=== PATIENT | female | born 1970 | race Hispanic/Latino ===

== ENCOUNTER 2019-06-06 20:45 | Inpatient (IN) | payer OTHER, SELFPAY ==
--- NOTE | ~2019-06-06 | XR_ITS ---
XR knee LT 2V 06/07/2019 14:56 Indication: Left knee pain after fall upstairs. Left-sided weakness. Procedure: 2 views left knee Comparison: No prior studies for comparison. Findings: There is a nondisplaced proximal fibular metadiaphyseal fracture. Small joint effusion. Ext ensive arterial calcification. No other fracture identified. Impression: 1: Nondisplaced proximal fibular metadiaphyseal fracture. Reviewed, dictated and finalized at location A. Impression: 1: Nondisplaced proximal fibular metadiaphyseal fracture.
--- NOTE | ~2019-06-06 | XR_ITS ---
XR hip LT min 2V 06/07/2019 14:56 Indication: Left hip pain Procedure: 2 views left hip Comparison: 08/01/2018 Findings: No fracture or traumatic malalignment. There is mild joint space narrowing. No erosive goldman ges. No significant soft tissue abnormality. Impression: 1: Mild osteoarthritis of the left hip. Reviewed, dictated and finalized at location A. Impression: 1: Mild osteoarthritis of the left hip.
--- NOTE | ~2019-06-06 | XR_ITS ---
XR foot LT min 3V 06/06/2019 22:46 Indication: Diabetic ulcer fifth toe Procedure: 4 views left foot Comparison: No prior studies for comparison. Findings: There is a small loose body along the lateral margin of the fifth PIP joint, likely related to remote trauma. No definite osteolytic lesions are seen. There is overlying soft tissue swelling w ith ulceration. Small degenerative calcaneal enthesophyte. There are arterial calcifications. There i s a linear radiodensity adjacent to the second DIP joint. Cannot exclude foreign body. Impression: 1: No definite evidence for osteomyelitis of the left foot. Moderate soft tissue swelling with ulcera tion of the soft tissues overlying the fifth toe. 2: Possible linear foreign body in the soft tissues adjacent to the second DIP joint. Reviewed, dictated and finalized at location A. Impression: 1: No definite evidence for osteomyelitis of the left foot. Moderate soft tissu e swelling with ulceration of the soft tissues overlying the fifth toe. 2: Possible linear foreign body in the soft tissues adjacent to the second DIP joint.
--- NOTE | ~2019-06-06 | MR_ITS ---
EXAMINATION: MR foot LT wo/w con DATE: 06/07/2019 14:51 INDICATION: Left fifth toe diabetic ulcer. TECHNIQUE: Magnetic resonance imaging (MRI) of the left foot was performed without and with 19 mL Mul tiHance intravenous contrast. Sequences included sagittal T2-weighted FS FSE and T1-weighted FSE and short-axis and long-axis T1-weighted FSE and T2-weighted FS FSE. Postcontrast sequences included shor t-axis and long-axis T1-weighted FS FSE. COMPARISON: Left foot radiographs 06/06/2019 FINDINGS: Bone alignment is normal. No fracture. There is mild osteoarthritis of first metatarsophala ngeal joint and some of the interphalangeal joints. There is an ulcer lateral to the fifth proximal a nd middle phalanges. There is mild bone marrow edema of fifth middle phalanx and head of fifth proxim al phalanx characterized by mildly decreased T1-weighted signal intensity. Lisfranc ligament is intac t. There is moderate to severe fatty atrophy of the musculature. There is widespread increased T2-rudi ghted signal intensity in the musculature, consistent with subacute denervation. The flexor and exten sor tendons are unremarkable. IMPRESSION: 1. Acute osteomyelitis involving fifth middle phalanx and head of fifth proximal phalanx. Reviewed, dictated and finalized at location A. IMPRESSION: 1. Acute osteomyelitis involving fifth middle phalanx and head of fifth proxima l phalanx.
[2019-06-06 20:50] VITALS: BP 141/111; PULSE 92; RESP 20; TEMP 36.8; O2SAT 100
--- NOTE | 2019-06-06 22:26 | ED.SKABFB ---
HPI - Skin/Abscess/Foreign Bdy General Chief complaint: Skin/Abscess/Foreign Body Stated complaint: diabetic wound Time Seen by Provider: 06/06/19 22:25 Source: patient and RN notes reviewed Mode of arrival: ambulatory Limitations: no limitations History of Present Illness HPI narrative: A 48 y/o female presents to the ED with a worsening painful wound to her lt 5th toe for the past 2 months. She states that tonight she noticed drainage and a odor, so she decided to come to the ED. She denies any fevers, chills, N/V/D, or SOB. complaint: other (painful wound) Onset (ago): month(s) (2) Location: L foot (5th toe) Pain Consistency: other (worsening) Associated symptoms: other (drainage and odor from wound) Related Data Home Medications Medication Instructions Recorded Confirmed aspirin 06/07/19 atorvastatin 06/07/19 cholecalciferol (vitamin D3) 06/07/19 [Dialyvite Vitamin D3 Max] ergocalciferol (vitamin D2) 06/07/19 ertugliflozin [Steglatro] mg 06/07/19 famotidine 06/07/19 ferrous sulfate 06/07/19 furosemide 06/07/19 gabapentin 06/07/19 hydralazine 06/07/19 insulin lispro [Admelog U-100 06/07/19 Insulin lispro] losartan 06/07/19 metformin mg PO 06/07/19 metoprolol tartrate 06/07/19 spironolactone 06/07/19 Allergies Allergy/AdvReac Type Severity Reaction Status Date / Time hydrocodone AdvReac Severe Headache Verified 01/21/18 07:41 Penicillins AdvReac Mild Nausea Verified 01/21/18 07:41 Review of Systems Review of Systems: All systems reviewed & are unremarkable except as noted in HPI and below Constitutional: Constitutional: Denies chills and Denies fever(s) Respiratory: Respiratory: Denies dyspnea Gastrointestinal: Gastrointestinal: Denies diarrhea, Denies nausea and Denies vomiting Integumentary/Breasts: Skin/Breast: Reports wounds (to lt 5th toe with drainage and odor) [facility] Past Medical History Medical History (Updated 06/07/19 @ 00:59 by Jayla Vega MD) Anemia DM II (diabetes mellitus, type II), controlled Glaucoma H/O: HTN (hypertension) HLD (hyperlipidemia) Peripheral neuropathy Retinopathy due to secondary diabetes mellitus Surgical History Surgical History (Updated 06/06/19 @ 22:43 by Gregory De Los Santos) History of dilation and curettage History of hysterectomy Previous section x2. Social History Social History (Updated 06/06/19 @ 22:44 by Gregory De Los Santos) Smoking status: Never smoker Gender identity (if verbalized by the patient): Female Exam Const: General: cooperative, no acute distress and alert Nutritional Appearance: obese centrally obese (morbidly) Orientation/consciousness: patient oriented x3 Limitations: no limitations Resp: Effort & Inspection: normal respiratory effort Auscultation: clear to auscultation bilaterally Cardio: Rate: regular rate Rhythm: regular rhythm GI: GI Palp: Yes Soft to palpation and No Tenderness to palpation present (GI) Auscultation: normal bowel sounds Skin: General skin exam: normal color Wounds: wounds noted (ulcer on lateral aspect of lt 5th toe with) Neuro: General: patient oriented x3 Cognition (Neuro): normal cognition Speech: normal speech Extrem: General: full ROM and no clubbing, cyanosis or edema Left lower extremity: foot Details: tenderness (diffuse), warmth (diffuse) and other (faint erythema) Psych: Mental Status: mental status grossly normal Affect: normal affect Attitude: cooperative Course Course Emergency Course: Patient with findings of diabetic foot ulcer that is infected with possibility of osteomyelitis based on test results. Patient admitted to hospitalist service on broad-spectrum IV antibiotics targeted based on antibiotic stewardship order set for diabetic infections. Patient advised diagnosis and admission plan. Consultations Consultation #1: Discussed case with Dr. Campbell (Hospitalist). Accepts the pt. Date: 06/07/19 Time: 00:25 Vital Signs Vital si
[2019-06-06 23:39] LABS: Lactic Acid Reflex 2.8 mmol/L (0.7-2.1)
[2019-06-06 23:41] LABS: Alanine Aminotransferase 19 U/L (4-35); Albumin Level 3.7 g/dL (3.5-5.1); Alkaline Phosphatase 145 U/L (38-126); Aspartate Amino Transferase 24 U/L (14-36); Bilirubin,Total 0.3 mg/dL (0.2-1.3); Blood Urea Nitrogen 10 mg/dL (7-17); CRP 1.8 mg/dL (<1.0); Carbon Dioxide 29 mmol/L (22-30); Chloride 101 mmol/L (98-107); Estimated Glomerular Filt Rate > 60; Glucose 240 mg/dL (65-105); Potassium 4.1 mmol/L (3.4-5.0); Sodium 138 mmol/L (137-145)
[2019-06-06 23:51] LABS: Erythrocyte Sedimentation Rate 80 mm/hr (0-20)
[2019-06-06 23:52] LABS: Basophils Percent Auto 0.4 % (0.2-1.2); Eosinophils Absolute Auto 0.2 K/mm3 (0-0.3); Hematocrit 38.5 % (37.0-47.0); Hemoglobin 12.3 g/dL (12.0-15.0); Immature Granulocyte Absolute 0.04 K/mm3 (0.00-0.031); Immature Granulocyte Percent A 0.4 % (0-0.5); Lymphocytes Absolute Auto 2.91 K/mm3 (0.9-3.2); Lymphocytes Percent Auto 31.9 % (18.3-44.2); Mean Corpuscular HGB Conc 31.9 g/dl (32-36); Mean Corpuscular Hemoglobin 29.6 pg (26-34); Mean Corpuscular Volume 92.8 fl (80-100); Mean Platelet Volume 12.7 fl (7.4-10.4); Monocytes Absolute Auto 0.6 K/mm3 (0.1-0.6); Monocytes Percent Auto 6.7 % (2.6-8.5); Neutrophils Absolute Auto 5.3 K/mm3 (1.3-6.7); Neutrophils Percent Auto 58.6 % (45.5-73.1); Platelet Count Result 258 k/mm3 (150-375); Red Blood Count 4.15 M/mm3 (4.2-5.4); Red Cell Distribution Width 13.7 % (11.5-14.5); White Blood Count 9.1 K/mm3 (4.5-10.0)
[2019-06-07] VITALS (7 sets, daily range): BP systolic 107–161; BP diastolic 62–97; PULSE 81–105; RESP 18–20; TEMP 36.7–37.2; O2SAT 96–100; BMI 40.1
--- NOTE | 2019-06-07 01:17 | ADMGEN ---
This patient, Hillary Bailey, was admitted to 3 [facility] Surg Room 328-01. Patient/family oriented to hospital policies and general routines including ID bracelet, bed and alarms, visiting hours, pain management, procedures, bathroom and other care routines, personal items, smoking policy, room service/diet, and visiting hours. Valuables list has been completed. Information on how to activate the Rapid Response Team has been discussed. Patient/Family are encouraged to report perceived risks to care and to ask questions if they do not understand what they are told or what they should do.
[2019-06-07 02:09] LABS: Glucose Point of Care 238 (65-105)
[2019-06-07 02:23] LABS: Reflex Lactic Acid Yes or No Add Lactic
[2019-06-07 02:59] LABS: Lactic Acid 1.9 mmol/L (0.7-2.1)
--- NOTE | 2019-06-07 05:52 | PM.IMHP ---
H&P: HPI History of Present Illness Chief complaint: Left foot wound Narrative: Date and time of patient contact: 06/07/2019 at 6:00 a.m. Hillary Bailey is a 48 year old female with a past medical history of nephrotic syndrome, type 2 diabetes mellitus, diabetic retinopathy, and diabetic peripheral neuropathy who presented to the ER with a left foot wound. The patient thinks that she injured her foot about 2 months ago when she stubbed it coming out of the bathroom. Her boyfriend has been trying to manage the wound at home with Neosporin. Both the patient and the boyfriend felt that the patient's wound was getting better so they did not go to her primary care provider regarding her wound. The patient thinks that she last saw the wound on Friday. When she went to wash her foot on Friday she noticed a foul odor coming from her foot. Her foot was also more erythematous and swollen. She reports that her fasting glucoses are usually around 130 and that her evening glucoses are usually in the 200s as long as she does not eat extra snacks. She denies any fevers or chills. She reports that she cannot feel her feet at all. She denies any pain in her foot. The patient reports that she recently had all of her teeth pulled. She has not yet received dentures. Review of Systems Review of Systems: Narrative: Except as documented in the HPI, all other systems were reviewed and are negative. [facility] Past Medical History Medical History (Updated 06/07/19 @ 06:56 by Soniya Campbell DO) Anemia Diabetic peripheral neuropathy Diastolic heart failure Echocardiogram May 2017 demonstrated grade 2 diastolic dysfunction with normal ejection fraction, moderate left atrial enlargement, RVSP 62, moderate tricuspid regurgitation Essential hypertension Glaucoma HLD (hyperlipidemia) Left-sided weakness Since infancy Nephrotic range proteinuria Due to diabetes Pulmonary hypertension With RVSP of 62 on echocardiogram May 2017 Retinopathy due to secondary diabetes mellitus Type 2 diabetes mellitus Vitamin D deficiency Surgical History Surgical History (Updated 06/07/19 @ 07:19 by Soniya Campbell DO) History of dilation and curettage Previous section x2. Status post total abdominal hysterectomy and bilateral salpingo-oophorectomy (TADEO-BSO) Laparoscopic Family History Family History Other Cerebrovascular accident Diabetes mellitus Social History Social History (Updated 06/07/19 @ 07:20 by Soniya Campbell, ) Social History: She has 3 children who reportedly healthy. Primary care provider: Kimmy Cool HAND MIXER Code status: Full code Smoking status: Never smoker Alcohol intake: never Substance use: never Additional living arrangements comments: The patient lives with her long-term boyfriend in [facility]. She would like her boyfriend Tan Gillespie to [facility] surrogate decision maker. Additional occupation/education comments: She is disabled. She rarely leaves the house. Gender identity (if verbalized by the patient): Female Spiritual care concerns: No Agree to blood products: Yes Meds Home Medications and Allergies Home Medications Medication Instructions Recorded Confirmed Type aspirin 1 tablet PO QPM 06/07/19 06/07/19 History atorvastatin 1 mg PO HS 06/07/19 06/07/19 History cholecalciferol (vitamin D3) 50,000 mcg PO QPM 06/07/19 06/07/19 History [Dialyvite Vitamin D3 Max] ertugliflozin [Steglatro] 15 mg PO QPM 06/07/19 06/07/19 History famotidine 40 mg PO QPM 06/07/19 06/07/19 History ferrous sulfate 325 mg PO QPM 06/07/19 06/07/19 History furosemide 40 mg PO QPM 06/07/19 06/07/19 History gabapentin 300 mg PO QID 06/07/19 06/07/19 History hydralazine 25 mg PO QPM 06/07/19 06/07/19 History insulin lispro [Admelog U-100 100 unit SUBCUT DIRECTED 06/07/19 06/07/19 History Insulin lispro] losartan 10
[2019-06-07 07:38] LABS: Hemoglobin A1C 9.8 % (<5.7)
[2019-06-07 07:58] LABS: Glucose Point of Care 263 (65-105)
[2019-06-07] MEDS: metFORMIN HCL XR 500 MG TAB.SR.24H PO ×4 (08:02→21:10)
[2019-06-07] MEDS: GABAPENTIN 300 MG CAPSULE PO ×4 (08:02→21:09)
[2019-06-07] MEDS: INSULIN ASPART (*BKC) 100 UNITS/ML SUB-Q ×3 (08:03→17:25)
[2019-06-07] MEDS: INSULIN GLARGINE (*BKC) 100 UNITS/ML 50 UNITS SUB-Q (08:03)
[2019-06-07] MEDS: ENOXAPARIN 40 MG/0.4 ML SYRINGE SUB-Q (08:04)
[2019-06-07 11:56] LABS: Glucose Point of Care 295 (65-105)
[2019-06-07 17:17] LABS: Glucose Point of Care 222 (65-105)
[2019-06-07] MEDS: FUROSEMIDE 40 MG TABLET PO (17:23)
[2019-06-07] MEDS: hydrALAZINE HCL 25 MG TABLET PO (17:23)
[2019-06-07] MEDS: LOSARTAN POTASSIUM 100 MG TABLET PO (17:23)
[2019-06-07] MEDS: SPIRONOLACTONE 25 MG TABLET PO (17:23)
[2019-06-07] MEDS: FAMOTIDINE 20 MG TABLET 40 MG PO (17:23)
[2019-06-07] MEDS: ASPIRIN 81 MG CHEWABLE TABLET PO (17:24)
[2019-06-07] MEDS: METOPROLOL TARTRATE 50 MG TAB PO (17:24)
[2019-06-07] MEDS: FERROUS SULFATE 324 MG TABLET PO (17:24)
--- NOTE | 2019-06-07 18:43 | PM.IMPN ---
Progress Note: A&P Assessment and Plan (1) Osteomyelitis of toe of left foot: Code(s): M86.9 - Osteomyelitis, unspecified Status: Acute Assessment and Plan: Day 1 Primaxin and Vanc ID and surgery to see Most expeditious therapy likely includes amputation (2) Diabetic foot ulcer: Qualifiers: Diabetes mellitus type: type 2 Diabetic foot ulcer location: toe Laterality: left Non-pressure ulcer stage: unspecified non-pressure ulcer stage Qualified Code(s): E11.621 - Type 2 diabetes mellitus with foot ulcer; L97.529 - Non-pressure chronic ulcer of other part of left foot with unspecified severity Code(s): E11.621 - Type 2 diabetes mellitus with foot ulcer; L97.509 - Non-pressure chronic ulcer of other part of unspecified foot with unspecified severity Status: Acute Assessment and Plan: Van/Primaxin Wound care (3) Type 2 diabetes mellitus with hyperglycemia: Qualifiers: 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 Tolerated diet. No cp or sob. No gi/gu c/o. No abnormal bleeding. Review of Systems Review of Systems: All systems reviewed & are unremarkable except as noted in HPI and below Exam Narrative: Exam Narrative: HEENT: Mucous membranes are moist, edentulous Neck: No JVD Respiratory: Clear to auscultation bilaterally, no increased work of breathing Cardiovascular: Regular rate, normal S1-S2, no murmur Gastrointestinal: Obese, soft, normoactive bowel sounds, moderate erythema to the left 5th toe and left lateral forefoot with left distal lateral toe ulcer about 1cm Extremities: 2+ bilateral pedal pulses, 1+ pitting edema pretibial bilaterally Neurological: Alert and oriented, speech is clear, no facial asymmetry Psychiatric: Appropriate mood and affect, pleasant and cooperative Objective Data Vital Signs Vital Signs: Vital Signs - 24 hr 06/06/19 20:50 06/07/19 01:01 06/07/19 02:00 Temperature 98.3 F 98.9 F Pulse Rate 92 81 87 Respiratory Rate 20 18 18 Blood Pressure 141/111 H 146/73 H 133/64 Pulse Oximetry 100 96 100 06/07/19 06:00 06/07/19 08:51 06/07/19 15:58 Temperature 98.6 F 98.2 F 98.0 F Pulse Rate 93 105 H 96 Respiratory Rate 18 20 18 Blood Pressure 147/62 H 161/97 H 137/79 Pulse Oximetry 98 100 100 06/07/19 17:24 Temperature Pulse Rate 96 Respiratory Rate Blood Pressure Pulse Oximetry Intake/Output Intake/Output: Intake & Output 06/04/19 06/05/19 06/06/19 06/07/19 22:59 22:59 23:59 23:59 Intake Total 2390 Output Total 1999 Balance 390 Meds/Results Medications: Active Medications Generic Name Dose Route Start Last Admin Trade Name Freq PRN Reason Stop Dose Admin Acetaminophen 650 mg 06/07/19 00:42 Tylenol Tablet PO Q4H PRN Mild Pain (1-3) or Fever Aspirin 81 mg 06/07/19 17:00 06/07/19 17:24 Aspirin Chewable PO 81 mg DAILY@1700 [facility] Administration Atorvastatin Calcium 20 mg 06/07/19 21:00 Lipitor PO HS JENNIFER Dextrose 12.5 gm 06/07/19 05:49 Dextrose 50% Syringe IV PUSH PRN PRN Hypoglycemia Protocol Enoxaparin Sodium 40 mg 06/07/19 09:00 06/07/19 08:04 Lovenox SUB-Q 40 mg DAILY JENNIFER Administration Famotidine 40 mg 06/07/19 18:00 06/07/19 17:23 Pepcid PO 40 mg QPM JENNIFER Administration Ferrous Sulfate 324 mg 06/07/19 17:00 06/07/19 17:24 Ferrous Sulfate PO 324 mg DAILY@1700 JENNIFER Administration Furosemide 40 mg 06/07/19 17:00 06/07/19 17:23 Lasix Tablet PO 40 mg DAILY@1700 [facility] Administration Gabap
[2019-06-07] MEDS: ATORVASTATIN 20 MG TABLET PO (21:09)
[2019-06-07 23:33] LABS: Glucose Point of Care 250 (65-105)
[2019-06-08 06:00] VITALS: BP 131/64; PULSE 84; RESP 18; TEMP 36.3; O2SAT 96
[2019-06-08 06:41] LABS: Hematocrit 34.5 % (37.0-47.0); Hemoglobin 11.1 g/dL (12.0-15.0); Mean Corpuscular HGB Conc 32.2 g/dl (32-36); Mean Corpuscular Volume 93.2 fl (80-100); Mean Platelet Volume 12.4 fl (7.4-10.4); Platelet Count Result 231 k/mm3 (150-375); Red Cell Distribution Width 13.5 % (11.5-14.5); White Blood Count 9.4 K/mm3 (4.5-10.0)
[2019-06-08 06:53] LABS: Blood Urea Nitrogen 12 mg/dL (7-17); CRP 1.8 mg/dL (<1.0); Calcium 8.7 mg/dL (8.4-10.2); Carbon Dioxide 28 mmol/L (22-30); Chloride 103 mmol/L (98-107); Estimated CRCL calculation 106 ml/min; Estimated Glomerular Filt Rate > 60; Glucose 170 mg/dL (65-105); Potassium 3.7 mmol/L (3.4-5.0); Sodium 138 mmol/L (137-145)
[2019-06-08] MEDS: GABAPENTIN 300 MG CAPSULE PO ×4 (08:54→21:41)
[2019-06-08] MEDS: metFORMIN HCL XR 500 MG TAB.SR.24H PO ×4 (08:54→21:41)
[2019-06-08] MEDS: ENOXAPARIN 40 MG/0.4 ML SYRINGE SUB-Q (08:54)
[2019-06-08] MEDS: INSULIN ASPART (*BKC) 100 UNITS/ML SUB-Q ×4 (08:59→17:50)
[2019-06-08] MEDS: INSULIN GLARGINE (*BKC) 100 UNITS/ML 50 UNITS SUB-Q (09:00)
[2019-06-08 09:38] LABS: Vancomycin Trough 27.4 ug/mL (10.0-20.0)
[2019-06-08 09:50] LABS: Glucose Point of Care 166 (65-105)
[2019-06-08 13:02] LABS: Glucose Point of Care 294 (65-105)
--- NOTE | 2019-06-08 13:50 | WPDINFPN2 ---
Progress Note: A&P Assessment and Plan (1) Osteomyelitis of toe of left foot: Code(s): M86.9 - Osteomyelitis, unspecified Status: Acute Assessment and Plan: Acute OM L 5th toe. DM REC A1C. Ctx #1 and Vanc #2. I recommend amputation of toe, but emphasized that decision is up to her and Dr. Menon. If no surgery, 6 weeks IV therapy, no guarantee of cure. Subjective Date/time seen: 06/08/19 13:50 Objective Data Vital Signs Vital Signs: Vital Signs - 24 hr 06/07/19 15:58 06/07/19 17:24 06/07/19 22:00 Temperature 36.7 C 37.1 C Pulse Rate 96 96 92 Respiratory Rate 18 18 Blood Pressure 137/79 107/76 Pulse Oximetry 100 100 06/08/19 06:00 Temperature 36.3 C L Pulse Rate 84 Respiratory Rate 18 Blood Pressure 131/64 Pulse Oximetry 96 Intake/Output Intake/Output: Intake & Output 06/05/19 06/06/19 06/07/19 06/08/19 22:59 23:59 23:59 23:59 Intake Total 2390 1370 Output Total 1999 Balance 390 1370 Meds/Results Medications: Active Medications Generic Name Dose Route Start Last Admin Trade Name Freq PRN Reason Stop Dose Admin Acetaminophen 650 mg 06/07/19 00:42 Tylenol Tablet PO Q4H PRN Mild Pain (1-3) or Fever Aspirin 81 mg 06/07/19 17:00 06/07/19 17:24 Aspirin Chewable PO 81 mg DAILY@1700 JENNIFER Administration Atorvastatin Calcium 20 mg 06/07/19 21:00 06/07/19 21:09 Lipitor PO 20 mg HS JENNIFER Administration Dextrose 12.5 gm 06/07/19 05:49 Dextrose 50% Syringe IV PUSH PRN PRN Hypoglycemia Protocol Enoxaparin Sodium 40 mg 06/07/19 09:00 06/08/19 08:54 Lovenox SUB-Q 40 mg DAILY JENNIFER Administration Famotidine 40 mg 06/07/19 18:00 06/07/19 17:23 Pepcid PO 40 mg QPM JENNIFER Administration Ferrous Sulfate 324 mg 06/07/19 17:00 06/07/19 17:24 Ferrous Sulfate PO 324 mg DAILY@1700 JENNIFER Administration Furosemide 40 mg 06/07/19 17:00 06/07/19 17:23 Lasix Tablet PO 40 mg DAILY@1700 JENNIFER Administration Gabapentin 300 mg 06/07/19 09:00 06/08/19 12:32 Neurontin PO 300 mg QID JENNIFER Administration Glucagon 1 mg 06/07/19 05:49 Glucagon For Inj IM PRN PRN Hypoglycemia Protocol Glucose 15 gm 06/07/19 05:49 Glutose 15 PO PRN PRN Hypoglycemia Protocol Hydralazine HCl 25 mg 06/07/19 17:00 06/07/19 17:23 Apresoline Tablet PO 25 mg DAILY@1700 JENNIFER Administration Dextrose 1,000 mls @ 100 mls/hr 06/07/19 05:49 Dextrose 5% 1,000 Ml IVPB PRN PRN Hypoglycemia Protocol Vancomycin HCl 1,750 mg in 500 mls @ 250 mls/hr 06/08/19 22:00 Vancomycin 1,750 Mg/D5w 500 Ml IVPB Q24H JENNIFER Ceftriaxone Sodium 2 gm in 100 mls @ 200 mls/hr 06/08/19 13:50 Rocephin 2 Gm/D5w 100 Ml IVPB Q24H JENNIFER Insulin Aspart 3 - 6 units 06/07/19 08:00 06/08/19 12:57 Novolog SUB-Q 4 units TIDWM JENNIFER Administration Protocol Insulin Aspart 5 units 06/08/19 08:00 06/08/19 12:56 Novolog 0.05 units/kg (5 units) 5 units SUB-Q Administration TIDWM [facility] Insulin Glargine 50 units 06/07/19 09:00 06/08/19 09:00 Lantus SUB-Q 50 units DAILY JENNIFER Administration Losartan Potassium 100 mg 06/07/19 17:00 06/07/19 17:23 Cozaar PO 100 mg DAILY@1700 JENNIFER Administration Metformin HCl 500 mg 06/07/19 08:00 06/08/19 12:32 Glucophage Xr PO 500 mg WMHS JENNIFER Administration Metoprolol Tartrate 50 mg 06/07/19 17:00 06/07/19 17:24 Lopressor PO 50 mg DAILY@1700 JENNIFER Administration Non-Formulary Medication 15 mg 06/07/19 18:00 Ertugliflozin [Steglatro] PO 07/07/19 18:01 QPM JENNIFER Spironolactone 25 mg 06/07/19 17:00 06/07/19 17:23 Aldactone PO 25 mg DAILY@1700 [facility] Administration Radiology Results: ITS Impressions Foot X-Ray 06/07/19 08:15 Impression: 1: No definite evidence for osteomyelitis of the left foot. Moderate soft tissue swelling with ulceration
[2019-06-08 14:07] VITALS: BP 155/80; PULSE 89; RESP 18; TEMP 36.6; O2SAT 98
--- NOTE | 2019-06-08 16:25 | PM.IMPN ---
Progress Note: A&P Assessment and Plan (1) Osteomyelitis of toe of left foot: Code(s): M86.9 - Osteomyelitis, unspecified Status: Acute Assessment and Plan: Day 2 , antibiotics Vanc and now ceftriaxone ID and surgery to see Most expeditious therapy likely includes amputation (2) Diabetic foot ulcer: Qualifiers: Diabetes mellitus type: type 2 Diabetic foot ulcer location: toe Laterality: left Non-pressure ulcer stage: unspecified non-pressure ulcer stage Qualified Code(s): E11.621 - Type 2 diabetes mellitus with foot ulcer; L97.529 - Non-pressure chronic ulcer of other part of left foot with unspecified severity Code(s): E11.621 - Type 2 diabetes mellitus with foot ulcer; L97.509 - Non-pressure chronic ulcer of other part of unspecified foot with unspecified severity Status: Acute Assessment and Plan: Van/ceftriaxone Wound care (3) Type 2 diabetes mellitus with hyperglycemia: Qualifiers: 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 [age] year hypertensive type osteomyelitis of left 5th toe denied pain. Tolerated diet. No cp or sob. No gi/gu c/o. No abnormal bleeding. Contemplating surgery versus 6 weeks of IV antibiotics Exam Narrative: Exam Narrative: Blood pressure 154/80 pulse is 86 afebrile HEENT: Pupils equal reactive to light sclera anicteric Neck: No JVD Respiratory: Clear to auscultation bilaterally, Cardiovascular: Regular rate, normal S1-S2, no murmur Gastrointestinal: Obese, soft, normoactive bowel sounds, moderate erythema to the left 5th toe and left lateral forefoot with left distal lateral toe ulcer about 1cm Extremities: 2+ bilateral pedal pulses, 1+ pitting edema pretibial bilaterally Neurological: No focal deficits Psychiatric: Appropriate mood and affect, pleasant and cooperative Objective Data Vital Signs Vital Signs: Vital Signs - 24 hr 06/07/19 17:24 06/07/19 22:00 06/08/19 06:00 Temperature 37.1 C 36.3 C L Pulse Rate 96 92 84 Respiratory Rate 18 18 Blood Pressure 107/76 131/64 Pulse Oximetry 100 96 06/08/19 14:07 Temperature 36.6 C Pulse Rate 89 Respiratory Rate 18 Blood Pressure 155/80 H Pulse Oximetry 98 Intake/Output Intake/Output: Intake & Output 06/05/19 06/06/19 06/07/19 06/08/19 22:59 23:59 23:59 23:59 Intake Total 2390 1610 Output Total 1999 Balance 390 1610 Meds/Results Medications: Active Medications Generic Name Dose Route Start Last Admin Trade Name Freq PRN Reason Stop Dose Admin Acetaminophen 650 mg 06/07/19 00:42 Tylenol Tablet PO Q4H PRN Mild Pain (1-3) or Fever Aspirin 81 mg 06/07/19 17:00 06/07/19 17:24 Aspirin Chewable PO 81 mg DAILY@1700 JENNIFER Administration Atorvastatin Calcium 20 mg 06/07/19 21:00 06/07/19 21:09 Lipitor PO 20 mg HS JENNIFER Administration Dextrose 12.5 gm 06/07/19 05:49 Dextrose 50% Syringe IV PUSH PRN PRN Hypoglycemia Protocol Enoxaparin Sodium 40 mg 06/07/19 09:00 06/08/19 08:54 Lovenox SUB-Q 40 mg DAILY JENNIFER Administration Famotidine 40 mg 06/07/19 18:00 06/07/19 17:23 Pepcid PO 40 mg QPM JENNIFER Administration Ferrous Sulfate 324 mg 06/07/19 17:00 06/07/19 17:24 Ferrous Sulfate PO 324 mg DAILY@1700 JENN[facility]ER Administration Furosemide 40 mg 06/07/19 17:00 06/07/19 17:23 Lasix Tablet PO 40 mg DAILY@1700 JENN[facility]ER Administration Gabapentin 300 mg 06/07/19 09:00 06/08/19 12:32 Neurontin PO 300 mg QID [facility] Ad
[2019-06-08] MEDS: FUROSEMIDE 40 MG TABLET PO (17:44)
[2019-06-08] MEDS: ASPIRIN 81 MG CHEWABLE TABLET PO (17:45)
[2019-06-08] MEDS: hydrALAZINE HCL 25 MG TABLET PO (17:45)
[2019-06-08] MEDS: FERROUS SULFATE 324 MG TABLET PO (17:45)
[2019-06-08] MEDS: LOSARTAN POTASSIUM 100 MG TABLET PO (17:46)
[2019-06-08] MEDS: SPIRONOLACTONE 25 MG TABLET PO (17:46)
[2019-06-08] MEDS: FAMOTIDINE 20 MG TABLET 40 MG PO (17:47)
[2019-06-08 17:53] LABS: Glucose Point of Care 189 (65-105)
--- NOTE | 2019-06-08 18:32 | CONS_ITS ---
DATE OF CONSULTATION: 06/08/2019 REASON FOR CONSULTATION: Osteomyelitis of the left 5th toe. HISTORY OF PRESENT ILLNESS: I was not notified of this consult until half an hour ago. The patient has had diabetes mellitus for the last 17 years since she was with her youngest child and she reports peripheral neuropathy with numbness. She has also had previous stroke, as an , leading to partial paralysis of the left side. About 2 months ago, she thinks she may have stubbed her left 5th toe and since then has had an open wound with intermittent drainage. Several days before the present admission, odor was noticed for the 1st time. She presented to the hospital, was admitted yesterday. She has been given imipenem and vancomycin. She denies any previous trauma, long-term antibiotics in the past for any purpose. She does not recall A1c results, did not check her blood sugars at home. Here, she has had hyperglycemia. ALLERGIES: PENICILLIN CAUSED HEADACHE AND VOMITING. NO OTHER REACTIONS. HABITS: No tobacco. No alcohol to excess. PRESENT MEDICATIONS: Home medication list includes metformin and insulin. PAST MEDICAL HISTORY: Diastolic heart failure, hypertension, glaucoma, hyperlipidemia, nephrotic range proteinuria, pulmonary hypertension, vitamin D deficiency, D and C, , TAHBSO. FAMILY HISTORY: Diabetes and stroke as well. SOCIAL HISTORY: She is single. Does not work outside the home. Her children are 24 and 23 daughters and a 17-year-old son. REVIEW OF SYSTEMS: Hyperglycemia, otherwise endocrine, constitutional, skin, musculoskeletal, GI, respiratory negative. PHYSICAL EXAMINATION: GENERAL: This is a middle-aged female, who appears older than her actual age. No respiratory distress, afebrile since arrival. VITAL SIGNS: 131/64, 84, 18, 96% on room air. SKIN: Warm and dry. EENT: Pupils equal and round. The conjunctivae are normal. No icterus. NECK: Without meningismus, mass or thyromegaly. LUNGS: Clear to auscultation and percussion. CARDIAC: Regular rate and rhythm without murmurs or gallops. NEUROLOGIC: Dorsalis pedis pulses are 1+. ABDOMEN: Morbidly obese. No tenderness, mass or distention. EXTREMITIES: She has 3+ pitting edema at left lower extremity, which is new. She has erythema with a crusted ulcer of the lateral 5th toe on the left, nontender and loss of sensation in the toes. She chronically does not move her toes due to the previous stroke. LABORATORY DATA: Blood cultures, no growth after short incubation. White count 9.4, hemoglobin 11.1, platelets are 231. Her differential not repeated. Creatinine 0.6, glucose 170, after 294, CRP 1.8. Vancomycin trough high at 27. RADIOLOGY: Foot MRI shows findings of osteomyelitis over the proximal and mid phalanges of the left 5th toe. ASSESSMENT: 1. Acute osteomyelitis of the left 5th toe, cutaneous shirley suspected. 2. Diabetes mellitus with peripheral neuropathy. 3. Previous stroke with left hemiplegia. RECOMMENDATIONS: 1. A1c, has not been done in the past per patient, and results will affect her inpatient therapy. 2. I recommend toe amputation, but emphasized that only Dr. Menon can make that recommendation ultimately after discussion with her. 3. If no surgery, then 6 weeks of ceftriaxone and perhaps vancomycin, with no guarantees of cure. FAVIAN HERRING M.D. AUTOMATION CONTROL TECHNICIAN AUTOMATION CONTROL TECHNICIAN D I MT: Naomi
[2019-06-08 21:42] VITALS: PULSE 82
[2019-06-08] MEDS: METOPROLOL TARTRATE 50 MG TAB PO (21:42)
[2019-06-08] MEDS: ATORVASTATIN 20 MG TABLET PO (21:44)
[2019-06-08 21:57] LABS: Glucose Point of Care 192 (65-105)
[2019-06-08 22:00] VITALS: BP 126/79; PULSE 64; RESP 20; TEMP 36.6; O2SAT 98
[2019-06-09 06:00] VITALS: BP 117/60; PULSE 83; RESP 18; TEMP 36.8; O2SAT 98
[2019-06-09 06:28] LABS: Hemoglobin A1C 9.9 % (<5.7)
[2019-06-09 07:31] LABS: Blood Urea Nitrogen 17 mg/dL (7-17); Calcium 8.9 mg/dL (8.4-10.2); Carbon Dioxide 28 mmol/L (22-30); Chloride 105 mmol/L (98-107); Estimated CRCL calculation 92 ml/min; Estimated Glomerular Filt Rate > 60; Glucose 147 mg/dL (65-105); Potassium 3.7 mmol/L (3.4-5.0); Sodium 137 mmol/L (137-145)
[2019-06-09] MEDS: ENOXAPARIN 40 MG/0.4 ML SYRINGE SUB-Q (08:43)
[2019-06-09 08:44] VITALS: PULSE 92
[2019-06-09] MEDS: metFORMIN HCL XR 500 MG TAB.SR.24H PO ×4 (08:44→21:41)
[2019-06-09] MEDS: METOPROLOL TARTRATE 50 MG TAB PO ×2 (08:44→21:47)
[2019-06-09] MEDS: GABAPENTIN 300 MG CAPSULE PO ×4 (08:44→21:41)
[2019-06-09] MEDS: INSULIN GLARGINE (*BKC) 100 UNITS/ML 50 UNITS SUB-Q (08:47)
[2019-06-09] MEDS: INSULIN ASPART (*BKC) 100 UNITS/ML SUB-Q ×4 (08:48→18:11)
[2019-06-09 08:51] LABS: Glucose Point of Care 165 (65-105)
--- NOTE | 2019-06-09 12:15 | WPDINFPN2 ---
Progress Note: A&P Assessment and Plan (1) Osteomyelitis of toe of left foot: Code(s): M86.9 - Osteomyelitis, unspecified Status: Acute Assessment and Plan: 1. Acute OM L 5th toe. 2. DM. poor control with high a1c 3. blood blister opposite toe, no infection REC Ctx #2 and Vanc #3. I recommend amputation of toe, but emphasized that decision is up to her and Dr. Menon. If no surgery, 6 weeks IV therapy, no guarantee of cure. disc with patient and Subjective Date/time seen: 06/09/19 12:15 Interval history: no new complaints Exam Narrative: Exam Narrative: afebrile Const: General: no acute distress Eyes: General: appearance normal, both eyes and all related structures Resp: Effort & Inspection: normal respiratory effort Auscultation: clear to auscultation bilaterally Cardio: Rate: regular rate Rhythm: regular rhythm Heart sounds: no murmurs GI: Inspection: non-distended GI Palp: Yes Soft to palpation and No Tenderness to palpation present (GI) Skin: General skin exam: normal color Other: blood blister right medial 1st toe Objective Data Vital Signs Vital Signs: Vital Signs - 24 hr 06/08/19 14:07 06/08/19 21:42 06/08/19 22:00 Temperature 36.6 C 36.6 C Pulse Rate 89 82 64 Respiratory Rate 18 20 Blood Pressure 155/80 H 126/79 Pulse Oximetry 98 98 06/09/19 06:00 06/09/19 08:44 Temperature 36.8 C Pulse Rate 83 92 Respiratory Rate 18 Blood Pressure 117/60 Pulse Oximetry 98 Intake/Output Intake/Output: Intake & Output 06/06/19 06/07/19 06/08/19 06/09/19 23:59 23:59 23:59 23:59 Intake Total 2390 1860 490 Output Total 1999 Balance 390 1860 490 Meds/Results Medications: Active Medications Generic Name Dose Route Start Last Admin Trade Name Freq PRN Reason Stop Dose Admin Acetaminophen 650 mg 06/07/19 00:42 Tylenol Tablet PO Q4H PRN Mild Pain (1-3) or Fever Aspirin 81 mg 06/07/19 17:00 06/08/19 17:45 Aspirin Chewable PO 81 mg DAILY@1700 JENNIFER Administration Atorvastatin Calcium 20 mg 06/07/19 21:00 06/08/19 21:44 Lipitor PO 20 mg HS JENNIFER Administration Dextrose 12.5 gm 06/07/19 05:49 Dextrose 50% Syringe IV PUSH PRN PRN Hypoglycemia Protocol Enoxaparin Sodium 40 mg 06/07/19 09:00 06/09/19 08:43 Lovenox SUB-Q 40 mg DAILY JENNIFER Administration Famotidine 40 mg 06/07/19 18:00 06/08/19 17:47 Pepcid PO 40 mg QPM JENNIFER Administration Ferrous Sulfate 324 mg 06/07/19 17:00 06/08/19 17:45 Ferrous Sulfate PO 324 mg DAILY@1700 JENNIFER Administration Furosemide 40 mg 06/07/19 17:00 06/08/19 17:44 Lasix Tablet PO 40 mg DAILY@1700 JENNIFER Administration Gabapentin 300 mg 06/07/19 09:00 06/09/19 08:44 Neurontin PO 300 mg QID JENNIFER Administration Glucagon 1 mg 06/07/19 05:49 Glucagon For Inj IM PRN PRN Hypoglycemia Protocol Glucose 15 gm 06/07/19 05:49 Glutose 15 PO PRN PRN Hypoglycemia Protocol Hydralazine HCl 25 mg 06/07/19 17:00 06/08/19 17:45 Apresoline Tablet PO 25 mg DAILY@1700 JENNIFER Administration Dextrose 1,000 mls @ 100 mls/hr 06/07/19 05:49 Dextrose 5% 1,000 Ml IVPB PRN PRN Hypoglycemia Protocol Vancomycin HCl 1,750 mg in 500 mls @ 250 mls/hr 06/08/19 22:00 06/08/19 21:44 Vancomycin 1,750 Mg/D5w 500 Ml IVPB 250 mls/hr Q24H JENNIFER Administration Ceftriaxone Sodium 2 gm in 100 mls @ 200 mls/hr 06/08/19 14:00 06/08/19 15:20 Rocephin 2 Gm/D5w 100 Ml IVPB Infused Q24H [facility] Infusion Insulin Aspart 3 - 6 units 06/07/19 08:00 06/09/19 08:52 Novolog SUB-Q Not Given TIDWM [facility] Protocol Insulin Aspart 5 units 06/08/19 08:00 06/09/19 08:48 Novolog 0.05 units/kg (5 units) 5 units SUB-Q Administration TIDWM [facility] Insulin Glargine 50 units 06/07/19 09:00 06/09/19 08:47 Lantus SUB-Q 50 units DAILY JENNIFER Administration Qamar
[2019-06-09 13:10] LABS: Glucose Point of Care 210 (65-105)
[2019-06-09 14:36] VITALS: BP 112/68; PULSE 89; RESP 18; TEMP 36.5; O2SAT 98
--- NOTE | 2019-06-09 16:50 | PM.IMPN ---
Progress Note: A&P Assessment and Plan (1) Osteomyelitis of toe of left foot: Code(s): M86.9 - Osteomyelitis, unspecified Status: Acute Assessment and Plan: Day 3 , antibiotics Vanc and now ceftriaxone ID and surgery seeing Most expeditious therapy likely includes amputation (2) Diabetic foot ulcer: Qualifiers: Diabetes mellitus type: type 2 Diabetic foot ulcer location: toe Laterality: left Non-pressure ulcer stage: unspecified non-pressure ulcer stage Qualified Code(s): E11.621 - Type 2 diabetes mellitus with foot ulcer; L97.529 - Non-pressure chronic ulcer of other part of left foot with unspecified severity Code(s): E11.621 - Type 2 diabetes mellitus with foot ulcer; L97.509 - Non-pressure chronic ulcer of other part of unspecified foot with unspecified severity Status: Acute Assessment and Plan: Van/ceftriaxone Wound care (3) Type 2 diabetes mellitus with hyperglycemia: Qualifiers: 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 [age] year hypertensive type 2 Diabetic with osteomyelitis of left 5th toe denied pain. Tolerated diet. No cp or sob. No gi/gu c/o. No abnormal bleeding. Contemplating surgery versus 6 weeks of IV antibiotics Exam Narrative: Exam Narrative: Blood pressure 114/68 pulse is 86 afebrile HEENT: Pupils equal reactive to light sclera anicteric Neck: No JVD Respiratory: Clear to auscultation bilaterally, Cardiovascular: Regular rate, normal S1-S2, no murmur Gastrointestinal: Obese, soft, normoactive bowel sounds, moderate erythema to the left 5th toe and left lateral forefoot with left distal lateral toe ulcer about 1cm Extremities: 2+ bilateral pedal pulses, 1+ pitting edema pretibial bilaterally Neurological: No focal deficits Psychiatric: Appropriate mood and affect, pleasant and cooperative Objective Data Vital Signs Vital Signs: Vital Signs - 24 hr 06/08/19 21:42 06/08/19 22:00 06/09/19 06:00 Temperature 36.6 C 36.8 C Pulse Rate 82 64 83 Respiratory Rate 20 18 Blood Pressure 126/79 117/60 Pulse Oximetry 98 98 06/09/19 08:44 06/09/19 14:36 Temperature 36.5 C Pulse Rate 92 89 Respiratory Rate 18 Blood Pressure 112/68 Pulse Oximetry 98 Intake/Output Intake/Output: Intake & Output 06/06/19 06/07/19 06/08/19 06/09/19 23:59 23:59 23:59 23:59 Intake Total 2390 1860 730 Output Total 1999 Balance 390 1860 730 Meds/Results Medications: Active Medications Generic Name Dose Route Start Last Admin Trade Name Freq PRN Reason Stop Dose Admin Acetaminophen 650 mg 06/07/19 00:42 Tylenol Tablet PO Q4H PRN Mild Pain (1-3) or Fever Aspirin 81 mg 06/07/19 17:00 06/08/19 17:45 Aspirin Chewable PO 81 mg DAILY@1700 JENNIFER Administration Atorvastatin Calcium 20 mg 06/07/19 21:00 06/08/19 21:44 Lipitor PO 20 mg HS JENNIFER Administration Dextrose 12.5 gm 06/07/19 05:49 Dextrose 50% Syringe IV PUSH PRN PRN Hypoglycemia Protocol Enoxaparin Sodium 40 mg 06/07/19 09:00 06/09/19 08:43 Lovenox SUB-Q 40 mg DAILY JENNIFER Administration Famotidine 40 mg 06/07/19 18:00 06/08/19 17:47 Pepcid PO 40 mg QPM JENNIFER Administration Ferrous Sulfate 324 mg 06/07/19 17:00 06/08/19 17:45 Ferrous Sulfate PO 324 mg DAILY@1700 JENNIFER Administration Furosemide 40 mg 06/07/19 17:00 06/08/19 17:44 Lasix Tablet PO 40 mg DAILY@1700 JENNIFER Administration Gabapentin 300 mg 06/07/19 09:00 06/09/19 12:35 Ne
[2019-06-09] MEDS: FERROUS SULFATE 324 MG TABLET PO (17:21)
[2019-06-09] MEDS: FUROSEMIDE 40 MG TABLET PO (17:21)
[2019-06-09] MEDS: ASPIRIN 81 MG CHEWABLE TABLET PO (17:21)
[2019-06-09] MEDS: hydrALAZINE HCL 25 MG TABLET PO (17:22)
[2019-06-09] MEDS: SPIRONOLACTONE 25 MG TABLET PO (17:22)
[2019-06-09] MEDS: LOSARTAN POTASSIUM 100 MG TABLET PO (17:22)
[2019-06-09] MEDS: FAMOTIDINE 20 MG TABLET 40 MG PO (17:23)
[2019-06-09 17:48] LABS: Glucose Point of Care 166 (65-105)
--- NOTE | 2019-06-09 18:23 | PM.CNOR ---
Assessment and Plan Assessment and plan (1) Osteomyelitis of toe of left foot: Code(s): M86.9 - Osteomyelitis, unspecified Status: Acute Assessment and Plan: New patient evaluation for chief complaint left small toe diabetic ulcer. History, physical exam and radiographs/MRI reviewed with the patient. Discussed the condition, nature, etiology and course of natural history with the patient. Treatment options including surgical and nonoperative treatment were reviewed. Risks and benefits of each as well as alternatives reviewed. The patient's questions were answered. reviewed once again the option of long-term IV antibiotics with guarded chance of resolution versus surgical treatment with amputation. Each option reviewed in detail with the patient. Her questions answered. She would like to proceed with surgical treatment amputation of small toe left foot. Discussed nonoperative and operative treatment options with the patient. Risks and benefits of each as well as alternatives were reviewed. All of the patient's questions were answered. The risks of surgery reviewed including but not limited to: Neurovascular damage, wound complication, infection, blood clot, pulmonary embolus, stroke, myocardial infarction, and anesthetic risks up to and including . Continued infection, wound problems and possible dysfunction were explained. No guarantees were offered. If complications occur, the patient understands the need for further treatment, possible further surgery. Patient verbalizes understanding and wishes to proceed. 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: with intermediate use Qualified Code(s): E11.65 - Type 2 diabetes mellitus with hyperglycemia; Z79.4 - alf (current) use of insulin Code(s): E11.65 - Type 2 diabetes mellitus with hyperglycemia Status: Acute (3) Diabetic foot ulcer: Qualifiers: Diabetes mellitus type: type 2 Diabetic foot ulcer location: toe Laterality: left Non-pressure ulcer stage: unspecified non-pressure ulcer stage Qualified Code(s): E11.621 - Type 2 diabetes mellitus with foot ulcer; L97.529 - Non-pressure chronic ulcer of other part of left foot with unspecified severity Code(s): E11.621 - Type 2 diabetes mellitus with foot ulcer; L97.509 - Non-pressure chronic ulcer of other part of unspecified foot with unspecified severity Status: Acute History of Present Illness HPI Consult date: 06/09/19 Requesting physician: Ramy Salmeron MD Consult reason: other ( Left small toe diabetic ulcer) Chief complaint: Infected diabetic foot ulcer Narrative: 48-year-old woman with uncontrolled diabetes and severe peripheral neuropathy with 2 month history of ulcer over the dorsal lateral aspect of the left small toe. Patient unaware of exact cause of ulcer. Thinks she may have hit it on the door frame. Self treating until 3 days ago wound swelling and drainage became worse. Presented to the emergency room. Admitted and started on intravenous antibiotics. Patient without pain secondary to neuropathy. Difficulty with balance secondary to neuropathy. Community ambulator without assistive device. No history of previous diabetic foot ulcers or amputations. Review of Systems Constitutional: Constitutional: Denies fever(s) Eyes: Eyes: Denies blurry vision ENT: Reports Normal hearing present Cardiovascular: Cardiovascular: Denies chest pain and Denies dyspnea Respiratory: Respiratory: Denies dyspnea and Denies wheezing Gastrointestinal: Gastrointestinal: Denies abdominal pain Genitourinary: Genitourinary: Denies urinary urgency Musculoskeletal: Musculoskeletal: Reports as per HPI and Denies numbness Integumentary/Breasts: Skin/Breast: Denies changing lesions and Denies sores Neurologic: Reports Normal hearing present, Denies behavioral ch
[2019-06-09] MEDS: ATORVASTATIN 20 MG TABLET PO (21:41)
[2019-06-09 21:47] VITALS: PULSE 86
[2019-06-09 22:00] VITALS: BP 127/85; PULSE 89; RESP 16; TEMP 36.8; O2SAT 100
[2019-06-09 23:44] LABS: Glucose Point of Care 132 (65-105)
[2019-06-10] VITALS (10 sets, daily range): BP systolic 107–150; BP diastolic 51–87; PULSE 84–95; RESP 14–18; TEMP 36.2–37.1; O2SAT 92–100
[2019-06-10 06:43] LABS: Basophils Absolute Auto 0.1 K/mm3 (0.0-0.1); Basophils Percent Auto 0.5 % (0.2-1.2); Eosinophils Absolute Auto 0.2 K/mm3 (0-0.3); Eosinophils Percent Auto 2.2 % (0-4.4); Hemoglobin 11.7 g/dL (12.0-15.0); Immature Granulocyte Absolute 0.07 K/mm3 (0.00-0.031); Immature Granulocyte Percent A 0.7 % (0-0.5); Lymphocytes Absolute Auto 3.27 K/mm3 (0.9-3.2); Lymphocytes Percent Auto 32.6 % (18.3-44.2); Mean Corpuscular HGB Conc 31.6 g/dl (32-36); Mean Corpuscular Hemoglobin 29.4 pg (26-34); Mean Platelet Volume 12.1 fl (7.4-10.4); Monocytes Absolute Auto 0.8 K/mm3 (0.1-0.6); Monocytes Percent Auto 8.2 % (2.6-8.5); Neutrophils Absolute Auto 5.6 K/mm3 (1.3-6.7); Neutrophils Percent Auto 55.8 % (45.5-73.1); Platelet Count Result 244 k/mm3 (150-375); Red Blood Count 3.98 M/mm3 (4.2-5.4); Red Cell Distribution Width 13.5 % (11.5-14.5)
[2019-06-10 07:05] LABS: Blood Urea Nitrogen 19 mg/dL (7-17); Calcium 8.6 mg/dL (8.4-10.2); Carbon Dioxide 27 mmol/L (22-30); Chloride 102 mmol/L (98-107); Estimated CRCL calculation 92 ml/min; Estimated Glomerular Filt Rate > 60; Glucose 132 mg/dL (65-105); Potassium 3.7 mmol/L (3.4-5.0); Sodium 138 mmol/L (137-145)
--- NOTE | 2019-06-10 07:18 | WPDHPUPDATE1 ---
History and Physical Update Update Date/Time: 06/10/19 07:18 History and Physical has been reviewed, including an updated exam of the patient. There are NO changes in the patient's condition. Risks, benefits, and alternatives have been discussed and questions answered. Patient agrees to proceed with procedure.
[2019-06-10] MEDS: INSULIN GLARGINE (*BKC) 100 UNITS/ML 25 UNITS SUB-Q (09:10)
--- NOTE | 2019-06-10 10:19 | PC.NURSE ---
to OR per bed. iv saline locked
[2019-06-10] MEDS: LACTATED RINGERS 1,000 ML 30 ML IV CONT (10:40)
--- NOTE | 2019-06-10 10:42 | WPDANESEPPF ---
Anes - Initial Pre Proc Eval Procedure: Operation Date: 06/10/19 11:30 Proposed Procedures p LEFT FOOT SMALL TOE AMPUTATION - Kojo Menon MD Date/Time: 06/10/19 10:42 Surgeon: Soniya Campbell DO Pre Op Diagnosis: Infected diabetic foot ulcer Patient Data Age: 48 Gender: F Height: 5 ft 1 in Weight: 96.3 kg Last Vital Signs Temp 37.0 C 06/10/19 06:00 Pulse 84 06/10/19 06:00 Resp 16 06/10/19 06:00 BP 111/51 L 06/10/19 06:00 Pulse Ox 99 06/10/19 06:00 Allergies Allergy/AdvReac Type Severity Reaction Status Date / Time hydrocodone AdvReac Severe Headache Verified 01/21/18 07:41 Penicillins AdvReac Mild Nausea Verified 01/21/18 07:41 Home Medications Medication Instructions Recorded Confirmed Type aspirin 1 tablet PO QPM 06/07/19 06/07/19 History atorvastatin 1 mg PO HS 06/07/19 06/07/19 History cholecalciferol (vitamin D3) 50,000 mcg PO QPM 06/07/19 06/07/19 History [Dialyvite Vitamin D3 Max] ertugliflozin [Steglatro] 15 mg PO QPM 06/07/19 06/07/19 History famotidine 40 mg PO QPM 06/07/19 06/07/19 History ferrous sulfate 325 mg PO QPM 06/07/19 06/07/19 History furosemide 40 mg PO QPM 06/07/19 06/07/19 History gabapentin 300 mg PO QID 06/07/19 06/07/19 History hydralazine 25 mg PO QPM 06/07/19 06/07/19 History insulin lispro [Admelog U-100 100 unit SUBCUT DIRECTED 06/07/19 06/07/19 History Insulin lispro] losartan 100 mg PO QPM 06/07/19 06/07/19 History metformin 500 mg PO QID 06/07/19 06/07/19 History metoprolol tartrate 50 mg PO QPM 06/07/19 06/07/19 History spironolactone 25 mg PO QPM 06/07/19 06/07/19 History Laboratory Tests 06/09/19 06/09/19 06/09/19 12:33 17:17 21:45 WBC RBC Hgb Hct MCV MCH MCHC RDW Plt Count MPV Immature Gran % (Auto) Neut % (Auto) Lymph % (Auto) Mobile % (Auto) Eos % (Auto) Baso % (Auto) Lymph # (Auto) Mobile # (Auto) Eos # (Auto) Baso # (Auto) Abs Immat Gran (auto) Absolute Neuts (auto) Absolute Nucleated RBC Nucleated RBC % Sodium Potassium Chloride Carbon Dioxide BUN Creatinine Estim Creat Clear Calc Estimated GFR Glucose POC Capillary Glucose 210 mg/dl H mg/dl 166 mg/dl H mg/dl 132 mg/dl H mg/dl (65-105) (65-105) (65-105) Calcium 06/10/19 06/10/19 06:22 06:22 WBC 10.0 K/mm3 K/mm3 (4.5-10.0) RBC 3.98 M/mm3 L M/mm3 (4.2-5.4) Hgb 11.7 g/dL L g/dL (12.0-15.0) Hct 37.0 % % (37.0-47.0) MCV 93.0 fl fl (80-100) MCH 29.4 pg pg (26-34) MCHC 31.6 g/dl L g/dl (32-36) RDW 13.5 % % (11.5-14.5) Plt Count 244 k/mm3 k/mm3 (150-375) MPV 12.1 fl H fl (7.4-10.4) Immature Gran % (Auto) 0.7 % H % (0-0.5) Neut % (Auto) 55.8 % % (45.5-73.1) Lymph % (Auto) 32.6 % % (18.3-44.2) Mobile % (Auto) 8.2 % % (2.6-8.5) Eos % (Auto) 2.2 % % (0-4.4) Baso % (Auto) 0.5 % % (0.2-1.2) Lymph # (Auto) 3.27 K/mm3 H K/mm3 (0.9-3.2) Mobile # (Auto) 0.8 K/mm3 H K/mm3 (0.1-0.6) Eos # (Auto) 0.2 K/mm3 K/mm3 (0-0.3) Baso # (Auto) 0.1 K/mm3 K/mm3 (0.0-0.1) Abs Immat Gran (auto) 0.07 K/mm3 H K/mm3 (0.00-0.031) Absolute Neuts (auto) 5.6 K/mm3 K/mm3 (1.3-6.7) Absolute Nucleated RBC 0.0 K/mm3 K/mm3 (0.0-0.012) Nucleated RBC % 0.0 % % (0.0-0.2) Sodium 138 mmol/L mmol/L (137-145) Potassium 3.7 mmol/L mmol/L (3.4-5.0) Chloride 102 mmol/L mmol/L (98-107) Carbon Dioxide 27 mmol/L mmol/L (22-30) BUN 19 mg/dL H mg/dL
[2019-06-10 10:51] LABS: Glucose Point of Care 114 (65-105)
--- NOTE | 2019-06-10 12:07 | P.OP_ITS ---
Procedure Note - Detailed Date of procedure: 06/10/19 Pre-op diagnosis: Infected diabetic foot ulcer Post-op diagnosis: same Procedure performed: Left foot small toe amputation Description of procedure: Indications: Patient is a 48-year-old woman with uncontrolled diabetes with chronic left small toe ulceration which probes to bone. MRI demonstrates signal change in the bone of the small toe consistent with osteomyelitis. Patient has opted for amputation. What was done: Patient identified in the preoperative holding. Informed consent given. Operative extremity marked. Patient received intravenous antibiotics. Patient brought to the operating room where underwent general anesthetic by anesthesia team. Positioned supine on operating room table. Time-out performed confirming the patient, site of the surgery and the plan. Le ft foot prep drape show sterile surgical fashion using a Betadine prep solution. Esmarch bandage used at the ankle as a tourniquet. Lipid Koul incision made with 15 blade knife at the base of the small toe. The joint capsule and ligaments at the metatarsophalangeal joint were incised with 15 blade knife and the toe was removed as a whole unit. From the ulcer into the bone the necrotic area was cultured and sent off as specimen any loose debris in the wound was removed with rongeur. Bleeding points were coagulated with electrocautery wounds thoroughly irrigated with antibiotic solution. Fascia was repaired 2 Vicryl interrupted suture. Subcutaneous tissue repaired through 3 0 Monocryl suture and skin repaired 4 nylon interrupted suture. Sterile dressings applied. There was a 1 cm blister noted on the medial aspect of the right hallux. This appeared blood filled. Toe was sterilized with alcohol prep solution. A 22 gauge needle was used to make a small entry point in the proximal aspect of the blister. Approximately 1 cc of blood was able to be expressed. Sterile dress was applied. Patient was then awoke from anesthesia, extubated and taken to recovery room in stable condition. All sponge needle and instrument counts correct in the case. Anesthesia: GETA Surgeon: Kojo Menon MD Technology Education Instructor: wet process miller head assistant Estimated blood loss (mL): 5 Tourniquet time (min): 15 Drains: No Packing: No Pathology: yes (Culture from the left small toe ulcer and bone) Complications: None Condition: stable Disposition: PACU Findings: 1.5 cm ulcer lateral aspect of the left small toe which probe to bone. Bone with necrotic changes on the lateral aspect of the middle and proximal phalanx.
--- NOTE | 2019-06-10 12:54 | SUR.PHASEI ---
1250; PT RESTING QUIETLY. SAO2 DROPS TO 86% ON ROOM AIR. O2 2L NC APPLIED.
--- NOTE | 2019-06-10 13:05 | PC.NURSE ---
patient returned to room from OR
[2019-06-10] MEDS: INSULIN ASPART (*BKC) 100 UNITS/ML SUB-Q ×3 (14:41→18:26)
[2019-06-10 14:42] LABS: Glucose Point of Care 100 (65-105)
[2019-06-10] MEDS: metFORMIN HCL XR 500 MG TAB.SR.24H PO ×3 (14:43→21:04)
[2019-06-10] MEDS: GABAPENTIN 300 MG CAPSULE PO ×3 (14:43→21:04)
[2019-06-10] MEDS: KCL 20 MEQ/D5/0.45% SOD CHL 1,000 ML 80 ML IV CONT (14:45)
--- NOTE | 2019-06-10 15:05 | WPDINFPN2 ---
Progress Note: A&P Assessment and Plan (1) Osteomyelitis of toe of left foot: Code(s): M86.9 - Osteomyelitis, unspecified Status: Acute Assessment and Plan: 1. Acute OM L 5th toe. operative findings noted. POD #0. 2. DM. poor control with high a1c 3. blood blister opposite toe, drained in OR REC Ctx #3 and Vanc #4. Anticipate 48 hours more IV therapy, then oral therapy to complete 14 days post op (though 06/22), treating any residual soft tissue infection Subjective Date/time seen: 06/10/19 15:05 Interval history: no pain. Bs labile Exam Narrative: Exam Narrative: afebrile Const: General: no acute distress Eyes: General: appearance normal, both eyes and all related structures Resp: Effort & Inspection: normal respiratory effort Auscultation: clear to auscultation bilaterally Cardio: Rate: regular rate Rhythm: regular rhythm Heart sounds: no gallops and no murmurs GI: Inspection: non-distended GI Palp: Yes Soft to palpation and No Tenderness to palpation present (GI) Skin: General skin exam: normal color and no rashes or lesions noted Other: foot dressed, no proximal erythema nor warmth nor tenderness Objective Data Vital Signs Vital Signs: Vital Signs - 24 hr 06/09/19 21:47 06/09/19 22:00 06/10/19 06:00 Temperature 36.8 C 37.0 C Pulse Rate 86 89 84 Respiratory Rate 16 16 Blood Pressure 127/85 111/51 L Pulse Oximetry 100 99 06/10/19 10:43 06/10/19 11:56 06/10/19 12:10 Temperature 36.8 C 36.4 C L Pulse Rate 86 90 86 Respiratory Rate 18 17 14 Blood Pressure 122/77 125/81 146/74 H Pulse Oximetry 98 100 100 06/10/19 12:25 06/10/19 12:40 06/10/19 13:05 Temperature 36.2 C L Pulse Rate 86 90 88 Respiratory Rate 15 14 16 Blood Pressure 150/87 H 122/75 143/78 H Pulse Oximetry 97 93 92 06/10/19 14:47 Temperature 37.1 C Pulse Rate 92 Respiratory Rate 16 Blood Pressure 137/71 Pulse Oximetry 97 Intake/Output Intake/Output: Intake & Output 06/07/19 06/08/19 06/09/19 06/10/19 23:59 23:59 23:59 23:59 Intake Total 2390 2360 1610 540 Output Total 1999 600 Balance 390 2360 1610 -60 Meds/Results Medications: Active Medications Generic Name Dose Route Start Last Admin Trade Name Freq PRN Reason Stop Dose Admin Acetaminophen 650 mg 06/07/19 00:42 Tylenol Tablet PO Q4H PRN Mild Pain (1-3) or Fever Aspirin 81 mg 06/07/19 17:00 06/09/19 17:21 Aspirin Chewable PO 81 mg DAILY@1700 [facility] Administration Atorvastatin Calcium 20 mg 06/07/19 21:00 06/09/19 21:41 Lipitor PO 20 mg HS [facility] Administration Dextrose 12.5 gm 06/07/19 05:49 Dextrose 50% Syringe IV PUSH PRN PRN Hypoglycemia Protocol Docusate Sodium 100 mg 06/10/19 17:00 Colace Capsule PO BID [facility] Enoxaparin Sodium 40 mg 06/07/19 09:00 06/10/19 09:05 Lovenox SUB-Q Not Given DAILY [facility] Famotidine 40 mg 06/07/19 18:00 06/09/19 17:23 Pepcid PO 40 mg QPM [facility] Administration Fentanyl Citrate 25 mcg 06/10/19 10:43 Sublimaze IV PUSH Q2M PRN Pain Ferrous Sulfate 324 mg 06/07/19 17:00 06/09/19 17:21 Ferrous Sulfate PO 324 mg DAILY@1700 [facility] Administration Furosemide 40 mg 06/07/19 17:00 06/09/19 17:21 Lasix Tablet PO 40 mg DAILY@1700 [facility] Administration Gabapentin 300 mg 06/07/19 09:00 06/10/19 14:43 Neurontin PO 300 mg QID [facility] Administration Glucagon 1 mg 06/07/19 05:49 Glucagon For Inj IM PRN PRN Hypoglycemia Protocol Glucose 15 gm 06/07/19 05:49 Glutose 15 PO PRN PRN Hypoglycemia Protocol Hydralazine HCl 25 mg 06/07/19 17:00 06/09/19 17:22 Apresoline Tablet PO 25 mg DAILY@1700 [facility] Administration Dextrose 1,000 mls @ 100 mls/hr 06/07/19 05:49 Dextrose 5% 1,000 Ml IVPB PRN PRN Hypoglycemia Protocol Vancomycin HCl 1,750 mg in 500 mls @ 250 mls/hr 06/08/19 22:00 06/09/19 21:50 Vancomyci
--- NOTE | 2019-06-10 16:07 | PM.IMPN ---
Progress Note: A&P Assessment and Plan (1) Osteomyelitis of toe of left foot: Code(s): M86.9 - Osteomyelitis, unspecified Status: Acute Assessment and Plan: Day 4 , antibiotics Vanc and now D# 3 ceftriaxone ID and surgery seeing ID recommends continued IV antibiotics for 48 hours and completing a 14 day course orally (2) Diabetic foot ulcer: Qualifiers: Diabetes mellitus type: type 2 Diabetic foot ulcer location: toe Laterality: left Non-pressure ulcer stage: unspecified non-pressure ulcer stage Qualified Code(s): E11.621 - Type 2 diabetes mellitus with foot ulcer; L97.529 - Non-pressure chronic ulcer of other part of left foot with unspecified severity Code(s): E11.621 - Type 2 diabetes mellitus with foot ulcer; L97.509 - Non-pressure chronic ulcer of other part of unspecified foot with unspecified severity Status: Acute Assessment and Plan: Van/ceftriaxone status post amputation Wound care (3) Type 2 diabetes mellitus with hyperglycemia: Qualifiers: Diabetes mellitus snf insulin use: with snf use Qualified Code(s): E11.65 - Type 2 diabetes mellitus with hyperglycemia; Z79.4 - care home (current) use of insulin Code(s): E11.65 - Type 2 diabetes mellitus with hyperglycemia Status: Acute Assessment and Plan: Continue basal Lantus Cotinue SSI 06/06 added premeal Novolog FBS today 06/09, 100 and HGA1c 9.8 Subjective Date/time seen: 06/10/19 16:07 Interval history: Date of visit 06/09. [age] year hypertensive type 2 Diabetic with osteomyelitis of left 5th toe denied pain. Tolerated diet. No cp or sob. No gi/gu c/o. No abnormal bleeding. Underwent amputation of left 5th toe today Exam Narrative: Exam Narrative: Blood pressure 136/72 pulse is 92 afebrile HEENT: Pupils equal reactive to light sclera anicteric Neck: No JVD Respiratory: Clear to auscultation bilaterally, Cardiovascular: Regular rate, normal S1-S2, no murmur Gastrointestinal: Obese, soft, normoactive bowel sounds, Extremities: 2+ bilateral pedal pulses, 1+ pitting edema pretibial bilaterally, bandage not removed from surgery today Neurological: No focal deficits Psychiatric: Appropriate mood and affect, pleasant and cooperative Objective Data Vital Signs Vital Signs: Vital Signs - 24 hr 06/09/19 21:47 06/09/19 22:00 06/10/19 06:00 Temperature 36.8 C 37.0 C Pulse Rate 86 89 84 Respiratory Rate 16 16 Blood Pressure 127/85 111/51 L Pulse Oximetry 100 99 06/10/19 10:43 06/10/19 11:56 06/10/19 12:10 Temperature 36.8 C 36.4 C L Pulse Rate 86 90 86 Respiratory Rate 18 17 14 Blood Pressure 122/77 125/81 146/74 H Pulse Oximetry 98 100 100 06/10/19 12:25 06/10/19 12:40 06/10/19 13:05 Temperature 36.2 C L Pulse Rate 86 90 88 Respiratory Rate 15 14 16 Blood Pressure 150/87 H 122/75 143/78 H Pulse Oximetry 97 93 92 06/10/19 14:47 Temperature 37.1 C Pulse Rate 92 Respiratory Rate 16 Blood Pressure 137/71 Pulse Oximetry 97 Intake/Output Intake/Output: Intake & Output 06/07/19 06/08/19 06/09/19 06/10/19 23:59 23:59 23:59 23:59 Intake Total 2390 2360 1610 540 Output Total 2000 600 Balance 390 2360 1610 -60 Meds/Results Medications: Active Medications Generic Name Dose Route Start Last Admin Trade Name Freq PRN Reason Stop Dose Admin Acetaminophen 650 mg 06/07/19 00:42 Tylenol Tablet PO Q4H PRN Mild Pain (1-3) or Fever Aspirin 81 mg 06/07/19 17:00 06/09/19 17:21 Aspirin Chewable PO 81 mg DAILY@1700 [facility] Administration Atorvastatin Calcium 20 mg 06/07/19 21:00 06/09/19 21:41 Lipitor PO 20 mg HS [facility] Administration Dextrose 12.5 gm 06/07/19 05:49 Dextrose 50% Syringe IV PUSH PRN PRN Hypoglycemia Protocol Docusate Sodium 100 mg 06/10/19 17:00 Colace Capsule PO BID [facility] Enoxaparin Sodium 40 mg 06/07/19 09:00 06/10/19 09:05 Lovenox S
[2019-06-10 18:01] LABS: Glucose Point of Care 221 (65-105)
[2019-06-10] MEDS: DOCUSATE SODIUM 100 MG CAPSULE PO (18:28)
[2019-06-10] MEDS: FERROUS SULFATE 324 MG TABLET PO (18:28)
[2019-06-10] MEDS: ASPIRIN 81 MG CHEWABLE TABLET PO (18:28)
[2019-06-10] MEDS: hydrALAZINE HCL 25 MG TABLET PO (18:29)
[2019-06-10] MEDS: FUROSEMIDE 40 MG TABLET PO (18:29)
[2019-06-10] MEDS: LOSARTAN POTASSIUM 100 MG TABLET PO (18:30)
[2019-06-10] MEDS: SPIRONOLACTONE 25 MG TABLET PO (18:30)
[2019-06-10] MEDS: FAMOTIDINE 20 MG TABLET 40 MG PO (18:30)
[2019-06-10] MEDS: METOPROLOL TARTRATE 50 MG TAB PO (21:04)
[2019-06-10] MEDS: ATORVASTATIN 20 MG TABLET PO (21:04)
[2019-06-10 21:41] LABS: Vancomycin Trough 16.2 ug/mL (10.0-20.0)
[2019-06-10 22:40] LABS: Glucose Point of Care 160 (65-105)
[2019-06-11] MEDS: MORPHINE SULFATE 4 MG/ML INJ IV PUSH (00:04)
[2019-06-11] MEDS: ONDANSETRON INJ 4 MG/2 ML VIAL IV PUSH (00:08)
[2019-06-11 06:00] VITALS: BP 90/69; PULSE 84; RESP 16; TEMP 36.7; O2SAT 100
[2019-06-11 06:15] LABS: Blood Urea Nitrogen 20 mg/dL (7-17); Calcium 8.4 mg/dL (8.4-10.2); Carbon Dioxide 27 mmol/L (22-30); Chloride 102 mmol/L (98-107); Estimated CRCL calculation 66 ml/min; Estimated Glomerular Filt Rate 60; Glucose 123 mg/dL (65-105); Sodium 136 mmol/L (137-145)
[2019-06-11 07:33] LABS: Glucose Point of Care 112 (65-105)
--- NOTE | 2019-06-11 08:02 | WPDANESPN ---
Anes - Prog Note Post-Op Date/Time: 06/11/19 08:02 Cardiovascular status: normal Respiratory status: normal Airway patency: baseline Mental status: baseline Post-Op hydration status: normal Vital Signs: Last Vital Signs Temp 36.7 C 06/11/19 06:00 Pulse 84 06/11/19 06:00 Resp 16 06/11/19 06:00 BP 90/69 L 06/11/19 06:00 Pulse Ox 100 06/11/19 06:00 I/O: Intake & Output 06/10/19 06/11/19 06/11/19 23:59 07:59 15:59 Intake Total 790 800 Balance 790 800 Laboratory Tests 06/10/19 06:22 06/11/19 05:42 06/10/19 06/10/19 06/10/19 10:49 12:07 14:39 Sodium Potassium Chloride Carbon Dioxide BUN Creatinine Estim Creat Clear Calc Estimated GFR Glucose POC Capillary Glucose 114 H 112 H 100 Calcium Vancomycin Trough 06/10/19 06/10/19 06/10/19 17:09 21:05 21:10 Sodium Potassium Chloride Carbon Dioxide BUN Creatinine Estim Creat Clear Calc Estimated GFR Glucose POC Capillary Glucose 221 H 160 H Calcium Vancomycin Trough 16.2 06/11/19 05:42 Sodium 136 L Potassium 4.0 Chloride 102 Carbon Dioxide 27 BUN 20 H Creatinine 1.00 Estim Creat Clear Calc 66 Estimated GFR 60 Glucose 123 H POC Capillary Glucose Calcium 8.4 Vancomycin Trough Post-procedural complaints: none Patient Feedback: Patient satisfied with anesthetic care.
[2019-06-11 08:14] LABS: Glucose Point of Care 139 (65-105)
--- NOTE | 2019-06-11 08:36 | PM.PNORT ---
Progress Note: A&P Assessment and Plan (1) Osteomyelitis of toe of left foot: Code(s): M86.9 - Osteomyelitis, unspecified Status: Acute Assessment and Plan: Postoperative day 1. Left small toe amputation. No problems overnight. Patient stable. Dressing change today. Antibiotics per guidelines. G stain and cultures pending, lab is a send out. Subjective Subjective Date/Time Seen: 06/11/19 07:45 Awake and alert. No complaints of pain. No problems overnight. Exam Const: General: healthy appearing; No in distress or confusion Orientation/consciousness: patient oriented x3 and No confusion HENMT: Head: normal to inspection, normocephalic and atraumatic Eyes: Conjunctivae: conjunctivae normal Sclera: sclerae normal Resp: Effort & Inspection: normal respiratory effort and no audible wheezes Neuro: General: patient oriented x3 and No confusion Extrem: Other: Left foot dressing in place, clean and dry. Good capillary refill in the remaining toe tips. Absent light touch sensation consistent with neuropathy. Psych: Affect: normal affect Objective Data Vital Signs Vital Signs: Vital Signs - 24 hr 06/10/19 10:43 06/10/19 11:56 06/10/19 12:10 Temperature 98.2 F 97.5 F L Pulse Rate 86 90 86 Respiratory Rate 18 17 14 Blood Pressure 122/77 125/81 146/74 H Pulse Oximetry 98 100 100 06/10/19 12:25 06/10/19 12:40 06/10/19 13:05 Temperature 97.2 F L Pulse Rate 86 90 88 Respiratory Rate 15 14 16 Blood Pressure 150/87 H 122/75 143/78 H Pulse Oximetry 97 93 92 06/10/19 14:47 06/10/19 21:04 06/10/19 22:00 Temperature 98.7 F 97.4 F L Pulse Rate 92 86 95 Respiratory Rate 16 18 Blood Pressure 137/71 107/66 Pulse Oximetry 97 99 06/11/19 06:00 Temperature 98.0 F Pulse Rate 84 Respiratory Rate 16 Blood Pressure 90/69 L Pulse Oximetry 100 Intake/Output Intake/Output: Intake & Output 06/08/19 06/09/19 06/10/19 06/11/19 23:59 23:59 23:59 23:59 Intake Total 2360 2110 1430 800 Output Total 600 Balance 2360 2110 830 800 Meds/Results Medications: Active Medications Generic Name Dose Route Start Last Admin Trade Name Freq PRN Reason Stop Dose Admin Acetaminophen 650 mg 06/07/19 00:42 Tylenol Tablet PO Q4H PRN Mild Pain (1-3) or Fever Aspirin 81 mg 06/07/19 17:00 06/10/19 18:28 Aspirin Chewable PO 81 mg DAILY@1700 [facility] Administration Atorvastatin Calcium 20 mg 06/07/19 21:00 06/10/19 21:04 Lipitor PO 20 mg HS [facility] Administration Dextrose 12.5 gm 06/07/19 05:49 Dextrose 50% Syringe IV PUSH PRN PRN Hypoglycemia Protocol Docusate Sodium 100 mg 06/10/19 17:00 06/10/19 18:28 Colace Capsule PO 100 mg BID [facility] Administration Enoxaparin Sodium 40 mg 06/07/19 09:00 06/10/19 09:05 Lovenox SUB-Q Not Given DAILY [facility] Famotidine 40 mg 06/07/19 18:00 06/10/19 18:30 Pepcid PO 40 mg QPM [facility] Administration Fentanyl Citrate 25 mcg 06/10/19 10:43 Sublimaze IV PUSH Q2M PRN Pain Ferrous Sulfate 324 mg 06/07/19 17:00 06/10/19 18:28 Ferrous Sulfate PO 324 mg DAILY@1700 [facility] Administration Furosemide 40 mg 06/07/19 17:00 06/10/19 18:29 Lasix Tablet PO 40 mg DAILY@1700 [facility] Administration Gabapentin 300 mg 06/07/19 09:00 06/10/19 21:04 Neurontin PO 300 mg QID [facility] Administration Glucagon 1 mg 06/07/19 05:49 Glucagon For Inj IM PRN PRN Hypoglycemia Protocol Glucose 15 gm 06/07/19 05:49 Glutose 15 PO PRN PRN Hypoglycemia Protocol Dextrose 1,000 mls @ 100 mls/hr 06/07/19 05:49 Dextrose 5% 1,000 Ml IVPB PRN PRN Hypoglycemia Protocol Vancomycin HCl 1,750 mg in 500 mls @ 250 mls/hr 06/08/19 22:00 06/11/19 01:30 Vancomycin 1,750 Mg/D5w 500 Ml IVPB Infused Q24H [facility] Infusion Ceftriaxone Sodium 2 gm in 100 mls @ 200 mls/hr 06/08/19 14:00 06/10/19 15:15 Rocephin 2 Gm/D5w
[2019-06-11 10:00] VITALS: BP 102/60; PULSE 88; PULSE 96; RESP 18; TEMP 36.7; O2SAT 98
[2019-06-11] MEDS: METOPROLOL TARTRATE 50 MG TAB PO ×2 (10:00→21:46)
[2019-06-11] MEDS: metFORMIN HCL XR 500 MG TAB.SR.24H PO ×4 (10:00→21:46)
[2019-06-11] MEDS: GABAPENTIN 300 MG CAPSULE PO ×4 (10:01→21:46)
[2019-06-11] MEDS: ENOXAPARIN 40 MG/0.4 ML SYRINGE SUB-Q (10:01)
[2019-06-11] MEDS: INSULIN GLARGINE (*BKC) 100 UNITS/ML 50 UNITS SUB-Q (10:02)
[2019-06-11] MEDS: INSULIN ASPART (*BKC) 100 UNITS/ML SUB-Q ×3 (10:02→18:06)
[2019-06-11] MEDS: ACETAMINOPHEN 325 MG TABLET 650 MG PO (10:18)
[2019-06-11 11:34] LABS: Glucose Point of Care 174 (65-105)
[2019-06-11 14:53] VITALS: BP 141/83; PULSE 96; RESP 18; TEMP 37.1; O2SAT 97
--- NOTE | 2019-06-11 15:16 | WPDINFPN2 ---
Progress Note: A&P Assessment and Plan (1) Osteomyelitis of toe of left foot: Code(s): M86.9 - Osteomyelitis, unspecified Status: Acute Assessment and Plan: 1. Acute OM L 5th toe. operative findings noted. POD #1. 2. DM. poor control with high a1c 3. blood blister opposite toe, drained in OR REC Ctx #4 and Vanc #5, stop after today. In am begin cefdinir through 06/22. If MRSA isolated from OR specimen, then add TMP-SMX DS for same duration, treating any residual soft tissue infection. Ok discharge planning Subjective Date/time seen: 06/11/19 15:16 Interval history: no pain post op no drainage Exam Narrative: Exam Narrative: afebrile Const: General: no acute distress Eyes: General: appearance normal, both eyes and all related structures Resp: Effort & Inspection: normal respiratory effort Cardio: Rate: regular rate Rhythm: regular rhythm Heart sounds: no gallops and no murmurs Skin: General skin exam: normal color and no rashes or lesions noted Other: blood blister flat and without erythema L medial 1st toe Objective Data Vital Signs Vital Signs: Vital Signs - 24 hr 06/10/19 21:04 06/10/19 22:00 06/11/19 06:00 Temperature 36.3 C L 36.7 C Pulse Rate 86 95 84 Respiratory Rate 18 16 Blood Pressure 107/66 90/69 L Pulse Oximetry 99 100 06/11/19 10:00 06/11/19 14:53 Temperature 36.7 C 37.1 C Pulse Rate 96 96 Respiratory Rate 18 18 Blood Pressure 102/60 141/83 H Pulse Oximetry 98 97 Intake/Output Intake/Output: Intake & Output 06/08/19 06/09/19 06/10/19 06/11/19 23:59 23:59 23:59 23:59 Intake Total 2360 2110 1430 1400 Output Total 600 Balance 2360 2110 830 1400 Meds/Results Medications: Active Medications Generic Name Dose Route Start Last Admin Trade Name Freq PRN Reason Stop Dose Admin Acetaminophen 650 mg 06/07/19 00:42 06/11/19 10:18 Tylenol Tablet PO 650 mg Q4H PRN Administration Mild Pain (1-3) or Fever Aspirin 81 mg 06/07/19 17:00 06/10/19 18:28 Aspirin Chewable PO 81 mg DAILY@1700 [facility] Administration Atorvastatin Calcium 20 mg 06/07/19 21:00 06/10/19 21:04 Lipitor PO 20 mg HS [facility] Administration Dextrose 12.5 gm 06/07/19 05:49 Dextrose 50% Syringe IV PUSH PRN PRN Hypoglycemia Protocol Docusate Sodium 100 mg 06/10/19 17:00 06/11/19 10:01 Colace Capsule PO Not Given BID [facility] Enoxaparin Sodium 40 mg 06/07/19 09:00 06/11/19 10:01 Lovenox SUB-Q 40 mg DAILY [facility] Administration Famotidine 40 mg 06/07/19 18:00 06/10/19 18:30 Pepcid PO 40 mg QPM [facility] Administration Fentanyl Citrate 25 mcg 06/10/19 10:43 Sublimaze IV PUSH Q2M PRN Pain Ferrous Sulfate 324 mg 06/07/19 17:00 06/10/19 18:28 Ferrous Sulfate PO 324 mg DAILY@1700 [facility] Administration Furosemide 40 mg 06/07/19 17:00 06/10/19 18:29 Lasix Tablet PO 40 mg DAILY@1700 [facility] Administration Gabapentin 300 mg 06/07/19 09:00 06/11/19 13:33 Neurontin PO 300 mg QID [facility] Administration Glucagon 1 mg 06/07/19 05:49 Glucagon For Inj IM PRN PRN Hypoglycemia Protocol Glucose 15 gm 06/07/19 05:49 Glutose 15 PO PRN PRN Hypoglycemia Protocol Dextrose 1,000 mls @ 100 mls/hr 06/07/19 05:49 Dextrose 5% 1,000 Ml IVPB PRN PRN Hypoglycemia Protocol Vancomycin HCl 1,750 mg in 500 mls @ 250 mls/hr 06/08/19 22:00 06/11/19 01:30 Vancomycin 1,750 Mg/D5w 500 Ml IVPB Infused Q24H [facility] Infusion Ceftriaxone Sodium 2 gm in 100 mls @ 200 mls/hr 06/08/19 14:00 06/11/19 14:56 Rocephin 2 Gm/D5w 100 Ml IVPB 200 mls/hr Q24H [facility] Administration Insulin Aspart 3 - 6 units 06/07/19 08:00 06/11/19 11:35 Novolog SUB-Q Not Given TIDWM [facility] Protocol Insulin Aspart 5 units 06/08/19 08:06/11/19 12:36 Novolog 0.05 units/kg (5 units) 5 units SUB-Q Administration [facility]WM [facility] Insulin Glarg
--- NOTE | 2019-06-11 16:13 | PM.IMPN ---
Progress Note: A&P Assessment and Plan (1) Osteomyelitis of toe of left foot: Code(s): M86.9 - Osteomyelitis, unspecified Status: Acute Assessment and Plan: Day 5 , antibiotics Vanc and now D# 4 ceftriaxone ID and surgery seeing ID recommends continued IV antibiotics until 03/13 and completing a 14 day course orally (2) Diabetic foot ulcer: Qualifiers: Diabetes mellitus type: type 2 Diabetic foot ulcer location: toe Laterality: left Non-pressure ulcer stage: unspecified non-pressure ulcer stage Qualified Code(s): E11.621 - Type 2 diabetes mellitus with foot ulcer; L97.529 - Non-pressure chronic ulcer of other part of left foot with unspecified severity Code(s): E11.621 - Type 2 diabetes mellitus with foot ulcer; L97.509 - Non-pressure chronic ulcer of other part of unspecified foot with unspecified severity Status: Acute Assessment and Plan: Van/ceftriaxone status post amputation Wound care (3) Type 2 diabetes mellitus with hyperglycemia: Qualifiers: Diabetes mellitus extermination supervisor insulin use: with prison use Qualified Code(s): E11.65 - Type 2 diabetes mellitus with hyperglycemia; Z79.4 - extermination supervisor (current) use of insulin Code(s): E11.65 - Type 2 diabetes mellitus with hyperglycemia Status: Acute Assessment and Plan: Continue basal Lantus Cotinue SSI 06/06 added premeal Novolog FBS today 06/10, 123 and HGA1c 9.8 (4) Essential hypertension: Code(s): I10 - Essential (primary) hypertension Status: Acute Assessment and Plan: Blood pressure was low this a.m. but has rebounded. Will continue her losartan and beta-beau and hold hydralazine which she is only taking 1 daily Subjective Date/time seen: 06/11/19 16:13 Interval history: Date of visit 06/10. 48 y/o hypertensive type 2 Diabetic with osteomyelitis of left 5th toe denied pain. Tolerated diet. No cp or sob. No gi/gu c/o. No abnormal bleeding. Underwent amputation of left 5th toe 05/12 Exam Narrative: Exam Narrative: Blood pressure 140/82 ( lower earlier systolic 110)pulse is 96 afebrile HEENT: Pupils equal reactive to light sclera anicteric Neck: No JVD Respiratory: Clear to auscultation bilaterally, Cardiovascular: Regular rate, normal S1-S2, no murmur Gastrointestinal: Obese, soft, normoactive bowel sounds, Extremities: 2+ bilateral pedal pulses, 1+ pitting edema pretibial bilaterally, bandage not removed Neurological: No focal deficits Psychiatric: Appropriate mood and affect, pleasant and cooperative Objective Data Vital Signs Vital Signs: Vital Signs - 24 hr 06/10/19 21:04 06/10/19 22:00 06/11/19 06:00 Temperature 36.3 C L 36.7 C Pulse Rate 86 95 84 Respiratory Rate 18 16 Blood Pressure 107/66 90/69 L Pulse Oximetry 99 100 06/11/19 10:00 06/11/19 14:53 Temperature 36.7 C 37.1 C Pulse Rate 96 96 Respiratory Rate 18 18 Blood Pressure 102/60 141/83 H Pulse Oximetry 98 97 Intake/Output Intake/Output: Intake & Output 06/08/19 06/09/19 06/10/19 06/11/19 23:59 23:59 23:59 23:59 Intake Total 2360 2110 1430 1500 Output Total 600 Balance 2360 2110 830 1500 Meds/Results Medications: Active Medications Generic Name Dose Route Start Last Admin Trade Name Freq PRN Reason Stop Dose Admin Acetaminophen 650 mg 06/07/19 00:42 06/11/19 10:18 Tylenol Tablet PO 650 mg Q4H PRN Administration Mild Pain (1-3) or Fever Aspirin 81 mg 06/07/19 17:00 06/10/19 18:28 Aspirin Chewable PO 81 mg DAILY@1700 [facility] Administration Atorvastatin Calcium 20 mg 06/07/19 21:00 06/10/19 21:04 Lipitor PO 20 mg HS [facility] Administration Cefdinir 300 mg 06/11/19 21:00 Omnicef PO 06/23/19 23:59 Q12HR [facility] Dextrose 12.5 gm 06/07/19 05:49 Dextrose 50% Syringe IV PUSH PRN PRN Hypoglycemia Protocol Docusate Sodium 100 mg 06/10/19 17:00 06/11/19 10:01 Colace Capsule PO Not
[2019-06-11 16:43] LABS: Glucose Point of Care 190 (65-105)
[2019-06-11] MEDS: FAMOTIDINE 20 MG TABLET 40 MG PO (18:04)
[2019-06-11] MEDS: FUROSEMIDE 40 MG TABLET PO (18:05)
[2019-06-11] MEDS: FERROUS SULFATE 324 MG TABLET PO (18:05)
[2019-06-11] MEDS: ASPIRIN 81 MG CHEWABLE TABLET PO (18:05)
[2019-06-11] MEDS: CEFDINIR 300 MG CAPSULE PO (21:45)
[2019-06-11] MEDS: LOSARTAN POTASSIUM 100 MG TABLET PO (21:45)
[2019-06-11 21:46] VITALS: PULSE 92
[2019-06-11] MEDS: ATORVASTATIN 20 MG TABLET PO (21:46)
[2019-06-11 21:58] LABS: Glucose Point of Care 168 (65-105)
[2019-06-11 22:00] VITALS: BP 138/68; PULSE 93; RESP 18; TEMP 36.7; O2SAT 100
[2019-06-12] MEDS: ACETAMINOPHEN 325 MG TABLET 650 MG PO (00:10)
[2019-06-12 06:00] VITALS: BP 100/60; PULSE 92; RESP 16; TEMP 36.8; O2SAT 94
[2019-06-12 09:13] VITALS: O2SAT 95
[2019-06-12 09:24] LABS: Glucose Point of Care 141 (65-105)
[2019-06-12 09:33] VITALS: PULSE 96
[2019-06-12] MEDS: metFORMIN HCL XR 500 MG TAB.SR.24H PO ×2 (09:33→12:52)
[2019-06-12] MEDS: METOPROLOL TARTRATE 50 MG TAB PO (09:33)
[2019-06-12] MEDS: CEFDINIR 300 MG CAPSULE PO (09:33)
[2019-06-12] MEDS: GABAPENTIN 300 MG CAPSULE PO ×2 (09:34→12:52)
[2019-06-12] MEDS: DOCUSATE SODIUM 100 MG CAPSULE PO (09:34)
[2019-06-12] MEDS: ENOXAPARIN 40 MG/0.4 ML SYRINGE SUB-Q (09:35)
[2019-06-12] MEDS: INSULIN GLARGINE (*BKC) 100 UNITS/ML 50 UNITS SUB-Q (09:39)
[2019-06-12] MEDS: INSULIN ASPART (*BKC) 100 UNITS/ML SUB-Q (09:39)
--- NOTE | 2019-06-12 11:36 | PCOTNOTE ---
Patient refused treatment this session due to not wanting to participate in any activities other than being discharged.
--- NOTE | 2019-06-12 16:14 | DS_ITS ---
This report was moved to the correct visit, [id number] on 06/25/2019. Original report was signed by John Werner MD on 06/12/19 at 1614. DS: Diagnosis Discharge Diagnosis (1) Osteomyelitis of toe of left foot: Code(s): M86.9 - Osteomyelitis, unspecified Status: Acute Assessment and Plan: MR revealed osteomyelitis left 5th toe. Patient received IV vancomycin and ceftriaxone. Underwent amputation of toe on 06/09. Culture of toe with growing strep and will finish a 2 week course of antibiotics with cefdinir 300 b.i.d. She will follow-up with Dr. 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 Stress diet to intervention with sliding scale and her basal insulin hear her fasting sugars were in the low 100s she will continue her short-acting insulin with meals, metformin, and Lantus. (3) Essential hypertension: Code(s): I10 - Essential (primary) hypertension Status: Acute Assessment and Plan: Blood pressure was well controlled actually toward low side at times. Apparently she was only taking metoprolol tartrate daily so we increase that to b.i.d. and stopped her wants day hydralazine Blood pressure 110/60 at discharge (4) Diabetic foot ulcer: Qualifiers: Diabetes mellitus type: type 2 Diabetic foot ulcer location: toe Laterality: left Non-pressure ulcer stage: unspecified non-pressure ulcer stage Qualified Code(s): E11.621 - Type 2 diabetes mellitus with foot ulcer; L97.529 - Non-pressure chronic ulcer of other part of left foot with unspecified severity Code(s): E11.621 - Type 2 diabetes mellitus with foot ulcer; L97.509 - Non-pressure chronic ulcer of other part of unspecified foot with unspecified severity Status: Acute Assessment and Plan: Seen in consultation by the wound care team and local treatment DS: Summary Hospital Course Hospital Course: 48-year-old type 2 diabetic admitted with infected cellulitic left 5th toe. MRI revealed osteomyelitis. Was seen in consultation by Orthopedic surgery in [place]. Underwent amputation on 06/09 and ID recommended full 14 days of treatment with cefdinir 300 b.i.d.. Culture of toe grew strep B She will follow-up with primary care 1-2 weeks and with the orthopedic surgery 4-3 Time Spent with Patient Time attestation: Total time spent providing and/or coordinating discharge services: 35 minutes Exam Narrative: Exam Narrative: Condition on discharge Blood pressure 110/60 pulse is 86 afebrile Lungs clear CV regular rate rhythm Abdomen is soft nontender Extremities without edema distal pulses are 2+ Wound intact left foot, dry dressing changes and follow-up on the with orthopedic surgery Discharge Plan Departure Attending Physician: Kojo Menon Primary Care Provider: Kae,Edgardo Prescriptions: No Action furosemide 40 mg tablet 40 mg PO QPM RF: 0 atorvastatin 20 mg tablet 1 mg PO HS RF: 0 famotidine 40 mg tablet 40 mg PO QPM RF: 0 spironolactone 25 mg tablet 25 mg PO QPM RF: 0 ferrous sulfate 325 mg (65 mg iron) tablet 325 mg PO QPM RF: 0 gabapentin 300 mg capsule 300 mg PO QID RF: 0 aspirin 81 mg tablet,chewable 1 tablet PO QPM RF: 0 losartan 100 mg tablet 100 mg PO QPM RF: 0 metformin 500 mg tablet extended release 24 hr 500 mg PO QID RF: 0 Dialyvite Vitamin D3 Max 1,250 m
== END 2019-06-12 13:10 | disposition home or self-care (01) | DRG 314 ==
LOC: ANHED 22:25 → ANH3MEDSUR 06-07 00:59
PROVIDERS: Internal Medicine; Internal Medicine Infectious Disease; Orthopaedic Surgery; Admitting Provider Internal Medicine; Emergency Provider Emergency Medicine; PCP Student in an Organized Health Care Education/Training Program; Visit Provider Internal Medicine
PROC: 0Y6Y0Z1 Detachment at Left 5th Toe, High, Open Approach (ICD-10-PCS; principal; 2019-06-10 11:30)
DX: E11.69 Type 2 diabetes mellitus with other specified complication (principal); E11.621 Type 2 diabetes mellitus with foot ulcer; L97.529 Non-pressure chronic ulcer of other part of left foot with unspecified severity; E11.319 Type 2 diabetes mellitus with unspecified diabetic retinopathy without macular edema; E11.42 Type 2 diabetes mellitus with diabetic polyneuropathy; E78.5 Hyperlipidemia, unspecified; I50.32 Chronic diastolic (congestive) heart failure; Z79.4 Long term (current) use of insulin; M86.172 Other acute osteomyelitis, left ankle and foot; I69.354 Hemiplegia and hemiparesis following cerebral infarction affecting left non-dominant side
CPT/HCPCS: 36415; 73502; 73560; 73630; 73720; 80048; 80053; 80202; 83036; 83605; 85025; 85027; 85652; 86140; 87040; 87070; 87075; 87076; 87147; 87205; 88305; 88311; 96365; 96367; 97110; 97116; 97161; 97165; 99285; A9270; A9577; J0696; J0743; J1100; J1650; J1815; J2250; J2270; J2370; J2405; J2704; J3370; J3480; J7120

== ENCOUNTER 2019-06-21 18:02 | Emergency (ER) | payer OTHER, SELFPAY ==
[2019-06-21 18:12] VITALS: BP 199/90; PULSE 91; RESP 16; TEMP 36.4; O2SAT 100
--- NOTE | 2019-06-21 18:43 | ED.EXTPRO ---
HPI - Extremity Problem General Chief complaint: Extremity Problem,Nontraumatic Stated complaint: extremity swelling Time Seen by Provider: 06/21/19 18:27 History of Present Illness HPI Narrative: 48-year-old female presents to the emergency department with a complaint of increased swelling in the right foot. Patient denies any injury or trauma. She recently had amputation of the left fifth toe due to osteomyelitis. She has noticed increased swelling to the right foot and into the lower extremity over the past few days. She called her PCP and was told to come to the ER for evaluation. She denies any cough or shortness of breath. Denies fever or chills. Related Data Home Medications Medication Instructions Recorded Confirmed Dialyvite Vitamin D3 Max 50,000 mcg PO QPM 06/07/19 06/07/19 Steglatro 15 mg PO QPM 06/07/19 06/07/19 aspirin 1 tablet PO QPM 06/07/19 06/07/19 atorvastatin 1 mg PO HS 06/07/19 06/07/19 famotidine 40 mg PO QPM 06/07/19 06/07/19 ferrous sulfate 325 mg PO QPM 06/07/19 06/07/19 furosemide 40 mg PO QPM 06/07/19 06/07/19 gabapentin 300 mg PO QID 06/07/19 06/07/19 insulin lispro [Admelog U-100 100 unit SUBCUT DIRECTED 06/07/19 06/07/19 Insulin lispro] losartan 100 mg PO QPM 06/07/19 06/07/19 metformin 500 mg PO QID 06/07/19 06/07/19 spironolactone 25 mg PO QPM 06/07/19 06/07/19 Allergies Allergy/AdvReac Type Severity Reaction Status Date / Time hydrocodone AdvReac Severe Headache Verified 01/21/18 07:41 Penicillins AdvReac Mild Nausea Verified 01/21/18 07:41 Review of Systems Review of Systems: Narrative: CONSTITUTIONAL: Denies fever, chills, or sweats. ENT: Denies rhinorrhea, congestion, sore throat, or otalgia. CARDIOVASCULAR: Denies chest pain, palpitations, or edema. RESPIRATORY: Denies cough or dyspnea. GASTROINTESTINAL: Denies abdominal pain, nausea, vomiting, or diarrhea. GENITOURINARY: Denies dysuria or hematuria. SKIN: Denies rash or itching. MUSCULOSKELETAL: Reports increased swelling to the right foot and lower extremity. Status post amputation of left fifth toe on 06/10/2019. NEUROLOGIC: Denies headache, numbness, or weakness. PSYCHIATRIC: Denies anxiety or depression. 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 Status post total abdominal hysterectomy and bilateral salpingo-oophorectomy (TADEO-BSO) Laparoscopic Family History Family History Other Cerebrovascular accident Diabetes mellitus Social History Social History Social History: She has 3 children who reportedly healthy. 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 She would like her boyfriend Tan Gillespie to [facility] surrogate decision maker. Additional occupation/education comments: She is disabled. She rarely leaves the house. Gender identity (if verbalized by the patient): Female Spiritual care concerns: No Agree to blood products: Yes
[2019-06-21 19:15] VITALS: BP 178/88; PULSE 86; RESP 18; O2SAT 99
--- NOTE | 2019-06-21 20:04 | ED.EXTPRO ---
HPI - Extremity Problem General Chief complaint: Extremity Problem,Nontraumatic Stated complaint: extremity swelling Time Seen by Provider: 06/21/19 18:27 Related Data Home Medications Medication Instructions Recorded Confirmed Dialyvite Vitamin D3 Max 50,000 mcg PO QPM 06/07/19 06/07/19 Steglatro 15 mg PO QPM 06/07/19 06/07/19 aspirin 1 tablet PO QPM 06/07/19 06/07/19 atorvastatin 1 mg PO HS 06/07/19 06/07/19 famotidine 40 mg PO QPM 06/07/19 06/07/19 ferrous sulfate 325 mg PO QPM 06/07/19 06/07/19 furosemide 40 mg PO QPM 06/07/19 06/07/19 gabapentin 300 mg PO QID 06/07/19 06/07/19 insulin lispro [Admelog U-100 100 unit SUBCUT DIRECTED 06/07/19 06/07/19 Insulin lispro] losartan 100 mg PO QPM 06/07/19 06/07/19 metformin 500 mg PO QID 06/07/19 06/07/19 spironolactone 25 mg PO QPM 06/07/19 06/07/19 Allergies Allergy/AdvReac Type Severity Reaction Status Date / Time hydrocodone AdvReac Severe Headache Verified 01/21/18 07:41 Penicillins AdvReac Mild Nausea Verified 01/21/18 07:41 PMFSH Past Medical History Medical History Anemia Diabetic peripheral neuropathy Diastolic heart failure Echocardiogram May 2017 demonstrated grade 2 diastolic dysfunction with normal ejection fraction, moderate left atrial enlargement, RVSP 62, moderate tricuspid regurgitation Essential hypertension Glaucoma HLD (hyperlipidemia) 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 Status post total abdominal hysterectomy and bilateral salpingo-oophorectomy (TADEO-BSO) Laparoscopic Family History Family History Other Cerebrovascular accident Diabetes mellitus Social History Social History Social History: She has 3 children who reportedly healthy. 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 She would like her boyfriend Tan Gillespie to [facility] surrogate decision maker. Additional occupation/education comments: She is disabled. She rarely leaves the house. Gender identity (if verbalized by the patient): Female Spiritual care concerns: No Agree to blood products: Yes Course Vital Signs Vital signs: Vital Signs Temperature 36.4 C L 06/21/19 18:12 Pulse Rate 91 06/21/19 18:12 Respiratory Rate 16 06/21/19 18:12 Blood Pressure 199/90 H 06/21/19 18:12 Pulse Oximetry 100 06/21/19 18:12 Temperature 36.4 C L 06/21/19 18:12 Pulse Rate 91 06/21/19 18:12 Respiratory Rate 16 06/21/19 18:12 Blood Pressure 199/90 H 06/21/19 18:12 Pulse Oximetry 100 06/21/19 18:12 Discharge Plan Discharge Clinical Impression: Lower extremity edema Patient Disposition: Home, Self-Care Condition: Stable Instructions: Leg Edema (ED) Additional Instructions: You are at a higher risk of developing a blood clot in your leg. We have treated you tonight with an anticoagulant and you will need to come back tomorrow morning to have an ultrasound of the right leg to rule out a blood clot. Do not increase activity until the test is completed and you have results. You will follow up with your primary care doctor for the results. Avoid any activities that could increase your risk for bleeding (climbing ladder, contact sports, increase your risk for a fall etc). Return to
[2019-06-21] MEDS: ENOXAPARIN 120 MG/0.8 ML SYRINGE SUB-Q (20:07)
[2019-06-21 20:32] VITALS: BP 172/82; PULSE 84; RESP 18; TEMP 36.7; O2SAT 99
== END 2019-06-21 20:34 | disposition home or self-care (01) ==
PROVIDERS: Emergency Provider Emergency Medicine; PCP Student in an Organized Health Care Education/Training Program
DX: R60.0 Localized edema (principal); D64.9 Anemia, unspecified; E11.42 Type 2 diabetes mellitus with diabetic polyneuropathy; E11.319 Type 2 diabetes mellitus with unspecified diabetic retinopathy without macular edema; E11.21 Type 2 diabetes mellitus with diabetic nephropathy; H40.9 Unspecified glaucoma; E78.5 Hyperlipidemia, unspecified; I50.30 Unspecified diastolic (congestive) heart failure; I27.20 Pulmonary hypertension, unspecified; I11.0 Hypertensive heart disease with heart failure; E55.9 Vitamin D deficiency, unspecified; Z79.4 Long term (current) use of insulin; Z79.84 Long term (current) use of oral hypoglycemic drugs
CPT/HCPCS: 96372; 99283; J1650

== ENCOUNTER 2019-06-22 15:41 | Outpatient (CLI) | payer OTHER, SELFPAY ==
--- NOTE | ~2019-06-22 | US_ITS ---
EXAMINATION: US venous doppler LE RT DATE: 06/22/2019 16:29 INDICATION: Right lower limb edema. TECHNIQUE: Grayscale ultrasound images without and with compression and Doppler ultrasound images of the right lower extremity veins were obtained. COMPARISON: Ultrasound 03/01/2018 FINDINGS: The visualized portions of right common femoral vein, profunda (deep) femoral vein, femoral vein, pop liteal vein, peroneal veins, posterior tibial veins, and greater saphenous vein outflow are patent. IMPRESSION: 1. No deep venous thrombosis. Reviewed, dictated and finalized at location A.
== END 2019-06-22 15:42 | disposition home or self-care (01) ==
PROVIDERS: PCP Student in an Organized Health Care Education/Training Program; Visit Provider Nurse Practitioner
DX: R60.0 Localized edema (principal)
CPT/HCPCS: 93971

== ENCOUNTER 2019-07-27 07:34 | Outpatient (RCR) | payer OTHER, SELFPAY ==
--- NOTE | 2019-06-12 16:07 | PM.DS ---
DS: Diagnosis Discharge Diagnosis (1) Osteomyelitis of toe of left foot: Code(s): M86.9 - Osteomyelitis, unspecified Status: Acute Assessment and Plan: MR revealed osteomyelitis left 5th toe. Patient received IV vancomycin and ceftriaxone. Underwent amputation of toe on 06/09. Culture of toe with growing strep and will finish a 2 week course of antibiotics with cefdinir 300 b.i.d. She will follow-up with Dr. hernandez on 07/01 (2) Type 2 diabetes mellitus with hyperglycemia: Qualifiers: Diabetes mellitus usp insulin use: with usp use Qualified Code(s): E11.65 - Type 2 diabetes mellitus with hyperglycemia; Z79.4 - long-term (current) use of insulin Code(s): E11.65 - Type 2 diabetes mellitus with hyperglycemia Status: Acute Assessment and Plan: Patient's hemoglobin A1c was 9.8. Stress diet to intervention with sliding scale and her basal insulin hear her fasting sugars were in the low 100s she will continue her short-acting insulin with meals, metformin, and Lantus. (3) Essential hypertension: Code(s): I10 - Essential (primary) hypertension Status: Acute Assessment and Plan: Blood pressure was well controlled actually toward low side at times. Apparently she was only taking metoprolol tartrate daily so we increase that to b.i.d. and stopped her wants day hydralazine Blood pressure 110/60 at discharge (4) Diabetic foot ulcer: Qualifiers: Diabetes mellitus type: type 2 Diabetic foot ulcer location: toe Laterality: left Non-pressure ulcer stage: unspecified non-pressure ulcer stage Qualified Code(s): E11.621 - Type 2 diabetes mellitus with foot ulcer; L97.529 - Non-pressure chronic ulcer of other part of left foot with unspecified severity Code(s): E11.621 - Type 2 diabetes mellitus with foot ulcer; L97.509 - Non-pressure chronic ulcer of other part of unspecified foot with unspecified severity Status: Acute Assessment and Plan: Seen in consultation by the wound care team and local treatment DS: Summary Hospital Course Hospital Course: 48-year-old type 2 diabetic admitted with infected cellulitic left 5th toe. MRI revealed osteomyelitis. Was seen in consultation by Orthopedic surgery in [place]. Underwent amputation on 06/09 and ID recommended full 14 days of treatment with cefdinir 300 b.i.d.. Culture of toe grew strep B She will follow-up with primary care 1-2 weeks and with the orthopedic surgery 4-3 Time Spent with Patient Time attestation: Total time spent providing and/or coordinating discharge services: 35 minutes Exam Narrative: Exam Narrative: Condition on discharge Blood pressure 110/60 pulse is 86 afebrile Lungs clear CV regular rate rhythm Abdomen is soft nontender Extremities without edema distal pulses are 2+ Wound intact left foot, dry dressing changes and follow-up on the 3rd with orthopedic surgery Discharge Plan Departure Attending Physician: Kojo Menon Primary Care Provider: Kae,Edgardo Prescriptions: No Action furosemide 40 mg tablet 40 mg PO QPM RF: 0 atorvastatin 20 mg tablet 1 mg PO HS RF: 0 famotidine 40 mg tablet 40 mg PO QPM RF: 0 spironolactone 25 mg tablet 25 mg PO QPM RF: 0 ferrous sulfate 325 mg (65 mg iron) tablet 325 mg PO QPM RF: 0 gabapentin 300 mg capsule 300 mg PO QID RF: 0 aspirin 81 mg tablet,chewable 1 tablet PO QPM RF: 0 losartan 100 mg tablet 100 mg PO QPM RF: 0 metformin 500 mg tablet extended release 24 hr 500 mg PO QID RF: 0 Dialyvite Vitamin D3 Max 1,250 mcg (50,000 unit) tablet 50,000 mcg PO QPM RF: 0 Steglatro 15 mg Tablet 15 mg PO QPM RF: 0 insulin lispro [Admelog U-100 Insulin lispro] 100 unit/mL solution 100 unit subcut DIRECTED RF: 0 cefdinir 300 mg capsule 300 mg PO Q12H Qty: 22 RF: 0 metoprolol tartrate 50 mg tablet 50 mg PO BID Qty: 60 RF: 0
[2019-07-02 08:30] VITALS: BMI 40.0
--- NOTE | 2019-07-02 10:54 | P.PNOP_ITS ---
Progress Note: A&P Assessment and Plan (1) Osteomyelitis of toe of left foot: Code(s): M86.9 - Osteomyelitis, unspecified Status: Acute Assessment and Plan: Postoperative day 22. Left small toe amputation. No problems reported. Patient stable. Dressing change today. sutures removed today. Scab removed. Small area of dermal opening which does not probe below. Plan for silver gel and Mepilex foam dressing daily. Follow up in 1 week for wound assessment. Antibiotics per guidelines. 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 No interval complaints. Swelling left foot improved. No pain. Exam Const: General: healthy appearing; No in distress or confusion Orientation/consciousness: patient oriented x3 and No confusion HENMT: Head: normal to inspection, normocephalic and atraumatic Eyes: Conjunctivae: conjunctivae normal Sclera: sclerae normal Resp: Effort & Inspection: normal respiratory effort and no audible wheezes Neuro: General: patient oriented x3 and No confusion Extrem: Other: Left foot dressing in place, clean and dry. Good capillary refill in the remaining toe tips. Absent light touch sensation consistent with neuropathy. Incision base of small toe amputation site well healed. 1.5cm scab midportion. No erythema, drainage. Swelling improved Psych: Affect: normal affect Objective Data Meds/Results Medications: Active Medications Generic Name Dose Route Start Last Admin Trade Name Freq PRN Reason Stop Dose Admin Silver Nitrate 1 applic 07/02/19 09:09 Silvergel TOPICAL 10/01/19 23:55 PRN PRN Wound Care Wound Care/Dressing Products 1 patch 07/02/19 09:10 Mepilex Transfer Drsg 6x8 TOPICAL 10/01/19 23:55 PRN PRN Wound Care
--- NOTE | 2019-07-09 12:37 | PCWOUND ---
WOCN NOTE Patient did not show up for appointment. called and spoke to patient,she states she slept in. rescheduled for Friday07-13-19
--- NOTE | 2019-07-13 09:55 | PM.IMHP ---
H&P: HPI History of Present Illness Chief complaint: diabetic toe removal left 5th Narrative: Hillary Bailey is a 49 year old female 5 weeks status post 5th ray amputation left foot. Patient with postoperative wound dehiscence. Presents to [facility] wound clinic for follow-up and re-evaluation. Patient and family have been doing daily dressing changes with silver gel. No fever or chills noted. Mild pain at times with activity. Still has bilateral lower extremity swelling which is worse with activity and better when recumbent. Review of Systems Constitutional: Constitutional: Denies fever(s) Eyes: Eyes: Denies blurry vision ENT: Reports Normal hearing present Cardiovascular: Cardiovascular: Denies chest pain and Denies dyspnea Respiratory: Respiratory: Denies dyspnea and Denies wheezing Gastrointestinal: Gastrointestinal: Denies abdominal pain Genitourinary: Genitourinary: Denies urinary urgency Musculoskeletal: Musculoskeletal: Reports as per HPI and Denies numbness Integumentary/Breasts: Skin/Breast: Denies changing lesions and Denies sores Neurologic: Reports Normal hearing present, Denies behavioral changes, Denies confusion, Reports numbness ( Both feet) and Denies convulsions Psychiatric: Psychiatric: Denies behavioral changes, Denies confusion and Denies hallucinations Endocrine: Endocrine: Denies heat intolerance Hematologic/Lymphatic: Hematologic/Lymphatic: Denies easy bleeding Allergic/Immunologic: Allergic/Immunologic: Denies wheezing PMFSH Past Medical History Medical History Anemia Diabetic peripheral neuropathy Diastolic heart failure Echocardiogram May 2017 demonstrated grade 2 diastolic dysfunction with normal ejection fraction, moderate left atrial enlargement, RVSP 62, moderate tricuspid regurgitation Essential hypertension Glaucoma HLD (hyperlipidemia) 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 Status post total abdominal hysterectomy and bilateral salpingo-oophorectomy (TADEO-BSO) Laparoscopic Family History Family History Other Cerebrovascular accident Diabetes mellitus Social History Social History Social History: She has 3 children who reportedly healthy. 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 She would like her boyfriend Tan Gillespie to beers surrogate decision maker. Additional occupation/education comments: She is disabled. She rarely leaves the house. Gender identity (if verbalized by the patient): Female Spiritual care concerns: No Agree to blood products: Yes Meds Home Medications and Allergies Home Medications Medication Instructions Recorded Confirmed Type Dialyvite Vitamin D3 Max 50,000 mcg PO QPM 06/07/19 07/02/19 History Steglatro 15 mg PO QPM 06/07/19 07/02/19 History aspirin 1 tablet PO QPM 06/07/19 07/02/19 History atorvastatin 1 mg PO HS 06/07/19 07/02/19 History famotidine 40 mg PO QPM 06/07/19 07/02/19 History ferrous sulfate 325 mg PO QPM 06/07/19 07/02/19 History furosemide 40 mg PO QPM 06/07/19 07/02/19 History gabapentin 300 mg PO QID 06/07/19 07/02/19 History insulin lispro [Admelog U-100 100 unit SUBCUT DIRECTED 06/07/19 07/02/19 History Insulin lispro] losartan 100 mg PO Q
--- NOTE | 2019-07-27 08:54 | PM.CNOR ---
Assessment and Plan Assessment and plan (1) Neuropathy due to type 2 diabetes mellitus: Code(s): E11.40 - Type 2 diabetes mellitus with diabetic neuropathy, unspecified Status: Acute Assessment and Plan: Diabetic Education reviewed. Recommend custom inserts with extra-depth shoes to decrease pressure and reduce ulceration. Medically necessary for custom prosthetic fit and fabrication. Patient condition requires custom fitting due to bone, joint, musculoskeletal deformity. Unable to fit with [id number] brace. Patient condition will be improved with bracing. Condition likely to deteriorate without custom support Indicated for custom bilateral full-length inserts with depth shoes. (2) Osteomyelitis of toe of left foot: Code(s): M86.9 - Osteomyelitis, unspecified Status: Acute Assessment and Plan: Seven weeks status post 5th ray amputation. Incision well-healed. No signs of infection. Follow-up as needed. (3) Diabetic foot ulcer: Qualifiers: Diabetes mellitus type: type 2 Diabetic foot ulcer location: toe Laterality: left Non-pressure ulcer stage: unspecified non-pressure ulcer stage Qualified Code(s): E11.621 - Type 2 diabetes mellitus with foot ulcer; L97.529 - Non-pressure chronic ulcer of other part of left foot with unspecified severity Code(s): E11.621 - Type 2 diabetes mellitus with foot ulcer; L97.509 - Non-pressure chronic ulcer of other part of unspecified foot with unspecified severity Status: Acute Assessment and Plan: Medial foot blister, superficial. No signs of infection. Skin debrided today. Recommend silver gel and Band-Aid. Recommend custom shoes and inserts. Recommend twice yearly foot check. History of Present Illness HPI Consult date: 07/27/19 Requesting physician: Mirza,MD Edgardo Chief complaint: diabetic toe removal left 5th Narrative: Seven weeks status post 5th ray amputation. No complaints on the lateral border of the foot. Describes new blister on the medial aspect which she noticed this morning. She feels like she may have hit her foot on the threshold of the bathroom door. No drainage. No fever or chills. No problems eating. No pain. Review of Systems Constitutional: Constitutional: Denies fever(s) Eyes: Eyes: Denies blurry vision ENT: Reports Normal hearing present Cardiovascular: Cardiovascular: Denies chest pain and Denies dyspnea Respiratory: Respiratory: Denies dyspnea and Denies wheezing Gastrointestinal: Gastrointestinal: Denies abdominal pain Genitourinary: Genitourinary: Denies urinary urgency Musculoskeletal: Musculoskeletal: Reports as per HPI and Denies numbness Integumentary/Breasts: Skin/Breast: Denies changing lesions and Denies sores Neurologic: Reports Normal hearing present, Denies behavioral changes, Denies confusion, Reports numbness ( Both feet) and Denies convulsions Psychiatric: Psychiatric: Denies behavioral changes, Denies confusion and Denies hallucinations Endocrine: Endocrine: Denies heat intolerance Hematologic/Lymphatic: Hematologic/Lymphatic: Denies easy bleeding Allergic/Immunologic: Allergic/Immunologic: Denies wheezing [facility] Past Medical History Medical History Anemia Diabetic peripheral neuropathy Diastolic heart failure Echocardiogram May 2017 demonstrated grade 2 diastolic dysfunction with normal ejection fraction, moderate left atrial enlargement, RVSP 62, moderate tricuspid regurgitation Essential hypertension Glaucoma HLD (hyperlipidemia) 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
== END 2019-09-20 07:53 | disposition home or self-care (01) ==
LOC: ANHWOC 07:34
PROVIDERS: PCP Student in an Organized Health Care Education/Training Program; Visit Provider Orthopaedic Surgery
DX: Z47.81 Encounter for orthopedic aftercare following surgical amputation (principal); Z89.422 Acquired absence of other left toe(s)
CPT/HCPCS: 99212; G0463

== ENCOUNTER 2020-01-27 16:48 | Inpatient (IN) | payer OTHER, SELFPAY ==
[2020-01-27] VITALS (14 sets, daily range): BP systolic 90–124; BP diastolic 42–83; PULSE 105–128; RESP 16–22; TEMP 36.4–39.4; O2SAT 74–100; BMI 42.4
--- NOTE | ~2020-01-27 | XR_ITS ---
EXAMINATION: XR chest 2V 01/27/2020 17:16 INDICATION: Weakness. PROCEDURE: Two-view chest COMPARISON: 08/01/2018 FINDINGS: The lungs are clear. The cardiomediastinal silhouette is within normal limits. There are no pleural effusions. There is no pneumothorax suspected. IMPRESSION: 1: NO ACUTE CARDIOPULMONARY DISEASE. Reviewed, dictated and finalized at location A.
--- NOTE | ~2020-01-27 | US_ITS ---
US renal BI 01/30/2020 15:00 Procedure: Realtime transabdominal ultrasound of the kidneys and bladder. Indication: Acute renal insufficiency Comparison: Ultrasound dated 03/03/2018 Findings: Renal echotexture is normal bilaterally without hydronephrosis, contour deforming mass or r enal calculus. There is a cyst in the left upper abdomen, possibly exophytic from the left kidney arian suring 5.7 x 3 x 5.9 cm. The right kidney measures 10.2 cm and left kidney measures 12.8 cm. Bladder within normal limits. Impression: 1: Cyst in the left upper abdomen adjacent to the kidney, possibly renal origin measuring up to 5.9 c m greatest dimension. Otherwise, unremarkable renal ultrasound. Reviewed, dictated and finalized at location A. OIDERY PATTERNMAKER Impression: 1: Cyst in the left upper abdomen adjacent to the kidney, possibly renal origin measuring up to 5.9 cm greatest dimension. Otherwise, unremarkable renal ultra sound.
--- NOTE | ~2020-01-27 | CT_ITS ---
EXAMINATION: CT brain wo con DATE: 01/27/2020 18:55 INDICATION: Weakness. TECHNIQUE: Computed tomography (CT) of the head was performed without intravenous contrast. The dose- length product was 529.67 mGy-cm. Automated exposure control and iterative reconstruction technique w ere employed. COMPARISON: CT dated 09/11/2018 FINDINGS: There is chronic right frontal lobe encephalomalacia which may be due to previous trauma or infarction. There is asymmetric atrophy of the right hemisphere compared with the left. No acute int racranial hemorrhage, infarction, mass or mass effect. No significant midline shift. Basilar cisterns are patent. Paranasal sinuses and mastoids are pneumatized. No depressed skull fractures. IMPRESSION: 1. No acute intracranial abnormality. 2: Chronic right frontal lobe encephalomalacia possibly secondary to previous trauma or infarction. 3: Asymmetric atrophy of the right hemisphere. Reviewed, dictated and finalized at location A.
--- NOTE | 2020-01-27 16:53 | ECG_ITS ---
Measurements Intervals Burns Rate: 117 P: 130 TX: 154 QRS: -24 QRSD: 87 T: 148 QT: 299 QTc: 417 Interpretive Statements SINUS TACHYCARDIA POSSIBLE LEFT ATRIAL ENLARGEMENT INCOMPLETE RIGHT BUNDLE BRANCH BLOCK LOW QRS VOLTAGE IN PRECORDIAL LEADS INFERIOR INFARCT, AGE INDETERMINATE BORDERLINE ST-T WAVE ABNORMALITY- HIGH LATERAL LEADS BASELINE ARTIFACT- I, II, III, AVR, AVL, AVF ABNORMAL ECG Electronically Signed On 01-27-2020 19:30:41 CDT by Ky Smith D.O.
--- NOTE | 2020-01-27 17:08 | ED.GENADULT ---
HPI - General Adult General Chief complaint: Weakness <Rianna Woods MD - Last Filed: 01/29/20 07:16> Stated complaint: weakness <Rianna Woods MD - Last Filed: 01/29/20 07:16> Time Seen by Provider: 01/27/20 16:57 <Rianna Woods MD - Last Filed: 01/29/20 07:16> Source: patient <Rianna Woods MD - Last Filed: 01/29/20 07:16> Limitations: no limitations <Rianna Woods MD - Last Filed: 01/29/20 07:16> History of Present Illness HPI narrative: Patient is a 49 y/o female complaining of severe generalized weakness for several days. She states that she has chronic left sided weakness since a previous stroke in her childhood. 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 She denies any injury from the fall. She states that she had some nausea and vomiting yesterday. EMS reports that her BS was in 500s. <Rianna Woods MD - Last Filed: 01/29/20 07:16> Related Data Home medications: Home Medications Medication Instructions Recorded Confirmed aspirin 1 tablet PO QPM 06/07/19 01/28/20 insulin lispro [Admelog U-100 100 unit SUBCUT DIRECTED 06/07/19 01/28/20 Insulin lispro] metformin 500 mg PO BID 06/07/19 01/28/20 acyclovir 800 mg PO BID 01/27/20 01/28/20 gabapentin 300 mg PO QID 01/27/20 01/28/20 losartan 100 mg PO DAILY 01/27/20 01/28/20 omeprazole 20 mg PO DAILY 01/27/20 01/28/20 spironolactone 25 mg DAILY 01/27/20 01/28/20 furosemide 80 mg PO DAILY 01/28/20 01/28/20 <Rianna Woods MD - Last Filed: 01/29/20 07:16> Allergies/adverse reactions: Allergies Allergy/AdvReac Type Severity Reaction Status Date / Time hydrocodone AdvReac Severe Headache Verified 01/27/20 19:32 Penicillins AdvReac Mild Nausea Verified 01/27/20 19:32 <Rianna Woods MD - Last Filed: 01/29/20 07:16> Review of Systems Constitutional: Constitutional: Denies chills, Denies fever(s), Denies headache(s) and Reports weakness <Rianna Woods MD - Last Filed: 01/29/20 07:16> Eyes: Eyes: Denies blurry vision <Rianna Woods MD - Last Filed: 01/29/20 07:16> ENT: Denies headache(s) and Denies neck pain <Rianna Woods MD - Last Filed: 01/29/20 07:16> Cardiovascular: Cardiovascular: Denies chest pain and Denies dyspnea <Rianna Woods MD - Last Filed: 01/29/20 07:16> Respiratory: Respiratory: Denies cough and Denies dyspnea <Rianna Woods MD - Last Filed: 01/29/20 07:16> Gastrointestinal: Gastrointestinal: Denies abdominal pain, Denies diarrhea, Denies nausea and Denies vomiting <Rianna Woods MD - Last Filed: 01/29/20 07:16> Genitourinary: Genitourinary: Denies hematuria and Denies dysuria <Rianna Woods MD - Last Filed: 01/29/20 07:16> Musculoskeletal: Musculoskeletal: Denies back pain and Denies neck pain <Rianna Woods MD - Last Filed: 01/29/20 07:16> Neurologic: Denies headache(s), Denies focal weakness and Reports weakness (generalized) <Rianna Woods MD - Last Filed: 01/29/20 07:16> [facility] Past Medical History Medical History: Medical History (Updated 01/27/20 @ 23:50 by Soniya Campbell DO) Anemia Diabetic peripheral neuropathy Diastolic heart failure Echocardiogram May 2017 demonstrated grade 2 diastolic dysfunction with normal ejection fraction, moderate left atrial enlargement, RVSP 62, moderate tricuspid regurgitation Essential hypertension Glaucoma HLD (hyperlipidemia) 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
[2020-01-27 18:54] LABS: Add Urine Microscopic? YES; Appearance Urine Clear (Clear); Bacteria Urine 2+ /hpf; Bilirubin Urine Negative (Negative); Blood Urine 1+ (Negative); Color Urine Straw (Yellow); Glucose Urine UA 3+ mg/dL (Negative); Ketones Urine Negative (Negative); Leukocyte Esterase Ur 2+ LEU/UL (Negative); Mucus Urine Rare /lpf; Nitrate Urine Negative (Negative); Protein Urine 1+ mg/dL (Negative); Specific Grav Ur 1.018 (1.001-1.035); Squamous Epithelial Cell Urine Rare /hpf (Few); Urobilinogen Urine Negative mg/dL (<2.0); WBC Urine >75 /hpf
--- NOTE | 2020-01-27 19:03 | PC.NURSE ---
Per Cat, RN, patient received 1L normal saline by EMS.
[2020-01-27 19:40] LABS: Basophils Absolute Auto 0.1 K/mm3 (0.0-0.1); Basophils Percent Auto 0.3 % (0.2-1.2); Hematocrit 35.1 % (37.0-47.0); Hemoglobin 11.2 g/dL (12.0-15.0); Immature Granulocyte Absolute 0.14 K/mm3 (0.00-0.031); Immature Granulocyte Percent A 0.7 % (0-0.5); Lymphocytes Absolute Auto 2.02 K/mm3 (0.9-3.2); Lymphocytes Percent Auto 9.8 % (18.3-44.2); Mean Corpuscular HGB Conc 31.9 g/dl (32-36); Mean Corpuscular Hemoglobin 29.2 pg (26-34); Mean Corpuscular Volume 91.6 fl (80-100); Mean Platelet Volume 12.3 fl (7.4-10.4); Monocytes Absolute Auto 1.1 K/mm3 (0.1-0.6); Monocytes Percent Auto 5.4 % (2.6-8.5); Neutrophils Absolute Auto 17.2 K/mm3 (1.3-6.7); Neutrophils Percent Auto 83.8 % (45.5-73.1); Platelet Count Result 319 k/mm3 (150-375); Red Blood Count 3.83 M/mm3 (4.2-5.4); Red Cell Distribution Width 13.5 % (11.5-14.5); White Blood Count 20.6 K/mm3 (4.5-10.0)
[2020-01-27 19:48] LABS: Glucose Point of Care 465 (65-105)
[2020-01-27 19:57] LABS: Lactic Acid Reflex 1.8 mmol/L (0.7-2.1)
[2020-01-27 20:02] LABS: Alanine Aminotransferase 12 U/L (4-35); Albumin Level 3.5 g/dL (3.5-5.1); Alkaline Phosphatase 129 U/L (38-126); Anion Gap 14 mmol/L (8-16); Aspartate Amino Transferase 17 U/L (14-36); Bilirubin,Total 0.5 mg/dL (0.2-1.3); Blood Urea Nitrogen 41 mg/dL (7-17); Calcium 8.4 mg/dL (8.4-10.2); Carbon Dioxide 24 mmol/L (22-30); Chloride 98 mmol/L (98-107); Estimated CRCL calculation 30 ml/min; Estimated Glomerular Filt Rate 23; Glucose 509 mg/dL (65-105); Potassium 4.4 mmol/L (3.4-5.0); Sodium 136 mmol/L (137-145)
[2020-01-27] MEDS: SODIUM CHLORIDE 0.9% IV 1,000 ML 999 ML IV CONT ×2 (20:21→20:56)
[2020-01-27] MEDS: INSULIN HUMAN REGULAR (*BKC) 100 UNITS/ML 10 UNITS IV PUSH (20:22)
[2020-01-27 21:24] LABS: Glucose Point of Care 342 (65-105)
--- NOTE | 2020-01-27 22:16 | PC.NURSE ---
Patient's oxygen saturations began to range from 86%-90%. Patient placed on 2L via NC. EDP Rory notified. Patient denies feeling short of breath, breath signs equal and bilateral.
[2020-01-27 22:45] LABS: Glucose Point of Care 302 (65-105)
--- NOTE | 2020-01-27 22:45 | PC.NURSE ---
Patient now on room air.
[2020-01-27] MEDS: SODIUM CHLORIDE 0.9% IV 1,000 ML 125 ML IV CONT (23:35)
--- NOTE | 2020-01-27 23:45 | PM.IMHP ---
H&P: HPI History of Present Illness Date/Time: 01/27/20 23:45 Chief complaint: generalized weakness, fall Narrative: Hillary Bailey is a 49 year old female with a past medical history of insulin-dependent diabetes with multiple complications who presented to the ER with generalized weakness. The patient evidently fell out of bed and was unable to get up on her own. Subsequently her boyfriend called EMS. The patient's blood sugar on EMS arrival was in the 500s. The patient reportedly wears an insulin pump but she left her insulin pump at home. It is unclear when she last checked her blood sugar or for sugars have been high. When I asked the patient about nausea and vomiting she denied having any recent nausea and vomiting however she had reported to ER staff that she had nausea and vomiting yesterday. The patient simply reports that she has been feeling ill. However she denied having any fevers or chills. But on arrival to the ER the patient's temperature was a 103?. She denies any dysuria or increased urinary frequency. The patient thought the month was January and that the year was 2019 but was aware that she was at [facility] and was oriented to person. She told nursing staff that she could not role in the bed unassisted. She stated that ever since she had her toe amputated she has had difficulty with balance. In the ER the patient received 2 L of normal saline and empiric antibiotic therapy with Rocephin as her urine looks suspicious for UTI. History was difficult to obtain as the patient was somnolent and would fall asleep when answering questions. Review of Systems Review of Systems: Narrative: 12 systems were reviewed with pertinent positives and negatives per HPI. Except as documented in the HPI, all other systems were reviewed and are negative. However somewhat limited as patient was oriented only to person and place. She was somnolent and seemed recalcitrant to provide information. 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 Status post total abdominal hysterectomy and bilateral salpingo-oophorectomy (TADEO-BSO) Laparoscopic Family History Family History Other Cerebrovascular accident Diabetes mellitus Social History Social History (Updated 01/28/20 @ 00:29 by Soniya Campbell DO) Social History: She has 3 children who reportedly healthy. Primary care provider: Kimmy Cool SCRIPT GIRL Code status: Full code Surrogate decision maker: Tan Gillespie (Boyfriend) Smoking status: Never smoker Alcohol intake: never Substance use: never Additional living arrangements comments: The patient lives with her long-term boyfriend in [facility]. Additional occupation/education comments: She is disabled. She rarely leaves the house. Gender identity (if verbalized by the patient): Female Spiritual care concerns: No Agree to blood products: Yes Meds Home Medications and Allergies Home Medications Medication Instructions Recorded Confirmed Type aspirin 1 tablet PO QPM 06/07/19
--- NOTE | 2020-01-27 23:52 | ADMGEN ---
This patient, Hillary Bailey, was admitted to IMU Room 201-01 ay 2308. Patient/family oriented to hospital policies and general routines including ID bracelet, bed and alarms, visiting hours, pain management, procedures, bathroom and other care routines, personal items, smoking policy, room service/diet, and visiting hours. Information on how to activate the Rapid Response Team has been discussed. Patient/Family are encouraged to report perceived risks to care and to ask questions if they do not understand what they are told or what they should do.
[2020-01-28] VITALS (29 sets, daily range): BP systolic 117–164; BP diastolic 58–102; PULSE 109–125; RESP 18–22; TEMP 36.5–38.8; O2SAT 88–100
[2020-01-28] MEDS: INSULIN GLARGINE (*BKC) 100 UNITS/ML 50 UNITS SUB-Q ×2 (00:16→20:46)
[2020-01-28] MEDS: ACETAMINOPHEN 325 MG TABLET 650 MG PO ×4 (03:58→17:06)
[2020-01-28 04:59] LABS: Hematocrit 29.7 % (37.0-47.0); Hemoglobin 9.5 g/dL (12.0-15.0); Mean Corpuscular Hemoglobin 30.3 pg (26-34); Mean Corpuscular Volume 94.6 fl (80-100); Mean Platelet Volume 12.6 fl (7.4-10.4); Platelet Count Result 251 k/mm3 (150-375); Red Blood Count 3.14 M/mm3 (4.2-5.4); Red Cell Distribution Width 13.6 % (11.5-14.5)
[2020-01-28 05:06] LABS: Hemoglobin A1C 12.4 % (<5.7)
[2020-01-28 05:16] LABS: Anion Gap 11 mmol/L (8-16); Blood Urea Nitrogen 40 mg/dL (7-17); Calcium 7.7 mg/dL (8.4-10.2); Carbon Dioxide 19 mmol/L (22-30); Chloride 104 mmol/L (98-107); Estimated CRCL calculation 30 ml/min; Estimated Glomerular Filt Rate 23; Glucose 417 mg/dL (65-105); Potassium 4.2 mmol/L (3.4-5.0); Sodium 134 mmol/L (137-145)
[2020-01-28 08:34] LABS: Glucose Point of Care 357 (65-105)
[2020-01-28] MEDS: SODIUM CHLORIDE 0.9% IV 1,000 ML 125 ML IV CONT ×2 (08:37→17:00)
[2020-01-28] MEDS: INSULIN ASPART (*BKC) 100 UNITS/ML SUB-Q ×3 (08:38→17:03)
[2020-01-28] MEDS: ENOXAPARIN 40 MG/0.4 ML SYRINGE SUB-Q (08:39)
[2020-01-28 12:40] LABS: Glucose Point of Care 324 (65-105)
--- NOTE | 2020-01-28 13:34 | PM.IMPN ---
Progress Note: A&P Assessment and Plan (1) Severe sepsis: Code(s): A41.9 - Sepsis, unspecified organism; R65.20 - Severe sepsis without septic shock Status: Acute Assessment and Plan: severe sepsis based on criteria of high fever, leukocytosis, tachycardia and acute kidney injury and metabolic encephalopathy Likely secondary to UTI. Blood cultures and urine culture pending. Continue empiric antibiotic therapy with Rocephin. 01/28/20 13:34 patient is a 49-year-old female with history of type 1 diabetes and on insulin pump, also patient has stroke and earlier age and unable to move very well, apparently patient fell from her bed and landed on the floor without significant injury however patient was not able to get her up herself nor was her boyfriend able to help her, EMS was called and patient presented emergency, patient is a poor historian upon EMS arrival patient blood sugar was 500, upon arrival to emergency depart patient had a fever of 103 had a UA significant for UTI patient met the criteria for sepsis upon arrival with with fever tachycardia leukocytosis most likely secondary UTI patient is started on Rocephin will follow-up on culture and sensitivity. patient is also found to acute kidney injury most likely secondary to dehydration due to poor p.o. intake will gently hydrate the patient and monitor patient kidney function. (2) UTI (urinary tract infection): Qualifiers: Hematuria presence: with hematuria Urinary tract infection type: site unspecified Qualified Code(s): N39.0 - Urinary tract infection, site not specified; R31.9 - Hematuria, unspecified Code(s): N39.0 - Urinary tract infection, site not specified Status: Acute Assessment and Plan: Urine culture is pending. Continue empiric antibiotic therapy with Rocephin (3) DONNA (acute kidney injury): Code(s): N17.9 - Acute kidney failure, unspecified Status: Acute Assessment and Plan: due to sepsis Repeat CBC and BMP in a.m. 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 She was unable to tell me or the nurse when she took her insulin pump off. She does not know her pump settings. From my prior documentation the patient's basal rate equaled about 52 units in a 24 hour period. Will start the patient on Lantus 50 units subq q.h.s. and moderate sliding scale insulin with Accu-Cheks a.c. HS and hypoglycemia protocol. Will check a hemoglobin A1c with a.m. labs Subjective Date/time seen: 01/28/20 13:34 patient is a 49-year-old female with history of type 1 diabetes and on insulin pump, also patient has stroke and earlier age and unable to move very well, apparently patient fell from her bed and landed on the floor without significant injury however patient was not able to get her up herself nor was her boyfriend able to help her, EMS was called and patient presented emergency, patient is a poor historian upon EMS arrival patient blood sugar was 500, upon arrival to emergency depart patient had a fever of 103 had a UA significant for UTI patient met the criteria for sepsis upon arrival with with fever tachycardia leukocytosis most likely secondary UTI patient is started on Rocephin will follow-up on culture and sensitivity. patient is also found to acute kidney injury most likely secondary to dehydration due to poor p.o. intake will gently hydrate the patient and monitor patient kidney function. Review of Systems Review of Systems: All systems reviewed & are unremarkable except as noted in HPI and below
[2020-01-28 17:11] LABS: Glucose Point of Care 307 (65-105)
[2020-01-28 20:44] LABS: Glucose Point of Care 278 (65-105)
[2020-01-29] VITALS (14 sets, daily range): BP systolic 110–130; BP diastolic 45–68; PULSE 94–124; RESP 20–22; TEMP 37–38.7; O2SAT 90–94
[2020-01-29] MEDS: ACETAMINOPHEN 325 MG TABLET 650 MG PO ×2 (00:24→04:35)
[2020-01-29] MEDS: SODIUM CHLORIDE 0.9% IV 1,000 ML 125 ML IV CONT ×3 (00:27→20:03)
[2020-01-29] MEDS: ONDANSETRON INJ 4 MG/2 ML VIAL IV PUSH ×2 (01:55→09:30)
[2020-01-29] MEDS: MORPHINE SULFATE (*CRX) 4 MG/ML INJ IV PUSH (01:55)
[2020-01-29 04:42] LABS: Hematocrit 27.2 % (37.0-47.0); Hemoglobin 8.4 g/dL (12.0-15.0); Mean Corpuscular HGB Conc 30.9 g/dl (32-36); Mean Corpuscular Hemoglobin 29.2 pg (26-34); Mean Corpuscular Volume 94.4 fl (80-100); Mean Platelet Volume 12.7 fl (7.4-10.4); Platelet Count Result 232 k/mm3 (150-375); Red Blood Count 2.88 M/mm3 (4.2-5.4); Red Cell Distribution Width 13.7 % (11.5-14.5); White Blood Count 20.7 K/mm3 (4.5-10.0)
[2020-01-29 04:57] LABS: Anion Gap 9 mmol/L (8-16); Blood Urea Nitrogen 43 mg/dL (7-17); Carbon Dioxide 20 mmol/L (22-30); Chloride 106 mmol/L (98-107); Estimated CRCL calculation 30 ml/min; Estimated Glomerular Filt Rate 23; Glucose 313 mg/dL (65-105); Potassium 4.6 mmol/L (3.4-5.0); Sodium 135 mmol/L (137-145)
[2020-01-29 09:01] LABS: Glucose Point of Care 245 (65-105)
[2020-01-29] MEDS: INSULIN ASPART (*BKC) 100 UNITS/ML SUB-Q ×2 (09:28→13:17)
[2020-01-29] MEDS: ENOXAPARIN 40 MG/0.4 ML SYRINGE SUB-Q (09:30)
[2020-01-29] MEDS: HYDROcodone/acetaminophen (*CRX) 5-325 MG TABLET 1 TAB PO ×2 (09:30→13:11)
[2020-01-29] MEDS: SPIRONOLACTONE 25 MG TABLET PO (13:10)
[2020-01-29] MEDS: PANTOPRAZOLE 40 MG TABLET PO (13:10)
[2020-01-29] MEDS: LOSARTAN POTASSIUM 100 MG TABLET PO (13:10)
[2020-01-29] MEDS: GABAPENTIN 300 MG CAPSULE PO ×3 (13:10→20:03)
[2020-01-29] MEDS: METOPROLOL TARTRATE 50 MG TAB PO ×2 (13:11→20:03)
[2020-01-29] MEDS: ACYCLOVIR 400 MG TABLET 800 MG PO ×2 (13:11→20:03)
[2020-01-29] MEDS: FUROSEMIDE 80 MG TABLET PO (13:11)
[2020-01-29 13:26] LABS: Glucose Point of Care 224 (65-105)
--- NOTE | 2020-01-29 14:39 | PC.NURSE ---
This patient, Hillary Bailey, was received from IMU on 01/29/20 at 1439. Personal belongings list checked and signed. Patient/family oriented to unit policies and routines
--- NOTE | 2020-01-29 15:36 | PC.NURSE ---
This patient, Hillary Bailey, was transferred to [facility] on 01/29/20 at 1437. Personal belongings sent with patient. Report given to Maddy LEE. Appropriate documentation sent with patient.
--- NOTE | 2020-01-29 16:22 | PM.IMPN ---
Progress Note: A&P Assessment and Plan (1) Severe sepsis: Code(s): A41.9 - Sepsis, unspecified organism; R65.20 - Severe sepsis without septic shock Status: Acute Assessment and Plan: severe sepsis based on criteria of high fever, leukocytosis, tachycardia and acute kidney injury and metabolic encephalopathy Likely secondary to UTI. Blood cultures and urine culture pending. Continue empiric antibiotic therapy with Rocephin. 01/29/20 16:22 patient is a 49-year-old female with history of type 1 diabetes and on insulin pump, also patient has stroke at earlier age and unable to move very well, apparently patient fell from her bed and landed on the floor without significant injury however patient was not able to get her herself up nor was her boyfriend able to help her, EMS was called and patient presented emergency, patient is a poor historian upon EMS arrival patient blood sugar was 500, upon arrival to emergency depart patient had a fever of 103 had a UA significant for UTI patient met the criteria for sepsis upon arrival with with fever tachycardia leukocytosis most likely secondary UTI patient was started on Rocephin, today 01/28 patient able more awake urine culture is growing Klebs aerogenes (Enterobacter), pansensitive will continue Rocephin, patient is also found to acute kidney injury most likely secondary to dehydration due to poor p.o. intake will gently hydrate the patient however patient creatinine remains stable and monitor patient kidney function. will have PT OT evaluate the patient, patient is boyfriend is present in the room answered all his questions (2) UTI (urinary tract infection): Qualifiers: Hematuria presence: with hematuria Urinary tract infection type: site unspecified Qualified Code(s): N39.0 - Urinary tract infection, site not specified; R31.9 - Hematuria, unspecified Code(s): N39.0 - Urinary tract infection, site not specified Status: Acute Assessment and Plan: Urine culture is pending. Continue empiric antibiotic therapy with Rocephin (3) DONNA (acute kidney injury): Code(s): N17.9 - Acute kidney failure, unspecified Status: Acute Assessment and Plan: due to sepsis Repeat CBC and BMP in a.m. 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 She was unable to tell me or the nurse when she took her insulin pump off. She does not know her pump settings. From my prior documentation the patient's basal rate equaled about 52 units in a 24 hour period. Will start the patient on Lantus 50 units subq q.h.s. and moderate sliding scale insulin with Accu-Cheks a.c. HS and hypoglycemia protocol. Will check a hemoglobin A1c with a.m. labs Subjective Date/time seen: 01/29/20 16:22 patient is a 49-year-old female with history of type 1 diabetes and on insulin pump, also patient has stroke at earlier age and unable to move very well, apparently patient fell from her bed and landed on the floor without significant injury however patient was not able to get her herself up nor was her boyfriend able to help her, EMS was called and patient presented emergency, patient is a poor historian upon EMS arrival patient blood sugar was 500, upon arrival to emergency depart patient had a fever of 103 had a UA significant for UTI patient met the criteria for sepsis upon arrival with with fever tachycardia leukocytosis most likely secondary UTI patient was started on Rocephin, today 01/28 patient able more awake urine culture is growing Klebs aerogenes (Enterobacter)
--- NOTE | 2020-01-29 16:42 | PC.NURSE ---
Patient unwilling to cooperate during turns. Patent requesting to be repositioned, turned to right side. However, when asked to help in turning, she refuses. Patient stating I'm unable to roll. I'm too weak. I requested that she roll to her back side so that I can help roll her more and she again stated she wasn't able to turn herself to her back. Will encourage patient to participate.
[2020-01-29 16:47] LABS: Glucose Point of Care 162 (65-105)
[2020-01-29] MEDS: ASPIRIN 81 MG CHEWABLE TABLET PO (17:15)
[2020-01-29] MEDS: INSULIN GLARGINE (*BKC) 100 UNITS/ML 50 UNITS SUB-Q (20:04)
[2020-01-29 21:09] LABS: Glucose Point of Care 164 (65-105)
--- NOTE | 2020-01-30 01:18 | PC.NURSE ---
Daylight Savings Time For Daylight Savings Time Ending in the Fall - Clocks are moved back. For Daylight Savings Time Beginning in the Spring - Clocks are moved ahead. For [facility], the time of change occurs at 0200 hrs. Time is taken from the sql server dba developer. This entry on the patient's chart recognizes the change in time reflected during documentation. Example: 2 entries for vital signs may be charted for 0200 hrs.
[2020-01-30] MEDS: HYDROcodone/acetaminophen (*CRX) 5-325 MG TABLET 1 TAB PO (02:49)
[2020-01-30] MEDS: SODIUM CHLORIDE 0.9% IV 1,000 ML 125 ML IV CONT ×3 (03:47→20:22)
[2020-01-30] MEDS: ONDANSETRON INJ 4 MG/2 ML VIAL IV PUSH (05:35)
[2020-01-30 05:36] VITALS: BP 122/65; PULSE 94; RESP 18; TEMP 36.9; O2SAT 93
[2020-01-30 05:38] LABS: Hematocrit 25.3 % (37.0-47.0); Hemoglobin 7.9 g/dL (12.0-15.0); Mean Corpuscular HGB Conc 31.2 g/dl (32-36); Mean Corpuscular Hemoglobin 29.3 pg (26-34); Mean Corpuscular Volume 93.7 fl (80-100); Mean Platelet Volume 12.2 fl (7.4-10.4); Platelet Count Result 243 k/mm3 (150-375); Red Cell Distribution Width 13.9 % (11.5-14.5); White Blood Count 16.5 K/mm3 (4.5-10.0)
[2020-01-30 06:03] LABS: Anion Gap 8 mmol/L (8-16); Blood Urea Nitrogen 43 mg/dL (7-17); Calcium 7.9 mg/dL (8.4-10.2); Carbon Dioxide 20 mmol/L (22-30); Chloride 107 mmol/L (98-107); Estimated CRCL calculation 34 ml/min; Estimated Glomerular Filt Rate 25; Glucose 117 mg/dL (65-105); Potassium 4.2 mmol/L (3.4-5.0); Sodium 135 mmol/L (137-145)
[2020-01-30 08:00] LABS: Glucose Point of Care 108 (65-105)
[2020-01-30 08:14] VITALS: PULSE 88
[2020-01-30] MEDS: METOPROLOL TARTRATE 50 MG TAB PO ×2 (08:14→20:23)
[2020-01-30] MEDS: GABAPENTIN 300 MG CAPSULE PO ×4 (08:14→20:23)
[2020-01-30] MEDS: PANTOPRAZOLE 40 MG TABLET PO (08:15)
[2020-01-30] MEDS: SPIRONOLACTONE 25 MG TABLET PO (08:15)
[2020-01-30] MEDS: ACYCLOVIR 400 MG TABLET 800 MG PO ×2 (08:15→20:23)
[2020-01-30] MEDS: ENOXAPARIN 40 MG/0.4 ML SYRINGE SUB-Q (08:15)
--- NOTE | 2020-01-30 09:37 | PM.CNNEP ---
Assessment and Plan Assessment and plan (1) DONNA (acute kidney injury): Code(s): N17.9 - Acute kidney failure, unspecified Status: Acute Assessment and Plan: Hillary has acute kidney injury. Her creatinine before this was normal, however she does have nephrotic range proteinuria and so does have some diabetic nephropathy underlying all this. Patient had a sugar of 500 when she got to the emergency room. Her high sugars may have been going on for a few days and so may have had some Glucouresis and have been dehydrated because of that. She probably was not eating very well before coming in either. In addition she was on diuretics at home. So for all these years and she probably is a little bit dehydrated. She was getting some fluids. In addition the patient has a bladder infection and so could have systemic repercussions from this causing the higher creatinine. Because she was sick for 3 days before she even got here it is possible that she might have an element of ATN as well. It is always possible that she might have an obstruction as well. Other causes such as rhabdomyolysis are possible and also glomerulonephritis and interstitial nephritis. At this point will get renal ultrasound urine electrolytes and eosinophils and a CPK. I agree with continuing the IV fluids since she is not eating very well. She is getting antibiotics for her bladder infection. (2) UTI (urinary tract infection): Qualifiers: Hematuria presence: with hematuria Urinary tract infection type: site unspecified Qualified Code(s): N39.0 - Urinary tract infection, site not specified; R31.9 - Hematuria, unspecified Code(s): N39.0 - Urinary tract infection, site not specified Status: Acute Assessment and Plan: The patient is growing organisms in her urine and these are sensitive to her Ceftriaxone. She had a fever of 103 earlier on but her temperature has come down. Her white blood cell count has come down as well. (3) Type 2 diabetes mellitus with hyperglycemia: Qualifiers: Diabetes mellitus detention insulin use: with detention use Qualified Code(s): E11.65 - Type 2 diabetes mellitus with hyperglycemia; Z79.4 - shelter (current) use of insulin Code(s): E11.65 - Type 2 diabetes mellitus with hyperglycemia Status: Acute Assessment and Plan: The patient has diabetes. She is on Accu-Cheks and sliding-scale insulin. (4) Essential hypertension: Code(s): I10 - Essential (primary) hypertension Status: Acute Assessment and Plan: The patient has hypertension. Her blood pressure is well controlled. History of Present Illness Reason for Consult Consult date: 01/30/20 Chief Complaint Chief complaint: generalized weakness, fall History of Present Illness Narrative: Hillary is a very pleasant 49-year-old lady who has multiple medical problems including diabetes with neuropathy, retinopathy. She also has GERD, hypertension, diastolic dysfunction, pulmonary hypertension, nephrotic syndrome. the patient was doing well until lot 3 or 4 days before admission when she started feeling weak. She said that she had urinary incontinence a few times as well. She did not have pain with urination. On the day of admission the patient fell out of bed and could not get up so her boyfriend called an ambulance and had her brought over to the emergency room. In the ER the evaluated her and found her to have a creatinine that was a little high. That thought she might be dehydrated. She had a positive UA. The treated with IV fluids and antibiotics. She feels a little bit better now. However her creatinine has not improved so renal consultation was requested. She did not know that she had any kidney disease. However her creatinine was normal a few months ago. Review of Systems Constitutional: Constitutional: Reports no additional constitutional complaints Ey
[2020-01-30 10:48] LABS: Creatine Kinase 89 U/L (30-135)
[2020-01-30 11:44] LABS: Glucose Point of Care 122 (65-105)
--- NOTE | 2020-01-30 12:39 | PM.IMPN ---
Progress Note: A&P Assessment and Plan (1) Severe sepsis: Code(s): A41.9 - Sepsis, unspecified organism; R65.20 - Severe sepsis without septic shock Status: Acute Assessment and Plan: severe sepsis based on criteria of high fever, leukocytosis, tachycardia and acute kidney injury and metabolic encephalopathy Likely secondary to UTI. Blood cultures and urine culture pending. Continue empiric antibiotic therapy with Rocephin. 01/30/20 12:39 patient is a 49-year-old female with history of type 1 diabetes and on insulin pump, also patient has stroke at earlier age and unable to move very well, apparently patient fell from her bed and landed on the floor without significant injury however patient was not able to get her herself up nor was her boyfriend able to help her, EMS was called and patient presented emergency, patient is a poor historian upon EMS arrival patient blood sugar was 500, upon arrival to emergency depart patient had a fever of 103 had a UA significant for UTI patient met the criteria for sepsis upon arrival with with fever tachycardia leukocytosis most likely secondary UTI patient was started on Rocephin, today 01/29 patient able more awake urine culture is growing Klebs aerogenes (Enterobacter), pansensitive will continue Rocephin, patient is also found to acute kidney injury most likely secondary to dehydration due to poor p.o. intake will gently hydrate the patient however patient creatinine remains stable despite patient being hydrated, will hold lasix, will hold losartan, will continue IVF, will consult Dr. Bhandari for further recommendation. will have PT OT evaluate the patient,Today patient states feeling little better, patient is sitting in the chair, appears more interactive and awake. (2) UTI (urinary tract infection): Qualifiers: Hematuria presence: with hematuria Urinary tract infection type: site unspecified Qualified Code(s): N39.0 - Urinary tract infection, site not specified; R31.9 - Hematuria, unspecified Code(s): N39.0 - Urinary tract infection, site not specified Status: Acute Assessment and Plan: Urine culture is pending. Continue empiric antibiotic therapy with Rocephin (3) DONNA (acute kidney injury): Code(s): N17.9 - Acute kidney failure, unspecified Status: Acute Assessment and Plan: due to sepsis Repeat CBC and BMP in a.m. continue IV fluid hydration (4) Type 2 diabetes mellitus with hyperglycemia: Qualifiers: Diabetes mellitus intermodal dispatcher insulin use: with correction use Qualified Code(s): E11.65 - Type 2 diabetes mellitus with hyperglycemia; Z79.4 - intermodal dispatcher (current) use of insulin Code(s): E11.65 - Type 2 diabetes mellitus with hyperglycemia Status: Acute Assessment and Plan: she uses an insulin pump at home. She was unable to tell me or the nurse when she took her insulin pump off. She does not know her pump settings. From my prior documentation the patient's basal rate equaled about 52 units in a 24 hour period. Will start the patient on Lantus 50 units subq q.h.s. and moderate sliding scale insulin with Accu-Cheks a.c. HS and hypoglycemia protocol. Will check a hemoglobin A1c with a.m. labs Subjective Date/time seen: 01/30/20 12:39 patient is a 49-year-old female with history of type 1 diabetes and on insulin pump, also patient has stroke at earlier age and unable to move very well, apparently patient fell from her bed and landed on the floor without significant injury however patient was not able to get her herself up nor was her boyfriend able to help her, EMS was called and patient presented emergency, patient is a poor historian upon EMS arrival patient blood sugar was 500, upon arrival to emergency depart patient had a fever of 103 had a UA significant for UTI patient met the criteria for sepsis upon arrival with with fever tachycardia leukocytosis most li
[2020-01-30 13:42] LABS: Creatinine Urine 49.1 mg/dL; Total Protein Urine Random 111 mg/dL
[2020-01-30 13:45] LABS: Sodium Urine Random 58 meq/L
[2020-01-30 14:00] VITALS: BP 135/75; PULSE 95; RESP 15; TEMP 36.7; O2SAT 93
[2020-01-30 14:28] VITALS: O2SAT 92
[2020-01-30 16:33] LABS: Glucose Point of Care 131 (65-105)
[2020-01-30] MEDS: ASPIRIN 81 MG CHEWABLE TABLET PO (17:04)
[2020-01-30 20:23] VITALS: PULSE 88
[2020-01-30] MEDS: INSULIN GLARGINE (*BKC) 100 UNITS/ML 50 UNITS SUB-Q (20:24)
[2020-01-30 21:07] LABS: Glucose Point of Care 195 (65-105)
[2020-01-30 21:35] VITALS: BP 118/59; PULSE 100; RESP 16; TEMP 37.2; O2SAT 98
[2020-01-31 03:50] VITALS: O2SAT 97
[2020-01-31 05:14] VITALS: BP 129/74; PULSE 99; RESP 18; TEMP 37.2; O2SAT 95
[2020-01-31 05:47] LABS: Basophils Absolute Auto 0.1 K/mm3 (0.0-0.1); Basophils Percent Auto 0.5 % (0.2-1.2); Eosinophils Absolute Auto 0.4 K/mm3 (0-0.3); Hematocrit 27.1 % (37.0-47.0); Hemoglobin 8.3 g/dL (12.0-15.0); Immature Granulocyte Absolute 0.31 K/mm3 (0.00-0.031); Immature Granulocyte Percent A 2.1 % (0-0.5); Lymphocytes Absolute Auto 2.85 K/mm3 (0.9-3.2); Lymphocytes Percent Auto 19.7 % (18.3-44.2); Mean Corpuscular HGB Conc 30.6 g/dl (32-36); Mean Corpuscular Hemoglobin 28.8 pg (26-34); Mean Corpuscular Volume 94.1 fl (80-100); Monocytes Absolute Auto 1.1 K/mm3 (0.1-0.6); Monocytes Percent Auto 7.4 % (2.6-8.5); Neutrophils Absolute Auto 9.8 K/mm3 (1.3-6.7); Neutrophils Percent Auto 67.3 % (45.5-73.1); Nucleated Red Blood Cells Perc 0.1 % (0.0-0.2); Platelet Count Result 269 k/mm3 (150-375); Red Blood Count 2.88 M/mm3 (4.2-5.4); Red Cell Distribution Width 13.9 % (11.5-14.5); White Blood Count 14.5 K/mm3 (4.5-10.0)
[2020-01-31 05:57] LABS: Albumin Level 2.8 g/dL (3.5-5.1); Anion Gap 7 mmol/L (8-16); Blood Urea Nitrogen 35 mg/dL (7-17); Calcium 8.1 mg/dL (8.4-10.2); Carbon Dioxide 20 mmol/L (22-30); Chloride 110 mmol/L (98-107); Estimated CRCL calculation 37 ml/min; Estimated Glomerular Filt Rate 28; Glucose 131 mg/dL (65-105); Phosphorus 3.2 mg/dL (2.5-4.5); Potassium 3.9 mmol/L (3.4-5.0); Sodium 137 mmol/L (137-145)
[2020-01-31 07:33] LABS: Glucose Point of Care 99 (65-105)
[2020-01-31] MEDS: PANTOPRAZOLE 40 MG TABLET PO (07:54)
[2020-01-31] MEDS: METOPROLOL TARTRATE 50 MG TAB PO ×2 (07:54→20:09)
[2020-01-31] MEDS: ACYCLOVIR 400 MG TABLET 800 MG PO ×2 (07:54→20:18)
[2020-01-31] MEDS: GABAPENTIN 300 MG CAPSULE PO ×4 (07:54→20:09)
[2020-01-31] MEDS: ENOXAPARIN 40 MG/0.4 ML SYRINGE SUB-Q (07:55)
[2020-01-31] MEDS: MORPHINE SULFATE (*CRX) 4 MG/ML INJ IV PUSH (07:55)
[2020-01-31] MEDS: ONDANSETRON INJ 4 MG/2 ML VIAL IV PUSH (08:07)
--- NOTE | 2020-01-31 10:38 | PM.PNNEP ---
Progress Note: A&P Assessment and Plan (1) DONNA (acute kidney injury): Code(s): N17.9 - Acute kidney failure, unspecified Status: Acute Assessment and Plan: Hillary has acute kidney injury. Her creatinine before this was normal before this. Urinalysis shows protein and blood. She has 2 g of protein in her urine. Urine electrolytes are non pre renal. CPK is normal. her renal ultrasound shows 1 benign cyst. I think this is probably ATN from her foot Process and bladder infection. She does have nephrotic range proteinuria and so does have some diabetic nephropathy underlying all this. Because of the blood in the urine we cannot rule out some other collagen vascular disease. However she had a full evaluation 2 years ago which was negative. Will repeat some of this. I agree with continuing the IV fluids since she is not eating very well. She is getting antibiotics for her bladder infection. (2) UTI (urinary tract infection): Qualifiers: Hematuria presence: with hematuria Urinary tract infection type: site unspecified Qualified Code(s): N39.0 - Urinary tract infection, site not specified; R31.9 - Hematuria, unspecified Code(s): N39.0 - Urinary tract infection, site not specified Status: Acute Assessment and Plan: The patient is growing organisms in her urine and these are sensitive to her Ceftriaxone. Fever and WBC are better. (3) Type 2 diabetes mellitus with hyperglycemia: Qualifiers: Diabetes mellitus terminal make up operator insulin use: with terminal make up operator use Qualified Code(s): E11.65 - Type 2 diabetes mellitus with hyperglycemia; Z79.4 - terminal make up operator (current) use of insulin Code(s): E11.65 - Type 2 diabetes mellitus with hyperglycemia Status: Acute Assessment and Plan: The patient has diabetes. She is on Accu-Cheks and sliding-scale insulin. (4) Essential hypertension: Code(s): I10 - Essential (primary) hypertension Status: Acute Assessment and Plan: The patient has hypertension. Her blood pressure is well controlled. Subjective Date/time seen: 01/31/20 10:38 Interval history: Patient is alert. She feels okay. She still having problems with her left foot. No chest pain or shortness of breath Review of Systems Cardiovascular: Cardiovascular: Reports no additional cardiovascular complaints Respiratory: Respiratory: Reports no additional respiratory complaints Gastrointestinal: Gastrointestinal: Reports no additional gastrointestinal complaints Genitourinary: Genitourinary: Reports no additional female genitourinary complaints Exam Narrative: Exam Narrative: WDWN in NAD skin no rash head ncat lungs clear cor reg no rub abd BS+ nontender and soft ext 1+ edema. Objective Data Vital Signs Vital Signs: Vital Signs - 24 hr 01/30/20 14:00 01/30/20 14:28 01/30/20 20:23 Temperature 36.7 C Pulse Rate 95 88 Respiratory Rate 15 Blood Pressure 135/75 Pulse Oximetry 93 92 01/30/20 21:35 01/31/20 03:50 01/31/20 05:14 Temperature 37.2 C 37.2 C Pulse Rate 100 99 Respiratory Rate 16 18 Blood Pressure 118/59 L 129/74 Pulse Oximetry 98 97 95 Intake/Output Intake/Output: Intake & Output 01/29/20 01/30/20 01/30/20 01/31/20 00:59 00:59 23:59 23:59 Intake Total 1691 Output Total 1850 Balance -159 Meds/Results Medications: Active Medications Generic Name Dose Route Start Last Admin Trade Name Freq PRN Reason Stop Dose Admin Acetaminophen 650 mg 01/27/20 21:52 01/29/20 04:35 Acetaminophen 325 Mg Tablet PO 650 mg Q4H PRN Administration Mild Pain (1-3) or Fever Hydrocodone Bitart/Acetaminophen 1 tab 01/27/20 21:52 01/30/20 02:49 Hydrocodone/Acetaminophen (*Crx) 5-325 Mg Tablet PO 1 tab Q4H PRN Administration Pain Rated 4-6 Acyclovir 800 mg 01/29/20 12:25 01/31/20 07:54 Acyclovir 400 Mg Tablet PO 800 mg Q12H
[2020-01-31 11:46] LABS: Glucose Point of Care 144 (65-105)
--- NOTE | 2020-01-31 13:42 | PM.IMPN ---
Progress Note: A&P Assessment and Plan (1) Severe sepsis: Code(s): A41.9 - Sepsis, unspecified organism; R65.20 - Severe sepsis without septic shock Status: Acute Assessment and Plan: severe sepsis based on criteria of high fever, leukocytosis, tachycardia and acute kidney injury and metabolic encephalopathy Likely secondary to UTI. Blood cultures and urine culture pending. Continue empiric antibiotic therapy with Rocephin. 01/31/20 13:42 patient is a 49-year-old female with history of type 1 diabetes and on insulin pump, also patient has stroke at earlier age and unable to move very well, apparently patient fell from her bed and landed on the floor without significant injury however patient was not able to get her herself up nor was her boyfriend able to help her, EMS was called and patient presented emergency, patient is a poor historian upon EMS arrival patient blood sugar was 500, upon arrival to emergency depart patient had a fever of 103 had a UA significant for UTI patient met the criteria for sepsis upon arrival with with fever tachycardia leukocytosis most likely secondary UTI patient was started on Rocephin, today 01/30 patient able more awake urine culture is growing Klebs aerogenes (Enterobacter), pansensitive will continue Rocephin, patient is also found to acute kidney injury most likely secondary to dehydration due to poor p.o. intake will gentlyHydrate the patient a kidney function is improving, will hold lasix, will hold losartan, will continue IVF, patient is seen Dr. Bhandari, suspect patient has ATN secondary to bladder infection, dehydration, also patient has protein urea in nephrotic range with underlining diabetes and hypertension, bilateral kidney ultrasound is normal except 1 benign cyst, will continue to monitor and further recommendation to follow, patient with remote history of CVA left-sided weakness, will have PT OT evaluate the patient patient will benefit from acute rehab, Today patient states feeling little better, patient is sitting in the bed appears more interactive and awake. her boyfriend is present in the room. (2) UTI (urinary tract infection): Qualifiers: Hematuria presence: with hematuria Urinary tract infection type: site unspecified Qualified Code(s): N39.0 - Urinary tract infection, site not specified; R31.9 - Hematuria, unspecified Code(s): N39.0 - Urinary tract infection, site not specified Status: Acute Assessment and Plan: Urine culture is pending. Continue empiric antibiotic therapy with Rocephin (3) DONNA (acute kidney injury): Code(s): N17.9 - Acute kidney failure, unspecified Status: Acute Assessment and Plan: due to sepsis Repeat CBC and BMP in a.m. continue IV fluid hydration (4) Type 2 diabetes mellitus with hyperglycemia: Qualifiers: Diabetes mellitus termite control service representative insulin use: with care home use Qualified Code(s): E11.65 - Type 2 diabetes mellitus with hyperglycemia; Z79.4 - superintendent marine oil terminal (current) use of insulin Code(s): E11.65 - Type 2 diabetes mellitus with hyperglycemia Status: Acute Assessment and Plan: she uses an insulin pump at home. She was unable to tell me or the nurse when she took her insulin pump off. She does not know her pump settings. From my prior documentation the patient's basal rate equaled about 52 units in a 24 hour period. Will start the patient on Lantus 50 units subq q.h.s. and moderate sliding scale insulin with Accu-Cheks a.c. HS and hypoglycemia protocol. Will check a hemoglobin A1c with a.m. labs Subjective Date/time seen: 01/31/20 13:42 patient is a 49-year-old female with history of type 1 diabetes and on insulin pump, also patient has stroke at earlier age and unable to move very well, apparently patient fell from her bed and landed on the floor without significant injury however patient was not able to get her herself
[2020-01-31 14:00] VITALS: BP 108/61; PULSE 88; RESP 18; TEMP 37.1; O2SAT 96
[2020-01-31 16:35] LABS: Glucose Point of Care 193 (65-105)
[2020-01-31] MEDS: ASPIRIN 81 MG CHEWABLE TABLET PO (17:20)
[2020-01-31 20:09] VITALS: PULSE 84
[2020-01-31] MEDS: INSULIN GLARGINE (*BKC) 100 UNITS/ML 50 UNITS SUB-Q (20:10)
[2020-01-31 20:11] VITALS: O2SAT 94
[2020-01-31 20:37] LABS: Glucose Point of Care 248 (65-105)
[2020-01-31 21:44] VITALS: BP 105/46; PULSE 93; RESP 16; TEMP 37; O2SAT 98
[2020-02-01 05:52] LABS: Basophils Absolute Auto 0.1 K/mm3 (0.0-0.1); Basophils Percent Auto 0.5 % (0.2-1.2); Eosinophils Absolute Auto 0.4 K/mm3 (0-0.3); Eosinophils Percent Auto 2.7 % (0-4.4); Hemoglobin 8.5 g/dL (12.0-15.0); Immature Granulocyte Percent A 3.4 % (0-0.5); Lymphocytes Absolute Auto 2.53 K/mm3 (0.9-3.2); Lymphocytes Percent Auto 17.3 % (18.3-44.2); Mean Corpuscular HGB Conc 31.5 g/dl (32-36); Mean Corpuscular Hemoglobin 29.3 pg (26-34); Mean Corpuscular Volume 93.1 fl (80-100); Mean Platelet Volume 11.9 fl (7.4-10.4); Monocytes Absolute Auto 1.2 K/mm3 (0.1-0.6); Monocytes Percent Auto 8.5 % (2.6-8.5); Neutrophils Absolute Auto 9.9 K/mm3 (1.3-6.7); Neutrophils Percent Auto 67.6 % (45.5-73.1); Platelet Count Result 310 k/mm3 (150-375); Red Cell Distribution Width 14.2 % (11.5-14.5); White Blood Count 14.6 K/mm3 (4.5-10.0)
[2020-02-01 06:00] VITALS: BP 131/59; PULSE 98; RESP 20; TEMP 37.1; O2SAT 94
[2020-02-01 06:04] LABS: Albumin Level 2.8 g/dL (3.5-5.1); Anion Gap 11 mmol/L (8-16); Blood Urea Nitrogen 35 mg/dL (7-17); Carbon Dioxide 19 mmol/L (22-30); Chloride 107 mmol/L (98-107); Estimated CRCL calculation 37 ml/min; Estimated Glomerular Filt Rate 28; Glucose 225 mg/dL (65-105); Phosphorus 4.4 mg/dL (2.5-4.5); Sodium 137 mmol/L (137-145)
[2020-02-01 07:29] LABS: Glucose Point of Care 184 (65-105)
[2020-02-01 09:22] VITALS: PULSE 84
[2020-02-01] MEDS: ACYCLOVIR 400 MG TABLET 800 MG PO ×2 (09:22→20:30)
[2020-02-01] MEDS: ENOXAPARIN 40 MG/0.4 ML SYRINGE SUB-Q (09:22)
[2020-02-01] MEDS: METOPROLOL TARTRATE 50 MG TAB PO ×2 (09:22→20:31)
[2020-02-01] MEDS: GABAPENTIN 300 MG CAPSULE PO ×4 (09:22→20:31)
[2020-02-01] MEDS: PANTOPRAZOLE 40 MG TABLET PO (09:23)
--- NOTE | 2020-02-01 10:07 | PM.PNNEP ---
Progress Note: A&P Assessment and Plan (1) DONNA (acute kidney injury): Code(s): N17.9 - Acute kidney failure, unspecified Status: Acute Assessment and Plan: Hillary has acute kidney injury. Her creatinine before this was normal before this. Urinalysis shows protein and blood. She has 2 g of protein in her urine. Urine electrolytes are non pre renal. CPK is normal. her renal ultrasound shows 1 benign cyst. her creatinine seems to be reaching a plateau. she has soem swelling which is probably from her nephrosis. off IVFs. will need low dose diuretics down the line but hold off for now (2) UTI (urinary tract infection): Qualifiers: Hematuria presence: with hematuria Urinary tract infection type: site unspecified Qualified Code(s): N39.0 - Urinary tract infection, site not specified; R31.9 - Hematuria, unspecified Code(s): N39.0 - Urinary tract infection, site not specified Status: Acute Assessment and Plan: The patient is growing organisms in her urine and these are sensitive to her Ceftriaxone. Fever and WBC are better. (3) Type 2 diabetes mellitus with hyperglycemia: Qualifiers: Diabetes mellitus watermaster insulin use: with snf use Qualified Code(s): E11.65 - Type 2 diabetes mellitus with hyperglycemia; Z79.4 - termite control service representative (current) use of insulin Code(s): E11.65 - Type 2 diabetes mellitus with hyperglycemia Status: Acute Assessment and Plan: The patient has diabetes. She is on Accu-Cheks and sliding-scale insulin. (4) Essential hypertension: Code(s): I10 - Essential (primary) hypertension Status: Acute Assessment and Plan: The patient has hypertension. Her blood pressure is well controlled. Subjective Date/time seen: 02/01/20 10:07 Interval history: Patient is alert. She feels okay. I have chronic pain getting PTx now and walking some. still swollen No chest pain or shortness of breath Review of Systems Cardiovascular: Cardiovascular: Reports no additional cardiovascular complaints Respiratory: Respiratory: Reports no additional respiratory complaints Gastrointestinal: Gastrointestinal: Reports no additional gastrointestinal complaints Genitourinary: Genitourinary: Reports no additional female genitourinary complaints Exam Narrative: Exam Narrative: WDWN in NAD skin no rash head ncat lungs clear to ausc cor reg no rub abd BS+ nontender and soft ext 1+ edema. Objective Data Vital Signs Vital Signs: Vital Signs - 24 hr 01/31/20 14:00 01/31/20 20:09 01/31/20 20:11 Temperature 37.1 C Pulse Rate 88 84 Respiratory Rate 18 Blood Pressure 108/61 Pulse Oximetry 96 94 01/31/20 21:44 02/01/20 06:00 02/01/20 09:22 Temperature 37.0 C 37.1 C Pulse Rate 93 98 84 Respiratory Rate 16 20 Blood Pressure 105/46 L 131/59 L Pulse Oximetry 98 94 Intake/Output Intake/Output: Intake & Output 01/30/20 01/30/20 01/31/20 02/01/20 00:59 23:59 23:59 23:59 Intake Total 4051 540 Output Total 3200 600 Balance 851 -60 Meds/Results Medications: Active Medications Generic Name Dose Route Start Last Admin Trade Name Freq PRN Reason Stop Dose Admin Acetaminophen 650 mg 01/27/20 21:52 01/29/20 04:35 Acetaminophen 325 Mg Tablet PO 650 mg Q4H PRN Administration Mild Pain (1-3) or Fever Hydrocodone Bitart/Acetaminophen 1 tab 01/31/20 13:39 Hydrocodone/Acetaminophen (*Crx) 5-325 Mg Tablet PO Q4H PRN Pain 4 or greater Acyclovir 800 mg 01/29/20 12:25 02/01/20 09:22 Acyclovir 400 Mg Tablet PO 800 mg Q12HR JENNIFER Administration Artificial Tears 1 drop 01/28/20 10:51 01/29/20 09:31 Artificial Tears Op Soln 15 Ml Bottle LEFT EYE 1 drop QID PRN Administration Dry Eye(s) Aspirin 81 mg 01/29/20 18:00 01/31/20 17:20 Aspirin 81 Mg Chewable Tablet PO 81 mg QPM JENNIFER Administration De
[2020-02-01 11:37] LABS: Glucose Point of Care 239 (65-105)
[2020-02-01] MEDS: INSULIN ASPART (*BKC) 100 UNITS/ML SUB-Q ×2 (12:06→17:05)
--- NOTE | 2020-02-01 13:46 | PM.DS ---
DS: Admitting Diagnosis Admitting Diagnosis Admitting Diagnosis: generalized weakness, fall DS: Discharge Diagnosis Discharge Diagnosis (1) Severe sepsis: Code(s): A41.9 - Sepsis, unspecified organism; R65.20 - Severe sepsis without septic shock Status: Acute Assessment and Plan: severe sepsis based on criteria of high fever, leukocytosis, tachycardia and acute kidney injury and metabolic encephalopathy Likely secondary to UTI. Blood cultures and urine culture pending. Continue empiric antibiotic therapy with Rocephin. 01/31/20 13:42 patient is a 49-year-old female with history of type 1 diabetes and on insulin pump, also patient has stroke at earlier age and unable to move very well, apparently patient fell from her bed and landed on the floor without significant injury however patient was not able to get her herself up nor was her boyfriend able to help her, EMS was called and patient presented emergency, patient is a poor historian upon EMS arrival patient blood sugar was 500, upon arrival to emergency depart patient had a fever of 103 had a UA significant for UTI patient met the criteria for sepsis upon arrival with with fever tachycardia leukocytosis most likely secondary UTI patient was started on Rocephin, today 01/30 patient able more awake urine culture is growing Klebs aerogenes (Enterobacter), pansensitive will continue Rocephin, patient is also found to acute kidney injury most likely secondary to dehydration due to poor p.o. intake will gentlyHydrate the patient a kidney function is improving, will hold lasix, will hold losartan, will continue IVF, patient is seen Dr. Bhandari, suspect patient has ATN secondary to bladder infection, dehydration, also patient has protein urea in nephrotic range with underlining diabetes and hypertension, bilateral kidney ultrasound is normal except 1 benign cyst, will continue to monitor and further recommendation to follow, patient with remote history of CVA left-sided weakness, will have PT OT evaluate the patient patient will benefit from acute rehab, Today patient states feeling little better, patient is sitting in the bed appears more interactive and awake. her boyfriend is present in the room. (2) UTI (urinary tract infection): Qualifiers: Hematuria presence: with hematuria Urinary tract infection type: site unspecified Qualified Code(s): N39.0 - Urinary tract infection, site not specified; R31.9 - Hematuria, unspecified Code(s): N39.0 - Urinary tract infection, site not specified Status: Acute Assessment and Plan: Urine culture is pending. Continue empiric antibiotic therapy with Rocephin (3) DONNA (acute kidney injury): Code(s): N17.9 - Acute kidney failure, unspecified Status: Acute Assessment and Plan: due to sepsis Repeat CBC and BMP in a.m. continue IV fluid hydration (4) Type 2 diabetes mellitus with hyperglycemia: Qualifiers: Diabetes mellitus fpc insulin use: with fpc use Qualified Code(s): E11.65 - Type 2 diabetes mellitus with hyperglycemia; Z79.4 - terminal carman (current) use of insulin Code(s): E11.65 - Type 2 diabetes mellitus with hyperglycemia Status: Acute Assessment and Plan: she uses an insulin pump at home. She was unable to tell me or the nurse when she took her insulin pump off. She does not know her pump settings. From my prior documentation the patient's basal rate equaled about 52 units in a 24 hour period. Will start the patient on Lantus 50 units subq q.h.s. and moderate sliding scale insulin with Accu-Cheks a.c. HS and hypoglycemia protocol. Will check a hemoglobin A1c with a.m. labs DS: Summary Hospital Course Reason for hospitalization: Chief complaint: generalized weakness, fall Narrative: Hilalry Bailey is a 49 year old female with a past medical history of insulin-dependent diabetes with multiple co
[2020-02-01 14:00] VITALS: BP 137/62; PULSE 94; RESP 18; TEMP 37.2; O2SAT 99
[2020-02-01 17:03] LABS: Glucose Point of Care 221 (65-105)
[2020-02-01] MEDS: ASPIRIN 81 MG CHEWABLE TABLET PO (17:04)
[2020-02-01 20:23] VITALS: BP 135/75; PULSE 90; RESP 16; TEMP 36.6; O2SAT 100
[2020-02-01 20:31] VITALS: PULSE 90
[2020-02-01] MEDS: INSULIN GLARGINE (*BKC) 100 UNITS/ML 50 UNITS SUB-Q (20:31)
[2020-02-01 21:38] LABS: Glucose Point of Care 252 (65-105)
--- NOTE | 2020-02-01 23:17 | PC.NURSE ---
THREE CALLS MADE TO [facility] AND NEW TIMES GIVEN FOR ETA. STILL WAITING ON AMBULANCE FOR DISCHARGE.
--- NOTE | 2020-02-01 23:31 | PC.NURSE ---
Called [facility] and they stated would be here at [phone]. Informed patient.
== END 2020-02-02 01:30 | disposition home health service (06) | DRG 720 ==
LOC: ANHED 20:13 → ANHIMU 01-28 00:22 → ANH2MED 01-29 15:10 → ANHIMU 02-07 13:32
PROVIDERS: Emergency Medicine; Internal Medicine Nephrology; Admitting Provider Internal Medicine; Emergency Provider Emergency Medicine; PCP Student in an Organized Health Care Education/Training Program; Visit Provider Family Medicine
DX: A41.89 Other specified sepsis (principal); R65.20 Severe sepsis without septic shock; N39.0 Urinary tract infection, site not specified; B96.89 Other specified bacterial agents as the cause of diseases classified elsewhere; I50.32 Chronic diastolic (congestive) heart failure; N17.0 Acute kidney failure with tubular necrosis; G93.41 Metabolic encephalopathy; E10.65 Type 1 diabetes mellitus with hyperglycemia; E10.319 Type 1 diabetes mellitus with unspecified diabetic retinopathy without macular edema; E10.42 Type 1 diabetes mellitus with diabetic polyneuropathy; E10.21 Type 1 diabetes mellitus with diabetic nephropathy; H40.9 Unspecified glaucoma; D64.9 Anemia, unspecified; I69.354 Hemiplegia and hemiparesis following cerebral infarction affecting left non-dominant side; R31.9 Hematuria, unspecified; E86.0 Dehydration; E78.5 Hyperlipidemia, unspecified; I27.20 Pulmonary hypertension, unspecified; E55.9 Vitamin D deficiency, unspecified; W06.XXXA Fall from bed, initial encounter; K21.9 Gastro-esophageal reflux disease without esophagitis; E66.01 Morbid (severe) obesity due to excess calories; Z79.4 Long term (current) use of insulin; Z90.710 Acquired absence of both cervix and uterus; Z68.41 Body mass index [BMI] 40.0-44.9, adult; Z89.422 Acquired absence of other left toe(s); Z90.722 Acquired absence of ovaries, bilateral
CPT/HCPCS: 36415; 51701; 70450; 71046; 76775; 80048; 80053; 80069; 81001; 82550; 82570; 82948; 83036; 83605; 84156; 84300; 85025; 85027; 85999; 87040; 87077; 87086; 87088; 87186; 93005; 96361; 96365; 96375; 97110; 97116; 97161; 97165; 97530; 97535; 99285; A9270; J0131; J0696; J1650; J1815; J2270; J2405; J7030

== ENCOUNTER 2020-03-29 12:37 | Outpatient (NON) | payer OTHER, SELFPAY ==
[2020-03-29 13:18] LABS: Alanine Aminotransferase 9 U/L (4-35); Albumin Level 3.1 g/dL (3.5-5.1); Alkaline Phosphatase 133 U/L (38-126); Anion Gap 8 mmol/L (8-16); Aspartate Amino Transferase 20 U/L (14-36); Bilirubin,Total 0.3 mg/dL (0.2-1.3); Blood Urea Nitrogen 29 mg/dL (7-17); Calcium 8.5 mg/dL (8.4-10.2); Carbon Dioxide 24 mmol/L (22-30); Chloride 104 mmol/L (98-107); Estimated Glomerular Filt Rate 53; Glucose 311 mg/dL (65-105); Potassium 5.3 mmol/L (3.4-5.0); Sodium 136 mmol/L (137-145)
== END 2020-03-29 12:38 ==
PROVIDERS: PCP Student in an Organized Health Care Education/Training Program; Visit Provider Student in an Organized Health Care Education/Training Program
DX: E11.9 Type 2 diabetes mellitus without complications (principal)
CPT/HCPCS: 80053

== ENCOUNTER 2020-05-03 22:55 | Inpatient (IN) | payer OTHER, SELFPAY ==
--- NOTE | ~2020-05-03 | XR_ITS ---
XR knee LT 3V 05/03/2020 23:50 INDICATION: Left knee pain PROCEDURE: 3 views left knee COMPARISON: No prior studies FINDINGS: Fracture, dislocation or subluxation is not identified. No significant joint effusion. The soft tissues appear within normal limits. No foreign bodies are identified. IMPRESSION: 1: NO ACUTE BONE OR JOINT ABNORMALITY IDENTIFIED. Reviewed, dictated and finalized at location A. CULTURAL RESEARCH TECHNICIAN
--- NOTE | ~2020-05-03 | XR_ITS ---
XR lumbar spine 2-3V 05/03/2020 23:49 Indication: Low back pain after fall Procedure: 3 views of the lumbar spine Comparison: No prior studies for comparison. Findings: No fracture or traumatic malalignment. Normal lumbar lordosis. Pedicles intact. Sacral fora men are symmetric. Mild superior endplate degenerative changes at L4. Impression: 1: No acute abnormality of the lumbar spine. Reviewed, dictated and finalized at location A. [place] LOAN ORIGINATOR Impression: 1: No acute abnormality of the lumbar spine.
--- NOTE | ~2020-05-03 | XR_ITS ---
XR chest 1V portable DATE: 05/04/2020 00:34 INDICATION: Fever. Weakness. TECHNIQUE: Portable upright AP chest on May 04, 2020 at 0036 hours COMPARISON: 01/27/2020 AP and lateral chest FINDINGS: Borderline heart size. Mild pulmonary vascular congestion and redistribution are suggested. No pleural effusion. No pulmonary infiltrate or consolidation. No pneumothorax. Osteopenia. IMPRESSION: Borderline heart size, suggestion of mild pulmonary vascular congestion Reviewed, dictated and finalized at location A. ISTICIAN MATHEMATICAL IMPRESSION: Borderline heart size, suggestion of mild pulmonary vascular conges tion
--- NOTE | ~2020-05-03 | XR_ITS ---
XR ankle LT min 3V 05/03/2020 23:49 Indication: Left ankle pain after fall Procedure: 4 views left ankle Comparison: Left foot series dated 06/06/2019. Findings: There is patchy demineralization, most pronounced in the calcaneus. There is moderate overl alecia soft tissue swelling. There is extensive atherosclerosis. There is moderate degenerative osteoar thritis of the midfoot. Impression: 1: There is patchy osteolysis primarily in the calcaneus. This may be secondary to disuse, although o ther considerations such as osteomyelitis should be considered. If osteomyelitis is a concern, correl ation with MRI is recommended. 2: No acute fracture. Reviewed, dictated and finalized at location A. OBLASTER Impression: 1: There is patchy osteolysis primarily in the calcaneus. This may be secondary to disuse, although other considerations such as osteomyelitis should be consi dered. If osteomyelitis is a concern, correlation with MRI is recommended. 2: No acute fracture.
--- NOTE | ~2020-05-03 | XR_ITS ---
XR hip LT 2V w AP pelvis 05/03/2020 23:50 INDICATION: Left hip pain after fall PROCEDURE: AP view of the pelvis and 2 views left hip COMPARISON: No prior studies for comparison. FINDINGS: Fracture, dislocation or subluxation is not identified. The soft tissues appear within norm al limits. No foreign bodies are identified. IMPRESSION: 1: NO ACUTE BONE OR JOINT ABNORMALITY IDENTIFIED. Reviewed, dictated and finalized at location A. CTOR INTERNAL COMMUNICATIONS
[2020-05-03 23:00] VITALS: BP 123/67; PULSE 110; RESP 20; TEMP 37.1; O2SAT 100
--- NOTE | 2020-05-03 23:02 | ED.FALL ---
HPI - Fall General Chief Complaint: Fall Stated Complaint: glf shoulder/hip pain Time Seen by Provider: 05/03/20 23:00 History of Present Illness HPI Narrative: History limited due to extremely poor historian. She reports that she was in the shower when she felt weak and fell onto her left side. She reports pain thoughout the entire left side of her body. She is not bale to be any more specific. She reports this weakness is not out of the ordinary for her. She has partial paralysis of the left side. No CP, SOB, nausea, vomiting. Related Data Home Medications Medication Instructions Recorded Confirmed aspirin 1 tablet PO QPM 06/07/19 01/28/20 insulin lispro [Admelog U-100 100 unit SUBCUT DIRECTED 06/07/19 01/28/20 Insulin lispro] metformin 500 mg PO BID 06/07/19 01/28/20 acyclovir 800 mg PO BID 01/27/20 01/28/20 gabapentin 300 mg PO QID 01/27/20 01/28/20 losartan 100 mg PO DAILY 01/27/20 01/28/20 omeprazole 20 mg PO DAILY 01/27/20 01/28/20 spironolactone 25 mg DAILY 01/27/20 01/28/20 furosemide 80 mg PO DAILY 01/28/20 01/28/20 Allergies Allergy/AdvReac Type Severity Reaction Status Date / Time Penicillins AdvReac Mild Nausea Verified 05/03/20 23:04 acetaminophen [From Vicodin] AdvReac Nausea and Verified 05/03/20 23:04 Vomiting hydrocodone [From Vicodin] AdvReac Nausea and Verified 05/03/20 23:04 Vomiting Review of Systems Constitutional: Constitutional: Denies chills, Denies fever(s) and Reports weakness Eyes: Eyes: Reports no additional eye complaints ENT: Denies dizziness Cardiovascular: Cardiovascular: Denies chest pain Respiratory: Respiratory: Denies dyspnea Gastrointestinal: Gastrointestinal: Denies abdominal pain and Denies nausea Genitourinary: Genitourinary: Denies dysuria Integumentary/Breasts: Comments: heal wounds Neurologic: Reports numbness and Reports weakness PMFSH Past Medical History Medical History Anemia Diabetic peripheral neuropathy Diastolic heart failure Echocardiogram May 2017 demonstrated grade 2 diastolic dysfunction with normal ejection fraction, moderate left atrial enlargement, RVSP 62, moderate tricuspid regurgitation Essential hypertension Glaucoma HLD (hyperlipidemia) 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 Status post total abdominal hysterectomy and bilateral salpingo-oophorectomy (TADEO-BSO) Laparoscopic Family History Family History Other Cerebrovascular accident Diabetes mellitus Social History Social History Social History: She has 3 children who reportedly healthy. Primary care provider: Kimmy Cool NEON SIGN MAKER Code status: Full code Surrogate decision maker: Tan Gillespie (Boyfriend) Smoking status: Never smoker Alcohol intake: never Substance use: never Additional living arrangements comments: The patient lives with her long-term boyfriend in [facility]. Additional occupation/education comments: She is disabled. She rarely leaves the house. Gender identity (if verbalized by the patient): Female Sexual Orientation (if Verbalized by the Patient): Straight or Heterosexual Spiritual care concerns: No Agree to blood products: Yes Exam Const: General: no acute distress, alert and ill appearing chronically Nutritional Appearance: obese Orientation/consciousness: patient o
[2020-05-04] VITALS (17 sets, daily range): BP systolic 100–139; BP diastolic 39–82; PULSE 79–107; RESP 15–18; TEMP 36.2–37.7; O2SAT 92–100; BMI 41.3
--- NOTE | 2020-05-04 00:15 | ECG_ITS ---
Measurements Intervals [place] Rate: 106 P: 17 [place]: 154 QRS: -17 QRSD: 80 T: 37 QT: 323 QTc: 430 Interpretive Statements SINUS TACHYCARDIA POSSIBLE LEFT ATRIAL ENLARGEMENT INCOMPLETE RIGHT BUNDLE BRANCH BLOCK LOW QRS VOLTAGE IN PRECORDIAL LEADS ABNORMAL ECG Electronically Signed On 05-04-2020 7:16:49 PUPPET MAKER by Ky Smith D.O.
[2020-05-04 00:45] LABS: Basophils Absolute Auto 0.1 K/mm3 (0.0-0.1); Basophils Percent Auto 0.3 % (0.2-1.2); Eosinophils Percent Auto 0.2 % (0-4.4); Hematocrit 29.7 % (37.0-47.0); Hemoglobin 9.8 g/dL (12.0-15.0); Immature Granulocyte Absolute 0.11 K/mm3 (0.00-0.031); Immature Granulocyte Percent A 0.5 % (0-0.5); Lymphocytes Absolute Auto 0.86 K/mm3 (0.9-3.2); Lymphocytes Percent Auto 4.2 % (18.3-44.2); Mean Corpuscular Hemoglobin 28.2 pg (26-34); Mean Corpuscular Volume 85.6 fl (80-100); Mean Platelet Volume 11.6 fl (7.4-10.4); Monocytes Absolute Auto 0.4 K/mm3 (0.1-0.6); Neutrophils Absolute Auto 19.2 K/mm3 (1.3-6.7); Neutrophils Percent Auto 92.8 % (45.5-73.1); Platelet Count Result 323 k/mm3 (150-375); Red Blood Count 3.47 M/mm3 (4.2-5.4); Red Cell Distribution Width 16.6 % (11.5-14.5); White Blood Count 20.7 K/mm3 (4.5-10.0)
[2020-05-04 01:07] LABS: Lactic Acid Reflex 1.6 mmol/L (0.7-2.1)
[2020-05-04 01:09] LABS: Alanine Aminotransferase 14 U/L (4-35); Albumin Level 3.4 g/dL (3.5-5.1); Alkaline Phosphatase 159 U/L (38-126); Anion Gap 8 mmol/L (8-16); Aspartate Amino Transferase 26 U/L (14-36); Bilirubin,Total 0.4 mg/dL (0.2-1.3); Blood Urea Nitrogen 40 mg/dL (7-17); CRP 2.5 mg/dL (<1.0); Calcium 8.2 mg/dL (8.4-10.2); Carbon Dioxide 25 mmol/L (22-30); Chloride 101 mmol/L (98-107); Estimated CRCL calculation 2409 ml/min; Estimated Glomerular Filt Rate 32; Glucose 397 mg/dL (65-105); Potassium 4.8 mmol/L (3.4-5.0); Sodium 134 mmol/L (137-145)
[2020-05-04 01:22] LABS: INR 1.1; Prothrombin Time 14.5 Seconds (11.1-14.7)
[2020-05-04 01:22] LABS: Add Urine Microscopic? YES; Appearance Urine Cloudy (Clear); Bacteria Urine 4+ /hpf; Bilirubin Urine Negative (Negative); Blood Urine 1+ (Negative); Color Urine Yellow (Yellow); Glucose Urine UA 3+ mg/dL (Negative); Ketones Urine Negative (Negative); Leukocyte Esterase Ur 2+ LEU/UL (Negative); Mucus Urine Rare /lpf; Nitrate Urine Negative (Negative); Protein Urine 2+ mg/dL (Negative); Specific Grav Ur 1.012 (1.001-1.035); Squamous Epithelial Cell Urine Rare /hpf (Few); Urobilinogen Urine Negative mg/dL (<2.0); WBC Clumps Urine Present /HPF; WBC Urine >75 /hpf
[2020-05-04 01:24] LABS: Partial Thromboplastin Time 26.3 SECONDS (22.3-36.8)
[2020-05-04] MEDS: SODIUM CHLORIDE 0.9% IV 500 ML 999 ML IV CONT (01:28)
--- NOTE | 2020-05-04 03:40 | ADMGEN ---
This patient, Hillary Bailey, was admitted to Medical Room 348-01. Patient/family oriented to hospital policies and general routines including ID bracelet, bed and alarms, visiting hours, pain management, procedures, bathroom and other care routines, personal items, smoking policy, room service/diet, and visiting hours. Information on how to activate the Rapid Response Team has been discussed. Patient/Family are encouraged to report perceived risks to care and to ask questions if they do not understand what they are told or what they should do.
[2020-05-04 04:01] LABS: Glucose Point of Care 383 (65-105)
--- NOTE | 2020-05-04 07:51 | PM.IMHP ---
H&P: HPI History of Present Illness Date/Time: 05/04/20 07:51 Chief Complaint: Fall Narrative: Hillary Bailey is a 49 year old female with PMHx significant for T2DM, diabetic L foot, peripheral diabetic neuropathy, HTN, obesity, stroke, L sided paraparesis, L fith toe amputation due to osteomyelitis, grade II diastolic hear dysfunction, retinopathy, diabetic nephropathy. Patient presented to ED after she had a fall she was in her bathtub and was exiting when she fell, no loc. Patient states that she has been in her usual state of health, denies any fevers, rigors, chills, pain or burning with urination, no cough, no sputum production, no n/v/abdominal pain, no sob, has b/l LE edema, non healing b/l heels ulcers states that has not been to the doctor and her boyfriend has been taking car of them they have been present since February of 2020. Her appetite has been good.She was found to have a UTI, elevated white count, elevated Alk phos. Review of Systems Review of Systems: Narrative: Patient presented to the hospital due to having fall while she getting out of her bath tub. Constitutional: Comments: no fevers, no rigors, no chills. ENT: Comments: no ear ache, no throat pain, no nasal congestion. Cardiovascular: Comments: no chest pain, no pnd, no orthopnea. Respiratory: Comments: no cough, no sputum production, no wheezing. Gastrointestinal: Comments: no n/v/abdominal pain. Genitourinary: Comments: no pain or burning with urination. Musculoskeletal: Comments: B/L LEVY heels ulcers. 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 Status post total abdominal hysterectomy and bilateral salpingo-oophorectomy (TADEO-BSO) Laparoscopic Family History Family History (Updated 05/04/20 @ 04:01 by Ariadna Chambers RN) Father Acute myocardial infarction Mother Cerebrovascular accident Other Colon cancer Social History Social History Social History: She has 3 children who reportedly healthy. Primary care provider: Kimmy Cool HEAT SET OPERATOR Code status: Full code Surrogate decision maker: Tan Gillespie (Boyfriend) Smoking status: Never smoker Second hand tobacco smoke exposure: Yes Alcohol intake: never Substance use: never Substance use type: does not use Additional living arrangements comments: The patient lives with her long-term boyfriend in [facility]. Additional occupation/education comments: She is disabled. She rarely leaves the house. Gender identity (if verbalized by the patient): Female Sexual Orientation (if Verbalized by the Patient): Straight or Heterosexual Spiritual care concerns: No Agree to blood products: Yes Meds Home Medications and Allergies Home Medications Medication Instructions Recorded Confirmed Type aspirin 1 tablet PO QAM 06/07/19 05/04/20 History insulin lispro [Admelog U-100 100 unit
[2020-05-04 08:34] LABS: Glucose Point of Care 262 (65-105)
[2020-05-04] MEDS: ACYCLOVIR 400 MG TABLET 800 MG PO (09:01)
[2020-05-04] MEDS: GABAPENTIN 300 MG CAPSULE PO ×4 (09:01→21:25)
[2020-05-04] MEDS: LOSARTAN POTASSIUM 100 MG TABLET PO (09:02)
[2020-05-04] MEDS: METOPROLOL TARTRATE 50 MG TAB PO ×2 (09:02→21:25)
[2020-05-04] MEDS: SPIRONOLACTONE 25 MG TABLET BY MOUTH (09:02)
[2020-05-04] MEDS: PANTOPRAZOLE 40 MG TABLET PO (09:02)
[2020-05-04 12:28] LABS: Glucose Point of Care 234 (65-105)
[2020-05-04 17:46] LABS: Glucose Point of Care 375 (65-105)
[2020-05-04] MEDS: INSULIN GLARGINE (*BKC) 100 UNITS/ML 30 UNITS SUB-Q (22:52)
[2020-05-04 22:59] LABS: Glucose Point of Care 404 (65-105)
[2020-05-05] VITALS (11 sets, daily range): BP systolic 111–149; BP diastolic 66–80; PULSE 72–92; RESP 14–17; TEMP 36.3–36.6; O2SAT 98–100; BMI 41.3
[2020-05-05 07:45] LABS: Glucose Point of Care 136 (65-105)
[2020-05-05] MEDS: ACYCLOVIR 400 MG TABLET 800 MG PO (10:28)
[2020-05-05] MEDS: PANTOPRAZOLE 40 MG TABLET PO (10:28)
[2020-05-05] MEDS: METOPROLOL TARTRATE 50 MG TAB PO ×2 (10:28→21:11)
[2020-05-05] MEDS: GABAPENTIN 300 MG CAPSULE PO ×4 (10:28→21:10)
[2020-05-05 11:46] LABS: Glucose Point of Care 318 (65-105)
--- NOTE | 2020-05-05 15:15 | PCDIET ---
Diet instruction completed this date. See Nutritional Teaching for additional details.
--- NOTE | 2020-05-05 16:05 | PM.IMPN ---
Progress Note: A&P Assessment and Plan (1) UTI (urinary tract infection): Qualifiers: Hematuria presence: with hematuria Urinary tract infection type: site unspecified Qualified Code(s): N39.0 - Urinary tract infection, site not specified; R31.9 - Hematuria, unspecified Code(s): N39.0 - Urinary tract infection, site not specified Status: Acute Assessment and Plan: Continue Rocephin Await ua cx I&S (2) Acute hyperglycemia: Code(s): R73.9 - Hyperglycemia, unspecified Status: Acute Assessment and Plan: On insulin pump Wants to continue pump while in the hospital critical care educator consult 1800 Calorie carb consistent diet ISS as needed Getting basal and rapid acting (3) Neuropathy due to type 2 diabetes mellitus: Code(s): E11.40 - Type 2 diabetes mellitus with diabetic neuropathy, unspecified Status: Acute Assessment and Plan: Continue gabapentin (4) Type 2 diabetes mellitus with hyperglycemia: Qualifiers: Diabetes mellitus fci insulin use: with watermelon inspector use Qualified Code(s): E11.65 - Type 2 diabetes mellitus with hyperglycemia; Z79.4 - terminal superintendent (current) use of insulin Code(s): E11.65 - Type 2 diabetes mellitus with hyperglycemia Status: Acute Assessment and Plan: Accu checks ACHS (5) Diastolic heart failure: Code(s): I50.30 - Unspecified diastolic (congestive) heart failure Status: Acute Assessment and Plan: Stable Continue to monitor (6) Nephrotic range proteinuria: Code(s): R80.9 - Proteinuria, unspecified Status: Acute Assessment and Plan: Likely secondary to Diabetes Follow up in the outpatient setting. Subjective Date/time seen: 05/05/20 16:06 I feel well. Review of Systems Review of Systems: Narrative: No new issues overnight Constitutional: Comments: no fevers, no rigors, no chills. ENT: Comments: no nasal congestion. Cardiovascular: Comments: no chest pain. Respiratory: Comments: no cough, no sob, no sputum production. Gastrointestinal: Comments: no n/v/abdominal pain. Musculoskeletal: Comments: B/L LE heel wounds Integumentary/Breasts: Comments: heel ulcers Neurologic: Comments: L hemiparesis Exam Narrative: Exam Narrative: Sitting in bed.C Const: General: comfortable, no acute distress, alert, awake and other (Chronically ill looking.) Nutritional Appearance: overweight Orientation/consciousness: patient oriented x3 HENMT: Head: normal to inspection and normocephalic Ears: hearing grossly normal bilaterally General nose exam: Normal external nose present Face and sinus: normal facial exam Eyes: General: appearance normal, both eyes and all related structures Pupils: Equal, round and reactive pupils present EOM: EOMs intact bilaterally Neck: Neck: no lymphadenopathy, supple and no JVD Resp: Effort & Inspection: able to speak in complete sentences Auscultation: clear to auscultation bilaterally Cardio: Jugular venous distension: no JVD Rate: regular rate Rhythm: regular rhythm GI: Inspection: obesity GI Palp: Yes Soft to palpation and Yes No hepatosplenomegaly present Skin: Wounds: wounds noted (B/L LE heel wounds) Neuro: General: patient oriented x3 and CN's II-XI intact bilaterally Cranial nerves: Yes CN's II-XII intact bilaterally and Yes Equal, round and reactive pupils present Cognition (Neuro): normal cognition Gait exam (Neuro): Assistive device used (walker) Extrem: General: pedal edema bilaterally 1+ and other Objective Data Vital Signs Vital Signs: Vital Signs - 24 hr 05/04/20 20:00 05/04/20 21:25 05/04/20 22:00 Temperature 97.3 F L Pulse Rate 89 92 93 Respiratory Rate 18 Blood Pressure 139/71 Pulse Oximetry 100 05/05/20 00:00 05/05/20 04:00 05/05/20 04:31 Temperature 98 F Pulse Rate 92 86 89 Respiratory Rate 17 Blood Pressure 111/72 Pulse Oximetry 98 05/05/20 08:00
[2020-05-05 16:57] LABS: Glucose Point of Care 276 (65-105)
[2020-05-05 17:26] LABS: Hemoglobin A1C 11.7 % (<5.7)
[2020-05-05 20:28] LABS: Glucose Point of Care 188 (65-105)
[2020-05-06] VITALS (11 sets, daily range): BP systolic 128–154; BP diastolic 64–82; PULSE 77–97; RESP 14–16; TEMP 36.2–36.8; O2SAT 95–100
[2020-05-06 07:59] LABS: Glucose Point of Care 130 (65-105)
[2020-05-06] MEDS: GABAPENTIN 300 MG CAPSULE PO ×4 (08:53→23:21)
[2020-05-06] MEDS: ACYCLOVIR 400 MG TABLET 800 MG PO (08:53)
[2020-05-06] MEDS: LOSARTAN POTASSIUM 100 MG TABLET PO (08:54)
[2020-05-06] MEDS: METOPROLOL TARTRATE 50 MG TAB PO ×2 (08:54→23:21)
[2020-05-06] MEDS: PANTOPRAZOLE 40 MG TABLET PO (08:54)
[2020-05-06] MEDS: SPIRONOLACTONE 25 MG TABLET BY MOUTH (08:55)
[2020-05-06 12:01] LABS: Glucose Point of Care 249 (65-105)
--- NOTE | 2020-05-06 12:48 | PCOTNOTE ---
Patient not seen this date due to frequency orders. Will plan to continue treatment per plan of care tomorrow.
--- NOTE | 2020-05-06 13:37 | PM.CNGS ---
Assessment and Plan Assessment and plan (1) Abscess of right axilla: Code(s): L02.411 - Cutaneous abscess of right axilla Status: Acute Assessment and Plan: The patient has an open draining abscess in her right axilla. Since this is already open and has a fairly large amount of pus that has already drained, she may not need further I and D. S is on Rocephin currently for a UTI. I will go ahead and culture the abscess to help identify any potential resistant bacteria and any need for MRSA coverage. If abscess is not improving, will plan to proceed with I&D. (2) Type 2 diabetes mellitus with hyperglycemia: Qualifiers: Diabetes mellitus tank terminal gauger insulin use: with tank terminal gauger use Qualified Code(s): E11.65 - Type 2 diabetes mellitus with hyperglycemia; Z79.4 - intermediate (current) use of insulin Code(s): E11.65 - Type 2 diabetes mellitus with hyperglycemia Status: Acute Assessment and Plan: She is very poorly controlled with high hemoglobin A1c. She is at risk for continuing skin and lower extremity infections and ulcers and will eventually be at risk for more amputations if she is not better controlled. (3) Diabetic foot ulcer: Qualifiers: Diabetes mellitus type: type 2 Diabetic foot ulcer location: toe Laterality: left Non-pressure ulcer stage: unspecified non-pressure ulcer stage Qualified Code(s): E11.621 - Type 2 diabetes mellitus with foot ulcer; L97.529 - Non-pressure chronic ulcer of other part of left foot with unspecified severity Code(s): E11.621 - Type 2 diabetes mellitus with foot ulcer; L97.509 - Non-pressure chronic ulcer of other part of unspecified foot with unspecified severity Status: Acute Assessment and Plan: Local wound care with soft dressing and silver gel should be adequate has these wounds have already previously been debrided. History of Present Illness Consult details Consult date: 05/06/20 Requesting physician: Lul Gagnon MD Narrative: This is a 49-year-old woman who I am asked to see for right axillary abscess. She does not really give me a time period For along it has been going own. She just says ?a while?. She states that she has had infections in the left axilla before but does she was able to reach and she was able to squeeze them and get them to drain. This woman the right armpit is to hard to reach and therefore she was unable to apply pressure to it. She is admitted for a fall and UTI. She is a poorly controlled diabetic. She also has bilateral heel ulcers that are chronic. 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 Status post total abdominal hysterectomy and bilateral salpingo-oophorectomy (TADEO-BSO) Laparoscopic Family History Family History Father Acute myocardial infarction Mother Cerebrovascular accident Other Colon cancer Social History Social History (Reviewed 05/06/20 @ 13:40 by Alberto Lewis
--- NOTE | 2020-05-06 14:23 | PM.IMPN ---
Progress Note: A&P Assessment and Plan (1) UTI (urinary tract infection): Qualifiers: Hematuria presence: with hematuria Urinary tract infection type: site unspecified Qualified Code(s): N39.0 - Urinary tract infection, site not specified; R31.9 - Hematuria, unspecified Code(s): N39.0 - Urinary tract infection, site not specified Status: Acute Assessment and Plan: Continue Rocephin Ua cx reviewed (2) Sepsis: Code(s): A41.9 - Sepsis, unspecified organism Status: Acute Assessment and Plan: Improved. (3) Pressure ulcer of ankle: Code(s): L89.509 - Pressure ulcer of unspecified ankle, unspecified stage Status: Acute Assessment and Plan: Local care Wound care consulted (4) Abscess of right axilla: Code(s): L02.411 - Cutaneous abscess of right axilla Status: Acute Assessment and Plan: Surgery consulted Apprecaite Surgery note Follow recs (5) Diastolic heart failure: Code(s): I50.30 - Unspecified diastolic (congestive) heart failure Status: Acute Assessment and Plan: Stable I/O's (6) Nephrotic range proteinuria: Code(s): R80.9 - Proteinuria, unspecified Status: Acute Assessment and Plan: Likely secondary to diabetic nephropathy Continue to monitor (7) Left-sided weakness: Code(s): R53.1 - Weakness Status: Acute Assessment and Plan: Uses walker Chronic (8) Neuropathy due to type 2 diabetes mellitus: Code(s): E11.40 - Type 2 diabetes mellitus with diabetic neuropathy, unspecified Status: Acute Assessment and Plan: Continue Gabapentin. Subjective Date/time seen: 05/06/20 14:23 Patient states that she feels well, and inquires about her R armpit abscess. Review of Systems Review of Systems: Narrative: R armpit abscess Constitutional: Comments: no fevers, no rigors, no chills. Cardiovascular: Comments: no pnd, no orthopnea. Respiratory: Comments: no sob, no cough, no sputum production. Gastrointestinal: Comments: no n/v/abdominal pain. Musculoskeletal: Comments: B/L LE pressure wounds Integumentary/Breasts: Skin/Breast: Reports furuncle (R armpit) Neurologic: Comments: L sided hemiparesis. Exam Narrative: Exam Narrative: Sitting by edge of the bed. Const: General: cooperative, comfortable, no acute distress, alert, awake and Physically active Nutritional Appearance: overweight Orientation/consciousness: patient oriented x3 HENMT: Head: normocephalic Ears: hearing grossly normal bilaterally General nose exam: Normal external nose present Face and sinus: normal facial exam Eyes: General: appearance normal, both eyes and all related structures Pupils: Equal, round and reactive pupils present EOM: EOMs intact bilaterally Neck: Neck: no lymphadenopathy, supple and no JVD Resp: Effort & Inspection: able to speak in complete sentences Auscultation: clear to auscultation bilaterally Cardio: Jugular venous distension: no JVD Rate: regular rate Rhythm: regular rhythm GI: GI Palp: Yes Soft to palpation and Yes No hepatosplenomegaly present Skin: Lesions: lesion noted (R armpit abscess.) and other Wounds: wounds noted (B/L heels) Neuro: General: patient oriented x3 and CN's II-XI intact bilaterally Cranial nerves: Yes CN's II-XII intact bilaterally and Yes Equal, round and reactive pupils present Cognition (Neuro): normal cognition Speech: normal speech Motor exam (neuro): Abnormal motor strength present (LLE weakness.) Extrem: General: edema bilateral (ankle 1 +) Objective Data Vital Signs Vital Signs: Vital Signs - 24 hr 05/05/20 16:00 05/05/20 20:00 05/05/20 20:19 Temperature 97.3 F L Pulse Rate 88 85 87 Respiratory Rate 14 Blood Pressure 149/80 H Pulse Oximetry 100 05/05/20 21:11 05/06/20 00:00 05/06/20 05:12 Temperature Pulse Rate 72 87 85 Respiratory Rate Blood Pressure Pulse Oximetr
[2020-05-06 14:39] LABS: Basophils Absolute Auto 0.1 K/mm3 (0.0-0.1); Basophils Percent Auto 0.6 % (0.2-1.2); Eosinophils Absolute Auto 0.3 K/mm3 (0-0.3); Eosinophils Percent Auto 2.5 % (0-4.4); Hematocrit 33.3 % (37.0-47.0); Hemoglobin 10.4 g/dL (12.0-15.0); Immature Granulocyte Absolute 0.07 K/mm3 (0.00-0.031); Immature Granulocyte Percent A 0.6 % (0-0.5); Lymphocytes Absolute Auto 3.07 K/mm3 (0.9-3.2); Lymphocytes Percent Auto 28.5 % (18.3-44.2); Mean Corpuscular HGB Conc 31.2 g/dl (32-36); Mean Corpuscular Hemoglobin 28.4 pg (26-34); Mean Platelet Volume 11.8 fl (7.4-10.4); Monocytes Absolute Auto 0.5 K/mm3 (0.1-0.6); Neutrophils Absolute Auto 6.8 K/mm3 (1.3-6.7); Neutrophils Percent Auto 62.8 % (45.5-73.1); Platelet Count Result 314 k/mm3 (150-375); Red Blood Count 3.66 M/mm3 (4.2-5.4); Red Cell Distribution Width 17.2 % (11.5-14.5); White Blood Count 10.8 K/mm3 (4.5-10.0)
[2020-05-06 14:59] LABS: Anion Gap 7 mmol/L (8-16); Blood Urea Nitrogen 58 mg/dL (7-17); Calcium 8.3 mg/dL (8.4-10.2); Carbon Dioxide 25 mmol/L (22-30); Chloride 108 mmol/L (98-107); Estimated CRCL calculation 45 ml/min; Estimated Glomerular Filt Rate 37; Glucose 334 mg/dL (65-105); Potassium 5.4 mmol/L (3.4-5.0); Sodium 140 mmol/L (137-145)
--- NOTE | 2020-05-06 15:03 | PC.NURSE ---
At 1158 glucose fingerstick resulted 249. Patient glucose fingerstick resulted 262. Patient has 2.2 units basal of Amelog per insulin pump. Patient self administered 7.3 units Amelog per insulin pump.
[2020-05-06] MEDS: SILVERGEL (ELTA) 45 ML 1 APPLIC TOPICAL (16:19)
[2020-05-06] MEDS: MUPIROCIN 2% OINT 22 GM TUBE 1 APPLIC TOPICAL (16:36)
[2020-05-06 16:44] LABS: Glucose Point of Care 319 (65-105)
[2020-05-06] MEDS: INSULIN ASPART (*BKC) 100 UNITS/ML SUB-Q (16:45)
[2020-05-06 22:50] LABS: Glucose Point of Care 345 (65-105)
[2020-05-06] MEDS: INSULIN GLARGINE (*BKC) 100 UNITS/ML 30 UNITS SUB-Q (23:20)
[2020-05-07] VITALS (8 sets, daily range): BP systolic 120–156; BP diastolic 69–80; PULSE 83–97; RESP 14–18; TEMP 36–36.4; O2SAT 100
[2020-05-07] MEDS: METOPROLOL TARTRATE 50 MG TAB PO ×2 (08:01→20:03)
[2020-05-07] MEDS: ACYCLOVIR 400 MG TABLET 800 MG PO (08:01)
[2020-05-07] MEDS: LOSARTAN POTASSIUM 100 MG TABLET PO (08:01)
[2020-05-07] MEDS: GABAPENTIN 300 MG CAPSULE PO ×4 (08:01→20:03)
[2020-05-07] MEDS: PANTOPRAZOLE 40 MG TABLET PO (08:01)
[2020-05-07] MEDS: SPIRONOLACTONE 25 MG TABLET BY MOUTH (08:01)
[2020-05-07] MEDS: MUPIROCIN 2% OINT 22 GM TUBE 1 APPLIC TOPICAL ×2 (08:04→16:43)
[2020-05-07] MEDS: INSULIN ASPART (*BKC) 100 UNITS/ML SUB-Q (08:33)
[2020-05-07 08:38] LABS: Glucose Point of Care 255 (65-105)
[2020-05-07] MEDS: SILVERGEL (ELTA) 45 ML 1 APPLIC TOPICAL (11:16)
[2020-05-07 11:40] LABS: Glucose Point of Care 360 (65-105)
--- NOTE | 2020-05-07 12:13 | PM.PNGS ---
Progress Note: A&P Assessment and Plan (1) Abscess of right axilla: Code(s): L02.411 - Cutaneous abscess of right axilla Status: Acute Assessment and Plan: Continue local wound care, cultures pending. Doesn't look like it will need I&D but will continue to follow. (2) Pressure ulcer of ankle: Code(s): L89.509 - Pressure ulcer of unspecified ankle, unspecified stage Status: Acute Assessment and Plan: Silver gel and Mepilex border to heel ulcers Subjective Subjective Date/Time Seen: 05/07/20 12:13 Interval history: right arm improving, not draining as much as yesterday. Exam Skin: Other: No purulent drainage noted in right axillary abscess today. Minimal induration and erythema. Objective Data Vital Signs Vital Signs: Vital Signs - 24 hr 05/06/20 14:00 05/06/20 16:00 05/06/20 20:00 Temperature 36.4 C L 36.2 C L Pulse Rate 85 83 89 Respiratory Rate 16 16 Blood Pressure 128/64 154/82 H Pulse Oximetry 100 100 05/06/20 23:21 05/07/20 00:00 05/07/20 04:00 Temperature Pulse Rate 92 90 83 Respiratory Rate Blood Pressure Pulse Oximetry 05/07/20 05:36 05/07/20 08:01 Temperature 36.4 C L Pulse Rate 85 97 Respiratory Rate 14 Blood Pressure 123/74 Pulse Oximetry 100 Intake/Output Intake/Output: Intake & Output 05/04/20 05/05/20 05/06/20 05/07/20 23:59 23:59 23:59 23:59 Intake Total 1960 2020 450 740 Output Total 600 1800 1600 800 Balance 1360 220 -1150 -60 Meds/Results Medications: Active Medications Generic Name Dose Route Start Last Admin Trade Name Freq PRN Reason Stop Dose Admin Acyclovir 800 mg 05/04/20 09:00 05/07/20 08:01 Acyclovir 400 Mg Tablet PO 06/03/20 09:01 800 mg DAILY JENNIFER Administration Dextrose 12.5 gm 05/04/20 17:42 Dextrose 50% 25 Gm/50 Ml Syringe IV PUSH PRN PRN Hypoglycemia Protocol Gabapentin 300 mg 05/04/20 09:00 05/07/20 08:01 Gabapentin 300 Mg Capsule PO 300 mg QID JENNIFER Administration Glucagon 1 mg 05/04/20 17:42 Glucagon For Inj 1 Mg Vial IM PRN PRN Hypoglycemia Protocol Glucose 15 gm 05/04/20 17:42 Glucose Oral Gel 15 Gm Of Glucse In 37.5 Gm Tube PO PRN PRN Hypoglycemia Protocol Ceftriaxone Sodium/Dextrose 1 gm in 50 mls @ 100 mls/hr 05/04/20 22:00 05/06/20 23:52 Rocephin 1 Gm/D5w 50 Ml IVPB Infused Q24H JENNIFER Infusion Dextrose 1,000 mls @ 100 mls/hr 05/04/20 17:42 Dextrose 5% 1,000 Ml IVPB PRN PRN Hypoglycemia Protocol Insulin Aspart 3 - 6 units 05/04/20 17:42 Insulin Aspart (*Bkc) 100 Units/Ml SUB-Q TIDWM PRN Hyperglycemia Protocol Insulin Aspart 8 units 05/07/20 12:05 Insulin Aspart (*Bkc) 100 Units/Ml SUB-Q TIDWM JENNIFER Insulin Glargine 30 units 05/06/20 21:00 05/06/20 23:20 Insulin Glargine (*Bkc) 100 Units/Ml 0.3 units/kg (30 units) 30 units SUB-Q Administration [facility] Insulin Human Regular 0 each 05/04/20 08:00 Home Medication Insulin SUB-Q 06/03/20 08:01 DIRECTED JENNIFER Losartan Potassium 100 mg 05/04/20 09:00 05/07/20 08:01 Losartan Potassium 100 Mg Tablet PO 100 mg DAILY JENNIFER Administration Metoprolol Tartrate 50 mg 05/04/20 09:00 05/07/20 08:01 Metoprolol Tartrate 50 Mg Tab PO 50 mg Q12HR JENNIFER Administration Mupirocin 1 applic 05/06/20 17:00 05/07/20 08:04 Mupirocin 2% Oint 22 Gm Tube TOPICAL 1 applic BID JENNIFER Administration Pantoprazole Sodium 40 mg 05/04/20 09:00 05/07/20 08:01 Pantoprazole 40 Mg Tablet PO 06/03/20 09:01 40 mg DAILY JENNIFER Administration Silver Nitrate 1 applic 05/06/20 09:00 05/07/20 11:16 Silvergel (Elta) 45 Ml TOPICAL 1 applic DAILY JENNIFER Administration Spironolactone 25 mg 05/04/20 09:00 02/07/21 08:01 Spironolactone 25 Mg Tablet BY MOUTH 25 mg DAILY JENNIFER Administration Radiology Results: ITS Impressions Knee X-Ray 05/03/
[2020-05-07] MEDS: INSULIN ASPART (*BKC) 100 UNITS/ML 8 UNITS SUB-Q ×2 (12:23→16:36)
--- NOTE | 2020-05-07 13:58 | PM.IMPN ---
Progress Note: A&P Assessment and Plan (1) UTI (urinary tract infection): Qualifiers: Hematuria presence: with hematuria Urinary tract infection type: site unspecified Qualified Code(s): N39.0 - Urinary tract infection, site not specified; R31.9 - Hematuria, unspecified Code(s): N39.0 - Urinary tract infection, site not specified Status: Acute Assessment and Plan: On Rocephin UA cx reviewed Growing Pseudomona sensitive to Rocephin (2) Abscess of right axilla: Code(s): L02.411 - Cutaneous abscess of right axilla Status: Acute Assessment and Plan: On Rocephin Appreciate Surgery note Local care (3) Pressure ulcer of ankle: Code(s): L89.509 - Pressure ulcer of unspecified ankle, unspecified stage Status: Acute Assessment and Plan: Local care (4) Pulmonary hypertension: Code(s): I27.20 - Pulmonary hypertension, unspecified Status: Acute Assessment and Plan: Not on supplemental O2 (5) Nephrotic range proteinuria: Code(s): R80.9 - Proteinuria, unspecified Status: Acute Assessment and Plan: Continue to monitor (6) Diastolic heart failure: Code(s): I50.30 - Unspecified diastolic (congestive) heart failure Status: Acute Assessment and Plan: Does not appear to be exacerbated (7) Left-sided weakness: Code(s): R53.1 - Weakness Status: Acute Assessment and Plan: Chronic States that is more pronounced on the LLE Uses walker (8) Sepsis: Code(s): A41.9 - Sepsis, unspecified organism Status: Acute Assessment and Plan: Resolved (9) Neuropathy due to type 2 diabetes mellitus: Code(s): E11.40 - Type 2 diabetes mellitus with diabetic neuropathy, unspecified Status: Acute Assessment and Plan: Continue Neurontin. Subjective Date/time seen: 05/07/20 13:58 States that she feels well and inquires when she'll be going home. Review of Systems Review of Systems: Narrative: no complains. Constitutional: Comments: no fevers, no rigors, no chills. Cardiovascular: Comments: no chest pain, no pnd, no orthopnea Respiratory: Comments: no sob, no cough, no sputum production. Gastrointestinal: Comments: no n/v/abdominal pain. Musculoskeletal: Comments: B/L pressure wounds at the heels Integumentary/Breasts: Comments: B/L heels ulcers Neurologic: Comments: no sensory motor deficit Exam Narrative: Exam Narrative: Sitting by the edge of the bed Const: General: cooperative, comfortable, no acute distress, alert and awake Nutritional Appearance: overweight Orientation/consciousness: patient oriented x3 HENMT: Head: normocephalic Ears: hearing grossly normal bilaterally General nose exam: Normal external nose present Face and sinus: normal facial exam Eyes: General: appearance normal, both eyes and all related structures Pupils: Equal, round and reactive pupils present EOM: EOMs intact bilaterally Neck: Neck: no lymphadenopathy, supple and no JVD Resp: Effort & Inspection: able to speak in complete sentences Auscultation: clear to auscultation bilaterally Cardio: Jugular venous distension: no JVD Rate: regular rate Rhythm: regular rhythm GI: GI Palp: Yes Soft to palpation and Yes No hepatosplenomegaly present Skin: General skin exam: other (R armpit abscess.) Wounds: wounds noted (B/L LE heels ulcers.) Neuro: General: patient oriented x3 and CN's II-XI intact bilaterally Cranial nerves: Yes CN's II-XII intact bilaterally and Yes Equal, round and reactive pupils present Cognition (Neuro): normal cognition Speech: normal speech Motor exam (neuro): 5/5 motor strength present throughout Extrem: General: edema bilateral (ankle) Objective Data Vital Signs Vital Signs: Vital Signs - 24 hr 05/06/20 14:00 05/06/20 16:00 05/06/20 20:00 Temperature 97.5 F L 97.2 F L Pulse Rate 85 83 89 Respiratory Rate 16 16 Blood Pressu
[2020-05-07 17:30] LABS: Glucose Point of Care 389 (65-105)
[2020-05-07] MEDS: INSULIN GLARGINE (*BKC) 100 UNITS/ML 30 UNITS SUB-Q (21:08)
[2020-05-07 21:29] LABS: Glucose Point of Care 322 (65-105)
[2020-05-08 06:00] VITALS: BP 116/69; PULSE 86; RESP 12; TEMP 36; O2SAT 100
[2020-05-08 07:32] LABS: Glucose Point of Care 273 (65-105)
[2020-05-08] MEDS: INSULIN ASPART (*BKC) 100 UNITS/ML 8 UNITS SUB-Q ×2 (07:51→12:33)
[2020-05-08] MEDS: SILVERGEL (ELTA) 45 ML 1 APPLIC TOPICAL (08:00)
[2020-05-08] MEDS: MUPIROCIN 2% OINT 22 GM TUBE 1 APPLIC TOPICAL (08:01)
[2020-05-08 08:02] VITALS: PULSE 83
[2020-05-08] MEDS: ACYCLOVIR 400 MG TABLET 800 MG PO (08:02)
[2020-05-08] MEDS: LOSARTAN POTASSIUM 100 MG TABLET PO (08:02)
[2020-05-08] MEDS: SPIRONOLACTONE 25 MG TABLET BY MOUTH (08:02)
[2020-05-08] MEDS: PANTOPRAZOLE 40 MG TABLET PO (08:02)
[2020-05-08] MEDS: METOPROLOL TARTRATE 50 MG TAB PO (08:02)
[2020-05-08] MEDS: GABAPENTIN 300 MG CAPSULE PO ×2 (08:02→12:33)
--- NOTE | 2020-05-08 10:58 | PM.PNGS ---
Progress Note: A&P Assessment and Plan (1) Abscess of right axilla: Code(s): L02.411 - Cutaneous abscess of right axilla Status: Acute Assessment and Plan: Right axilla abscess has developed some fluctuance and is no longer spontaneously draining. Would benefit from bedside I&D. I discussed this with the patient this morning. Description of the procedure, risks, benefits, alternatives, and post-procedure wound care were discussed with the patient. She agreed to proceed. Will set up for bedside I&D later today. Cultures pending, gram stain with gram + cocci. Continue antibiotics. (2) Pressure ulcer of ankle: Code(s): L89.509 - Pressure ulcer of unspecified ankle, unspecified stage Status: Acute Assessment and Plan: Silver gel and Mepilex border to heel ulcers. Continue local wound care on discharge. Home health being arranged. Additional Plan Discussed plan with Dr. Flanagan. Subjective Subjective Date/Time Seen: 05/08/20 09:30 Interval history: Right axilla conveyor tender today. Reports pushing some pus out of the right axilla lesion last night, no drainage this morning. Exam Skin: Other: Right axilla abscess with fluctuant center, no openings with drainage. Localized erythema. Bilateral heel dressings clean, dry, and intact (changed by RN right before my exam). Objective Data Vital Signs Vital Signs: Vital Signs - 24 hr 05/07/20 14:22 05/07/20 19:57 05/07/20 20:03 Temperature 97.1 F L 96.8 F L Pulse Rate 84 92 92 Respiratory Rate 18 16 Blood Pressure 120/69 156/80 H Pulse Oximetry 100 100 05/08/20 06:00 05/08/20 08:02 Temperature 96.8 F L Pulse Rate 86 83 Respiratory Rate 12 Blood Pressure 116/69 Pulse Oximetry 100 Intake/Output Intake/Output: Intake & Output 05/05/20 05/06/20 05/07/20 05/08/20 23:59 23:59 23:59 23:59 Intake Total 2019 450 1770 880 Output Total 1800 1600 800 Balance 220 -1150 970 880 Meds/Results Medications: Active Medications Generic Name Dose Route Start Last Admin Trade Name Freq PRN Reason Stop Dose Admin Acyclovir 800 mg 05/04/20 09:00 05/08/20 08:02 Acyclovir 400 Mg Tablet PO 06/03/20 09:01 800 mg DAILY JENNIFER Administration Dextrose 12.5 gm 05/04/20 17:42 Dextrose 50% 25 Gm/50 Ml Syringe IV PUSH PRN PRN Hypoglycemia Protocol Gabapentin 300 mg 05/04/20 09:00 05/08/20 08:02 Gabapentin 300 Mg Capsule PO 300 mg QID JENNIFER Administration Glucagon 1 mg 05/04/20 17:42 Glucagon For Inj 1 Mg Vial IM PRN PRN Hypoglycemia Protocol Glucose 15 gm 05/04/20 17:42 Glucose Oral Gel 15 Gm Of Glucse In 37.5 Gm Tube PO PRN PRN Hypoglycemia Protocol Ceftriaxone Sodium/Dextrose 1 gm in 50 mls @ 100 mls/hr 05/04/20 22:00 05/07/20 21:05 Rocephin 1 Gm/D5w 50 Ml IVPB 100 mls/hr Q24H JENNIFER Administration Dextrose 1,000 mls @ 100 mls/hr 05/04/20 17:42 Dextrose 5% 1,000 Ml IVPB PRN PRN Hypoglycemia Protocol Insulin Aspart 3 - 6 units 05/04/20 17:42 Insulin Aspart (*Bkc) 100 Units/Ml SUB-Q TIDWM PRN Hyperglycemia Protocol Insulin Aspart 8 units 05/07/20 12:05 05/08/20 07:51 Insulin Aspart (*Bkc) 100 Units/Ml SUB-Q 8 units TIDWM JENNIFER Administration Insulin Glargine 30 units 05/06/20 21:00 05/07/20 21:08 Insulin Glargine (*Bkc) 100 Units/Ml 0.3 units/kg (30 units) 30 units SUB-Q Administration [facility] Insulin Human Regular 0 each 05/04/20 08:00 Home Medication Insulin SUB-Q 06/03/20 08:01 DIRECTED [facility] Losartan Potassium 100 mg 05/04/20 09:00 05/08/20 08:02 Losartan Potassium 100 Mg Tablet PO 100 mg DAILY JENNIFER Administration Metoprolol Tartrate 50 mg 05/04/20 09:00 05/08/20 08:02 Metoprolol Tartrate 50 Mg Tab PO 50 mg Q12HR JENNIFER Administration Mupirocin 1 applic 05/06/20 17:00 05/08/20 08:01 Mupirocin 2% Oint 22 Gm Tube TOPICAL 1 applic BID
[2020-05-08 12:25] LABS: Glucose Point of Care 322 (65-105)
--- NOTE | 2020-05-08 12:28 | PM.DS ---
DS: Admitting Diagnosis Admitting Diagnosis Admitting Diagnosis: 1) UTI (urinary tract infection): (2) Acute hyperglycemia: (3) Neuropathy due to type 2 diabetes mellitus: (4) Type 2 diabetes mellitus with hyperglycemia: (5) Essential hypertension: (6) Sepsis: (7) Pulmonary hypertension: (8) Nephrotic range proteinuria: (9) Left-sided weakness: DS: Discharge Diagnosis Discharge Diagnosis (1) Pressure ulcer of ankle: Code(s): L89.509 - Pressure ulcer of unspecified ankle, unspecified stage Status: Acute Assessment and Plan: Wound care was consulted and patient was treated for pressures ulcers. (2) Abscess of right axilla: Code(s): L02.411 - Cutaneous abscess of right axilla Status: Acute Assessment and Plan: Surgery was consulted Abscess was drained Patient placed on antibiotics as well (3) Nephrotic range proteinuria: Code(s): R80.9 - Proteinuria, unspecified Status: Acute Assessment and Plan: Likely secondary to diabetic nephropathy. Follow up in the outpatient setting. (4) Diastolic heart failure: Code(s): I50.30 - Unspecified diastolic (congestive) heart failure Status: Acute Assessment and Plan: Compensated Follow up in the outpatient setting. (5) Left-sided weakness: Code(s): R53.1 - Weakness Status: Acute Assessment and Plan: Present from (6) Sepsis: Code(s): A41.9 - Sepsis, unspecified organism Status: Acute Assessment and Plan: Ruled out (7) DONNA (acute kidney injury): Code(s): N17.9 - Acute kidney failure, unspecified Status: Acute Assessment and Plan: Resolved (8) UTI (urinary tract infection): Qualifiers: Hematuria presence: with hematuria Urinary tract infection type: site unspecified Qualified Code(s): N39.0 - Urinary tract infection, site not specified; R31.9 - Hematuria, unspecified Code(s): N39.0 - Urinary tract infection, site not specified Status: Acute Assessment and Plan: Treated (9) Acute hyperglycemia: Code(s): R73.9 - Hyperglycemia, unspecified Status: Acute Assessment and Plan: Likely secondary to UTI Improved Will follow up in the outpatient setting (10) Neuropathy due to type 2 diabetes mellitus: Code(s): E11.40 - Type 2 diabetes mellitus with diabetic neuropathy, unspecified Status: Acute Assessment and Plan: Continue Gabapentin (11) Essential hypertension: Code(s): I10 - Essential (primary) hypertension Status: Acute Assessment and Plan: Continue home meds DS: Summary Hospital Course Reason for hospitalization: Fall Hospital Course: Hillary Bailey is a 49 year old female with PMHx significant for T2DM, diabetic L foot, peripheral diabetic neuropathy, HTN, obesity, stroke, L sided paraparesis, L fith toe amputation due to osteomyelitis, grade II diastolic hear dysfunction, retinopathy, diabetic nephropathy. Patient presented to ED after she had a fall she was in her bathtub and was exiting when she fell, no loc. Patient states that she has been in her usual state of health, denies any fevers, rigors, chills, pain or burning with urination, no cough, no sputum production, no n/v/abdominal pain, no sob, has b/l LE edema, non healing b/l heels ulcers states that has not been to the doctor and her boyfriend has been taking care of them they have been present since February of 2020. Her appetite has been good.She was found to have a UTI, elevated white count, elevated Alk phos. Patient was treated for UTI Surgery was consulted Wound care was consulted hospice educator was consulted as well as patient was on insulin pump but she was not using it correctly so she received education on how to use it. Also she had axillary hydradenitis/Abscess that was drained by surgery. Status at
[2020-05-08 14:00] VITALS: BP 133/90; PULSE 89; RESP 16; TEMP 36.5; O2SAT 100
--- NOTE | 2020-05-08 14:19 | PM.PROC ---
Procedure Note - Detailed Date of procedure: 05/08/20 Pre-op diagnosis: Right axillary abscess Post-op diagnosis: same Procedure performed: Incision and drainage of simple right axillary abscess Description of procedure: The patient was positioned in a supine position in the bed with her right arm extended above her head. The site of the abscess was identified. Following this, the area was prepped with alcohol prep and draped in usual sterile fashion. Then, local anesthetic was infiltrated directly over the area of swelling and abscess formation. After allowing the local anesthetic to work, a direct incision was made over the fluctuant area of the abscess and immediate flow of purulent drainage was noted. All purulent drainage was expressed from the abscess. The abscess cavity was probed and all loculation broken up. Following this, the area was packed with 1/4 inch iodoform Nu Gauze. The area was then covered with 4x4s and tape. The patient tolerated the procedure well. Anesthesia: local (lidocaine with epi) Surgeon: JADIEL Barth Self Propelled Hot Mix Roller Operator: JESUS Azevedo Estimated blood loss (mL): 0 Drains: No Packing: Yes (1/4 inch iodoform packing) Complications: No immediate complications Condition: stable Disposition: no change Findings: Simple right axillary abscess
--- NOTE | 2020-05-08 16:46 | PCCDE ---
Diabetes education f/up: pt did not have all the needed pump supplies and therefore was put on basal bolus insulin therapy over the weekend. (30 units Lantus HS and 8 units Novolog AC). Pt is being discharged today and pt plans to resume pump at home. Last dose of Lantus was 2/7 HS so advised would be fine to resume pump when she gets home this evening. Pt v/u of how to give bolus correctly now. Pt had I&D of abscess this afternoon and we spoke about importance of taking appropriate insulin to manage BG for optimal healing. Pt plans to f/up with Dr Salmeron. Pt was c/o her insurance not covering the Contour test strips. this meter is preferred b/c it links with her pump. Advised Contour strips are available with prior auth and advised pt to request Dr Salmeron to assist with this. Pt requested some logbooks to track her BG and insulin and logbooks were provided. Also reminded pt to f/up with the clinical [employer] educator, Delmy. Pt has Delmy's number in her phone.
== END 2020-05-08 17:05 | disposition home health service (06) | DRG 720 ==
LOC: ANHED 23:51 → ANH3MED 05-04 02:43
PROVIDERS: Admitting Provider Family Medicine; Emergency Provider Emergency Medicine; PCP Internal Medicine; Visit Provider Internal Medicine
DX: A41.9 Sepsis, unspecified organism (principal); L89.623 Pressure ulcer of left heel, stage 3; L89.613 Pressure ulcer of right heel, stage 3; R82.71 Bacteriuria; E11.65 Type 2 diabetes mellitus with hyperglycemia; E11.621 Type 2 diabetes mellitus with foot ulcer; L97.529 Non-pressure chronic ulcer of other part of left foot with unspecified severity; L02.411 Cutaneous abscess of right axilla; I11.0 Hypertensive heart disease with heart failure; I50.32 Chronic diastolic (congestive) heart failure; I27.20 Pulmonary hypertension, unspecified; E11.42 Type 2 diabetes mellitus with diabetic polyneuropathy; E11.319 Type 2 diabetes mellitus with unspecified diabetic retinopathy without macular edema; R31.9 Hematuria, unspecified; G81.94 Hemiplegia, unspecified affecting left nondominant side; E78.5 Hyperlipidemia, unspecified; E55.9 Vitamin D deficiency, unspecified; R80.9 Proteinuria, unspecified; W18.30XA Fall on same level, unspecified, initial encounter; Y93.E1 Activity, personal bathing and showering; Z79.4 Long term (current) use of insulin; Z96.41 Presence of insulin pump (external) (internal); Z79.899 Other long term (current) drug therapy; Z86.73 Personal history of transient ischemic attack (TIA), and cerebral infarction without residual deficits; Z88.0 Allergy status to penicillin; Z88.5 Allergy status to narcotic agent
CPT/HCPCS: 36415; 51701; 71045; 72100; 73502; 73562; 73610; 80048; 80053; 81001; 82948; 83036; 83605; 85025; 85610; 85730; 86140; 87040; 87070; 87075; 87077; 87086; 87088; 87186; 87205; 93005; 96361; 96365; 97110; 97116; 97161; 97165; 99285; A9270; G0378; G0379; J0696; J1815; J7040

== ENCOUNTER 2020-07-28 10:37 | Outpatient (CLI) | payer OTHER, SELFPAY ==
--- NOTE | ~2020-07-28 | US_ITS ---
EXAMINATION:US venous doppler LE BI INDICATION:Leg edema TECHNIQUE: Multiple grayscale, color flow and Doppler images of the right and left lower extremity de ep venous systems were obtained and reviewed. COMPARISON:06/22/2019 FINDINGS: The common femoral, superficial femoral and popliteal veins demonstrate normal respiratory variation, augmentation and compressibility. Color flow is also seen within the posterior tibial, pe roneal, greater saphenous and profunda veins. IMPRESSION: 1: No lower extremity deep venous thrombosis. Reviewed, dictated and finalized at location B.
== END 2020-07-28 10:38 | disposition home or self-care (01) ==
LOC: ANHIMG 10:38
PROVIDERS: PCP Internal Medicine; Visit Provider Internal Medicine
DX: R60.0 Localized edema (principal)
CPT/HCPCS: 93970

== ENCOUNTER 2020-08-03 15:35 | Outpatient (CLI) | payer OTHER, SELFPAY ==
[2020-08-03 16:33] LABS: Basophils Absolute Auto 0.1 K/mm3 (0.0-0.1); Basophils Percent Auto 0.5 % (0.2-1.2); Eosinophils Absolute Auto 0.4 K/mm3 (0-0.3); Eosinophils Percent Auto 3.4 % (0-4.4); Hematocrit 34.7 % (37.0-47.0); Hemoglobin 11.2 g/dL (12.0-15.0); Immature Granulocyte Absolute 0.08 K/mm3 (0.00-0.031); Immature Granulocyte Percent A 0.8 % (0-0.5); Lymphocytes Absolute Auto 3.19 K/mm3 (0.9-3.2); Lymphocytes Percent Auto 30.7 % (18.3-44.2); Mean Corpuscular HGB Conc 32.3 g/dl (32-36); Mean Corpuscular Hemoglobin 28.3 pg (26-34); Mean Corpuscular Volume 87.6 fl (80-100); Mean Platelet Volume 11.7 fl (7.4-10.4); Monocytes Absolute Auto 0.6 K/mm3 (0.1-0.6); Monocytes Percent Auto 6.2 % (2.6-8.5); Neutrophils Absolute Auto 6.1 K/mm3 (1.3-6.7); Neutrophils Percent Auto 58.4 % (45.5-73.1); Platelet Count Result 368 k/mm3 (150-375); Red Blood Count 3.96 M/mm3 (4.2-5.4); Red Cell Distribution Width 14.3 % (11.5-14.5); White Blood Count 10.4 K/mm3 (4.5-10.0)
[2020-08-03 17:06] LABS: Alanine Aminotransferase 20 U/L (4-35); Albumin Level 3.5 g/dL (3.5-5.1); Alkaline Phosphatase 215 U/L (38-126); Anion Gap 7 mmol/L (8-16); Aspartate Amino Transferase 28 U/L (14-36); Bilirubin,Total 0.2 mg/dL (0.2-1.3); Blood Urea Nitrogen 27 mg/dL (7-17); Calcium 9.2 mg/dL (8.4-10.2); Carbon Dioxide 28 mmol/L (22-30); Chloride 108 mmol/L (98-107); Estimated Glomerular Filt Rate 32; Glucose 115 mg/dL (65-105); Iron 48 ug/dL (37-170); Phosphorus 4.1 mg/dL (2.5-4.5); Potassium 3.8 mmol/L (3.4-5.0); Sodium 143 mmol/L (137-145)
[2020-08-03 17:15] LABS: Percent Iron Saturation 17 % (20-50)
[2020-08-03 17:27] LABS: Hemoglobin A1C 11.2 % (<5.7)
[2020-08-03 17:48] LABS: Vitamin D 25 Hydroxy < 12.8 ng/mL
[2020-08-03 18:11] LABS: Folic Acid 5.2 ng/mL (2.76->20)
== END 2020-08-03 15:36 | disposition home or self-care (01) ==
LOC: ANHLAB 15:39
PROVIDERS: PCP Internal Medicine; Visit Provider Internal Medicine
DX: R60.0 Localized edema (principal); E11.42 Type 2 diabetes mellitus with diabetic polyneuropathy; D64.9 Anemia, unspecified; I12.9 Hypertensive chronic kidney disease with stage 1 through stage 4 chronic kidney disease, or unspecified chronic kidney disease; N18.30 Chronic kidney disease, stage 3 unspecified
CPT/HCPCS: 36415; 80069; 80076; 82306; 82607; 82746; 83036; 83540; 83550; 84443; 85025

== ENCOUNTER 2020-08-07 08:31 | Outpatient (RCR) | payer OTHER, SELFPAY ==
[2020-08-07 10:23] LABS: Hematocrit 32.5 % (37.0-47.0); Hemoglobin 10.4 g/dL (12.0-15.0); Mean Corpuscular Hemoglobin 28.3 pg (26-34); Mean Corpuscular Volume 88.6 fl (80-100); Platelet Count Result 318 k/mm3 (150-375); Red Blood Count 3.67 M/mm3 (4.2-5.4); Red Cell Distribution Width 14.2 % (11.5-14.5); White Blood Count 10.2 K/mm3 (4.5-10.0)
[2020-08-07 10:29] LABS: Add Urine Microscopic? YES; Appearance Urine Clear (Clear); Bilirubin Urine Negative (Negative); Blood Urine 1+ (Negative); Color Urine Straw (Yellow); Glucose Urine UA 3+ mg/dL (Negative); Ketones Urine Negative (Negative); Leukocyte Esterase Ur 1+ LEU/UL (Negative); Nitrate Urine Negative (Negative); Protein Urine 3+ mg/dL (Negative); Specific Grav Ur 1.015 (1.001-1.035); Squamous Epithelial Cell Urine Few /hpf (Few); Urobilinogen Urine Negative mg/dL (<2.0); WBC Urine >75 /hpf
[2020-08-07 10:37] LABS: Albumin Level 3.2 g/dL (3.5-5.1); Anion Gap 6 mmol/L (8-16); Blood Urea Nitrogen 37 mg/dL (7-17); Calcium 8.6 mg/dL (8.4-10.2); Carbon Dioxide 25 mmol/L (22-30); Chloride 104 mmol/L (98-107); Estimated Glomerular Filt Rate 32; Glucose 490 mg/dL (65-105); Phosphorus 4.8 mg/dL (2.5-4.5); Potassium 4.2 mmol/L (3.4-5.0); Sodium 135 mmol/L (137-145)
[2020-08-07 10:45] LABS: Complement C3 162 mg/dL (88-165)
[2020-08-07 10:49] LABS: Parathyroid Intact 176.6 pg/mL (7.5-53.5)
[2020-08-07 11:03] LABS: Erythrocyte Sedimentation Rate > 140 mm/hr (0-20)
[2020-08-07 12:44] LABS: Sodium Urine Random 97 meq/L
[2020-08-07 14:51] LABS: Sodium 24 Hour Urine 63 mmol/day (40-220); Total Volume 24 Hour Urine 650 ml; Urea Nitrogen 24 Hour Urine 0.6 G/DAY (12-20)
[2020-08-09 14:58] LABS: Complement Total CH50 >60 U/mL (31-60)
[2020-08-09 23:58] LABS: Kappa\\Lambda Light Chains 1.93 (0.26-1.65)
[2020-08-18 10:17] LABS: Measured Kappa Chains 8.77; Measured Lambda Chains 3.67; Total Kappa Chains 57.005
[2020-08-18 10:18] LABS: Albumin 52; Creat 24 Hr 0.07; Pro/Creat Ratio 9099; Total Lambda Chains 23.855
== END 2020-08-07 10:00 | disposition home or self-care (01) ==
LOC: ANHLAB 08:31
PROVIDERS: PCP Internal Medicine; Visit Provider Internal Medicine Nephrology
DX: N18.31 Chronic kidney disease, stage 3a (principal); R80.1 Persistent proteinuria, unspecified
CPT/HCPCS: 36415; 80069; 81001; 81050; 83883; 83970; 84300; 84540; 85027; 85652; 86038; 86160; 86162; 86334; 86335; 87086

== ENCOUNTER 2020-08-11 12:26 | Outpatient (CLI) | payer OTHER, SELFPAY ==
--- NOTE | ~2020-08-11 | US_ITS ---
EXAMINATION: US renal BI DATE: 08/11/2020 12:56 INDICATION: Nephrotic syndrome TECHNIQUE: Multiple ultrasound grayscale images of the kidneys were obtained. COMPARISON: None. FINDINGS: The right kidney measures 9.8 x 5.1 x 5.9 cm. The left kidney measures 12.3 x 5.2 x 5.9 cm. The kidne ys demonstrate normal echogenicity. There is no hydronephrosis in either kidney. No stones identifie d. The bladder is normal with bilateral ureteral jets on color Doppler. IMPRESSION: 1. Normal kidneys without hydronephrosis. Reviewed, dictated and finalized at location A.
== END 2020-08-11 12:27 | disposition home or self-care (01) ==
PROVIDERS: PCP Internal Medicine; Visit Provider Internal Medicine
DX: N05.9 Unspecified nephritic syndrome with unspecified morphologic changes (principal)
CPT/HCPCS: 76775

== ENCOUNTER 2020-08-11 19:21 | Inpatient (IN) | payer OTHER, SELFPAY ==
--- NOTE | ~2020-08-11 | CT_ITS ---
EXAMINATION: CT abdomen pelvis wo con DATE: 08/12/2020 00:53 INDICATION: Hematuria TECHNIQUE: Computed tomography (CT) of the abdomen and pelvis was performed without intravenous contr ast. Automated exposure control and iterative reconstruction technique were employed. Exam dose: 152 7.94 mGy-cm total exam DLP. COMPARISON: 02/28/2018 CT abdomen pelvis with IV contrast material FINDINGS: There is mild discoid atelectasis or scarring at the lung bases. Cardiomegaly. Mild pericardial effusion. No pleural effusion. The liver, gallbladder, spleen, pancreas, and adrenal glands are unremarkable on this limited noncont rast examination. No renal mass lesion is evident. Approximately 3 mm nonobstructing left renal calculus. No other urinary tract calculus or hydroureter onephrosis. There is minimal ureterectasis and periureteral stranding on the left which may be due to recently passed stone or possibly infection. The urinary bladder is unremarkable. Status post hysterectomy. There is atherosclerotic calcification but normal caliber of the abdominal aorta. No intraperitoneal or retroperitoneal or pelvic mass lesion or adenopathy or ascites is evident. Normal appendix. No bowel obstruction, bowel wall thickening, pneumatosis or intraperitoneal free air . No suspicious osteolytic or osteoblastic lesions. IMPRESSION: 3 mm nonobstructing left renal calculus Mild left ureterectasis and periureteral stranding which may be due to recently passed stone or possi chata infection. Cardiomegaly Mild pericardial effusion. Reviewed, dictated and finalized at Location A. Reviewed, dictated and finalized at location A. IMPRESSION: 3 mm nonobstructing left renal calculus Mild left ureterectasis and periureteral stranding which may be due to recently passed stone or possibly infection. Cardiomegaly Mild pericardial effusion.
[2020-08-11 19:55] VITALS: BP 141/77; PULSE 92; RESP 18; TEMP 37.4; O2SAT 100
--- NOTE | 2020-08-11 22:41 | PC.NURSE ---
2232 no answer when called
--- NOTE | 2020-08-11 23:05 | ED.FEMALEGU ---
HPI - Female Genitourinary General Chief complaint: Urogenital-Female Stated complaint: Blood in Urine Time Seen by Provider: 08/11/20 22:42 Source: patient Mode of arrival: ambulatory Limitations: no limitations History of Present Illness HPI Narrative: This is a 50 year old female with history of CVA, DM, hypertension, chronic renal disease who presents for evaluation of hematuria. Patient reports she started noticing blood in her urine 2 days ago. She states today she starting seeing clots in the toilet. She reports some lower abdominal pressure after she urinates but she denies pain. She reports frequent urination. She denies nausea, vomitin, fever or back pain. She states she takes aspirin 81 mg but she denies taking a blood thinner. She was started on an antibiotics by PCP today for a UTI. MD elicited complaint: UTI Related Data Home Medications Medication Instructions Recorded Confirmed aspirin 1 tablet PO QAM 06/07/19 05/04/20 insulin lispro [Admelog U-100 100 unit SUBCUT DIRECTED 06/07/19 05/04/20 Insulin lispro] acyclovir 800 mg PO DAILY 01/27/20 05/04/20 gabapentin 300 mg PO QID 01/27/20 05/04/20 losartan 100 mg PO DAILY 01/27/20 05/04/20 omeprazole 20 mg PO DAILY 01/27/20 05/04/20 spironolactone 25 mg DAILY 01/27/20 05/04/20 furosemide 80 mg PO DAILY 01/28/20 05/04/20 atorvastatin 40 mg PO DAILY 05/04/20 05/04/20 Allergies Allergy/AdvReac Type Severity Reaction Status Date / Time Penicillins AdvReac Mild Nausea Verified 05/04/20 03:51 acetaminophen [From Vicodin] AdvReac Nausea and Verified 05/04/20 03:51 Vomiting hydrocodone [From Vicodin] AdvReac Nausea and Verified 05/04/20 03:51 Vomiting Review of Systems Review of Systems: All systems reviewed & are unremarkable except as noted in HPI and below PMFSH Past Medical History Medical History Anemia Diabetic peripheral neuropathy Diastolic heart failure Echocardiogram May 2017 demonstrated grade 2 diastolic dysfunction with normal ejection fraction, moderate left atrial enlargement, RVSP 62, moderate tricuspid regurgitation Essential hypertension Glaucoma HLD (hyperlipidemia) 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 Status post total abdominal hysterectomy and bilateral salpingo-oophorectomy (TADEO-BSO) Laparoscopic Family History Family History Father Acute myocardial infarction Mother Cerebrovascular accident Other Colon cancer Social History Social History Social History: She has 3 children who reportedly healthy. Primary care provider: Kimmy Cool CROSS CUT SAW OPERATOR Code status: Full code Surrogate decision maker: Tan Ferchovargas (Boyfriend) Smoking status: Never smoker Second hand tobacco smoke exposure: Yes Alcohol intake: never Substance use: never Substance use type: does not use Additional living arrangements comments: The patient lives with her long-term boyfriend in [facility]. Additional occupation/education comments: She is disabled. She rarely leaves the house. Gender identity (if verbalized by the patient): Female Spiritual care concerns: No Agree to blood products: Yes Exam Const: General: no acute distress, alert and ill appearing chronically Nutritional Appearance: obese centrally obese Orientation/consciousness: patient oriented x3
[2020-08-11 23:21] LABS: Add Urine Microscopic? YES; Appearance Urine Cloudy (Clear); Bacteria Urine Trace /hpf; Bilirubin Urine Negative (Negative); Blood Urine 3+ (Negative); Color Urine Yellow (Yellow); Glucose Urine UA 3+ mg/dL (Negative); Ketones Urine Negative (Negative); Leukocyte Esterase Ur 2+ LEU/UL (Negative); Nitrate Urine Negative (Negative); Protein Urine 3+ mg/dL (Negative); RBC Urine >75 /hpf (0-2); Specific Grav Ur 1.012 (1.001-1.035); Squamous Epithelial Cell Urine Moderate /hpf (Few); Urobilinogen Urine Negative mg/dL (<2.0); WBC Clumps Urine Present /HPF; WBC Urine >75 /hpf
[2020-08-11 23:40] LABS: Basophils Absolute Auto 0.1 K/mm3 (0.0-0.1); Basophils Percent Auto 0.4 % (0.2-1.2); Eosinophils Absolute Auto 0.4 K/mm3 (0-0.3); Eosinophils Percent Auto 2.2 % (0-4.4); Hemoglobin 10.4 g/dL (12.0-15.0); Immature Granulocyte Absolute 0.19 K/mm3 (0.00-0.031); Immature Granulocyte Percent A 1.1 % (0-0.5); Lymphocytes Absolute Auto 4.29 K/mm3 (0.9-3.2); Lymphocytes Percent Auto 25.8 % (18.3-44.2); Mean Corpuscular HGB Conc 31.5 g/dl (32-36); Mean Corpuscular Hemoglobin 28.6 pg (26-34); Mean Corpuscular Volume 90.7 fl (80-100); Mean Platelet Volume 11.5 fl (7.4-10.4); Monocytes Absolute Auto 1.1 K/mm3 (0.1-0.6); Monocytes Percent Auto 6.4 % (2.6-8.5); Neutrophils Absolute Auto 10.7 K/mm3 (1.3-6.7); Neutrophils Percent Auto 64.1 % (45.5-73.1); Platelet Count Result 364 k/mm3 (150-375); Red Blood Count 3.64 M/mm3 (4.2-5.4); Red Cell Distribution Width 14.8 % (11.5-14.5); White Blood Count 16.7 K/mm3 (4.5-10.0)
[2020-08-11 23:42] VITALS: BP 136/77; PULSE 90; RESP 20; TEMP 37.2; O2SAT 100
[2020-08-11 23:46] LABS: INR 1.1; Prothrombin Time 14.4 Seconds (11.1-14.7)
[2020-08-11 23:47] LABS: Partial Thromboplastin Time 32.6 SECONDS (22.3-36.8)
[2020-08-11 23:49] LABS: Alanine Aminotransferase 20 U/L (4-35); Albumin Level 3.4 g/dL (3.5-5.1); Alkaline Phosphatase 198 U/L (38-126); Anion Gap 6 mmol/L (8-16); Aspartate Amino Transferase 40 U/L (14-36); Bilirubin,Total 0.2 mg/dL (0.2-1.3); Blood Urea Nitrogen 45 mg/dL (7-17); Carbon Dioxide 25 mmol/L (22-30); Chloride 107 mmol/L (98-107); Estimated CRCL calculation 34 ml/min; Estimated Glomerular Filt Rate 27; Glucose 110 mg/dL (65-105); Potassium 4.5 mmol/L (3.4-5.0); Sodium 138 mmol/L (137-145)
[2020-08-12] VITALS (9 sets, daily range): BP systolic 134–166; BP diastolic 64–79; PULSE 80–96; RESP 16–20; TEMP 36.2–37.4; O2SAT 90–100; BMI 44.6
--- NOTE | 2020-08-12 03:02 | PM.IMHP ---
H&P: HPI History of Present Illness Date/Time: 08/12/20 03:02 Chief Complaint: Hematuria Narrative: This is a 50-year-old female with past medical history significant for type 2 diabetes mellitus insulin dependent, hypertension, dyslipidemia. Patient presented to the emergency room due to having blood in the urine for the last 3 days she states that she passed some clots as well. The patient denies any pain or burning with urination no fevers no rigors no chills no nausea no vomiting no abdominal pain no diarrhea she has been in her usual state of health up until this. In the emergency room preliminary workup was significant for urine analysis with significant wbc's and rbc's present as well as a BMP with elevated creatinine. A CT of abdomen and pelvis was performed as well. Review of Systems Review of Systems: Narrative: Patient presented to the emergency room due to blood in the urine Constitutional: Constitutional: Denies chills, Denies fatigue and Denies fever(s) Eyes: Eyes: Denies change in vision ENT: Denies vertigo, Denies dizziness, Denies ear discharge, Denies nasal congestion, Denies nasal discharge and Denies nasal obstruction Cardiovascular: Cardiovascular: Denies chest pain, Denies irregular heart rhythm, Denies lightheadedness and Denies dyspnea Respiratory: Respiratory: Denies chest congestion, Denies cough and Denies dyspnea Gastrointestinal: Gastrointestinal: Denies abdominal pain, Denies dysphagia, Denies dyspepsia and Denies diarrhea Genitourinary: Genitourinary: Reports hematuria Musculoskeletal: Musculoskeletal: Denies myalgias and Denies muscle weakness Integumentary/Breasts: Skin/Breast: Reports skin ulcer (Bilateral heels) Neurologic: Denies dizziness, Denies headache(s) and Denies focal weakness Psychiatric: Psychiatric: Denies no additional psychiatric complaints Endocrine: Endocrine: Denies no additional endocrine complaints Hematologic/Lymphatic: Hematologic/Lymphatic: Denies no additional hematologic/lymphatic complaints Allergic/Immunologic: Allergic/Immunologic: Denies no additional allergic/immunologic complaints [facility] Past Medical History Medical History Anemia Diabetic peripheral neuropathy Diastolic heart failure Echocardiogram May 2017 demonstrated grade 2 diastolic dysfunction with normal ejection fraction, moderate left atrial enlargement, RVSP 62, moderate tricuspid regurgitation Essential hypertension Glaucoma HLD (hyperlipidemia) 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 Status post total abdominal hysterectomy and bilateral salpingo-oophorectomy (ATDEO-BSO) Laparoscopic Family History Family History Father Acute myocardial infarction Mother Cerebrovascular accident Other Colon cancer Social History Social History Social History: She has 3 children who reportedly healthy. Primary care provider: Kimmy Cool CLINICAL TRANSPLANT COORDINATOR Code status: Full code Surrogate decision maker: Tan Gillespie (Boyfriend) Smoking status: Never smoker Second hand tobacco smoke exposure: Yes Alcohol intake: never Substance use: never Substance use type: does not use Additional living arrangements comments: The patient lives with her long-term boyfriend in [facility]. Additional occupation/education comments: She is disabled. She rarely leaves the house.
[2020-08-12 03:12] LABS: Glucose Point of Care 174 (65-105)
--- NOTE | 2020-08-12 03:22 | ADMGEN ---
This patient, Hillary Bailey, was admitted to 3 [facility] Surg Room 301-01. Patient/family oriented to hospital policies and general routines including ID bracelet, bed and alarms, visiting hours, pain management, procedures, bathroom and other care routines, personal items, smoking policy, room service/diet, and visiting hours. Information on how to activate the Rapid Response Team has been discussed. Patient/Family are encouraged to report perceived risks to care and to ask questions if they do not understand what they are told or what they should do.
[2020-08-12] MEDS: SODIUM CHLORIDE 0.9% IV 1,000 ML 75 ML IV CONT (03:54)
[2020-08-12 08:25] LABS: Glucose Point of Care 260 (65-105)
[2020-08-12] MEDS: INSULIN ASPART (*BKC) 100 UNITS/ML SUB-Q ×3 (08:43→17:43)
[2020-08-12 09:07] LABS: Anion Gap 5 mmol/L (8-16); Blood Urea Nitrogen 44 mg/dL (7-17); Calcium 8.5 mg/dL (8.4-10.2); Carbon Dioxide 24 mmol/L (22-30); Chloride 108 mmol/L (98-107); Estimated CRCL calculation 37 ml/min; Estimated Glomerular Filt Rate 28; Glucose 282 mg/dL (65-105); Potassium 4.8 mmol/L (3.4-5.0); Sodium 137 mmol/L (137-145)
[2020-08-12 09:11] LABS: Hematocrit 27.2 % (37.0-47.0); Hemoglobin 8.8 g/dL (12.0-15.0); Mean Corpuscular HGB Conc 32.4 g/dl (32-36); Mean Corpuscular Hemoglobin 28.5 pg (26-34); Mean Platelet Volume 12.5 fl (7.4-10.4); Platelet Count Result 355 k/mm3 (150-375); Red Blood Count 3.09 M/mm3 (4.2-5.4); White Blood Count 13.1 K/mm3 (4.5-10.0)
[2020-08-12] MEDS: PANTOPRAZOLE 40 MG TABLET PO (11:27)
[2020-08-12] MEDS: METOPROLOL TARTRATE 50 MG TAB PO ×2 (11:27→20:45)
[2020-08-12] MEDS: ACYCLOVIR 400 MG TABLET 800 MG PO (11:27)
[2020-08-12] MEDS: SILVERGEL (ELTA) 45 ML 1 APPLIC TOPICAL (11:33)
[2020-08-12 12:22] LABS: Glucose Point of Care 405 (65-105)
--- NOTE | 2020-08-12 13:08 | PM.IMPN ---
Progress Note: A&P Assessment and Plan (1) UTI (urinary tract infection): Code(s): N39.0 - Urinary tract infection, site not specified Status: Acute Assessment and Plan: Urinalysis abnormal. Leukocytosis is improving. She is afebrile. Continue IV Rocephin Urine cultures pending. Await results and tailor antibiotics accordingly (2) Hematuria: Code(s): R31.9 - Hematuria, unspecified Status: Acute Assessment and Plan: Gross hematuria with dark clots of blood. Likely hemorrhagic cystitis. CT abdomen/pelvis showed unremarkable urinary bladder 3 mm nonobstructing left renal calculus and mild left ureterectasis. Case discussed with urologist. Plan as above Consider consult to Urology if change in condition Follow-up with urology as an outpatient for cystoscopy (3) Normocytic anemia: Code(s): D64.9 - Anemia, unspecified Status: Acute Assessment and Plan: Hemoglobin levels are consistent with baseline. Monitor H&H closely in light of significant hematuria. Repeat this afternoon to ensure remaining stable Transfuse as needed with hemoglobin threshold <7.0 (4) Acute on chronic renal failure: Code(s): N17.9 - Acute kidney failure, unspecified; N18.9 - Chronic kidney disease, unspecified Status: Acute Assessment and Plan: Baseline creatinine is fluctuant, but typically around 1.7. Creatinine elevated at 2.0 at presentation, likely related to acute infection. Discontinue IV fluids as she is tolerating p.o. intake. Encourage oral fluid intake Monitor renal function closely. Renally dose medications and avoid nephrotoxins (5) Type 2 diabetes mellitus with hyperglycemia: Qualifiers: Diabetes mellitus intermission coordinator insulin use: with skilled nursing use Qualified Code(s): E11.65 - Type 2 diabetes mellitus with hyperglycemia; Z79.4 - terminal press operator (current) use of insulin Code(s): E11.65 - Type 2 diabetes mellitus with hyperglycemia Status: Acute Assessment and Plan: A1c is 11.2. She utilizes an insulin pump, although did not bring this to the hospital. Home settings are 52 units basal and up to 9 units TID with meals. Accu-Cheks, sliding scale insulin, and hypoglycemic protocol Diabetic diet Monitor glucose trends Lantus 40 units during inpatient stay (6) Pressure ulcer of ankle: Code(s): L89.509 - Pressure ulcer of unspecified ankle, unspecified stage Status: Acute Assessment and Plan: Superficial ulcer with clear serous drainage. This was evaluated by her PCP, Dr. Salmeron, as an outpatient 2 days prior. He is in-house today and re-evaluated the ulcer, noting no significant changes Continue with plan of care including silver gel and wound dressing Subjective Date/time seen: 08/12/20 13:08 Interval history: Date of service: 08/12/20 Hillary Bailey is a 50-year-old female with history anemia, hypertension, pulmonary hypertension, type 2 diabetes mellitus, and diastolic CHF who is seen in follow-up for suspected UTI with hematuria. She is feeling well. She did have an episode of hematuria this morning with significant amount of blood that filled the toilet bowl with dark clots. She has been asymptomatic. She denies dysuria, urgency, frequency, or foul odor of urine. She denies dizziness, lightheadedness, shortness of breath. She complains of pain in her right lateral leg where she has an sore that is very tender. She denies nausea, vomiting, fever, chills. No abdominal pain, flank pain, or back pain. No diarrhea. Review of Systems Review of Systems: All systems reviewed & are unremarkable except as noted in HPI and below Exam Narrative: Exam Narrative: Ms. Bailey is an obese, well-appearing 50-year-old female who is sitting up at the bedside. She appears comfortable and is in NARD. Neuro: awake, alert and oriented x4, speech clear, no focal neuro deficits noted HEENMT:
[2020-08-12 13:59] LABS: Hematocrit 27.6 % (37.0-47.0); Hemoglobin 8.9 g/dL (12.0-15.0)
[2020-08-12] MEDS: GABAPENTIN 300 MG CAPSULE PO ×3 (14:48→20:45)
[2020-08-12] MEDS: LOSARTAN POTASSIUM 100 MG TABLET PO (15:38)
[2020-08-12] MEDS: ASPIRIN 81 MG CHEWABLE TABLET PO (15:38)
[2020-08-12] MEDS: ATORVASTATIN 40 MG TABLET PO (15:38)
[2020-08-12 17:44] LABS: Glucose Point of Care 398 (65-105)
[2020-08-12] MEDS: INSULIN GLARGINE (*BKC) 100 UNITS/ML 40 UNITS SUB-Q (20:49)
[2020-08-12 20:50] LABS: Glucose Point of Care 392 (65-105)
[2020-08-13 06:00] VITALS: BP 124/64; PULSE 91; RESP 18; TEMP 36.3; O2SAT 96
[2020-08-13 06:49] LABS: Basophils Absolute Auto 0.1 K/mm3 (0.0-0.1); Basophils Percent Auto 0.5 % (0.2-1.2); Eosinophils Absolute Auto 0.4 K/mm3 (0-0.3); Eosinophils Percent Auto 3.2 % (0-4.4); Hematocrit 25.9 % (37.0-47.0); Hemoglobin 8.1 g/dL (12.0-15.0); Immature Granulocyte Absolute 0.13 K/mm3 (0.00-0.031); Immature Granulocyte Percent A 1.2 % (0-0.5); Lymphocytes Absolute Auto 2.59 K/mm3 (0.9-3.2); Lymphocytes Percent Auto 23.7 % (18.3-44.2); Mean Corpuscular HGB Conc 31.3 g/dl (32-36); Mean Corpuscular Hemoglobin 28.2 pg (26-34); Mean Corpuscular Volume 90.2 fl (80-100); Mean Platelet Volume 11.6 fl (7.4-10.4); Monocytes Absolute Auto 0.9 K/mm3 (0.1-0.6); Neutrophils Percent Auto 63.4 % (45.5-73.1); Platelet Count Result 363 k/mm3 (150-375); Red Blood Count 2.87 M/mm3 (4.2-5.4); Red Cell Distribution Width 14.8 % (11.5-14.5); White Blood Count 10.9 K/mm3 (4.5-10.0)
[2020-08-13 07:00] LABS: Alanine Aminotransferase 14 U/L (4-35); Albumin Level 2.8 g/dL (3.5-5.1); Alkaline Phosphatase 145 U/L (38-126); Anion Gap 4 mmol/L (8-16); Aspartate Amino Transferase 25 U/L (14-36); Bilirubin,Total < 0.1 mg/dL (0.2-1.3); Blood Urea Nitrogen 38 mg/dL (7-17); Carbon Dioxide 24 mmol/L (22-30); Chloride 108 mmol/L (98-107); Estimated CRCL calculation 44 ml/min; Estimated Glomerular Filt Rate 34; Glucose 285 mg/dL (65-105); Potassium 4.7 mmol/L (3.4-5.0); Sodium 136 mmol/L (137-145)
[2020-08-13 07:36] LABS: Glucose Point of Care 265 (65-105)
[2020-08-13] MEDS: INSULIN ASPART (*BKC) 100 UNITS/ML SUB-Q ×3 (08:00→17:37)
[2020-08-13 08:02] VITALS: PULSE 91
[2020-08-13] MEDS: GABAPENTIN 300 MG CAPSULE PO ×4 (08:02→21:27)
[2020-08-13] MEDS: METOPROLOL TARTRATE 50 MG TAB PO ×2 (08:02→21:26)
[2020-08-13] MEDS: LOSARTAN POTASSIUM 100 MG TABLET PO (08:02)
[2020-08-13] MEDS: PANTOPRAZOLE 40 MG TABLET PO (08:02)
[2020-08-13] MEDS: SILVERGEL (ELTA) 45 ML 1 APPLIC TOPICAL (08:02)
[2020-08-13] MEDS: ATORVASTATIN 40 MG TABLET PO (08:02)
[2020-08-13] MEDS: ASPIRIN 81 MG CHEWABLE TABLET PO (08:02)
[2020-08-13] MEDS: ACYCLOVIR 400 MG TABLET 800 MG PO (08:03)
--- NOTE | 2020-08-13 10:54 | PM.IMPN ---
Progress Note: A&P Assessment and Plan (1) UTI (urinary tract infection): Code(s): N39.0 - Urinary tract infection, site not specified Status: Acute Assessment and Plan: Urinalysis abnormal. Leukocytosis is improving. She is afebrile. Urine culture is negative which is likely because she received antibiotics as an outpatient prior to collection. Continue IV Rocephin (2) Hematuria: Code(s): R31.9 - Hematuria, unspecified Status: Acute Assessment and Plan: Gross hematuria with dark clots of blood. Likely hemorrhagic cystitis. CT abdomen/pelvis showed unremarkable urinary bladder with 3 mm nonobstructing left renal calculus and mild left ureterectasis. Case discussed with urologist. Plan for urology consultation tomorrow for further evaluation if hematuria persists Encourage oral fluid intake. Follow-up with urology as an outpatient for cystoscopy (3) Normocytic anemia: Code(s): D64.9 - Anemia, unspecified Status: Acute Assessment and Plan: Chronic anemia likely worsened by hematuria. Her baseline does appear to be quite fluctuant. Hemoglobin was 10.4 on arrival and has declined approximately 2 points. Monitor H&H closely in light of significant hematuria. Repeat this afternoon to ensure remaining stable Transfuse as needed with hemoglobin threshold <7.0 (4) Acute on chronic renal failure: Code(s): N17.9 - Acute kidney failure, unspecified; N18.9 - Chronic kidney disease, unspecified Status: Acute Assessment and Plan: Baseline creatinine is fluctuant, but typically around 1.7. Creatinine elevated at 2.0 at presentation, likely related to acute infection. Renal function has returned to baseline. Monitor renal function closely. 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 She utilizes an insulin pump, although did not bring this to the hospital. Home settings are 52 units basal and up to 9 units TID with meals. Accu-Cheks, sliding scale insulin, and hypoglycemic protocol Diabetic diet Monitor glucose trends Increase Lantus to 44 units (6) Pressure ulcer of ankle: Code(s): L89.509 - Pressure ulcer of unspecified ankle, unspecified stage Status: Acute Assessment and Plan: Superficial ulcer with clear serous drainage. This was evaluated by her PCP, Dr. Salmeron, as an outpatient 2 days prior. He was in-house and re-evaluated the ulcer yesterday, noting no significant changes Continue with plan of care including silver gel and wound dressing Subjective Date/time seen: 08/13/20 10:54 Interval history: Date of service: 08/13/20 Hillary Bailey is a 50-year-old female with history of anemia, hypertension, pulmonary hypertension, type 2 diabetes mellitus, and diastolic CHF who is seen in follow-up for suspected UTI with hematuria. She is feeling well. She is still passing bright red blood with dark clots but feels it may have lessened slightly today. She denies dysuria, urgency, or frequency. No suprapubic pain, flank pain, or back pain. No N/V, fever, chills. Denies dizziness, lightheadedness, shortness of breath. Appetite has been good and she has been drinking plenty of water. She has a superficial ulcer on her lateral calf that she reports is burning. Denies increased redness, pain, or drainage. Review of Systems Review of Systems: All systems reviewed & are unremarkable except as noted in HPI and below Exam Narrative: Exam Narrative: Ms. Bailey is an obese, well-appearing 50-year-old female who is sitting up
[2020-08-13 11:30] LABS: Glucose Point of Care 355 (65-105)
[2020-08-13 14:00] VITALS: BP 115/64; PULSE 89; RESP 16; TEMP 36.9; O2SAT 99
[2020-08-13 14:16] LABS: Hematocrit 27.2 % (37.0-47.0); Hemoglobin 8.4 g/dL (12.0-15.0)
[2020-08-13 16:52] LABS: Glucose Point of Care 319 (65-105)
[2020-08-13] MEDS: ACETAMINOPHEN 325 MG TABLET 650 MG PO (18:31)
[2020-08-13 21:26] VITALS: PULSE 60
[2020-08-13] MEDS: INSULIN GLARGINE (*BKC) 100 UNITS/ML 44 UNITS SUB-Q (21:28)
[2020-08-13 21:42] LABS: Glucose Point of Care 370 (65-105)
[2020-08-13 21:51] VITALS: BP 147/68; PULSE 87; RESP 20; TEMP 36.2; O2SAT 100
[2020-08-14 06:00] VITALS: BP 141/80; PULSE 92; RESP 20; TEMP 36.3; O2SAT 99
[2020-08-14 06:22] LABS: Hematocrit 29.7 % (37.0-47.0); Hemoglobin 9.3 g/dL (12.0-15.0); Mean Corpuscular HGB Conc 31.3 g/dl (32-36); Mean Corpuscular Hemoglobin 28.1 pg (26-34); Mean Corpuscular Volume 89.7 fl (80-100); Mean Platelet Volume 11.5 fl (7.4-10.4); Platelet Count Result 444 k/mm3 (150-375); Red Blood Count 3.31 M/mm3 (4.2-5.4); Red Cell Distribution Width 14.6 % (11.5-14.5); White Blood Count 11.4 K/mm3 (4.5-10.0)
[2020-08-14 06:35] LABS: Anion Gap 5 mmol/L (8-16); Blood Urea Nitrogen 32 mg/dL (7-17); Calcium 8.9 mg/dL (8.4-10.2); Carbon Dioxide 27 mmol/L (22-30); Chloride 108 mmol/L (98-107); Estimated CRCL calculation 44 ml/min; Estimated Glomerular Filt Rate 34; Glucose 261 mg/dL (65-105); Potassium 4.7 mmol/L (3.4-5.0); Sodium 140 mmol/L (137-145)
[2020-08-14 08:08] LABS: Glucose Point of Care 243 (65-105)
[2020-08-14 08:11] VITALS: PULSE 84
[2020-08-14] MEDS: METOPROLOL TARTRATE 50 MG TAB PO (08:11)
[2020-08-14] MEDS: GABAPENTIN 300 MG CAPSULE PO ×2 (08:11→12:59)
[2020-08-14] MEDS: PANTOPRAZOLE 40 MG TABLET PO (08:11)
[2020-08-14] MEDS: LOSARTAN POTASSIUM 100 MG TABLET PO (08:11)
[2020-08-14] MEDS: ATORVASTATIN 40 MG TABLET PO (08:11)
[2020-08-14] MEDS: ACYCLOVIR 400 MG TABLET 800 MG PO (08:11)
[2020-08-14] MEDS: ASPIRIN 81 MG CHEWABLE TABLET PO (08:11)
[2020-08-14] MEDS: INSULIN ASPART (*BKC) 100 UNITS/ML SUB-Q ×2 (08:12→11:45)
[2020-08-14] MEDS: SILVERGEL (ELTA) 45 ML 1 APPLIC TOPICAL (08:14)
[2020-08-14 11:48] LABS: Glucose Point of Care 349 (65-105)
--- NOTE | 2020-08-14 13:36 | PM.DS ---
DS: Admitting Diagnosis Admitting Diagnosis Admitting Diagnosis: Hematuria DS: Discharge Diagnosis Discharge Diagnosis (1) UTI (urinary tract infection): Code(s): N39.0 - Urinary tract infection, site not specified Status: Acute Assessment and Plan: Urinalysis was grossly abnormal, concerning for UTI. She was afebrile. She was treated with IV Rocephin. Urine culture negative which is likely because she received antibiotics as an outpatient prior to collection. Due to this, she will continue with p.o. cefdinir to complete a 7 day course of antibiotics. (2) Hematuria: Code(s): R31.9 - Hematuria, unspecified Status: Acute Assessment and Plan: Gross hematuria with dark clots of blood, improved throughout stay. Suspect hemorrhagic cystitis. CT abdomen/pelvis showed unremarkable urinary bladder with 3 mm nonobstructing left renal calculus and mild left ureterectasis. I discussed case with urology who will arrange outpatient follow-up for cystoscopy this week. (3) Normocytic anemia: Code(s): D64.9 - Anemia, unspecified Status: Acute Assessment and Plan: Chronic anemia likely worsened by hematuria. Her baseline does appear to be quite fluctuant. Hemoglobin was 10.4 on arrival, was slight decline. Levels remained stable and her hematuria improved. Repeat H&H in 1 week in light of hematuria to ensure remaining stable. (4) Acute on chronic renal failure: Code(s): N17.9 - Acute kidney failure, unspecified; N18.9 - Chronic kidney disease, unspecified Status: Acute Assessment and Plan: Baseline creatinine is fluctuant, but typically around 1.7. Creatinine elevated at 2.0 at presentation, likely related to acute infection. Renal function returned to baseline. (5) Type 2 diabetes mellitus with hyperglycemia: Qualifiers: Diabetes mellitus care home insulin use: with middle or intermediate school principal use Qualified Code(s): E11.65 - Type 2 diabetes mellitus with hyperglycemia; Z79.4 - MCFP (current) use of insulin Code(s): E11.65 - Type 2 diabetes mellitus with hyperglycemia Status: Acute Assessment and Plan: A1c is 11.2. She utilizes an insulin pump, although did not bring this to the hospital. Home settings are 52 units basal and up to 9 units TID with meals. She was covered with SSI and Lantus during her stay. Insulin pump to be resumed following discharge. (6) Pressure ulcer of ankle: Code(s): L89.509 - Pressure ulcer of unspecified ankle, unspecified stage Status: Acute Assessment and Plan: Superficial ulcer with clear serous drainage. This was evaluated by her PCP, Dr. Salmeron, as an outpatient 2 days prior. He was in-house and re-evaluated the ulcer on 08/12, noting no significant changes. Continue with plan of care including silver gel and wound dressing DS: Summary Hospital Course Reason for hospitalization: Hematuria Hospital Course: Date of admission: 08/11/2020 Date of discharge: 08/14/2020 Hillary Bailey is a 50-year-old female with history of anemia, hypertension, pulmonary hypertension, type 2 diabetes mellitus, and diastolic CHF who presented to the emergency department on 08/11/2020 with complaints of hematuria with clots, lower abdominal pressure, and frequency. Upon presentation to the emergency department, her BP was slightly elevated with additional vital signs stable, white count was 16.7, H&H slightly decreased, platelets within normal limits, BUN and creatinine elevated with additional electrolytes stable, urinalysis grossly abnormal, and CT abdomen/pelvis showed unremarkable urinary bladder with 3 mm nonobstructing left renal calculus and mild left ureterectasis and periureteral stranding, possibly related to passed stone or infection. She was admitted to the hospitalist service for further evaluation management. Please see above for further details. Her hematuria began improving and she was
== END 2020-08-14 15:20 | disposition home or self-care (01) | DRG 463 ==
LOC: ANHED 08-12 02:21 → ANH3MEDSUR 08-12 02:50
PROVIDERS: Emergency Medicine; Physician Assistant; Admitting Provider Internal Medicine; Emergency Provider General Practice; PCP Internal Medicine; Visit Provider Internal Medicine
DX: N30.01 Acute cystitis with hematuria (principal); D62 Acute posthemorrhagic anemia; N17.9 Acute kidney failure, unspecified; I13.0 Hypertensive heart and chronic kidney disease with heart failure and stage 1 through stage 4 chronic kidney disease, or unspecified chronic kidney disease; I50.32 Chronic diastolic (congestive) heart failure; E11.22 Type 2 diabetes mellitus with diabetic chronic kidney disease; N18.30 Chronic kidney disease, stage 3 unspecified; D64.9 Anemia, unspecified; E11.42 Type 2 diabetes mellitus with diabetic polyneuropathy; E11.65 Type 2 diabetes mellitus with hyperglycemia; H40.9 Unspecified glaucoma; E78.5 Hyperlipidemia, unspecified; E11.319 Type 2 diabetes mellitus with unspecified diabetic retinopathy without macular edema; N10 Acute pyelonephritis; N20.0 Calculus of kidney; E55.9 Vitamin D deficiency, unspecified; L97.309 Non-pressure chronic ulcer of unspecified ankle with unspecified severity; E66.9 Obesity, unspecified; Z68.41 Body mass index [BMI] 40.0-44.9, adult; Z89.422 Acquired absence of other left toe(s); Z86.73 Personal history of transient ischemic attack (TIA), and cerebral infarction without residual deficits; Z90.710 Acquired absence of both cervix and uterus; Z90.722 Acquired absence of ovaries, bilateral; Z79.4 Long term (current) use of insulin; Z79.82 Long term (current) use of aspirin
CPT/HCPCS: 36415; 74176; 80048; 80053; 81001; 82948; 85014; 85018; 85025; 85027; 85610; 85730; 87086; 96365; 99285; A9270; G0378; G0379; J0696; J1815; J7030

== ENCOUNTER 2020-08-31 15:51 | Inpatient (IN) | payer OTHER, SELFPAY ==
--- NOTE | ~2020-08-31 | XR_ITS ---
XR wrist RT 2V DATE: 09/02/2020 18:45 INDICATION: Fall. Right wrist injury, pain TECHNIQUE: AP and lateral views COMPARISON: None FINDINGS: No fracture or dislocation of the right wrist is detected. Arterial calcification. Peripheral IV line is noted along the dorsum of the distal forearm. IMPRESSION: No fracture or dislocation Reviewed, dictated and finalized at location A. IMPRESSION: No fracture or dislocation
--- NOTE | ~2020-08-31 | XR_ITS ---
XR knee LT 2V DATE: 09/02/2020 18:45 INDICATION: Fall today. Knee abrasions TECHNIQUE: AP and crosstable lateral views of left knee COMPARISON: None FINDINGS: Mild suprapatellar knee joint effusion is suggested. No fracture or dislocation, periosteal reaction or bone destruction, radiopaque intra-articular loose body or chondrocalcinosis. Mild loss of height of medial compartment joint space. IMPRESSION: Suggestion of mild suprapatellar knee joint effusion Femoral and popliteal artery calcifications Mild loss of height of medial compartment Reviewed, dictated and finalized at location A.
--- NOTE | ~2020-08-31 | XR_ITS ---
XR wrist LT 2V DATE: 09/02/2020 18:46 INDICATION: Fall. Distal radial and ulnar pain TECHNIQUE: AP and lateral views COMPARISON: None FINDINGS: No recent fracture, dislocation, periosteal reaction or bone destruction. IMPRESSION: No recent fracture or dislocation Reviewed, dictated and finalized at location A.
--- NOTE | ~2020-08-31 | US_ITS ---
EXAMINATION: US venous doppler [facility] DATE: 09/01/2020 14:34 INDICATION: Lower limb swelling TECHNIQUE: Grayscale ultrasound images without and with compression and Doppler ultrasound images of the bilateral lower extremity veins were obtained. COMPARISON: 07/28/2020 FINDINGS: The visualized portions of right common femoral vein, profunda (deep) femoral vein, femoral vein, pop liteal vein, posterior tibial veins, peroneal veins, gastrocnemius vein and greater saphenous vein ou tflow remain patent. Mild subcutaneous edema at the right calf. The visualized portions of left common femoral vein, profunda femoral vein, femoral vein, popliteal v ein, posterior tibial veins, peroneal veins, gastrocnemius vein and greater saphenous vein outflow re main patent. Mild subcutaneous edema at the left calf. IMPRESSION: 1. No deep venous thrombosis in either lower limb. Reviewed, dictated and finalized at location A.
--- NOTE | ~2020-08-31 | XR_ITS ---
XR knee RT 2V DATE: 09/02/2020 18:45 INDICATION: Fall today. Small knee abrasions. TECHNIQUE: AP and crosstable lateral views COMPARISON: None FINDINGS: No fracture or dislocation or joint effusion. No periosteal reaction or bone destruction, r adiopaque intra-articular loose body or chondrocalcinosis. Mild loss of height of medial compartment joint space Femoral and popliteal artery calcifications. IMPRESSION: No fracture or dislocation Mild loss of height of medial compartment joint space Reviewed, dictated and finalized at location A.
[2020-08-31 16:02] VITALS: BP 187/85; PULSE 86; RESP 20; TEMP 36.4; O2SAT 100
[2020-08-31 16:18] LABS: Basophils Absolute Auto 0.1 K/mm3 (0.0-0.1); Basophils Percent Auto 0.6 % (0.2-1.2); Eosinophils Absolute Auto 0.3 K/mm3 (0-0.3); Eosinophils Percent Auto 2.7 % (0-4.4); Hematocrit 30.9 % (37.0-47.0); Hemoglobin 9.7 g/dL (12.0-15.0); Immature Granulocyte Absolute 0.04 K/mm3 (0.00-0.031); Immature Granulocyte Percent A 0.4 % (0-0.5); Lymphocytes Absolute Auto 2.85 K/mm3 (0.9-3.2); Lymphocytes Percent Auto 27.8 % (18.3-44.2); Mean Corpuscular HGB Conc 31.4 g/dl (32-36); Mean Corpuscular Volume 92.2 fl (80-100); Mean Platelet Volume 11.2 fl (7.4-10.4); Monocytes Absolute Auto 0.7 K/mm3 (0.1-0.6); Monocytes Percent Auto 7.2 % (2.6-8.5); Neutrophils Absolute Auto 6.3 K/mm3 (1.3-6.7); Neutrophils Percent Auto 61.3 % (45.5-73.1); Platelet Count Result 337 k/mm3 (150-375); Red Blood Count 3.35 M/mm3 (4.2-5.4); Red Cell Distribution Width 15.4 % (11.5-14.5); White Blood Count 10.2 K/mm3 (4.5-10.0)
[2020-08-31 16:50] LABS: Alanine Aminotransferase 14 U/L (4-35); Albumin Level 3.3 g/dL (3.5-5.1); Alkaline Phosphatase 171 U/L (38-126); Anion Gap 7 mmol/L (8-16); Aspartate Amino Transferase 27 U/L (14-36); Bilirubin,Total 0.1 mg/dL (0.2-1.3); Blood Urea Nitrogen 33 mg/dL (7-17); Calcium 8.8 mg/dL (8.4-10.2); Carbon Dioxide 20 mmol/L (22-30); Chloride 114 mmol/L (98-107); Estimated CRCL calculation 44 ml/min; Estimated Glomerular Filt Rate 34; Glucose 138 mg/dL (65-105); Potassium 5.4 mmol/L (3.4-5.0); Sodium 141 mmol/L (137-145)
[2020-08-31 18:25] VITALS: BP 168/89; PULSE 89; RESP 18; O2SAT 97
[2020-08-31] MEDS: SODIUM CHLORIDE 0.9% IV 1,000 ML 999 ML IV CONT (18:25)
--- NOTE | 2020-08-31 18:58 | PC.NURSE ---
called laboratory and requested CRP to be added to labs previously drawn and sent
[2020-08-31 19:19] LABS: Add Urine Microscopic? YES; Appearance Urine Clear (Clear); Bacteria Urine Trace /hpf; Bilirubin Urine Negative (Negative); Blood Urine Negative (Negative); Color Urine Straw (Yellow); Glucose Urine UA 1+ mg/dL (Negative); Ketones Urine Negative (Negative); Leukocyte Esterase Ur Trace LEU/UL (Negative); Mucus Urine Rare /lpf; Nitrate Urine Negative (Negative); Protein Urine 3+ mg/dL (Negative); Squamous Epithelial Cell Urine Rare /hpf (Few); Urobilinogen Urine Negative mg/dL (<2.0); WBC Urine 21-30 /hpf
[2020-08-31 19:29] LABS: CRP 1.2 mg/dL (<1.0)
--- NOTE | 2020-08-31 20:29 | ED.GENADULT ---
HPI - General Adult General Chief complaint: Wound/Laceration Stated complaint: right leg wound Time Seen by Provider: 08/31/20 18:05 Source: patient, family and old records reviewed Mode of arrival: ambulatory Limitations: no limitations History of Present Illness HPI narrative: Patient is a 50-year-old female who presents with wounds to the right leg that have been there roughly 3 weeks patient notes she has been attempting to take care of the wounds herself with silver gel patient denies any antibiotic use she notes that the wounds are now weeping and there is redness and swelling and they are circumferential patient denies similar occurrence in the past patient denies fever chills nausea vomiting patient is a diabetic with chronic kidney disease Related Data Home Medications Medication Instructions Recorded Confirmed aspirin 1 tablet PO QAM 06/07/19 08/12/20 acyclovir 800 mg PO DAILY 01/27/20 08/12/20 gabapentin 300 mg PO QID 01/27/20 08/12/20 losartan 100 mg PO DAILY 01/27/20 08/12/20 omeprazole 20 mg PO DAILY 01/27/20 08/12/20 atorvastatin 40 mg PO DAILY 05/04/20 08/12/20 Allergies Allergy/AdvReac Type Severity Reaction Status Date / Time Penicillins AdvReac Mild Nausea Verified 05/04/20 03:51 hydrocodone [From Vicodin] AdvReac Nausea and Verified 05/04/20 03:51 Vomiting Review of Systems Review of Systems: All systems reviewed & are unremarkable except as noted in HPI and below PMFSH Past Medical History Medical History Anemia Diabetic peripheral neuropathy Diastolic heart failure Echocardiogram May 2017 demonstrated grade 2 diastolic dysfunction with normal ejection fraction, moderate left atrial enlargement, RVSP 62, moderate tricuspid regurgitation Essential hypertension Glaucoma HLD (hyperlipidemia) 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 Status post total abdominal hysterectomy and bilateral salpingo-oophorectomy (TADEO-BSO) Laparoscopic Family History Family History Father Acute myocardial infarction Mother Cerebrovascular accident Other Colon cancer Social History Social History Social History: She has 3 children who reportedly healthy. 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 Additional occupation/education comments: She is disabled. She rarely leaves the house. Gender identity (if verbalized by the patient): Female Spiritual care concerns: No Agree to blood products: Yes Exam Narrative: Exam Narrative: GENERAL: Well-appearing, well-nourished, and in no acute distress. HEAD: Normocephalic, atraumatic. EYES: PERRLA and EOMI. ENT: Nares clear, no rhinorrhea or epistaxis. Mucous membranes moist. CHEST: Clear to auscultation. No respiratory distress. No wheezes rales or rhonchi HEART: Regular rate and rhythm. No murmur heard. Normal peripheral pulses. ABDOMEN: Soft, nontender, distended EXTREMITIES: Normal range of motion. 2+ edema to the right leg at the level of the calf SKIN: Warm, dry, no
[2020-08-31 21:10] LABS: Glucose Point of Care 144 mg/dl (65-105)
[2020-08-31 21:13] VITALS: BP 189/94; PULSE 86; RESP 20; O2SAT 100
[2020-08-31] MEDS: LACTATED RINGERS 1,000 ML 80 ML IV CONT (21:14)
[2020-08-31 21:45] VITALS: BP 153/100; PULSE 89; RESP 16; TEMP 36.4; O2SAT 100; BMI 45.1
--- NOTE | 2020-08-31 22:24 | PM.IMHP ---
H&P: HPI History of Present Illness Date/Time: 08/31/20 22:24 Chief Complaint: right leg wound and pain Narrative: Patient is a 50-year-old female who presents with wounds to the right leg that have been there roughly 4 weeks patient notes she has been attempting to take care of the wounds herself with silver gel and antibiotic cream. The wound has been getting worse and now has been weeping with increased redness and swelling. The wound also has opened up now. no fever, chills, no nausea, vomiting, shortness of breath, chest pain. barak has diabetes and chronic kidney dsiease. she is on insulin pump she states. Review of Systems Review of Systems: Narrative: - CONSTITUTIONAL: Denies weight loss, fever and chills. - HEENT: Denies changes in vision and hearing - RESPIRATORY: Denies SOB and cough. - CV: Denies palpitations and CP. - GI: Denies abdominal pain, nausea, vomiting and diarrhea. - : Denies dysuria and urinary frequency. - MSK: Denies myalgia and joint pain. - SKIN: Denies rash and pruritus. - NEUROLOGICAL: Denies headache and syncope. - PSYCHIATRIC: Denies recent changes in mood. Denies anxiety and depression. 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 Status post total abdominal hysterectomy and bilateral salpingo-oophorectomy (TADEO-BSO) Laparoscopic Family History Family History Father Acute myocardial infarction Mother Cerebrovascular accident Other Colon cancer Social History Social History Social History: She has 3 children who reportedly healthy. 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 Additional occupation/education comments: She is disabled. She rarely leaves the house. Gender identity (if verbalized by the patient): Female Spiritual care concerns: No Agree to blood products: Yes Meds Home Medications and Allergies Home Medications Medication Instructions Recorded Confirmed Type aspirin 1 tablet PO QAM 06/07/19 08/12/20 History metoprolol tartrate 50 mg PO BID #60 tablet 06/12/19 08/12/20 Rx acyclovir 800 mg PO DAILY 01/27/20 08/12/20 History gabapentin 300 mg PO QID 01/27/20 08/12/20 History losartan 100 mg PO DAILY 01/27/20 08/12/20 History omeprazole 20 mg PO DAILY 01/27/20 08/12/20 History atorvastatin 40 mg PO DAILY 05/04/20 08/12/20 History Silver-Sept 1 applic TOPICAL DAILY #45 g 05/08/20 08/12/20 Rx cefdinir 300 mg PO Q12H #6 cap 08/14/20 Rx Allergies Allergy/AdvReac Type Severity Reaction Status Date / Time Penicillins AdvReac Mild Nausea Verified 05/04/20 03:51 hydrocodon
--- NOTE | 2020-08-31 22:39 | ADMGEN ---
This patient, Hillary Bailey, was admitted to 3 [facility] Surg Room 300-01 at 2200. Patient/family oriented to hospital policies and general routines including ID bracelet, bed and alarms, visiting hours, pain management, procedures, bathroom and other care routines, personal items, smoking policy, room service/diet, and visiting hours. Information on how to activate the Rapid Response Team has been discussed. Patient/Family are encouraged to report perceived risks to care and to ask questions if they do not understand what they are told or what they should do.
[2020-09-01 01:48] LABS: Glucose Point of Care 220 mg/dl (65-105)
--- NOTE | 2020-09-01 04:31 | PC.NURSE ---
Patient antibiotic did not complete until 0330. Notified pharmacy and scheduled times will be changed by pharmacist. Education patient on the IV medication and when to notify staff.
--- NOTE | 2020-09-01 04:49 | PC.NURSE ---
Patient vancomycin still infusing due to IV location. Restarted patient IV and notified pharmacy of new stop time of the vancomycin. Educated patient on importance of medication.
[2020-09-01 06:00] VITALS: BP 167/80; PULSE 86; RESP 18; TEMP 36.2; O2SAT 99
[2020-09-01 06:35] LABS: Basophils Absolute Auto 0.1 K/mm3 (0.0-0.1); Basophils Percent Auto 0.6 % (0.2-1.2); Eosinophils Absolute Auto 0.3 K/mm3 (0-0.3); Eosinophils Percent Auto 2.5 % (0-4.4); Hematocrit 28.3 % (37.0-47.0); Hemoglobin 8.9 g/dL (12.0-15.0); Immature Granulocyte Absolute 0.05 K/mm3 (0.00-0.031); Immature Granulocyte Percent A 0.5 % (0-0.5); Lymphocytes Absolute Auto 2.89 K/mm3 (0.9-3.2); Lymphocytes Percent Auto 26.9 % (18.3-44.2); Mean Corpuscular HGB Conc 31.4 g/dl (32-36); Mean Corpuscular Hemoglobin 28.3 pg (26-34); Mean Corpuscular Volume 90.1 fl (80-100); Mean Platelet Volume 11.7 fl (7.4-10.4); Monocytes Absolute Auto 0.6 K/mm3 (0.1-0.6); Monocytes Percent Auto 5.9 % (2.6-8.5); Neutrophils Absolute Auto 6.8 K/mm3 (1.3-6.7); Neutrophils Percent Auto 63.6 % (45.5-73.1); Platelet Count Result 297 k/mm3 (150-375); Red Blood Count 3.14 M/mm3 (4.2-5.4); Red Cell Distribution Width 15.4 % (11.5-14.5); White Blood Count 10.7 K/mm3 (4.5-10.0)
[2020-09-01 06:45] LABS: Anion Gap 8 mmol/L (8-16); Blood Urea Nitrogen 28 mg/dL (7-17); Calcium 8.4 mg/dL (8.4-10.2); Carbon Dioxide 17 mmol/L (22-30); Chloride 114 mmol/L (98-107); Estimated CRCL calculation 47 ml/min; Estimated Glomerular Filt Rate 37; Glucose 270 mg/dL (65-105); Potassium 4.8 mmol/L (3.4-5.0); Sodium 139 mmol/L (137-145)
[2020-09-01 07:44] LABS: Glucose Point of Care 248 mg/dl (65-105)
[2020-09-01] MEDS: INSULIN ASPART (*BKC) 100 UNITS/ML 9 UNITS SUB-Q ×2 (08:55→12:15)
[2020-09-01] MEDS: BUMETANIDE 1 MG TABLET 2 MG PO (08:57)
[2020-09-01] MEDS: GABAPENTIN 300 MG CAPSULE PO ×4 (08:57→19:53)
[2020-09-01] MEDS: ATORVASTATIN 40 MG TABLET PO (08:57)
[2020-09-01] MEDS: LOSARTAN POTASSIUM 100 MG TABLET PO (08:57)
[2020-09-01] MEDS: PANTOPRAZOLE 40 MG TABLET PO (08:57)
[2020-09-01] MEDS: ASPIRIN 81 MG CHEWABLE TABLET PO (08:58)
[2020-09-01] MEDS: INSULIN ASPART (*BKC) 100 UNITS/ML SUB-Q ×2 (08:58→12:16)
[2020-09-01] MEDS: ACYCLOVIR 400 MG TABLET 800 MG PO (08:58)
[2020-09-01 08:59] VITALS: PULSE 84
[2020-09-01] MEDS: METOPROLOL TARTRATE 50 MG TAB PO ×2 (08:59→19:54)
[2020-09-01] MEDS: HEPARIN SODIUM 5,000 UNITS/ML VIAL 5000 UNITS SUB-Q ×2 (09:05→20:00)
[2020-09-01 11:45] LABS: Glucose Point of Care 276 mg/dl (65-105)
[2020-09-01 14:00] VITALS: BP 137/78; PULSE 89; RESP 16; TEMP 36.7; O2SAT 100
--- NOTE | 2020-09-01 16:30 | PM.IMPN ---
Progress Note: A&P Assessment and Plan (1) Cellulitis of right leg: Code(s): L03.115 - Cellulitis of right lower limb Status: Acute (2) Normocytic anemia: Code(s): D64.9 - Anemia, unspecified Status: Acute (3) Pulmonary hypertension: Code(s): I27.20 - Pulmonary hypertension, unspecified Status: Acute (4) Nephrotic range proteinuria: Code(s): R80.9 - Proteinuria, unspecified Status: Acute (5) Diastolic heart failure: Code(s): I50.30 - Unspecified diastolic (congestive) heart failure Status: Acute (6) Neuropathy due to type 2 diabetes mellitus: Code(s): E11.40 - Type 2 diabetes mellitus with diabetic neuropathy, unspecified Status: Acute (7) Essential hypertension: Code(s): I10 - Essential (primary) hypertension Status: Acute (8) Diabetic foot ulcer: Qualifiers: Diabetes mellitus type: type 2 Diabetic foot ulcer location: toe Laterality: left Non-pressure ulcer stage: unspecified non-pressure ulcer stage Qualified Code(s): E11.621 - Type 2 diabetes mellitus with foot ulcer; L97.529 - Non-pressure chronic ulcer of other part of left foot with unspecified severity Code(s): E11.621 - Type 2 diabetes mellitus with foot ulcer; L97.509 - Non-pressure chronic ulcer of other part of unspecified foot with unspecified severity Status: Acute Additional Plan # Right leg cellulitis with ulceration: iv vancomycin and iv primaxin. pancultured in [facility] ED, contineu to monitor. # bialteral lower extremity edema: check venous duplex # Diabetes type 2: on insulin pump at baseline. off pump since this am. will swithc to lantus lispro here . monitor accuechecks ac and hs. last a1c 11.2. 08/03/2020 # Chronic anemia: No signs of blood loss. stable counts # Diastolic heart failure on bumex. continue same. avoid any fluid. monitor renal function and i and O # CKD stage III: cr 1.6, baseline. currently at baseline. cntinue to monitor. sees Dr. 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 # HTN: not optimal. # HLP: home medications. # proteinuria # retinopathy # vitamin D deficiecny # DVT proph: heparin sq 09/01/2020 Right lower extremity continues to look very edematous erythematous and extremely tender to palpation Continue imipenem and vancomycin Wound care consult pending Wound cultures pending Patient appears to have pyuria he urine culture pending Tylenol p.r.n. for pain Patient to continue using her home insulin pump Insulin sliding scale low dose for correctional coverage PT/OT consult VTEP heparin Subjective Date/time seen: 09/01/20 16:30 pt reports non healing wounds has insulin pump able to demonstrate to me that she uses 52 units for her basal insulin dosing and 9 units t.i.d. with meals. She spoke with her physician that is managing her pump in the outpatient setting he states that if she continues to manage her own insulin pump here in the hospital she should allow us to give her correctional coverage 10 units for greater than 300 and 5 units for greater than 200. I have agreed to allow the patient to use her insulin pump during his hospitalization. Her pain is being controlled with IV Tylenol and she states that it is helping. Exam Narrative: Exam Narrative: GENERAL: The patient is well developed, in mild distress due to pain, morbidly obese HEENT: Nonicteric sclerae, EOMI. Conjunctivae appear well perfused. LUNGS: Symmetric chest rise. no respiratory distress ABDOMEN: Soft, non-tender, no organomegaly. SKIN: Right lower extremity ulcerations of varying sizes over right lateral and anterior ruano. She also has well-healing ulceration of right heel. No drainage present to culture. No excessive bruising, petechiae, or purpura. NEUROLOG
[2020-09-01 16:59] LABS: Glucose Point of Care 304 mg/dl (65-105)
[2020-09-01] MEDS: FAMOTIDINE 20 MG/2 ML VIAL IV PUSH (19:53)
[2020-09-01 19:54] VITALS: PULSE 86
[2020-09-01 20:00] VITALS: PULSE 89; RESP 18; O2SAT 100
[2020-09-01 21:15] VITALS: BP 150/67; PULSE 89; RESP 18; TEMP 36.6; O2SAT 100
[2020-09-02] VITALS (8 sets, daily range): BP systolic 104–208; BP diastolic 50–91; PULSE 77–97; RESP 16–24; TEMP 36.3–36.7; O2SAT 99–100
[2020-09-02 00:03] LABS: Glucose Point of Care 142 mg/dl (65-105)
[2020-09-02 06:43] LABS: Basophils Percent Auto 0.4 % (0.2-1.2); Eosinophils Absolute Auto 0.4 K/mm3 (0-0.3); Eosinophils Percent Auto 4.3 % (0-4.4); Hematocrit 28.8 % (37.0-47.0); Immature Granulocyte Absolute 0.04 K/mm3 (0.00-0.031); Immature Granulocyte Percent A 0.4 % (0-0.5); Lymphocytes Absolute Auto 3.84 K/mm3 (0.9-3.2); Mean Corpuscular HGB Conc 31.3 g/dl (32-36); Mean Corpuscular Hemoglobin 28.6 pg (26-34); Mean Corpuscular Volume 91.4 fl (80-100); Mean Platelet Volume 11.6 fl (7.4-10.4); Monocytes Absolute Auto 0.8 K/mm3 (0.1-0.6); Neutrophils Absolute Auto 4.3 K/mm3 (1.3-6.7); Neutrophils Percent Auto 45.9 % (45.5-73.1); Platelet Count Result 298 k/mm3 (150-375); Red Blood Count 3.15 M/mm3 (4.2-5.4); Red Cell Distribution Width 15.8 % (11.5-14.5); White Blood Count 9.4 K/mm3 (4.5-10.0)
[2020-09-02 06:56] LABS: Anion Gap 7 mmol/L (8-16); Blood Urea Nitrogen 33 mg/dL (7-17); CRP 2.5 mg/dL (<1.0); Calcium 8.7 mg/dL (8.4-10.2); Carbon Dioxide 20 mmol/L (22-30); Chloride 114 mmol/L (98-107); Estimated CRCL calculation 39 ml/min; Estimated Glomerular Filt Rate 30; Glucose 61 mg/dL (65-105); Magnesium 1.8 mg/dL (1.6-2.3); Potassium 4.9 mmol/L (3.4-5.0); Sodium 141 mmol/L (137-145)
[2020-09-02 08:05] LABS: Glucose Point of Care 67 mg/dl (65-105)
[2020-09-02] MEDS: GABAPENTIN 300 MG CAPSULE PO ×4 (08:33→20:14)
[2020-09-02] MEDS: PANTOPRAZOLE 40 MG TABLET PO (08:34)
[2020-09-02] MEDS: BUMETANIDE 1 MG TABLET 2 MG PO (08:34)
[2020-09-02] MEDS: ATORVASTATIN 40 MG TABLET PO (08:34)
[2020-09-02] MEDS: FAMOTIDINE 20 MG/2 ML VIAL IV PUSH ×2 (08:34→20:13)
[2020-09-02] MEDS: METOPROLOL TARTRATE 50 MG TAB PO ×2 (08:34→20:14)
[2020-09-02] MEDS: ASPIRIN 81 MG CHEWABLE TABLET PO (08:34)
[2020-09-02] MEDS: LOSARTAN POTASSIUM 100 MG TABLET PO (08:34)
[2020-09-02] MEDS: ACYCLOVIR 400 MG TABLET 800 MG PO (08:34)
[2020-09-02] MEDS: SILVERGEL (ELTA) 45 ML 1 APPLIC TOPICAL (08:42)
[2020-09-02] MEDS: HEPARIN SODIUM 5,000 UNITS/ML VIAL 5000 UNITS SUB-Q ×2 (08:42→20:26)
[2020-09-02 12:12] LABS: Glucose Point of Care 271 mg/dl (65-105)
--- NOTE | 2020-09-02 14:50 | PM.IMPN ---
Progress Note: A&P Assessment and Plan (1) Cellulitis of right leg: Code(s): L03.115 - Cellulitis of right lower limb Status: Acute (2) Normocytic anemia: Code(s): D64.9 - Anemia, unspecified Status: Acute (3) Pulmonary hypertension: Code(s): I27.20 - Pulmonary hypertension, unspecified Status: Acute (4) Nephrotic range proteinuria: Code(s): R80.9 - Proteinuria, unspecified Status: Acute (5) Diastolic heart failure: Code(s): I50.30 - Unspecified diastolic (congestive) heart failure Status: Acute (6) Neuropathy due to type 2 diabetes mellitus: Code(s): E11.40 - Type 2 diabetes mellitus with diabetic neuropathy, unspecified Status: Acute (7) Essential hypertension: Code(s): I10 - Essential (primary) hypertension Status: Acute (8) Diabetic foot ulcer: Qualifiers: Diabetes mellitus type: type 2 Diabetic foot ulcer location: toe Laterality: left Non-pressure ulcer stage: unspecified non-pressure ulcer stage Qualified Code(s): E11.621 - Type 2 diabetes mellitus with foot ulcer; L97.529 - Non-pressure chronic ulcer of other part of left foot with unspecified severity Code(s): E11.621 - Type 2 diabetes mellitus with foot ulcer; L97.509 - Non-pressure chronic ulcer of other part of unspecified foot with unspecified severity Status: Acute Additional Plan # Right leg cellulitis with ulceration: iv vancomycin and iv primaxin. pancultured in [facility] ED, contineu to monitor. # bialteral lower extremity edema: check venous duplex # Diabetes type 2: on insulin pump at baseline. off pump since this am. will swithc to lantus lispro here . monitor accuechecks ac and hs. last a1c 11.2. 08/03/2020 # Chronic anemia: No signs of blood loss. stable counts # Diastolic heart failure on bumex. continue same. avoid any fluid. monitor renal function and i and O # CKD stage III: cr 1.6, baseline. currently at baseline. cntinue to monitor. sees Dr. 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 # HTN: not optimal. # HLP: home medications. # proteinuria # retinopathy # vitamin D deficiecny # DVT proph: heparin sq 09/01/2020 Right lower extremity continues to look very edematous erythematous and extremely tender to palpation Continue imipenem and vancomycin Wound care consult pending Wound cultures pending Patient appears to have pyuria he urine culture pending Tylenol p.r.n. for pain Patient to continue using her home insulin pump Insulin sliding scale low dose for correctional coverage PT/OT consult VTEP heparin 09/02/2020 Right lower extremity improving continues to be very edematous and her erythema and pain are resolving Continue current antibiotic therapy Patient will continue to adjust her insulin with her pump overnight if she has another episode of hypoglycemia she will need to disconnect that and we will dose her insulin accordingly Continue current care Subjective Date/time seen: 09/02/20 14:50 Reports that she is feeling better pain is less right lower extremity continues to be significantly swollen. Overnight she had an episode of a.m. hypoglycemia. Current labile blood glucoses in the 200s Exam Narrative: Exam Narrative: GENERAL: The patient is well developed, morbidly obese HEENT: Nonicteric sclerae, EOMI. Conjunctivae appear well perfused. LUNGS: Symmetric chest rise. no respiratory distress ABDOMEN: Soft, non-tender, no organomegaly. SKIN: Right lower extremity ulcerations of varying sizes over right lateral and anterior ruano. She also has well-healing ulceration of right heel. No drainage present to culture. No excessive bruising, petechiae, or purpura. NEUROLOGIC: Cranial nerves II-XII intact, alert and oriented x 3, no gross motor defi
[2020-09-02 17:21] LABS: Glucose Point of Care 173 mg/dl (65-105)
[2020-09-02 22:04] LABS: Glucose Point of Care 131 mg/dl (65-105)
[2020-09-03 06:00] VITALS: BP 146/74; PULSE 83; RESP 18; TEMP 36.3; O2SAT 100
[2020-09-03 06:20] LABS: Basophils Absolute Auto 0.1 K/mm3 (0.0-0.1); Basophils Percent Auto 0.5 % (0.2-1.2); Eosinophils Absolute Auto 0.4 K/mm3 (0-0.3); Eosinophils Percent Auto 3.5 % (0-4.4); Hematocrit 28.1 % (37.0-47.0); Hemoglobin 8.9 g/dL (12.0-15.0); Immature Granulocyte Absolute 0.05 K/mm3 (0.00-0.031); Immature Granulocyte Percent A 0.5 % (0-0.5); Lymphocytes Absolute Auto 3.56 K/mm3 (0.9-3.2); Lymphocytes Percent Auto 35.5 % (18.3-44.2); Mean Corpuscular HGB Conc 31.7 g/dl (32-36); Mean Corpuscular Hemoglobin 28.9 pg (26-34); Mean Corpuscular Volume 91.2 fl (80-100); Mean Platelet Volume 11.6 fl (7.4-10.4); Monocytes Absolute Auto 0.7 K/mm3 (0.1-0.6); Monocytes Percent Auto 6.7 % (2.6-8.5); Neutrophils Absolute Auto 5.4 K/mm3 (1.3-6.7); Neutrophils Percent Auto 53.3 % (45.5-73.1); Platelet Count Result 313 k/mm3 (150-375); Red Blood Count 3.08 M/mm3 (4.2-5.4)
[2020-09-03 06:37] LABS: Anion Gap 7 mmol/L (8-16); Blood Urea Nitrogen 37 mg/dL (7-17); CRP 1.9 mg/dL (<1.0); Calcium 8.5 mg/dL (8.4-10.2); Carbon Dioxide 21 mmol/L (22-30); Chloride 113 mmol/L (98-107); Creatine Kinase 135 U/L (30-135); Estimated CRCL calculation 39 ml/min; Estimated Glomerular Filt Rate 30; Glucose 117 mg/dL (65-105); Magnesium 1.7 mg/dL (1.6-2.3); Potassium 5.1 mmol/L (3.4-5.0); Sodium 141 mmol/L (137-145)
[2020-09-03 06:56] LABS: Glucose Point of Care 112 mg/dl (65-105)
[2020-09-03 08:05] VITALS: PULSE 84
[2020-09-03] MEDS: ATORVASTATIN 40 MG TABLET PO (08:05)
[2020-09-03] MEDS: METOPROLOL TARTRATE 50 MG TAB PO ×2 (08:05→20:40)
[2020-09-03] MEDS: ACYCLOVIR 400 MG TABLET 800 MG PO (08:06)
[2020-09-03] MEDS: LOSARTAN POTASSIUM 100 MG TABLET PO (08:06)
[2020-09-03] MEDS: FAMOTIDINE 20 MG/2 ML VIAL IV PUSH ×2 (08:06→20:39)
[2020-09-03] MEDS: ASPIRIN 81 MG CHEWABLE TABLET PO (08:06)
[2020-09-03] MEDS: BUMETANIDE 1 MG TABLET 2 MG PO (08:07)
[2020-09-03] MEDS: GABAPENTIN 300 MG CAPSULE PO ×4 (08:07→20:40)
[2020-09-03] MEDS: HEPARIN SODIUM 5,000 UNITS/ML VIAL 5000 UNITS SUB-Q ×2 (08:07→20:40)
[2020-09-03] MEDS: PANTOPRAZOLE 40 MG TABLET PO (08:07)
--- NOTE | 2020-09-03 08:31 | PM.IMPN ---
Progress Note: A&P Assessment and Plan (1) Cellulitis of right leg: Code(s): L03.115 - Cellulitis of right lower limb Status: Acute (2) Normocytic anemia: Code(s): D64.9 - Anemia, unspecified Status: Acute (3) Pulmonary hypertension: Code(s): I27.20 - Pulmonary hypertension, unspecified Status: Acute (4) Nephrotic range proteinuria: Code(s): R80.9 - Proteinuria, unspecified Status: Acute (5) Diastolic heart failure: Code(s): I50.30 - Unspecified diastolic (congestive) heart failure Status: Acute (6) Neuropathy due to type 2 diabetes mellitus: Code(s): E11.40 - Type 2 diabetes mellitus with diabetic neuropathy, unspecified Status: Acute (7) Essential hypertension: Code(s): I10 - Essential (primary) hypertension Status: Acute (8) Diabetic foot ulcer: Qualifiers: Diabetes mellitus type: type 2 Diabetic foot ulcer location: toe Laterality: left Non-pressure ulcer stage: unspecified non-pressure ulcer stage Qualified Code(s): E11.621 - Type 2 diabetes mellitus with foot ulcer; L97.529 - Non-pressure chronic ulcer of other part of left foot with unspecified severity Code(s): E11.621 - Type 2 diabetes mellitus with foot ulcer; L97.509 - Non-pressure chronic ulcer of other part of unspecified foot with unspecified severity Status: Acute Additional Plan # Right leg cellulitis with ulceration: iv vancomycin and iv primaxin. pancultured in [facility] ED, contineu to monitor. # bialteral lower extremity edema: check venous duplex # Diabetes type 2: on insulin pump at baseline. off pump since this am. will swithc to lantus lispro here . monitor accuechecks ac and hs. last a1c 11.2. 08/03/2020 # Chronic anemia: No signs of blood loss. stable counts # Diastolic heart failure on bumex. continue same. avoid any fluid. monitor renal function and i and O # CKD stage III: cr 1.6, baseline. currently at baseline. cntinue to monitor. sees Dr. 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 # HTN: not optimal. # HLP: home medications. # proteinuria # retinopathy # vitamin D deficiecny # DVT proph: heparin sq 09/01/2020 Right lower extremity continues to look very edematous erythematous and extremely tender to palpation Continue imipenem and vancomycin Wound care consult pending Wound cultures pending Patient appears to have pyuria he urine culture pending Tylenol p.r.n. for pain Patient to continue using her home insulin pump Insulin sliding scale low dose for correctional coverage PT/OT consult VTEP heparin 09/02/2020 Right lower extremity improving continues to be very edematous and her erythema and pain are resolving Continue current antibiotic therapy Patient will continue to adjust her insulin with her pump overnight if she has another episode of hypoglycemia she will need to disconnect that and we will dose her insulin accordingly Continue current care 09/03/2020 Glucose improved Cellulitis in resolving continue on IV antibiotics Continue wound care Continue insulin pump with fast acting correctional insulin as needed Right lower extremity wound culture growing staph aureus sensitivities to follow currently on vancomycin Patient did have significant atherosclerosis of peripheral vessels. She has been advised to follow-up after discharge for care Dispo: Possible discharge home on oral antibiotics in 24-48 hours. Subjective Date/time seen: 09/03/20 08:31 Patient doing okay reports that pain has resolved and swelling is improving. He does complain of chronic left knee buckling which I advised her she will need to follow-up for outpatient after her cellulitis has resolved. Exam Narrative: Exam Narrative: GENERAL: The patient is well developed, mo
[2020-09-03] MEDS: SILVERGEL (ELTA) 45 ML 1 APPLIC TOPICAL (11:24)
[2020-09-03 12:47] LABS: Glucose Point of Care 266 mg/dl (65-105)
[2020-09-03 14:00] VITALS: BP 156/80; PULSE 88; RESP 18; TEMP 36.3; O2SAT 100
[2020-09-03 17:09] LABS: Glucose Point of Care 309 mg/dl (65-105)
[2020-09-03 20:40] VITALS: PULSE 88
[2020-09-03 21:43] LABS: Glucose Point of Care 376 mg/dl (65-105)
[2020-09-03 22:00] VITALS: BP 130/88; PULSE 85; RESP 20; TEMP 36.4; O2SAT 100
[2020-09-04 04:00] VITALS: BP 162/85; PULSE 85; RESP 20; TEMP 36.4; O2SAT 100
[2020-09-04 06:25] LABS: Basophils Absolute Auto 0.1 K/mm3 (0.0-0.1); Basophils Percent Auto 0.5 % (0.2-1.2); Eosinophils Absolute Auto 0.4 K/mm3 (0-0.3); Eosinophils Percent Auto 4.2 % (0-4.4); Hematocrit 31.4 % (37.0-47.0); Hemoglobin 9.8 g/dL (12.0-15.0); Immature Granulocyte Absolute 0.06 K/mm3 (0.00-0.031); Immature Granulocyte Percent A 0.6 % (0-0.5); Lymphocytes Absolute Auto 2.96 K/mm3 (0.9-3.2); Lymphocytes Percent Auto 28.4 % (18.3-44.2); Mean Corpuscular HGB Conc 31.2 g/dl (32-36); Mean Corpuscular Hemoglobin 28.5 pg (26-34); Mean Corpuscular Volume 91.3 fl (80-100); Mean Platelet Volume 11.8 fl (7.4-10.4); Monocytes Absolute Auto 0.8 K/mm3 (0.1-0.6); Monocytes Percent Auto 7.6 % (2.6-8.5); Neutrophils Absolute Auto 6.1 K/mm3 (1.3-6.7); Neutrophils Percent Auto 58.7 % (45.5-73.1); Platelet Count Result 326 k/mm3 (150-375); Red Blood Count 3.44 M/mm3 (4.2-5.4); Red Cell Distribution Width 15.7 % (11.5-14.5); White Blood Count 10.4 K/mm3 (4.5-10.0)
[2020-09-04 06:37] LABS: Anion Gap 8 mmol/L (8-16); Blood Urea Nitrogen 39 mg/dL (7-17); CRP 2.1 mg/dL (<1.0); Calcium 8.6 mg/dL (8.4-10.2); Carbon Dioxide 22 mmol/L (22-30); Chloride 111 mmol/L (98-107); Estimated CRCL calculation 36 ml/min; Estimated Glomerular Filt Rate 27; Glucose 186 mg/dL (65-105); Magnesium 1.7 mg/dL (1.6-2.3); Potassium 5.2 mmol/L (3.4-5.0); Sodium 141 mmol/L (137-145)
[2020-09-04 07:51] LABS: Glucose Point of Care 166 mg/dl (65-105)
[2020-09-04 07:57] VITALS: O2SAT 99
[2020-09-04] MEDS: ACYCLOVIR 400 MG TABLET 800 MG PO (08:34)
[2020-09-04] MEDS: FAMOTIDINE 20 MG/2 ML VIAL IV PUSH ×2 (08:35→20:45)
[2020-09-04] MEDS: ATORVASTATIN 40 MG TABLET PO (08:35)
[2020-09-04] MEDS: LOSARTAN POTASSIUM 100 MG TABLET PO (08:35)
[2020-09-04] MEDS: HEPARIN SODIUM 5,000 UNITS/ML VIAL 5000 UNITS SUB-Q ×2 (08:35→20:45)
[2020-09-04] MEDS: GABAPENTIN 300 MG CAPSULE PO ×4 (08:35→20:45)
[2020-09-04] MEDS: ASPIRIN 81 MG CHEWABLE TABLET PO (08:35)
[2020-09-04] MEDS: BUMETANIDE 1 MG TABLET 2 MG PO (08:35)
[2020-09-04] MEDS: PANTOPRAZOLE 40 MG TABLET PO (08:35)
[2020-09-04 08:36] VITALS: PULSE 80
[2020-09-04] MEDS: METOPROLOL TARTRATE 50 MG TAB PO ×2 (08:36→20:45)
[2020-09-04] MEDS: SILVERGEL (ELTA) 45 ML 1 APPLIC TOPICAL (08:41)
[2020-09-04 11:48] LABS: Glucose Point of Care 279 mg/dl (65-105)
[2020-09-04 13:24] VITALS: BP 132/73; PULSE 91; RESP 18; TEMP 36.5; O2SAT 100
--- NOTE | 2020-09-04 14:09 | PM.IMPN ---
Progress Note: A&P Assessment and Plan (1) Cellulitis of right leg: Code(s): L03.115 - Cellulitis of right lower limb Status: Acute (2) Normocytic anemia: Code(s): D64.9 - Anemia, unspecified Status: Acute (3) Pulmonary hypertension: Code(s): I27.20 - Pulmonary hypertension, unspecified Status: Acute (4) Nephrotic range proteinuria: Code(s): R80.9 - Proteinuria, unspecified Status: Acute (5) Diastolic heart failure: Code(s): I50.30 - Unspecified diastolic (congestive) heart failure Status: Acute (6) Neuropathy due to type 2 diabetes mellitus: Code(s): E11.40 - Type 2 diabetes mellitus with diabetic neuropathy, unspecified Status: Acute (7) Essential hypertension: Code(s): I10 - Essential (primary) hypertension Status: Acute (8) Diabetic foot ulcer: Qualifiers: Diabetes mellitus type: type 2 Diabetic foot ulcer location: toe Laterality: left Non-pressure ulcer stage: unspecified non-pressure ulcer stage Qualified Code(s): E11.621 - Type 2 diabetes mellitus with foot ulcer; L97.529 - Non-pressure chronic ulcer of other part of left foot with unspecified severity Code(s): E11.621 - Type 2 diabetes mellitus with foot ulcer; L97.509 - Non-pressure chronic ulcer of other part of unspecified foot with unspecified severity Status: Acute Additional Plan # Right leg cellulitis with ulceration: iv vancomycin and iv primaxin. pancultured in [facility] ED, contineu to monitor. wound culture growing MRSA. will stop his primaxin. # bialteral lower extremity edema: check venous duplex came back negative. # Diabetes type 2: on insulin pump at baseline. off pump on admission. back on pump. blood sugars are runing at goal. monitor accuechecks ac and hs. last a1c 11.2. 08/03/2020 # Chronic anemia: No signs of blood loss. stable counts # Diastolic heart failure on bumex. continue same. avoid any fluid. monitor renal function and i and O. will swtich this to iv. renal function needs to monitor. will consult renal as well. # CKD stage III: cr 1.6, baseline. currently at baseline. cntinue to monitor. sees Dr. Northridge as op basis. consult renal. Cr up to 2 today. vancomycin level elevatd, could be vancomycin indcued. dosage has been djusted. pharmacy dosing. #UTI: culture with multiple org likley due to contamination. 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 # HTN: home medications. # HLP: home medications. # proteinuria # retinopathy # vitamin D deficiecny # DVT proph: heparin sq /: overall the swelling is about the same, her venous stasis ulcers are not likely healign due to her significant swelling. will diurese with iv bumetanide, though her renal function is also getting elevated. will have nephrology consult. vancomycin doseed per pharmacy with elevated level, adjusted the doses. wound culture with MRSA. on vancomycin. will stop her primaxin. Subjective Date/time seen: 09/04/20 14:09 Interval history: the legs are still swollen adn abot the same. no fever, chills. no sob, cehst pain. ulcers on the legs are about the same, she denies much pain in the area. Review of Systems Review of Systems: Narrative: - CONSTITUTIONAL: Denies weight loss, fever and chills. - HEENT: Denies changes in vision and hearing - RESPIRATORY: Denies SOB and cough. - CV: Denies palpitations and CP. - GI: Denies abdominal pain, nausea, vomiting and diarrhea. - : Denies dysuria and urinary frequency. - MSK: Denies myalgia and joint pain. - SKIN: Denies rash and pruritus. - NEUROLOGICAL: Denies headache and syncope. - PSYCHIATRIC: Denies recent changes in mood. Denies anxiety and depression. All systems reviewed & are unremarkable except as noted in HPI and below Constitutional: Cons
--- NOTE | 2020-09-04 15:23 | PM.CNNEP ---
Assessment and Plan Assessment and plan (1) DONNA (acute kidney injury): Code(s): N17.9 - Acute kidney failure, unspecified Status: Acute Assessment and Plan: likely due to a combination of infection (#3) + diuretics + ARB and possibly vancomycin toxicity however, creatinine has been this high before in the past follow trend of repeat labs and UOP (2) Stage 3b chronic kidney disease: Code(s): N18.32 - Chronic kidney disease, stage 3b Status: Chronic Assessment and Plan: baseline creatinie runs around 1.5 - 1.7mg/dl likely secondary to diabetes (more so this) and hypertension (3) Nephrotic range proteinuria: Code(s): R80.9 - Proteinuria, unspecified Status: Acute Assessment and Plan: almost 9 grams of proteinuria by testing done a month presumably due to diabetes given history and negative outpatient evaluation likely contributing to #5 (4) Cellulitis of right leg: Code(s): L03.115 - Cellulitis of right lower limb Status: Acute Assessment and Plan: as noted on admission antibiotic therapy and local wound care (5) Bilateral lower extremity edema: Code(s): R60.0 - Localized edema Status: Acute Assessment and Plan: diuresis as tolerated follow clinic exam (6) Essential hypertension: Code(s): I10 - Essential (primary) hypertension Status: Acute Assessment and Plan: reasonable control at this time follow trend of hemodynamics (7) Diabetes: Code(s): E11.9 - Type 2 diabetes mellitus without complications Status: Acute Assessment and Plan: follow accuchecks glycemic control Will continue to follow. History of Present Illness Reason for Consult Consult date: 09/04/20 Reason for consult: acute renal failure (on chronic kidney disease) and proteinuria Chief Complaint Chief complaint: Cellulitis Right Leg History of Present Illness Narrative: The patient is a 50-year-old female with a past medical history as outlined below who presented to [facility] worsening right lower extremity wounds. The patient states that these wounds have been present for least four weeks if not longer and despite conservative therapy with local wound care and antibiotic creams, these wounds have continued to worsen. Specifically, she has noticed increased weeping with increased redness and edema in her right lower extremity. Some of these wounds of apparently opened up as well. She denies any other systemic symptoms with regard to fevers, chills, nausea, vomiting, shortness of breath or chest pain. Given these issues as mentioned, she presented to the ER for further evaluation. Workup and evaluation emergency room demonstrated the patient to be hemodynamically stable but in some discomfort with regard to the wound/skin changes in her right lower extremity. Routine blood test demonstrated labs consistent with her known history renal insufficiency. Given the appearance of the wounds and the progression of the appearance of her right lower extremity, appropriate blood cultures were obtained and she was started on broad-spectrum IV antibiotic therapy with subsequent admission to hospital for right lower extremity cellulitis. Since her admission, her right lower extremity appears to be slowly improving but her renal function seemed to slightly worsened in comparison to her baseline. Due to this finding, renal consultation was requested. The patient normally follows with Dr. Vijay Bhandari with regard to management of her chronic kidney disease which based on outpatient evaluation today, likely is secondary to her diabetes in conjunction with hypertension and likely vascular disease. Her baseline creatinine normally runs around 1.5-1.7 mg/dL but since her admission here at [facility], her creatinine has been remains closer to the 2ish range. In spite of her slightly worsened kidney func
[2020-09-04] MEDS: BUMETANIDE INJ 1 MG/4 ML VIAL IV PUSH (17:24)
[2020-09-04 17:30] LABS: Glucose Point of Care 316 mg/dl (65-105)
[2020-09-04 21:05] LABS: Glucose Point of Care 204 mg/dl (65-105)
[2020-09-04 21:36] VITALS: BP 133/77; PULSE 96; RESP 18; TEMP 37.2; O2SAT 100
[2020-09-05 05:36] VITALS: BP 125/70; PULSE 84; RESP 20; TEMP 36.6; O2SAT 100
[2020-09-05 06:07] LABS: Basophils Absolute Auto 0.1 K/mm3 (0.0-0.1); Basophils Percent Auto 0.6 % (0.2-1.2); Eosinophils Absolute Auto 0.4 K/mm3 (0-0.3); Eosinophils Percent Auto 3.9 % (0-4.4); Hematocrit 29.7 % (37.0-47.0); Hemoglobin 9.1 g/dL (12.0-15.0); Immature Granulocyte Absolute 0.07 K/mm3 (0.00-0.031); Immature Granulocyte Percent A 0.6 % (0-0.5); Lymphocytes Absolute Auto 3.84 K/mm3 (0.9-3.2); Lymphocytes Percent Auto 35.5 % (18.3-44.2); Mean Corpuscular HGB Conc 30.6 g/dl (32-36); Mean Corpuscular Hemoglobin 28.3 pg (26-34); Mean Corpuscular Volume 92.2 fl (80-100); Mean Platelet Volume 11.7 fl (7.4-10.4); Monocytes Absolute Auto 0.8 K/mm3 (0.1-0.6); Monocytes Percent Auto 7.2 % (2.6-8.5); Neutrophils Absolute Auto 5.6 K/mm3 (1.3-6.7); Neutrophils Percent Auto 52.2 % (45.5-73.1); Platelet Count Result 305 k/mm3 (150-375); Red Blood Count 3.22 M/mm3 (4.2-5.4); Red Cell Distribution Width 15.7 % (11.5-14.5); White Blood Count 10.8 K/mm3 (4.5-10.0)
[2020-09-05 06:17] LABS: Anion Gap 9 mmol/L (8-16); Blood Urea Nitrogen 47 mg/dL (7-17); Calcium 8.1 mg/dL (8.4-10.2); Carbon Dioxide 22 mmol/L (22-30); Chloride 111 mmol/L (98-107); Estimated CRCL calculation 36 ml/min; Estimated Glomerular Filt Rate 27; Glucose 132 mg/dL (65-105); Potassium 5.3 mmol/L (3.4-5.0); Sodium 142 mmol/L (137-145)
[2020-09-05 07:42] LABS: Glucose Point of Care 122 mg/dl (65-105)
[2020-09-05 08:10] VITALS: PULSE 88
[2020-09-05] MEDS: GABAPENTIN 300 MG CAPSULE PO ×4 (08:10→20:21)
[2020-09-05] MEDS: PANTOPRAZOLE 40 MG TABLET PO (08:10)
[2020-09-05] MEDS: ATORVASTATIN 40 MG TABLET PO (08:10)
[2020-09-05] MEDS: BUMETANIDE INJ 1 MG/4 ML VIAL IV PUSH ×2 (08:10→17:11)
[2020-09-05] MEDS: LOSARTAN POTASSIUM 100 MG TABLET PO (08:10)
[2020-09-05] MEDS: ASPIRIN 81 MG CHEWABLE TABLET PO (08:10)
[2020-09-05] MEDS: METOPROLOL TARTRATE 50 MG TAB PO ×2 (08:10→20:21)
[2020-09-05] MEDS: ACYCLOVIR 400 MG TABLET 800 MG PO (08:10)
[2020-09-05] MEDS: SILVERGEL (ELTA) 45 ML 1 APPLIC TOPICAL (08:12)
[2020-09-05] MEDS: HEPARIN SODIUM 5,000 UNITS/ML VIAL 5000 UNITS SUB-Q ×2 (08:13→20:21)
--- NOTE | 2020-09-05 08:13 | PC.NURSE ---
Barcode for SUBQ Heparin would not scan. JESUS Hodge verified.
--- NOTE | 2020-09-05 11:48 | P.PNNP_ITS ---
Progress Note: A&P Assessment and Plan (1) DONNA (acute kidney injury): Code(s): N17.9 - Acute kidney failure, unspecified Status: Acute Assessment and Plan: * likely due to a combination of infection (#3) + diuretics + ARB and possibly vancomycin toxicity * however, creatinine has been this high before in the past * watch K+ -- may need to back off on losartan * follow trend of repeat labs and UOP (2) Stage 3b chronic kidney disease: Code(s): N18.32 - Chronic kidney disease, stage 3b Status: Chronic Assessment and Plan: * baseline creatinie runs around 1.5 - 1.7mg/dl * likely secondary to diabetes (more so this) and hypertension (3) Nephrotic range proteinuria: Code(s): R80.9 - Proteinuria, unspecified Status: Acute Assessment and Plan: * almost 9 grams of proteinuria by testing done a month * presumably due to diabetes given history and negative outpatient evaluation * likely contributing to #5 (4) Cellulitis of right leg: Code(s): L03.115 - Cellulitis of right lower limb Status: Acute Assessment and Plan: * as noted on admission * antibiotic therapy and local wound care (5) Bilateral lower extremity edema: Code(s): R60.0 - Localized edema Status: Acute Assessment and Plan: * diuresis as tolerated * follow clinic exam (6) Essential hypertension: Code(s): I10 - Essential (primary) hypertension Status: Acute Assessment and Plan: * reasonable control at this time * follow trend of hemodynamics (7) Diabetes: Code(s): E11.9 - Type 2 diabetes mellitus without complications Status: Acute Assessment and Plan: * follow accuchecks * glycemic control Will continue to follow. Subjective Date/time seen: 09/05/20 11:48 No apparent distress or issues voiced at this time; right LE wounds/cellulitis appear somewhat better in general; no events/problems overnight or earlier this AM. Exam Narrative: Exam Narrative: General: WD/WN male/female in NAD Heart: normal S1 and S2; no rub Lungs: clear to auscultation Abdomen: soft, nontender, nondistended, positive bowel sounds Extremities: no cyanosis or clubbing; ++ LE edema (R > L) Skin: right LE ulcerations/skin changes noted Objective Data Vital Signs Vital Signs: Vital Signs Temp Pulse Resp BP Pulse Ox 09/05/20 08:10 88 09/05/20 05:36 36.6 C 84 20 125/70 100 09/04/20 21:36 37.2 C 96 18 133/77 100 09/04/20 13:24 36.5 C 91 18 132/73 100 Intake/Output Intake/Output: Intake & Output 09/02/20 09/03/20 09/04/20 09/05/20 23:59 23:59 23:59 23:59 Intake Total 3750 1820 3350 770 Balance 3750 1820 3350 770 Meds/Results Medications: Active Medications Generic Name Dose Route Start Last Admin Trade Name Freq PRN Reason Stop Dose Admin Acyclovir 800 mg 09/01/20 09:00 09/05/20 08:10 Acyclovir 400 Mg Tablet PO 10/01/20 09:01 800 mg DAILY JENNIFER Administration Aspirin 81 mg 09/01/20 08:00 09/05/20 08:10 Aspirin 81 Mg Chewable Tablet PO 81 mg DAILY@0800 [facility] Administration Atorvastatin Calcium 40 mg 09/01/20 09:00 09/05/20 08:10 Atorvastatin 40 Mg Tablet PO 40 mg DA
--- NOTE | 2020-09-05 11:48 | PM.PNNEP ---
Progress Note: A&P Assessment and Plan (1) DONNA (acute kidney injury): Code(s): N17.9 - Acute kidney failure, unspecified Status: Acute Assessment and Plan: likely due to a combination of infection (#3) + diuretics + ARB and possibly vancomycin toxicity however, creatinine has been this high before in the past watch K+ -- may need to back off on losartan follow trend of repeat labs and UOP (2) Stage 3b chronic kidney disease: Code(s): N18.32 - Chronic kidney disease, stage 3b Status: Chronic Assessment and Plan: baseline creatinie runs around 1.5 - 1.7mg/dl likely secondary to diabetes (more so this) and hypertension (3) Nephrotic range proteinuria: Code(s): R80.9 - Proteinuria, unspecified Status: Acute Assessment and Plan: almost 9 grams of proteinuria by testing done a month presumably due to diabetes given history and negative outpatient evaluation likely contributing to #5 (4) Cellulitis of right leg: Code(s): L03.115 - Cellulitis of right lower limb Status: Acute Assessment and Plan: as noted on admission antibiotic therapy and local wound care (5) Bilateral lower extremity edema: Code(s): R60.0 - Localized edema Status: Acute Assessment and Plan: diuresis as tolerated follow clinic exam (6) Essential hypertension: Code(s): I10 - Essential (primary) hypertension Status: Acute Assessment and Plan: reasonable control at this time follow trend of hemodynamics (7) Diabetes: Code(s): E11.9 - Type 2 diabetes mellitus without complications Status: Acute Assessment and Plan: follow accuchecks glycemic control Will continue to follow. Subjective Date/time seen: 09/05/20 11:48 No apparent distress or issues voiced at this time; right LE wounds/cellulitis appear somewhat better in general; no events/problems overnight or earlier this AM. Exam Narrative: Exam Narrative: General: WD/WN male/female in NAD Heart: normal S1 and S2; no rub Lungs: clear to auscultation Abdomen: soft, nontender, nondistended, positive bowel sounds Extremities: no cyanosis or clubbing; ++ LE edema (R > L) Skin: right LE ulcerations/skin changes noted Objective Data Vital Signs Vital Signs: Vital Signs Temp Pulse Resp BP Pulse Ox 09/05/20 08:10 88 09/05/20 05:36 36.6 C 84 20 125/70 100 09/04/20 21:36 37.2 C 96 18 133/77 100 09/04/20 13:24 36.5 C 91 18 132/73 100 Intake/Output Intake/Output: Intake & Output 09/02/20 09/03/20 09/04/20 09/05/20 23:59 23:59 23:59 23:59 Intake Total 3750 1820 3350 770 Balance 3750 1820 3350 770 Meds/Results Medications: Active Medications Generic Name Dose Route Start Last Admin Trade Name Freq PRN Reason Stop Dose Admin Acyclovir 800 mg 09/01/20 09:00 09/05/20 08:10 Acyclovir 400 Mg Tablet PO 10/01/20 09:01 800 mg DAILY JENNIFER Administration Aspirin 81 mg 09/01/20 08:00 09/05/20 08:10 Aspirin 81 Mg Chewable Tablet PO 81 mg DAILY@0800 JENNIFER Administration Atorvastatin Calcium 40 mg 09/01/20 09:00 09/05/20 08:10 Atorvastatin 40 Mg Tablet PO 40 mg DAILY JENNIFER Administration Bumetanide 1 mg 09/04/20 17:00 09/05/20 08:10 Bumetanide Inj 1 Mg/4 Ml Vial IV PUSH 1 mg BID JENNIFER Administration Dextrose 12.5 gm 08/31/20 20:33 Dextrose 50% 25 Gm/50 Ml Syringe IV PUSH PRN PRN Hypoglycemia Protocol Dextrose 12.5 gm 08/31/20 22:40 Dextrose 50% 25 Gm/50 Ml Syringe IV PUSH PRN PRN Hypoglycemia Protocol Gabapentin 300 mg 09/01/20 09:00 09/05/20 08:10 Gabapentin 300 Mg Capsule PO 300 mg QID JENNIFER Administration Glucagon 1 mg 08/31/20 22:40 Glucagon For Inj 1 Mg Vial IM PRN PRN Hypoglycemia Protocol Glucose 15 gm 08/31/20 22:40 Glucose Oral Gel 15 Gm Of Glucse In 37.5 Gm Tube PO PRN PRN
[2020-09-05 11:52] LABS: Glucose Point of Care 128 mg/dl (65-105)
--- NOTE | 2020-09-05 12:14 | PM.IMPN ---
Progress Note: A&P Additional Plan # Right leg cellulitis with ulceration: iv vancomycin and iv primaxin. pancultured in [facility] ED, contineu to monitor. wound culture growing MRSA. will stop his primaxin. # bialteral lower extremity edema: check venous duplex came back negative. # Diabetes type 2: on insulin pump at baseline. off pump on admission. back on pump. blood sugars are runing at goal. monitor accuechecks ac and hs. last a1c 11.2. 08/03/2020 # Chronic anemia: No signs of blood loss. stable counts # Diastolic heart failure on bumex. continue same. avoid any fluid. monitor renal function and i and O. will swtich this to iv. renal function needs to monitor. will consult renal as well. # CKD stage III: cr 1.6, baseline. currently at baseline. cntinue to monitor. sees Dr. Bhandari as op basis. consult renal. Cr up to 2 today. vancomycin level elevatd, could be vancomycin indcued. dosage has been djusted. pharmacy dosing. #UTI: culture with multiple org likley due to contamination. 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 # HTN: home medications. # HLP: home medications. # proteinuria # retinopathy # vitamin D deficiecny # DVT proph: heparin sq 09/04: overall the swelling is about the same, her venous stasis ulcers are not likely healing due to her significant swelling. will diurese with iv bumetanide, though her renal function is also getting elevated. will have nephrology consult. vancomycin dosed per pharmacy with elevated level, adjusted the doses. wound culture with MRSA. on vancomycin. will stop her primaxin. overall the swelling is about the same, her venous stasis ulcers are not likely healing due to her significant swelling. will diurese with iv bumetanide, though her renal function is also getting elevated. will have nephrology consult. vancomycin dosed per pharmacy with elevated level, adjusted the doses. wound culture with MRSA. on vancomycin. will stop her primaxin. 09/05 today patient states right lower extremity cellulitis is improving and not a swallen, patient will have Hussain hose placed today, patient creatinine is rising etiology uncertain seen by Nephrology suspect combination with infection, possibly secondary to vancomycin and diuresing, however patient creatinine is at baseline, will stop vancomycin and start the patient on clindamycin to cover for MRSA, will continue to monitor will have a PT OT evaluate the patient and further recommendation to follow Subjective Date/time seen: 09/05/20 12:14 Interval history: overall the swelling is about the same, her venous stasis ulcers are not likely healing due to her significant swelling. will diurese with iv bumetanide, though her renal function is also getting elevated. will have nephrology consult. vancomycin dosed per pharmacy with elevated level, adjusted the doses. wound culture with MRSA. on vancomycin. will stop her primaxin. 09/05 today patient states right lower extremity cellulitis is improving and not a swallen, patient will have Hussain hose placed today, patient creatinine is rising etiology uncertain seen by Nephrology suspect combination with infection, possibly secondary to vancomycin and diuresing, however patient creatinine is at baseline, will stop vancomycin and start the patient on clindamycin to cover for MRSA, will continue to monitor will have a PT OT evaluate the patient and further recommendation to follow Review of Systems Review of Systems: All systems reviewed & are unremarkable except as noted in HPI and below Exam Narrative: Exam Narrative: Morbidly obese Patient is comfortable, NAD HEENT: eyes are clear and none icteric LUNGS:CTA HEART: RR S1S2 ABD: BS+, Soft and nontender Lower extremities: Lower extremity edema from foot to close to the knee, erythmatous SKIN: nonjaundiced Neuro: grossly
--- NOTE | 2020-09-05 13:29 | WPDINFPN2 ---
Progress Note: A&P Assessment and Plan (1) Bilateral lower extremity edema: Code(s): R60.0 - Localized edema Status: Acute Assessment and Plan: Venous stasis ulcers, there is no cellulitis REC I discussed with patient nature of her illness. No further antibiotics, call if Qs Subjective Date/time seen: 09/05/20 13:29 Objective Data Vital Signs Vital Signs: Vital Signs - 24 hr 09/04/20 21:36 09/05/20 05:36 09/05/20 08:10 Temperature 37.2 C 36.6 C Pulse Rate 96 84 88 Respiratory Rate 18 20 Blood Pressure 133/77 125/70 Pulse Oximetry 100 100 Intake/Output Intake/Output: Intake & Output 09/02/20 09/03/20 09/04/20 09/05/20 23:59 23:59 23:59 23:59 Intake Total 3750 1820 3350 770 Balance 3750 1820 3350 770 Meds/Results Medications: Active Medications Generic Name Dose Route Start Last Admin Trade Name Freq PRN Reason Stop Dose Admin Acyclovir 800 mg 09/01/20 09:00 09/05/20 08:10 Acyclovir 400 Mg Tablet PO 10/01/20 09:01 800 mg DAILY JENNIFER Administration Aspirin 81 mg 09/01/20 08:00 09/05/20 08:10 Aspirin 81 Mg Chewable Tablet PO 81 mg DAILY@0800 JENNIFER Administration Atorvastatin Calcium 40 mg 09/01/20 09:00 09/05/20 08:10 Atorvastatin 40 Mg Tablet PO 40 mg DAILY JENNIFER Administration Bumetanide 1 mg 09/04/20 17:00 09/05/20 08:10 Bumetanide Inj 1 Mg/4 Ml Vial IV PUSH 1 mg BID JENNIFER Administration Dextrose 12.5 gm 08/31/20 20:33 Dextrose 50% 25 Gm/50 Ml Syringe IV PUSH PRN PRN Hypoglycemia Protocol Dextrose 12.5 gm 08/31/20 22:40 Dextrose 50% 25 Gm/50 Ml Syringe IV PUSH PRN PRN Hypoglycemia Protocol Gabapentin 300 mg 09/01/20 09:00 09/05/20 12:32 Gabapentin 300 Mg Capsule PO 300 mg QID JENNIFER Administration Glucagon 1 mg 08/31/20 22:40 Glucagon For Inj 1 Mg Vial IM PRN PRN Hypoglycemia Protocol Glucose 15 gm 08/31/20 22:40 Glucose Oral Gel 15 Gm Of Glucse In 37.5 Gm Tube PO PRN PRN Hypoglycemia Protocol Heparin Sodium (Porcine) 5,000 units 09/01/20 09:00 09/05/20 08:13 Heparin Sodium 5,000 Units/Ml Vial SUB-Q 5,000 units Q12HR JENNIFER Administration Hydralazine HCl 10 mg 09/03/20 08:29 Hydralazine Hcl 20 Mg/Ml Vial IV PUSH Q6H PRN Hypertension Dextrose 1,000 mls @ 100 mls/hr 08/31/20 22:40 Dextrose 5% 1,000 Ml IVPB PRN PRN Hypoglycemia Protocol Cefazolin Sodium 1 gm in 50 mls @ 100 mls/hr 09/04/20 18:00 09/05/20 07:26 Ancef 1 Gm/D5w 50 Ml Pm IVPB Infused Q8HR JENNIFER Infusion Vancomycin HCl 1,500 mg in 500 mls @ 333.333 mls/hr 09/06/20 02:00 Vancomycin 1,500 Mg/D5w 500 Ml IVPB Q36H JENNIFER Insulin Aspart 2 - 5 units 09/01/20 08:00 09/05/20 11:51 Insulin Aspart (*Bkc) 100 Units/Ml SUB-Q Not Given TIDWM [facility] Protocol Losartan Potassium 100 mg 09/01/20 09:00 09/05/20 08:10 Losartan Potassium 100 Mg Tablet PO 100 mg DAILY JENNIFER Administration Metoprolol Tartrate 50 mg 09/01/20 09:00 09/05/20 08:10 Metoprolol Tartrate 50 Mg Tab PO 50 mg Q12HR JENNIFER Administration Pantoprazole Sodium 40 mg 09/01/20 09:00 09/05/20 08:10 Pantoprazole 40 Mg Tablet PO 40 mg QAM JENNIFER Administration Silver Nitrate 1 applic 09/01/20 09:00 09/05/20 08:12 Silvergel (Elta) 45 Ml TOPICAL 1 applic DAILY JENNIFER Administration Radiology Results: ITS Impressions Venous Doppler Study 09/01/20 14:36 IMPRESSION: 1. No deep venous thrombosis in either lower limb. Wrist X-Ray 09/02/20 19:54 IMPRESSION: No recent fracture or dislocation Knee X-Ray 09/02/20 19:57 IMPRESSION: No fracture or dislocation Mild loss of height of medial compartment joint space Labs Labs: Laboratory Results - last 24 hr 09/04/20 09/04/20 09/05/20 17:27 20:44 05:28 WBC 10.8 H RBC 3.22 L Hgb 9.1 L Hct 29.7 L MCV 92.2 MCH 28.3 MCHC
[2020-09-05 14:00] VITALS: BP 147/83; PULSE 87; RESP 18; TEMP 36.4; O2SAT 100
[2020-09-05 16:36] LABS: Glucose Point of Care 160 mg/dl (65-105)
[2020-09-05 20:21] VITALS: PULSE 83
[2020-09-05 21:10] LABS: Glucose Point of Care 179 mg/dl (65-105)
[2020-09-05 21:31] VITALS: BP 151/70; PULSE 91; RESP 18; TEMP 36.7; O2SAT 100
[2020-09-06 05:43] VITALS: BP 122/66; PULSE 87; RESP 18; TEMP 37; O2SAT 99
[2020-09-06 05:44] LABS: Hematocrit 31.8 % (37.0-47.0); Hemoglobin 9.6 g/dL (12.0-15.0); Mean Corpuscular HGB Conc 30.2 g/dl (32-36); Mean Corpuscular Hemoglobin 28.7 pg (26-34); Mean Corpuscular Volume 95.2 fl (80-100); Mean Platelet Volume 11.4 fl (7.4-10.4); Platelet Count Result 319 k/mm3 (150-375); Red Blood Count 3.34 M/mm3 (4.2-5.4); Red Cell Distribution Width 15.8 % (11.5-14.5); White Blood Count 10.5 K/mm3 (4.5-10.0)
[2020-09-06 05:55] LABS: Anion Gap 6 mmol/L (8-16); Blood Urea Nitrogen 46 mg/dL (7-17); Calcium 8.4 mg/dL (8.4-10.2); Carbon Dioxide 24 mmol/L (22-30); Chloride 113 mmol/L (98-107); Estimated CRCL calculation 34 ml/min; Estimated Glomerular Filt Rate 25; Glucose 117 mg/dL (65-105); Phosphorus 6.6 mg/dL (2.5-4.5); Potassium 5.2 mmol/L (3.4-5.0); Sodium 143 mmol/L (137-145)
[2020-09-06 08:38] VITALS: PULSE 88
[2020-09-06] MEDS: PANTOPRAZOLE 40 MG TABLET PO (08:38)
[2020-09-06] MEDS: ATORVASTATIN 40 MG TABLET PO (08:38)
[2020-09-06] MEDS: METOPROLOL TARTRATE 50 MG TAB PO (08:38)
[2020-09-06] MEDS: ASPIRIN 81 MG CHEWABLE TABLET PO (08:38)
[2020-09-06] MEDS: ACYCLOVIR 400 MG TABLET 800 MG PO (08:38)
[2020-09-06] MEDS: BUMETANIDE INJ 1 MG/4 ML VIAL IV PUSH (08:39)
[2020-09-06] MEDS: GABAPENTIN 300 MG CAPSULE PO (08:39)
[2020-09-06] MEDS: HEPARIN SODIUM 5,000 UNITS/ML VIAL 5000 UNITS SUB-Q (08:39)
[2020-09-06] MEDS: SILVERGEL (ELTA) 45 ML 1 APPLIC TOPICAL (08:40)
[2020-09-06 08:50] LABS: Glucose Point of Care 84 mg/dl (65-105)
--- NOTE | 2020-09-06 10:05 | PM.DS ---
DS: Admitting Diagnosis Admitting Diagnosis Admitting Diagnosis: Chief Complaint: right leg wound and pain DS: Discharge Diagnosis Discharge Diagnosis (1) Cellulitis of right leg: Code(s): L03.115 - Cellulitis of right lower limb Status: Acute (2) Normocytic anemia: Code(s): D64.9 - Anemia, unspecified Status: Acute (3) Pulmonary hypertension: Code(s): I27.20 - Pulmonary hypertension, unspecified Status: Acute (4) Nephrotic range proteinuria: Code(s): R80.9 - Proteinuria, unspecified Status: Acute (5) Diastolic heart failure: Code(s): I50.30 - Unspecified diastolic (congestive) heart failure Status: Acute (6) Neuropathy due to type 2 diabetes mellitus: Code(s): E11.40 - Type 2 diabetes mellitus with diabetic neuropathy, unspecified Status: Acute (7) Essential hypertension: Code(s): I10 - Essential (primary) hypertension Status: Acute (8) Diabetic foot ulcer: Qualifiers: Diabetes mellitus type: type 2 Diabetic foot ulcer location: toe Laterality: left Non-pressure ulcer stage: unspecified non-pressure ulcer stage Qualified Code(s): E11.621 - Type 2 diabetes mellitus with foot ulcer; L97.529 - Non-pressure chronic ulcer of other part of left foot with unspecified severity Code(s): E11.621 - Type 2 diabetes mellitus with foot ulcer; L97.509 - Non-pressure chronic ulcer of other part of unspecified foot with unspecified severity Status: Acute DS: Summary Hospital Course Reason for hospitalization: Chief Complaint: right leg wound and pain Narrative: Patient is a 50-year-old female who presents with wounds to the right leg that have been there roughly 4 weeks patient notes she has been attempting to take care of the wounds herself with silver gel and antibiotic cream. The wound has been getting worse and now has been weeping with increased redness and swelling. The wound also has opened up now. no fever, chills, no nausea, vomiting, shortness of breath, chest pain. barak has diabetes and chronic kidney dsiease. she is on insulin pump she states. Hospital Course: overall the swelling is about the same, her venous stasis ulcers are not likely healing due to her significant swelling. will diurese with iv bumetanide, though her renal function is also getting elevated. will have nephrology consult. vancomycin dosed per pharmacy with elevated level, adjusted the doses. wound culture with MRSA. on vancomycin. will stop her primaxin. overall the swelling is about the same, her venous stasis ulcers are not likely healing due to her significant swelling. will diurese with iv bumetanide, though her renal function is also getting elevated. will have nephrology consult. vancomycin dosed per pharmacy with elevated level, adjusted the doses. wound culture with MRSA. on vancomycin. will stop her primaxin. 09/05 today patient states right lower extremity cellulitis is improving and not a swallen, patient will have Hussain hose placed today, patient creatinine is rising etiology uncertain seen by Nephrology suspect combination with infection, possibly secondary to vancomycin and diuresing, however patient creatinine is at baseline, will stop vancomycin and start the patient on clindamycin to cover for MRSA, will continue to monitor will have a PT OT evaluate the patient and further recommendation to follow. today patient is clinically stable was seen by Dr. Prince and does suspect patient has celllulitis and patient does not need antibiotics, will discharge patient today. Status at Discharge Functional status at discharge: uses cane/walker Overall status at discharge: patient is back to baseline Time Spent with Patient Time attestation: Total time spent providing and/or coordinating discharge services: Patient was seen and examined at the time of the discharge Condition at discharge is stable Code status: Full code. Time spent preparing discharge
[2020-09-06] MEDS: LOSARTAN POTASSIUM 50 MG TABLET PO (10:42)
[2020-09-06 11:04] LABS: Glucose Point of Care 201 mg/dl (65-105)
--- NOTE | 2020-09-07 06:28 | CONS_ITS ---
DATE OF CONSULTATION: REASON FOR CONSULTATION: Venous stasis ulcer. HISTORY OF PRESENT ILLNESS: A 50-year-old female with poorly controlled diabetes mellitus. She has had 4 weeks of ulcerations over the mid ruano on the right side. She applied silver gel initially, then switched on her own to triple antibiotic ointment. She is here in the hospital for other reasons in mid June. No intervention was required. She presented back to the hospital several days ago with weeping from the ulcer and she was admitted. She was given imipenem and vancomycin. Consultation requested. I changed the former to Ancef. She has not required any surgical intervention. No fever, chills, or sweats. No known trauma other than scrapes to her right knee on her previous hospital stay. ALLERGIES: PENICILLIN CAUSED NAUSEA. ALSO HYDROCODONE SAME. PRESENT MEDICATIONS: No immunosuppressants. HABITS: No illicit drugs, tobacco, alcohol. PAST MEDICAL HISTORY: Insulin pump for diabetes mellitus, TADEO BSO, D and C, right 5th toe amputation, diabetic retinopathy and neuropathy with nephrotic range proteinuria, hyperlipidemia, glaucoma, hypertension, anemia. REVIEW OF SYSTEMS: Hyperglycemia, otherwise endocrine, constitutional, skin, musculoskeletal, respiratory negative. FAMILY HISTORY: Not pertinent to her present illness. SOCIAL HISTORY: She is single, lives with her boyfriend locally. Does not work outside the home. PHYSICAL EXAMINATION: GENERAL: This is a female appears older than her actual age. No acute distress. VITAL SIGNS: Afebrile since arrival, 84, 20, 125/70. SKIN: No generalized rashes. Warm and dry. EENT: The conjunctivae are normal. Pupils equal, round, and reactive to light. Oropharynx, oral mucosa normal. LUNGS: Clear to auscultation and percussion. Good air entry. CARDIAC: Regular rate and rhythm. No murmur, gallop, or rub. Dorsalis pedis pulses 1+. ABDOMEN: Massively obese, nontender. No masses. EXTREMITIES: She has stasis erythema and edema both lower extremities with the erythema being more marked on the right. She has a partial-thickness 1 cm ulcers over the anterior ruano without purulence, necrosis, odor, sinus tracts. RADIOLOGY: Knee x-ray showed degenerative changes. No evidence of osteomyelitis. LABORATORY DATA: White blood cell count has been borderline high in the last month, currently 10.8, hemoglobin 9.1, and platelets 305, BUN 47, creatinine 2.0. Accu-Cheks variable. No hemoglobin A1c is available for review. Blood cultures have performed this admission. A superficial swab of her right leg ulcers is showing MRSA. ASSESSMENT: 1. Venous stasis ulcers and stasis edema, she has no cellulitis. 2. Methicillin-resistant staphylococcus aureus colonized. 3. Diabetes mellitus, poorly controlled. RECOMMENDATIONS: 1. I discussed with her nature of her illness and the usual treatments including elevation and compression devices, diuretics. 2. No further antibiotics systemically. I suggested she go back to the silver gel for local wound care. Thank you for asking to me see her. FAVIAN HERRING M.D. DIE BARBER DIE BARBER D I MT: Naomi
== END 2020-09-06 12:45 | disposition home or self-care (01) | DRG 380 ==
LOC: ANHED 20:32 → ANH3MEDSUR 21:19
PROVIDERS: Emergency Medicine Emergency Medical Services; Hospitalist; Admitting Provider Internal Medicine; Emergency Provider Emergency Medicine; PCP Internal Medicine; Visit Provider Family Medicine
DX: E11.621 Type 2 diabetes mellitus with foot ulcer (principal); L97.819 Non-pressure chronic ulcer of other part of right lower leg with unspecified severity; I13.0 Hypertensive heart and chronic kidney disease with heart failure and stage 1 through stage 4 chronic kidney disease, or unspecified chronic kidney disease; I50.33 Acute on chronic diastolic (congestive) heart failure; N17.9 Acute kidney failure, unspecified; E11.22 Type 2 diabetes mellitus with diabetic chronic kidney disease; N18.32 Chronic kidney disease, stage 3b; E11.319 Type 2 diabetes mellitus with unspecified diabetic retinopathy without macular edema; E11.42 Type 2 diabetes mellitus with diabetic polyneuropathy; E78.5 Hyperlipidemia, unspecified; E55.9 Vitamin D deficiency, unspecified; E66.01 Morbid (severe) obesity due to excess calories; Z68.42 Body mass index [BMI] 45.0-49.9, adult; Z89.422 Acquired absence of other left toe(s); Z22.322 Carrier or suspected carrier of Methicillin resistant Staphylococcus aureus
CPT/HCPCS: 36415; 73100; 73560; 80048; 80053; 80069; 80202; 81001; 82550; 82948; 83735; 85025; 85027; 86140; 87070; 87075; 87086; 87088; 87147; 87186; 87205; 93970; 96361; 96365; 96366; 96367; 96375; 96376; 97161; 97165; 99285; A9270; G0378; G0379; J0131; J0690; J0743; J1644; J1815; J3370; J7030; J7120

== ENCOUNTER 2020-11-14 12:38 | Outpatient (RCR) | payer OTHER, SELFPAY ==
[2020-11-14 13:36] VITALS: BMI 46.5
--- NOTE | 2020-12-06 13:33 | PCWOUND ---
WOCN NOTE Patient did not show up for her scheduled appointment. No phone call was made to cancel.
== END 2021-01-29 17:08 | disposition home or self-care (01) ==
LOC: ANHWOC 12:38
PROVIDERS: PCP Internal Medicine; Visit Provider Internal Medicine
DX: S81.802D Unspecified open wound, left lower leg, subsequent encounter (principal)
CPT/HCPCS: 99212; G0463

== ENCOUNTER 2020-12-17 16:27 | Inpatient (IN) | payer OTHER, SELFPAY ==
[2020-12-17] VITALS (35 sets, daily range): BP systolic 136–192; BP diastolic 61–107; PULSE 78–90; RESP 12–24; TEMP 36.2–36.6; O2SAT 93–100; BMI 48.1
--- NOTE | ~2020-12-17 | US_ITS ---
EXAMINATION: US carotid duplex BI DATE: 12/18/2020 12:43 INDICATION: CVA. Carotid stenosis. TECHNIQUE: Grayscale, color Doppler, and pulsed Doppler images of the cervical carotid arteries were obtained. The degree of vessel stenosis is placed in one of the following categories: normal, <50%, 5 0-69%, >=70% but less than near-occlusion, near-occlusion, or total occlusion. Note that percent sten osis relative to normal distal artery lumen diameter is indirectly measured from velocity measurement s as described by Kev, et al. Radiology 2003; [id number]. Notes: Normal: Peak systolic velocity <125 centimeters/sec and no plaque <50%. Peak systolic velocity <125 ( EDV <40; ICA/CCA PSV ratio <2.0; used these factors only a tandem lesions or low cardiac output or co ntralateral disease) 50-69 %: PSV 125-230 (EDV 40-100; ratio 2-4) >= 70% but less than near occlusion: PSV greater than 230 (EDV > 100; ratio> 4.0) Near Occlusion: PSV that is variable; markedly narrowed lumen Occlusion: Absent flow on color/spectral Doppler and no lumen on casper scale. COMPARISON: None. FINDINGS: RIGHT: The right common carotid artery (CCA) peak systolic velocity (PSV) is 83 cm/s. The right internal car otid artery (ICA) PSV is 63 cm/s. The right ICA end-diastolic velocity (EDV) is 18 cm/s. The right IC A/CCA PSV ratio is 0.75. The external carotid artery (ECA) PSV is 57 cm/s. There is antegrade flow in the right vertebral artery. LEFT: The left CCA PSV is 88 cm/s. The left ICA PSV is 57 cm/s. The left ICA EDV is 19 cm/s. The left ICA/C CA PSV ratio is 0.64. The ECA PSV is 76 cm/s. There is antegrade flow in the left vertebral artery. IMPRESSION: 1. Less than 50% stenosis in the right internal carotid artery by sonographic criteria. 2. Less than 50% stenosis in the left internal carotid artery by sonographic criteria. Reviewed, dictated and finalized at location A. IMPRESSION: 1. Less than 50% stenosis in the right internal carotid artery by sonographic c thalia. 2. Less than 50% stenosis in the left internal carotid artery by sonographic cr nati.
--- NOTE | ~2020-12-17 | CT_ITS ---
EXAMINATION: CT brain wo con DATE: 12/17/2020 18:48 INDICATION: Slurred speech, left arm paresis. TECHNIQUE: Computed tomography (CT) of the head was performed without intravenous contrast. The mA wa s adjusted according to patient size. Iterative reconstruction technique was employed. Exam dose: 60 5.33 mGy-cm total exam DLP. COMPARISON: 01/27/2020 CT brain 10/15/2018 MRI brain/brainstem FINDINGS: Cerebral atherosclerosis and probable chronic small vessel ischemic changes of cerebral whi te matter. There is a subcutaneous or chronic right basal ganglia lacunar infarct which was not present on 01/26. There is chronic stable right frontal encephalomalacia, unchanged since 01/27/2020. No intracranial mass lesion or hemorrhage, midline shift or mass effect effect or subdural or epidura l hematoma is detected. No fracture or bone destruction of the cranial vault. The mastoid air cells and included paranasal sinuses are unremarkable. IMPRESSION: Subacute or chronic right basal ganglia lacunar infarct Stable chronic right frontal encephalomalacia, likely due to old infarct Cerebral atherosclerosis and chronic small vessel ischemic changes of the cerebral white matter Reviewed, dictated and finalized at [facility]. Reviewed, dictated and finalized at location A. IMPRESSION: Subacute or chronic right basal ganglia lacunar infarct Stable chronic right frontal encephalomalacia, likely due to old infarct Cerebral atherosclerosis and chronic small vessel ischemic changes of the cereb ral white matter
--- NOTE | ~2020-12-17 | XR_ITS ---
XR chest 1V portable DATE: 12/17/2020 18:54 INDICATION: Slurred speech, difficulty using left hand, weakness TECHNIQUE: AP chest COMPARISON: May 04, 2020 portable AP chest FINDINGS: Heart size appears enlarged but is not optimally evaluated on AP projection because of magn ification. There is mild pulmonary vascular congestion/redistribution. Increased density in left retrocardiac area is suggested which may indicate infiltrate or atelectasis . The lungs otherwise appear clear. No pleural effusion or pneumothorax is evident. IMPRESSION: Limited portable examination suggesting mild congestive changes and possible left lower l obe infiltrate and/atelectasis Reviewed, dictated and finalized at location A. IMPRESSION: Limited portable examination suggesting mild congestive changes and possible left lower lobe infiltrate and/atelectasis
--- NOTE | ~2020-12-17 | XR_ITS ---
EXAMINATION: XR shoulder LT min 2V DATE: 12/19/2020 16:57 INDICATION: Left shoulder pain post MRI. TECHNIQUE: AP, AP oblique externally rotated and transscapular Y views of the left shoulder were obta ined. COMPARISON: None FINDINGS: Normal alignment. No fracture. Glenohumeral joint is normal. Acromioclavicular joint is normal. Soft tissues are unremarkable. IMPRESSION: Negative left shoulder radiographs. Reviewed, dictated and finalized at location A.
--- NOTE | ~2020-12-17 | MR_ITS ---
EXAMINATION: MR brain/brain stem wo con DATE: 12/18/2020 11:51 INDICATION: Left hemiparesis. TECHNIQUE: Magnetic resonance imaging (MRI) of the brain and brainstem was performed without intraven ous contrast. Sequences included sagittal and axial T1-weighted FSE, axial diffusion-weighted FS EPI, axial T2*-weighted GRE, axial T2-weighted FLAIR Propeller, and axial T2-weighted Propeller. Apparent diffusion coefficient (ADC) maps were created. COMPARISON: Brain MRI 10/15/2018, MRA 10/15/2018 FINDINGS: There are acute infarcts involving the right frontal and parietal lobes, right insula, and right basal ganglia. There is no intracranial hemorrhage or abnormal mass lesion. There is chronic en cephalomalacia involving the right frontal and parietal lobes and right caudate nucleus. There is ex vacuo dilatation of body of right lateral ventricle. There are likely changes of ocular lens replacem ent surgeries. The paranasal sinuses are clear. The mastoid air cells are normal. IMPRESSION: 1. Acute infarcts involving the right frontal and parietal lobes, right insula, and right basal gangl ia. 2. Chronic encephalomalacia involving the right frontal and parietal lobes and right caudate nucleus. Reviewed, dictated and finalized at location A. IMPRESSION: 1. Acute infarcts involving the right frontal and parietal lobes, right insula, and right basal ganglia. 2. Chronic encephalomalacia involving the right frontal and parietal lobes and right caudate nucleus.
--- NOTE | 2020-12-17 18:05 | ECG_ITS ---
Measurements Intervals [place] Rate: 80 P: 16 NV: 153 QRS: -28 QRSD: 90 T: 70 QT: 369 QTc: 427 Interpretive Statements SINUS RHYTHM INCOMPLETE RIGHT BUNDLE BRANCH BLOCK LOW QRS VOLTAGE IN PRECORDIAL LEADS POOR R WAVE PROGRESSION, ANTERIOR LEADS BORDERLINE ST-T WAVE ABNORMALITY- HIGH LATERAL LEADS BASELINE ARTIFACT- I, II, III, AVR, AVF, V2-V6 BORDERLINE ECG Electronically Signed On 12-17-2020 19:24:45 CDT by Ky Smith D.O.
--- NOTE | 2020-12-17 18:28 | ED.NEUROSD ---
HPI - Neuro Symptoms/Deficit General Chief Complaint: Suspected CVA Stated Complaint: slurred speech since last night Time Seen by Provider: 12/17/20 17:35 Source: patient, family and RN notes reviewed Mode of arrival: ambulatory Limitations: no limitations History of Present Illness HPI Narrative: This is a 50 year old female with multiple medical problems who presents for evaluation of slurred speech with left arm weakness. 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 She states she started having intermittent episodes of worsening left hand weakness and slurred speech about 5 weeks ago. She reports her episodes would resolved. Last night her symptoms resolved and they has been constant. She reports she was evaluated by her PCP but no evaluation was done. She denies headache, worsening left leg weakness, numbness or tingling. She denies chest pain Related Data Home Medications Medication Instructions Recorded Confirmed aspirin 1 tablet PO QAM 06/07/19 12/17/20 acyclovir 800 mg PO DAILY 01/27/20 12/17/20 gabapentin 300 mg PO QID 01/27/20 12/17/20 atorvastatin 40 mg PO DAILY 05/04/20 12/17/20 bumetanide 2 mg PO BID 08/31/20 12/17/20 insulin lispro [Admelog U-100 See Protocol SUBCUT PC 08/31/20 12/17/20 Insulin lispro] silver sulfadiazine 1 applic TOPICAL DAILY 11/14/20 12/17/20 Allergies Allergy/AdvReac Type Severity Reaction Status Date / Time Penicillins AdvReac Mild Nausea Verified 11/14/20 13:58 hydrocodone [From Vicodin] AdvReac Nausea and Verified 11/14/20 13:58 Vomiting Review of Systems Review of Systems: All systems reviewed & are unremarkable except as noted in HPI and below PMFSH Past Medical History Medical History Anemia Diabetic peripheral neuropathy Diastolic heart failure Echocardiogram May 2017 demonstrated grade 2 diastolic dysfunction with normal ejection fraction, moderate left atrial enlargement, RVSP 62, moderate tricuspid regurgitation Essential hypertension Glaucoma HLD (hyperlipidemia) 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 Status post total abdominal hysterectomy and bilateral salpingo-oophorectomy (TADEO-BSO) Laparoscopic Family History Family History Father Acute myocardial infarction Mother Cerebrovascular accident Other Colon cancer Social History Social History Social History: She has 3 children who reportedly healthy. Primary care provider: Kimmy Cool TEXTILE TECHNOLOGIST Code status: Full code Surrogate decision maker: Tan Jose Miguel (Boyfriend) Smoking status: Never smoker Second hand tobacco smoke exposure: Yes Alcohol intake: never Substance use: never Substance use type: does not use Additional living arrangements comments: The patient lives with her long-term boyfriend in [facility]. Additional occupation/education comments: She is disabled. She rarely leaves the house. Gender identity (if verbalized by the patient): Female Sexual Orientation (if Verbalized by the Patient): Straight or Heterosexual Spiritual care concerns: No Agree to blood products: Yes Exam Const: General: cooperative Nutritional Appearance: obese Orientation/consciousness: patient oriented x3 Limitations: no limitations HENMT: Head: normocephalic and atra
[2020-12-17 18:31] LABS: Add Urine Microscopic? YES; Appearance Urine Clear (Clear); Bilirubin Urine Negative (Negative); Blood Urine 1+ (Negative); Color Urine Colorless (Yellow); Glucose Urine UA 3+ mg/dL (Negative); Ketones Urine Negative (Negative); Leukocyte Esterase Ur Negative LEU/UL (Negative); Mucus Urine Rare /lpf; Nitrate Urine Negative (Negative); Protein Urine 2+ mg/dL (Negative); Specific Grav Ur 1.009 (1.001-1.035); Squamous Epithelial Cell Urine Rare /hpf (Few); Urobilinogen Urine Negative mg/dL (<2.0); WBC Urine 0-3 /hpf
[2020-12-17 18:49] LABS: Basophils Absolute Auto 0.1 K/mm3 (0.0-0.1); Basophils Percent Auto 0.6 % (0.2-1.2); Eosinophils Absolute Auto 0.2 K/mm3 (0-0.3); Eosinophils Percent Auto 2.1 % (0-4.4); Hematocrit 34.2 % (37.0-47.0); Hemoglobin 10.7 g/dL (12.0-15.0); Immature Granulocyte Absolute 0.09 K/mm3 (0.00-0.031); Immature Granulocyte Percent A 0.8 % (0-0.5); Lymphocytes Absolute Auto 2.62 K/mm3 (0.9-3.2); Lymphocytes Percent Auto 23.6 % (18.3-44.2); Mean Corpuscular HGB Conc 31.3 g/dl (32-36); Mean Corpuscular Hemoglobin 28.6 pg (26-34); Mean Corpuscular Volume 91.4 fl (80-100); Mean Platelet Volume 11.9 fl (7.4-10.4); Monocytes Absolute Auto 0.8 K/mm3 (0.1-0.6); Monocytes Percent Auto 6.9 % (2.6-8.5); Neutrophils Absolute Auto 7.3 K/mm3 (1.3-6.7); Platelet Count Result 286 k/mm3 (150-375); Red Blood Count 3.74 M/mm3 (4.2-5.4); Red Cell Distribution Width 15.1 % (11.5-14.5); White Blood Count 11.1 K/mm3 (4.5-10.0)
[2020-12-17 18:58] LABS: Partial Thromboplastin Time 26.6 SECONDS (22.3-36.8); Prothrombin Time 13.2 Seconds (11.1-14.7)
[2020-12-17 19:27] LABS: Anion Gap 11 mmol/L (8-16); Blood Urea Nitrogen 26 mg/dL (7-17); Calcium 8.2 mg/dL (8.4-10.2); Carbon Dioxide 22 mmol/L (22-30); Chloride 104 mmol/L (98-107); Estimated CRCL calculation 39 ml/min; Estimated Glomerular Filt Rate 28; Glucose 367 mg/dL (65-110); Potassium 4.2 mmol/L (3.4-5.0); Sodium 137 mmol/L (137-145)
[2020-12-17 19:39] LABS: Troponin I < 0.012 ng/mL (0.000-0.034)
[2020-12-17] MEDS: hydrALAZINE HCL 20 MG/ML VIAL 10 MG IV PUSH (19:54)
[2020-12-17] MEDS: INSULIN HUMAN REGULAR (*BKC) 100 UNITS/ML SUB-Q (20:33)
--- NOTE | 2020-12-17 21:03 | PM.IMHP ---
H&P: HPI History of Present Illness Date/Time: 12/17/20 21:03 Chief Complaint: Left upper extremity weakness Narrative: This is a 50-year-old female with past medical history significant for type 2 diabetes mellitus, chronic kidney disease, peripheral diabetic neuropathy, chronic left-sided hemiparesis more so of the left lower extremity, morbid obesity. Patient comes in today due to worsening weakness of her left upper extremity states that it started the night before but did not pay attention to it did not think much of it and went to bed today upon waking up in the morning notice that her left upper extremity was weaker than her usual a finally decided to come to the emergency room. States that her sugars as of lately have not been well controlled have been in the 300 range but denies any fevers, rigors, chills, nausea, vomiting, abdominal pain, diarrhea, cough, sputum production, no changes in her vision ,no speech abnormality, no headaches, no syncope or near syncope. Preliminary workup was significant for CT of the head with acute or subacute right basal ganglia lacunar infarct, creatinine of 1.9 glucose of 367 a chest x-ray with mild congestive changes but limited study. Review of Systems Review of Systems: Left-sided worsening weakness Constitutional: Constitutional: Denies chills, Denies fatigue, Denies fever(s), Denies malaise and Reports weakness Eyes: Eyes: Denies change in vision ENT: Denies dysphagia, Denies nasal congestion, Denies nasal discharge, Denies nasal obstruction and Denies odynophagia Cardiovascular: Cardiovascular: Denies chest pain, Denies chest pain at rest, Reports leg edema, Denies radiating jaw, neck or arm pain, Denies palpitations, Denies dyspnea, Denies dyspnea on exertion and Denies orthopnea Respiratory: Respiratory: Denies chest congestion, Denies cough and Denies dyspnea Gastrointestinal: Gastrointestinal: Denies abdominal pain, Denies dyspepsia, Denies nausea and Denies vomiting Genitourinary: Genitourinary: Reports no additional female genitourinary complaints Musculoskeletal: Musculoskeletal: Reports no additional musculoskeletal complaints Integumentary/Breasts: Skin/Breast: Reports sores (Right lower extremity) Neurologic: Denies vertigo, Denies dizziness, Reports focal weakness (Left upper extremity), Reports numbness and Reports weakness Psychiatric: Psychiatric: Reports no additional psychiatric complaints Endocrine: Comments: Uncontrolled blood sugars Hematologic/Lymphatic: Hematologic/Lymphatic: Reports no additional hematologic/lymphatic complaints Allergic/Immunologic: Allergic/Immunologic: Reports no additional allergic/immunologic complaints [facility] Past Medical History Medical History Anemia Diabetic peripheral neuropathy Diastolic heart failure Echocardiogram May 2017 demonstrated grade 2 diastolic dysfunction with normal ejection fraction, moderate left atrial enlargement, RVSP 62, moderate tricuspid regurgitation Essential hypertension Glaucoma HLD (hyperlipidemia) 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 Status post total abdominal hysterectomy and bilateral salpingo-oophorectomy (TADEO-BSO) Laparoscopic Family History Family History Father Acute myocardial infarction Mother Cerebrovascular accident Other Colon cancer Social History Social History Soc
[2020-12-17] MEDS: ASPIRIN 81 MG CHEWABLE TABLET 324 MG PO (22:14)
--- NOTE | 2020-12-17 23:26 | PC.NURSE ---
This patient, Hillary Bailey, was admitted to Medical Room 261-01. Patient/family oriented to hospital policies and general routines including ID bracelet, bed and alarms, visiting hours, pain management, procedures, bathroom and other care routines, personal items, smoking policy, room service/diet, and visiting hours. Information on how to activate the Rapid Response Team has been discussed. Patient/Family are encouraged to report perceived risks to care and to ask questions if they do not understand what they are told or what they should do.
[2020-12-18] VITALS (10 sets, daily range): BP systolic 132–151; BP diastolic 53–71; PULSE 80–87; RESP 16–18; TEMP 36.1–36.6; O2SAT 97–98
[2020-12-18 07:02] LABS: Glucose Point of Care 290 mg/dl (65-105)
[2020-12-18] MEDS: GABAPENTIN 300 MG CAPSULE PO ×4 (08:26→20:37)
[2020-12-18] MEDS: ACYCLOVIR 400 MG TABLET 800 MG PO (08:26)
[2020-12-18] MEDS: METOPROLOL TARTRATE 50 MG TAB PO ×2 (08:26→20:37)
[2020-12-18] MEDS: BUMETANIDE 1 MG TABLET 2 MG PO ×2 (08:26→17:10)
[2020-12-18] MEDS: ATORVASTATIN 40 MG TABLET PO (08:27)
[2020-12-18] MEDS: ASPIRIN 81 MG CHEWABLE TABLET PO (08:27)
[2020-12-18] MEDS: LOSARTAN POTASSIUM 50 MG TABLET PO (08:27)
[2020-12-18] MEDS: SILVER SULFADIAZINE 1% CR 50 GM JAR (*BKC) 1 APPLIC TOPICAL (08:28)
[2020-12-18] MEDS: INSULIN ASPART (*BKC) 100 UNITS/ML SUB-Q ×4 (08:29→17:12)
[2020-12-18 08:48] LABS: Hematocrit 31.7 % (37.0-47.0); Hemoglobin 10.1 g/dL (12.0-15.0); Mean Corpuscular HGB Conc 31.9 g/dl (32-36); Mean Corpuscular Hemoglobin 28.9 pg (26-34); Mean Corpuscular Volume 90.8 fl (80-100); Mean Platelet Volume 11.9 fl (7.4-10.4); Platelet Count Result 284 k/mm3 (150-375); Red Blood Count 3.49 M/mm3 (4.2-5.4); Red Cell Distribution Width 15.1 % (11.5-14.5); White Blood Count 11.4 K/mm3 (4.5-10.0)
[2020-12-18 09:07] LABS: Anion Gap 6 mmol/L (8-16); Blood Urea Nitrogen 29 mg/dL (7-17); Calcium 8.2 mg/dL (8.4-10.2); Carbon Dioxide 23 mmol/L (22-30); Chloride 107 mmol/L (98-107); Estimated CRCL calculation 37 ml/min; Estimated Glomerular Filt Rate 27; Glucose 350 mg/dL (65-110); Potassium 4.2 mmol/L (3.4-5.0); Sodium 136 mmol/L (137-145)
--- NOTE | 2020-12-18 09:39 | WPDNEURCNPN ---
Assessment and Plan Additional Plan ongoing documentation of chronic right basal ganglia lacunar infarct in addition to chronic right frontal encephalomalacia due to old infarct and routine blood studies with mild leukocytosis of 11.4 hemoglobin 10.1 platelet count of 284, normal coag studies and blood sugar of 350 with GFR only 27, with simply obtain the Doppler study of the carotid and echocardiogram before any changes are made Consult date: 12/18/20 Time Seen: 09:45 HPI: Hillary Bailey is a 50 year old [id number] years old right-handed female has been admitted to [facility] for the complaints of left upper extremity weakness in addition to ongoing history of 1. Type 2 diabetes mellitus 2. Chronic kidney disease 3. Peripheral diabetic neuropathy 4. Chronic left-sided hemiparesis 5. Obesity. Patient presented to the hospital for the worsening weakness of her left upper extremity starting the night before and noticing in the morning after sleeping whole night that it was more weak than usual and decided to come to the emergency room his blood sugars have been not very well controlled lately running in the range of 300 but gave no history of any other associated generalized symptomatology. Initial CT scan of the head in the emergency room revealed subacute right basal ganglia lacunar infarct, blood sugar of 367 and chest x-ray with mild congestive changes , patient does have ongoing history of additional glaucoma, pulmonary hypertension, retinopathy secondary to diabetes mellitus. She is a never smoker never alcohol drinker and is disable rarely leaves the house Review of Systems Review of Systems: All systems reviewed & are unremarkable except as noted in HPI and below PMFSH Past Medical History Medical History Anemia Diabetic peripheral neuropathy Diastolic heart failure Echocardiogram May 2017 demonstrated grade 2 diastolic dysfunction with normal ejection fraction, moderate left atrial enlargement, RVSP 62, moderate tricuspid regurgitation Essential hypertension Glaucoma HLD (hyperlipidemia) 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 Status post total abdominal hysterectomy and bilateral salpingo-oophorectomy (TADEO-BSO) Laparoscopic Family History Family History Father Acute myocardial infarction Mother Cerebrovascular accident Other Colon cancer Social History Social History Social History: She has 3 children who reportedly healthy. Primary care provider: Kimmy Cool STADIUM MANAGER Code status: Full code Surrogate decision maker: Tan Gillespie (Boyfriend) Smoking status: Never smoker Second hand tobacco smoke exposure: Yes Alcohol intake: never Substance use: never Substance use type: does not use Additional living arrangements comments: The patient lives with her long-term boyfriend in [facility]. Additional occupation/education comments: She is disabled. She rarely leaves the house. Gender identity (if verbalized by the patient): Female Sexual Orientation (if Verbalized by the Patient): Straight or Heterosexual Spiritual care concerns: No Agree to blood products: Yes Meds Home Medications and Allergies Home Medications Medication Instructions Recorded Confirmed Type aspirin 1 tablet PO QAM 06/07/19 12/17/20 History metoprolol tartrate 50 mg PO BID #60 tablet 06/12/1911/29
[2020-12-18 12:32] LABS: Glucose Point of Care 254 mg/dl (65-105)
[2020-12-18 13:56] LABS: Cholesterol 241 mg/dL (0-200); HDL Direct 40 mg/dL; Triglycerides 285 mg/dL (<150)
[2020-12-18 14:07] LABS: LDL Cholesterol Direct 118 mg/dL
--- NOTE | 2020-12-18 16:39 | PM.IMPN ---
Progress Note: A&P Assessment and Plan (1) CVA (cerebral vascular accident): Code(s): I63.9 - Cerebral infarction, unspecified Status: Acute Assessment and Plan: Acute CVA. Head CT showed subacute or chronic right basal ganglia lacunar infarct MRI shows acute infarcts involving the right frontal and parietal lobes, right insula, and right basal ganglia with chronic encephalomalacia Carotid Dopplers with <50% stenosis of bilateral internal carotid arteries Echocardiogram has been ordered and is pending Monitor on telemetry Appreciate Neurology consultation EEG has been ordered per neurology recommendations Lipid panel ordered; initiate statin based on results PT/OT/ST evals appreciated Continue aspirin. May benefit from initiating Plavix per Neurology recommendations (2) Left-sided weakness: Code(s): R53.1 - Weakness Status: Acute Assessment and Plan: She has chronic left-sided weakness due to history of stroke without acute worsening of left upper extremity. Plan as above. (3) Hypertension, uncontrolled: Code(s): I10 - Essential (primary) hypertension Status: Acute Assessment and Plan: Blood pressure reviewed and has been fluctuant throughout hospital stay. Last BP this afternoon was 132/66 Allow for permissive hypertension in setting of acute CVA. Hold losartan. Monitor blood pressure trends closely (4) Stage 3b chronic kidney disease: Code(s): N18.32 - Chronic kidney disease, stage 3b Status: Chronic Assessment and Plan: Baseline creatinine appears fluctuant around 1.6-2.0. Creatinine is 2.0 today. Monitor renal function closely Avoid nephrotoxic agents. Losartan on hold. (5) Diastolic heart failure: Code(s): I50.30 - Unspecified diastolic (congestive) heart failure Status: Acute Assessment and Plan: Appears relatively euvolemic with the exception of chronic lower extremity edema Echocardiogram ordered as above Monitor intake and output. Weigh daily. (6) Diabetes: Code(s): E11.9 - Type 2 diabetes mellitus without complications Status: Acute Assessment and Plan: Last A1c July 2020 was 11.2. Blood sugars are poorly controlled with glucose this morning at 350. Check updated A1c Accu-Cheks, sliding scale, hypoglycemic protocol Initiate Lantus during hospitalization Will add 5 mg NovoLog scheduled with meals Monitor glucose trends and adjust regimen as needed Subjective Date/time seen: 12/18/20 16:39 Interval history: Date of service: 12/18/2020 Hillary Bailey is a 50-year-old female with a history of anemia, diastolic heart failure, hypertension, hyperlipidemia, type 2 diabetes mellitus who is seen in follow-up for acute CVA. She is unable to use her left hand. She tells me she cannot lift it or pick anything up with it. She denies numbness or tingling in the left upper extremity or any of her extremities. She denies headache. She denies dizziness or lightheadedness. She denies speech changes but notes that her boyfriend mentioned on the phone that she seemed to be slurring her words. She denies dysphagia. She has been able to eat well without difficulty. Denies weakness. Denies confusion. No abdominal pain, nausea, vomiting, fever, chills, shortness breath, cough, chest pain, or palpitation. Review of Systems Review of Systems: All systems reviewed & are unremarkable except as noted in HPI and below Exam Narrative: Ms. Bailey is an obese, chronically ill-appearing 50-year-old female who is lying supine in bed. She appears comfortable and is in NARD. Neuro: awake, alert and oriented x4, speech clear with occasional slurring noticed. CN II-XII intact, right upper extremity strength 4/5. Left upper extremity is flaccid; falls to bed immediately when lifted. Not able to mold sheet cleaner. Bilateral lower extremities strength 4/5. Able to perform pl
[2020-12-18 17:22] LABS: Glucose Point of Care 262 mg/dl (65-105)
[2020-12-18] MEDS: INSULIN GLARGINE (*BKC) 100 UNITS/ML 23 UNITS SUB-Q (20:37)
[2020-12-18 20:42] LABS: Glucose Point of Care 209 mg/dl (65-105)
[2020-12-19] VITALS (11 sets, daily range): BP systolic 141–157; BP diastolic 51–75; PULSE 78–83; RESP 16–20; TEMP 36–36.4; O2SAT 94–99
--- NOTE | 2020-12-19 | ECHO_ITS ---
Patient Info Name: Hillary Bailey Age: 50 years : 1970 Gender: Female Ht: 61 in Wt: 254 lbs BSA: 2.30 m2 HR: 61 bpm BP: 141 / 70 mmHg Heart Rhythm: Sinus Rhythm Technical Quality: Fair Exam Date: 12/19/2020 11:14 AM Exam Location: [facility] Card Pulmonary Patient Status: Inpatient Admit Date: 12/17/2020 Staff Ordering Physician: Qiana Gonzalez PA-C Viscose Cellar Charge Hand: Harriett Chilel RDCS Attending Provider: Qiana Gonzalez PA-C Referring Physician: Lisa CERVANTES; Exam Type: CA echo doppler w bubble study Study Info Indications - ACUTE CVA Complete two-dimensional, color flow and Doppler transthoracic echocardiogram is performed with agitated saline. Contrast/Agitated Saline Contrast/Ag. Saline: Agitated Saline Amount: 20.00 ml Administered By: Alissa Michaels RN Existing IV Access: Yes IV Access Condition: patent with no signs of infiltration Summary 1. Left ventricular chamber dimension is normal. 2. Left ventricular systolic function is normal, estimated at 60-65%. 3. There is mildly increased left ventricular wall thickness. 4. The left ventricular diastolic function is grade I diastolic dysfunction. 5. No evidence of interatrial shunt with injection of agitated saline with or without Valsalva. However, Valsalva injection suboptimal for definitive assessment. Clinical correlation advised. 6. There is trace mitral valve regurgitation. 7. There is trace tricuspid valve regurgitation. 8. No pulmonary hypertension, estimated pulmonary arterial systolic pressure is 31 mmHg. Recommendations * Consider GUCCI if clinically indicated. Left Ventricle Left ventricular chamber dimension is normal. Left ventricular systolic function is normal, estimated at 60-65%. There is mildly increased left ventricular wall thickness. The left ventricular diastolic function is grade I diastolic dysfunction. Right Ventricle Right ventricular chamber dimension is normal. Right ventricular systolic function is normal. Left Atria Left atrial chamber dimension is normal. Right Atria Right atrial chamber dimension is normal. Atrial Septum No evidence of interatrial shunt with injection of agitated saline with or without Valsalva. However, Valsalva injection suboptimal for definitive assessment. Clinical correlation advised. Aortic Valve The aortic valve is probable trileaflet. There is no aortic valve stenosis. There is no aortic valve regurgitation. Pulmonic Valve The pulmonic valve is not well visualized. There is trace pulmonic regurgitation. Mitral Valve The mitral valve has normal leaflets. There is trace mitral valve regurgitation. Tricuspid Valve The tricuspid valve leaflets are normal. There is trace tricuspid valve regurgitation. No pulmonary hypertension, estimated pulmonary arterial systolic pressure is 31 mmHg. Pericardium/Pleural The pericardium appears normal. There is a small circumferential pericardial effusion without tamponade physiology. Inferior Vena Cava Normal inferior vena cava with >50% collapse upon inspiration consistent with normal right atrial pressure, 5 mmHg. Aorta The aortic root size at the sinus of Valsalva is normal. Left Ventricular Outflow Tract Name Value Normal LV
[2020-12-19 05:42] LABS: Hematocrit 31.1 % (37.0-47.0); Hemoglobin 9.8 g/dL (12.0-15.0); Mean Corpuscular HGB Conc 31.5 g/dl (32-36); Mean Corpuscular Hemoglobin 28.6 pg (26-34); Mean Corpuscular Volume 90.7 fl (80-100); Platelet Count Result 287 k/mm3 (150-375); Red Blood Count 3.43 M/mm3 (4.2-5.4); Red Cell Distribution Width 15.1 % (11.5-14.5); White Blood Count 9.9 K/mm3 (4.5-10.0)
[2020-12-19 06:20] LABS: Anion Gap 8 mmol/L (8-16); Blood Urea Nitrogen 31 mg/dL (7-17); Calcium 8.3 mg/dL (8.4-10.2); Carbon Dioxide 23 mmol/L (22-30); Chloride 108 mmol/L (98-107); Estimated CRCL calculation 35 ml/min; Estimated Glomerular Filt Rate 25; Glucose 262 mg/dL (65-110); Potassium 4.3 mmol/L (3.4-5.0); Sodium 139 mmol/L (137-145)
[2020-12-19 06:54] LABS: Glucose Point of Care 233 mg/dl (65-105)
[2020-12-19 08:13] LABS: Hemoglobin A1C 11.7 % (<5.7)
[2020-12-19] MEDS: METOPROLOL TARTRATE 50 MG TAB PO ×2 (08:43→20:42)
[2020-12-19] MEDS: BUMETANIDE 1 MG TABLET 2 MG PO ×2 (08:44→16:53)
[2020-12-19] MEDS: ACYCLOVIR 400 MG TABLET 800 MG PO (08:44)
[2020-12-19] MEDS: ATORVASTATIN 40 MG TABLET PO (08:44)
[2020-12-19] MEDS: ASPIRIN 81 MG CHEWABLE TABLET PO (08:44)
[2020-12-19] MEDS: GABAPENTIN 300 MG CAPSULE PO ×4 (08:44→20:42)
[2020-12-19] MEDS: INSULIN ASPART (*BKC) 100 UNITS/ML SUB-Q ×5 (08:46→16:53)
--- NOTE | 2020-12-19 10:49 | P.NEURO_ITS ---
Neurology EEG Report General Information Date of Study: 12/19/20 TEST eeg DIAGNOSIS Change in the mental status CONDITION OF RECORDING awake drowsy and sleep EEG NUMBER [id number] CLINICAL HISTORY patient reported she came in to hospital 2 days ago due to weakness of left extremities and slurring of the speech EEG DESCRIPTION basic resting occipital frequency consists of low to medium voltage 8 to 10 hertz per 2nd alpha admixed with low-voltage 15 to 18 hertz per 2nd beta. Low- voltage beta activity seen diffusely during drowsiness. Bilateral symmetrical sleep activity seen during sleep independent 2 to 3 hertz per 2nd delta activity seen during sleep hyperventilation not done. Photic stimulation not done. Non paroxysmal. Nonfocal. Nonlateralizing. IMPRESSION Abnormal record due to presence of intermittent 2 to 3 hertz per 2nd delta activity. This abnormality as per Se is not diagnostic of seizure disorder but could be compatible with the postictal state clinical correlation recommended there is no evidence of paroxysmal activity throughout the tracing.
--- NOTE | 2020-12-19 11:32 | PCOTNOTE ---
Attempted OT evaluation, patient is currently having echo completed, will follow and attempt at later time.
[2020-12-19 12:28] LABS: Glucose Point of Care 189 mg/dl (65-105)
--- NOTE | 2020-12-19 14:23 | PCOTNOTE ---
Attempted OT evaluation, patient currently having test completed, will follow and attempt at later time.
--- NOTE | 2020-12-19 16:14 | P.PNIM_ITS ---
Progress Note: A&P Assessment and Plan (1) CVA (cerebral vascular accident): Code(s): I63.9 - Cerebral infarction, unspecified Status: Acute Assessment and Plan: Acute CVA with flaccidity of left upper extremity. * Head CT showed subacute or chronic right basal ganglia lacunar infarct * MRI shows acute infarcts involving the right frontal and parietal lobes, right insula, and right basal ganglia with chronic encephalomalacia * Carotid Dopplers with <50% stenosis of bilateral internal carotid arteries * Echocardiogram reviewed with EF 60-65%, grade I diastolic dysfunction, no evidence of interatrial shunt, and no significant valvular disease * Monitor on telemetry * Appreciate Neurology consultation * EEG has been ordered per neurology recommendations * Lipid panel reviewed, continue atorvastatin 40 mg * PT/OT/ST evals appreciated. Discussed with SQUAD LEADER and she will benefit from outpatient ST. * Continue aspirin. Will add plavix for 6 weeks per neurology recommendations. (2) Left-sided weakness: Code(s): R53.1 - Weakness Status: Acute Assessment and Plan: She has chronic left-sided weakness due to history of stroke without acute worsening of left upper extremity. Plan as above. Complaints of left shoulder pain today therefore will obtain x-ray. (3) Hypertension, uncontrolled: Code(s): I10 - Essential (primary) hypertension Status: Acute Assessment and Plan: Blood pressure reviewed and has been fluctuant throughout hospital stay. Reasonably controlled today with last BP 157/75. * Allow for permissive hypertension in setting of acute CVA. Hold losartan. * Monitor blood pressure trends closely (4) Stage 3b chronic kidney disease: Code(s): N18.32 - Chronic kidney disease, stage 3b Status: Chronic Assessment and Plan: Baseline creatinine appears fluctuant around 1.6-2.0. Creatinine is 2.1 today. * Monitor renal function closely * Avoid nephrotoxic agents. Losartan on hold. (5) Diastolic heart failure: Code(s): I50.30 - Unspecified diastolic (congestive) heart failure Status: Acute Assessment and Plan: Appears relatively euvolemic with the exception of chronic lower extremity edema * Echocardiogram reviewed as above * Monitor intake and output. Weigh daily. * Continue Bumex 2 mg daily (6) Diabetes: Code(s): E11.9 - Type 2 diabetes mellitus without complications Status: Acute Assessment and Plan: A1c is 11.7. Blood sugars elevated above target but improved today ranging from 190-250. * Accu-Cheks, sliding scale, hypoglycemic protocol * Initiate Lantus during hospitalization. Increased to 28 units * Continue 5 mg NovoLog scheduled with meals * Monitor glucose trends and adjust regimen as needed Subjective Date/time seen: 12/19/20 16:14 Interval history: Date of service: 12/19/2020 Hillary Bailey is a 50-year-old female with a history of anemia, diastolic heart failure, hypertension, hyperlipidemia, type 2 diabetes mellitus who is seen in follow-up for acute CVA. She is doing pretty well today. She continues to endorse immobility of her entire left upper extremity. She cannot move it at all. She states yesterday it got caught up in the MRI machine and she has had pain in her left shoulder and elbow today. She thinks that her speech is clear today. Yesterday she stated her boyfriend noted that her speech seems slurred, but apparently he thinks it is better today too. She denies headache, confusion, numbness, tingling, d
--- NOTE | 2020-12-19 16:14 | PM.IMPN ---
Progress Note: A&P Assessment and Plan (1) CVA (cerebral vascular accident): Code(s): I63.9 - Cerebral infarction, unspecified Status: Acute Assessment and Plan: Acute CVA with flaccidity of left upper extremity. Head CT showed subacute or chronic right basal ganglia lacunar infarct MRI shows acute infarcts involving the right frontal and parietal lobes, right insula, and right basal ganglia with chronic encephalomalacia Carotid Dopplers with <50% stenosis of bilateral internal carotid arteries Echocardiogram reviewed with EF 60-65%, grade I diastolic dysfunction, no evidence of interatrial shunt, and no significant valvular disease Monitor on telemetry Appreciate Neurology consultation EEG has been ordered per neurology recommendations Lipid panel reviewed, continue atorvastatin 40 mg PT/OT/ST evals appreciated. Discussed with DYE COLORIST FORMULATOR and she will benefit from outpatient ST. Continue aspirin. Will add plavix for 6 weeks per neurology recommendations. (2) Left-sided weakness: Code(s): R53.1 - Weakness Status: Acute Assessment and Plan: She has chronic left-sided weakness due to history of stroke without acute worsening of left upper extremity. Plan as above. Complaints of left shoulder pain today therefore will obtain x-ray. (3) Hypertension, uncontrolled: Code(s): I10 - Essential (primary) hypertension Status: Acute Assessment and Plan: Blood pressure reviewed and has been fluctuant throughout hospital stay. Reasonably controlled today with last BP 157/75. Allow for permissive hypertension in setting of acute CVA. Hold losartan. Monitor blood pressure trends closely (4) Stage 3b chronic kidney disease: Code(s): N18.32 - Chronic kidney disease, stage 3b Status: Chronic Assessment and Plan: Baseline creatinine appears fluctuant around 1.6-2.0. Creatinine is 2.1 today. Monitor renal function closely Avoid nephrotoxic agents. Losartan on hold. (5) Diastolic heart failure: Code(s): I50.30 - Unspecified diastolic (congestive) heart failure Status: Acute Assessment and Plan: Appears relatively euvolemic with the exception of chronic lower extremity edema Echocardiogram reviewed as above Monitor intake and output. Weigh daily. Continue Bumex 2 mg daily (6) Diabetes: Code(s): E11.9 - Type 2 diabetes mellitus without complications Status: Acute Assessment and Plan: A1c is 11.7. Blood sugars elevated above target but improved today ranging from 190-250. Accu-Cheks, sliding scale, hypoglycemic protocol Initiate Lantus during hospitalization. Increased to 28 units Continue 5 mg NovoLog scheduled with meals Monitor glucose trends and adjust regimen as needed Subjective Date/time seen: 12/19/20 16:14 Interval history: Date of service: 12/19/2020 Hillary Bailey is a 50-year-old female with a history of anemia, diastolic heart failure, hypertension, hyperlipidemia, type 2 diabetes mellitus who is seen in follow-up for acute CVA. She is doing pretty well today. She continues to endorse immobility of her entire left upper extremity. She cannot move it at all. She states yesterday it got caught up in the MRI machine and she has had pain in her left shoulder and elbow today. She thinks that her speech is clear today. Yesterday she stated her boyfriend noted that her speech seems slurred, but apparently he thinks it is better today too. She denies headache, confusion, numbness, tingling, dizziness, weakness, loss of coordination or balance, dysphagia. Her appetite has been good. She denies fevers, chills, nausea, vomiting. No shortness breath, cough, or chest pain. She states she has been able to get up from bed today and walk to the bathroom. She uses a walker for ambulation. Review of Systems Review of Systems: All systems reviewed & are unremarkable except as noted in
[2020-12-19 16:33] LABS: Glucose Point of Care 228 mg/dl (65-105)
[2020-12-19] MEDS: INSULIN GLARGINE (*BKC) 100 UNITS/ML 28 UNITS SUB-Q (20:42)
[2020-12-19 21:22] LABS: Glucose Point of Care 251 mg/dl (65-105)
[2020-12-20] VITALS (10 sets, daily range): BP systolic 111–145; BP diastolic 65–75; PULSE 74–85; RESP 17–20; TEMP 36–36.8; O2SAT 96–100
[2020-12-20 06:04] LABS: Hematocrit 33.5 % (37.0-47.0); Hemoglobin 10.4 g/dL (12.0-15.0); Mean Corpuscular Hemoglobin 28.9 pg (26-34); Mean Corpuscular Volume 93.1 fl (80-100); Platelet Count Result 280 k/mm3 (150-375); Red Cell Distribution Width 14.8 % (11.5-14.5); White Blood Count 10.5 K/mm3 (4.5-10.0)
[2020-12-20 06:18] LABS: Anion Gap 7 mmol/L (8-16); Blood Urea Nitrogen 34 mg/dL (7-17); Calcium 8.5 mg/dL (8.4-10.2); Carbon Dioxide 26 mmol/L (22-30); Chloride 106 mmol/L (98-107); Estimated CRCL calculation 37 ml/min; Estimated Glomerular Filt Rate 27; Glucose 229 mg/dL (65-110); Potassium 4.2 mmol/L (3.4-5.0); Sodium 139 mmol/L (137-145)
[2020-12-20 07:35] LABS: Glucose Point of Care 222 mg/dl (65-105)
[2020-12-20] MEDS: ACYCLOVIR 400 MG TABLET 800 MG PO (08:37)
[2020-12-20] MEDS: GABAPENTIN 300 MG CAPSULE PO ×4 (08:37→20:32)
[2020-12-20] MEDS: ATORVASTATIN 40 MG TABLET PO (08:38)
[2020-12-20] MEDS: ASPIRIN 81 MG CHEWABLE TABLET PO (08:38)
[2020-12-20] MEDS: METOPROLOL TARTRATE 50 MG TAB PO ×2 (08:38→20:32)
[2020-12-20] MEDS: INSULIN ASPART (*BKC) 100 UNITS/ML SUB-Q ×6 (08:38→17:07)
[2020-12-20] MEDS: CLOPIDOGREL BISULFATE 75 MG TABLET PO (08:38)
[2020-12-20] MEDS: BUMETANIDE 1 MG TABLET 2 MG PO ×2 (08:38→17:09)
[2020-12-20 11:57] LABS: Glucose Point of Care 370 mg/dl (65-105)
--- NOTE | 2020-12-20 13:45 | PCPTNOTE ---
On 12/20/20, the student,Alberto CEVALLOS, provided care and completed [employer] documentation on this patient. I have reviewed the student's documentation and agree with the findings.
[2020-12-20 16:52] LABS: Glucose Point of Care 283 mg/dl (65-105)
--- NOTE | 2020-12-20 17:29 | PM.IMPN ---
Progress Note: A&P Assessment and Plan (1) CVA (cerebral vascular accident): Code(s): I63.9 - Cerebral infarction, unspecified Status: Acute Assessment and Plan: Acute CVA with weakness of left upper extremity. Head CT showed subacute or chronic right basal ganglia lacunar infarct MRI shows acute infarcts involving the right frontal and parietal lobes, right insula, and right basal ganglia with chronic encephalomalacia Carotid Dopplers with <50% stenosis of bilateral internal carotid arteries Echocardiogram reviewed with EF 60-65%, grade I diastolic dysfunction, no evidence of interatrial shunt, and no significant valvular disease Appreciate Neurology consultation EEG showed intermittent delta activity. Discussed with Dr. Harris, nonspecific finding. Lipid panel reviewed, continue atorvastatin 40 mg PT/OT/ST evals appreciated. Discussed with SINGLE STROKE PREFORMER and she will benefit from outpatient ST. Care coordination following to arrange home health. She is also being evaluated for acute rehab, though she does not seem interested in pursuing this and wants to go home. Hopeful discharge tomorrow pending home health/rehab arrangement. Continue aspirin. Plavix added for 6 weeks per neurology recommendations. (2) Left-sided weakness: Code(s): R53.1 - Weakness Status: Acute Assessment and Plan: She has chronic left-sided weakness due to history of stroke without acute worsening of left upper extremity. Plan as above. Left shoulder x-ray with no abnormalitiies. (3) Hypertension, uncontrolled: Code(s): I10 - Essential (primary) hypertension Status: Acute Assessment and Plan: Blood pressure reviewed and has been reasonably controlled today. Last BP 135/75. Will resume home losartan tomorrow. Previously held to allow for permissive hypertension in the setting of acute CVA. Monitor blood pressure trends closely (4) Stage 3b chronic kidney disease: Code(s): N18.32 - Chronic kidney disease, stage 3b Status: Chronic Assessment and Plan: Baseline creatinine appears fluctuant around 1.6-2.0. Creatinine is 2.0 today. Monitor renal function closely. Renally dose medications (5) Diastolic heart failure: Code(s): I50.30 - Unspecified diastolic (congestive) heart failure Status: Acute Assessment and Plan: Appears relatively euvolemic with the exception of chronic lower extremity edema Echocardiogram reviewed as above Monitor intake and output. Weigh daily. Continue Bumex 2 mg daily (6) Diabetes: Code(s): E11.9 - Type 2 diabetes mellitus without complications Status: Acute Assessment and Plan: A1c is 11.7. Blood sugars elevated above target mostly in the 250s. Accu-Cheks, sliding scale, hypoglycemic protocol Increase Lantus to 30 units daily Continue NovoLog scheduled with meals, increase to 8 units Monitor glucose trends and adjust regimen as needed Subjective Date/time seen: 12/20/20 17:29 Interval history: Date of service: 12/20/2020 Hillary Bailey is a 50-year-old female with a history of anemia, diastolic heart failure, hypertension, hyperlipidemia, type 2 diabetes mellitus who is seen in follow-up for acute CVA. She is doing better today. She is extremely eager to return home this is her main concern at this point. She is having more mobility of her left arm and is able to lift it independently. She still complains of left shoulder pain. She denies dysphagia. Reports her slurred speech has resolved. Denies headache. No confusion. No numbness or tingling of extremities. Able to ambulate without dizziness, lightheadedness. She feels steady on her feet. Denies shortness breath, cough chest pain, abdominal pain nausea, vomiting, fever, or chills. Appetite has been good. Review of Systems Review of Systems: All systems reviewed & are unremarkable except as noted in HPI and below
[2020-12-20] MEDS: INSULIN GLARGINE (*BKC) 100 UNITS/ML 30 UNITS SUB-Q (20:35)
[2020-12-20 21:22] LABS: Glucose Point of Care 241 mg/dl (65-105)
[2020-12-21 04:05] VITALS: BP 136/72; PULSE 84; RESP 17; TEMP 37.1; O2SAT 97
[2020-12-21 05:57] LABS: Hematocrit 33.3 % (37.0-47.0); Hemoglobin 10.4 g/dL (12.0-15.0); Mean Corpuscular HGB Conc 31.2 g/dl (32-36); Mean Corpuscular Volume 92.8 fl (80-100); Mean Platelet Volume 12.1 fl (7.4-10.4); Platelet Count Result 283 k/mm3 (150-375); Red Blood Count 3.59 M/mm3 (4.2-5.4); Red Cell Distribution Width 14.7 % (11.5-14.5); White Blood Count 12.4 K/mm3 (4.5-10.0)
[2020-12-21 06:09] LABS: Anion Gap 8 mmol/L (8-16); Blood Urea Nitrogen 41 mg/dL (7-17); Calcium 8.7 mg/dL (8.4-10.2); Carbon Dioxide 26 mmol/L (22-30); Chloride 104 mmol/L (98-107); Estimated CRCL calculation 34 ml/min; Estimated Glomerular Filt Rate 24; Glucose 202 mg/dL (65-110); Potassium 4.1 mmol/L (3.4-5.0); Sodium 138 mmol/L (137-145)
[2020-12-21 06:53] LABS: Glucose Point of Care 201 mg/dl (65-105)
[2020-12-21 08:36] LABS: Basophils Absolute Auto 0.1 K/mm3 (0.0-0.1); Basophils Percent Auto 0.5 % (0.2-1.2); Eosinophils Absolute Auto 0.4 K/mm3 (0-0.3); Eosinophils Percent Auto 3.4 % (0-4.4); Hematocrit 33.6 % (37.0-47.0); Hemoglobin 10.4 g/dL (12.0-15.0); Immature Granulocyte Absolute 0.09 K/mm3 (0.00-0.031); Immature Granulocyte Percent A 0.7 % (0-0.5); Lymphocytes Absolute Auto 3.44 K/mm3 (0.9-3.2); Lymphocytes Percent Auto 27.7 % (18.3-44.2); Mean Corpuscular Hemoglobin 28.9 pg (26-34); Mean Corpuscular Volume 93.3 fl (80-100); Mean Platelet Volume 12.2 fl (7.4-10.4); Monocytes Absolute Auto 0.7 K/mm3 (0.1-0.6); Monocytes Percent Auto 5.9 % (2.6-8.5); Neutrophils Absolute Auto 7.7 K/mm3 (1.3-6.7); Neutrophils Percent Auto 61.8 % (45.5-73.1); Platelet Count Result 291 k/mm3 (150-375); Red Cell Distribution Width 14.9 % (11.5-14.5); White Blood Count 12.4 K/mm3 (4.5-10.0)
[2020-12-21 08:39] VITALS: PULSE 80
[2020-12-21] MEDS: ACYCLOVIR 400 MG TABLET 800 MG PO (08:39)
[2020-12-21] MEDS: METOPROLOL TARTRATE 50 MG TAB PO (08:39)
[2020-12-21] MEDS: ATORVASTATIN 40 MG TABLET PO (08:39)
[2020-12-21] MEDS: CLOPIDOGREL BISULFATE 75 MG TABLET PO (08:39)
[2020-12-21] MEDS: BUMETANIDE 1 MG TABLET 2 MG PO (08:39)
[2020-12-21] MEDS: ASPIRIN 81 MG CHEWABLE TABLET PO (08:39)
[2020-12-21] MEDS: GABAPENTIN 300 MG CAPSULE PO ×2 (08:39→12:01)
[2020-12-21 08:40] VITALS: O2SAT 94
[2020-12-21] MEDS: INSULIN ASPART (*BKC) 100 UNITS/ML SUB-Q (08:41)
[2020-12-21] MEDS: INSULIN ASPART (*BKC) 100 UNITS/ML 8 UNITS SUB-Q ×2 (08:42→11:55)
[2020-12-21 10:10] VITALS: BP 140/78; PULSE 78
[2020-12-21] MEDS: LOSARTAN POTASSIUM 50 MG TABLET PO (10:10)
[2020-12-21 11:41] LABS: Glucose Point of Care 171 mg/dl (65-105)
--- NOTE | 2020-12-21 18:00 | P.DS_ITS ---
DS: Admitting Diagnosis Discharge Date 12/21/20 Admitting Diagnosis CVA DS: Discharge Diagnosis Discharge Diagnosis (1) CVA (cerebral vascular accident): Code(s): I63.9 - Cerebral infarction, unspecified Status: Acute Assessment and Plan: Acute CVA with weakness of left upper extremity. * Head CT on 12/17 showed subacute or chronic right basal ganglia lacunar infarct * MRI showed acute infarcts involving the right frontal and parietal lobes, right insula, and right basal ganglia with chronic encephalomalacia * Carotid Dopplers with <50% stenosis of bilateral internal carotid arteries * Echocardiogram reviewed with EF 60-65%, grade I diastolic dysfunction, no evidence of interatrial shunt, and no significant valvular disease * She was seen in consultation by Neurology * EEG showed intermittent delta activity. Discussed with Dr. Harris, nonspecific finding. * Lipid panel reviewed, continue atorvastatin 40 mg. Follow-up with PCP to consider up titration as tolerated by patient. * Evaluated by PT/OT/ST. Slurred speech resolved. Home health arranged to continue with therapies. * Continue aspirin. Plavix added for 6 weeks per neurology recommendations. * Lifestyle modifications discussed (2) Left-sided weakness: Code(s): R53.1 - Weakness Status: Acute Assessment and Plan: She has chronic left-sided weakness due to history of stroke with acute worsening of left upper extremity related to new onset stroke. Plan as above. Continue home PT/OT. Left shoulder x-ray with no abnormalitiies. (3) Hypertension, uncontrolled: Code(s): I10 - Essential (primary) hypertension Status: Acute Assessment and Plan: Blood pressure reviewed daily and improved. * Antihypertensives initially held to allow for permissive hypertension in the setting of acute CVA * Home losartan was resumed. Blood pressures remained stable. (4) Stage 3b chronic kidney disease: Code(s): N18.32 - Chronic kidney disease, stage 3b Status: Chronic Assessment and Plan: Baseline GFR around 25. * Renal function reviewed and remained generally stable. (5) Diastolic heart failure: Code(s): I50.30 - Unspecified diastolic (congestive) heart failure Status: Acute Assessment and Plan: Appeared euvolemic with the exception of chronic lower extremity edema * Echocardiogram reviewed as above * I&O and daily weights monitored * Continue Bumex 2 mg daily * Heart healthy diet discussed (6) Diabetes: Code(s): E11.9 - Type 2 diabetes mellitus without complications Status: Acute Assessment and Plan: A1c is 11.7. Blood sugars were elevated above target mostly around 250 * Accu-Cheks, sliding scale, hypoglycemic protocol * Initiated on Lantus during hospital stay for improved glycemic control * Continue home insulin regimen. * Encouraged close monitoring of glucose at home and follow-up with PCP for review blood sugar above and medication adjustment as needed. DS: Summary Hospital Course Hospital Course: Date of admission: 12/18/2019 Date of discharge: 12/21/2020 Hillary Bailey is a 50-year-old female with a history of anemia, diastolic heart failure, hypertension, hyperlipidemia, type 2 diabetes mellitus history of stroke as a child who presented to the emergency department on 12/17/2020 with complaints of slurred speech and left arm weakness. Upon presentation to the emergency department, her blood pressure was elevated at 189/87 with a
--- NOTE | 2020-12-21 18:00 | PM.DS ---
DS: Admitting Diagnosis Discharge Date 12/21/20 Admitting Diagnosis CVA DS: Discharge Diagnosis Discharge Diagnosis (1) CVA (cerebral vascular accident): Code(s): I63.9 - Cerebral infarction, unspecified Status: Acute Assessment and Plan: Acute CVA with weakness of left upper extremity. Head CT on 12/17 showed subacute or chronic right basal ganglia lacunar infarct MRI showed acute infarcts involving the right frontal and parietal lobes, right insula, and right basal ganglia with chronic encephalomalacia Carotid Dopplers with <50% stenosis of bilateral internal carotid arteries Echocardiogram reviewed with EF 60-65%, grade I diastolic dysfunction, no evidence of interatrial shunt, and no significant valvular disease She was seen in consultation by Neurology EEG showed intermittent delta activity. Discussed with Dr. Harris, nonspecific finding. Lipid panel reviewed, continue atorvastatin 40 mg. Follow-up with PCP to consider up titration as tolerated by patient. Evaluated by PT/OT/ST. Slurred speech resolved. Home health arranged to continue with therapies. Continue aspirin. Plavix added for 6 weeks per neurology recommendations. Lifestyle modifications discussed (2) Left-sided weakness: Code(s): R53.1 - Weakness Status: Acute Assessment and Plan: She has chronic left-sided weakness due to history of stroke with acute worsening of left upper extremity related to new onset stroke. Plan as above. Continue home PT/OT. Left shoulder x-ray with no abnormalitiies. (3) Hypertension, uncontrolled: Code(s): I10 - Essential (primary) hypertension Status: Acute Assessment and Plan: Blood pressure reviewed daily and improved. Antihypertensives initially held to allow for permissive hypertension in the setting of acute CVA Home losartan was resumed. Blood pressures remained stable. (4) Stage 3b chronic kidney disease: Code(s): N18.32 - Chronic kidney disease, stage 3b Status: Chronic Assessment and Plan: Baseline GFR around 25. Renal function reviewed and remained generally stable. (5) Diastolic heart failure: Code(s): I50.30 - Unspecified diastolic (congestive) heart failure Status: Acute Assessment and Plan: Appeared euvolemic with the exception of chronic lower extremity edema Echocardiogram reviewed as above I&O and daily weights monitored Continue Bumex 2 mg daily Heart healthy diet discussed (6) Diabetes: Code(s): E11.9 - Type 2 diabetes mellitus without complications Status: Acute Assessment and Plan: A1c is 11.7. Blood sugars were elevated above target mostly around 250 Accu-Cheks, sliding scale, hypoglycemic protocol Initiated on Lantus during hospital stay for improved glycemic control Continue home insulin regimen. Encouraged close monitoring of glucose at home and follow-up with PCP for review blood sugar above and medication adjustment as needed. DS: Summary Hospital Course Hospital Course: Date of admission: 12/18/2019 Date of discharge: 12/21/2020 Hillary Bailey is a 50-year-old female with a history of anemia, diastolic heart failure, hypertension, hyperlipidemia, type 2 diabetes mellitus history of stroke as a child who presented to the emergency department on 12/17/2020 with complaints of slurred speech and left arm weakness. Upon presentation to the emergency department, her blood pressure was elevated at 189/87 with additional vital signs stable, laboratory workup unremarkable, head CT showed subacute or chronic right basal ganglia lacunar infarct with stable chronic right frontal encephalomalacia secondary to old infarct as well as cerebral atherosclerosis and small vessel ischemic changes, CXR suggested mild congestive changes. She was admitted to the hospitalist service for further evaluation and management was seen in consultation by Neurology.
== END 2020-12-21 14:15 | disposition home health service (06) | DRG 45 ==
LOC: ANHED 21:24 → ANH2MED 22:07
PROVIDERS: Physician Assistant; Admitting Provider Internal Medicine; Emergency Provider General Practice; PCP Internal Medicine; Visit Provider Hospitalist
DX: I63.9 Cerebral infarction, unspecified (principal); G83.24 Monoplegia of upper limb affecting left nondominant side; R47.81 Slurred speech; E11.65 Type 2 diabetes mellitus with hyperglycemia; E11.42 Type 2 diabetes mellitus with diabetic polyneuropathy; E78.5 Hyperlipidemia, unspecified; I27.20 Pulmonary hypertension, unspecified; E11.319 Type 2 diabetes mellitus with unspecified diabetic retinopathy without macular edema; I13.0 Hypertensive heart and chronic kidney disease with heart failure and stage 1 through stage 4 chronic kidney disease, or unspecified chronic kidney disease; E11.22 Type 2 diabetes mellitus with diabetic chronic kidney disease; N18.32 Chronic kidney disease, stage 3b; I50.32 Chronic diastolic (congestive) heart failure; E66.01 Morbid (severe) obesity due to excess calories; Z68.42 Body mass index [BMI] 45.0-49.9, adult; I69.354 Hemiplegia and hemiparesis following cerebral infarction affecting left non-dominant side; Z79.4 Long term (current) use of insulin; Z79.82 Long term (current) use of aspirin; Z79.899 Other long term (current) drug therapy; Z88.0 Allergy status to penicillin
CPT/HCPCS: 36415; 70450; 70551; 71045; 73030; 80048; 80061; 81001; 81025; 82948; 83036; 84484; 85025; 85027; 85610; 85730; 92507; 92523; 93005; 93306; 93880; 95816; 96374; 96375; 97110; 97116; 97161; 97166; 99285; A9270; G0378; G0379; J0360; J1815

== ENCOUNTER 2021-01-22 13:01 | Emergency (ER) | payer OTHER, SELFPAY ==
--- NOTE | ~2021-01-22 | XR_ITS ---
EXAMINATION: XR tibia fibula RT 2V INDICATION: Right leg pain TECHNIQUE: Two views of the right tibia and fibula are obtained. COMPARISON: None available FINDINGS: Bone alignment is normal. There is no fracture. Calcified atherosclerosis is noted. IMPRESSION: 1. No acute osseous abnormality. Reviewed, dictated and finalized at location A.
--- NOTE | ~2021-01-22 | CT_ITS ---
EXAMINATION: CT brain wo con, CT cervical spine wo con EXAM DATE: 01/22/2021 13:48 (accession [id number]), 01/22/2021 13:49 (accession [id number]) INDICATION: Fall, head injury. Possible loss of consciousness. TECHNIQUE: Spiral CT of the head was performed without contrast. Axial, coronal and sagittal images were reviewed. Spiral CT of the cervical spine was performed without contrast. Axial images were rev iewed. Coronal and sagittal reformatted images were also reviewed. The dose-length product (DLP) fo r this examination was 529.67 (accession [id number]), 460.32 (accession [id number]) mGy-cm. The exposure was tailored according to patient size, and iterative reconstruction (ASIR) was used as additional dose reduction technique. Comparison is made to prior examination from 12/17/2020. FINDINGS: HEAD CT: Moderate size old infarction in the right frontal lobe, unchanged from prior study. Previous ly seen right basal ganglia lacunar infarction has more chronic appearance today. There is no acute i ntraparenchymal hemorrhage. No evidence of intraparenchymal brain mass lesion. No evidence of acute infarction. There is no mass effect or midline shift. There is no obstructive hydrocephalus suspecte d. There are no extra-axial collections. There are no acute calvarial fractures. The orbits are un remarkable. Soft tissue is unremarkable. The visualized sinuses and mastoid air cells are well aera beto. CERVICAL CT: Mild cervical spondylosis. There is no evidence of acute cervical fracture. The odontoi d process is intact. Pre-dens space is normal. Prevertebral soft tissue is normal. There are no so ft tissue abnormalities identified. There is no disc space widening or traumatic vertebral body subl uxation suspected. Vertebral body and disc heights are well-maintained. A detailed level by level evaluation of spondylosis can be added as addendum if requested. IMPRESSION: 1. No acute intracranial findings or cervical fracture. 2. Old right frontal lobe and basal ganglia infarctions. Reviewed, dictated and finalized at location B. IMPRESSION: 1. No acute intracranial findings or cervical fracture. 2. Old right frontal lobe and basal ganglia infarctions.
--- NOTE | ~2021-01-22 | XR_ITS ---
EXAMINATION: XR foot LT 2V INDICATION: Left foot pain TECHNIQUE: Two views of the left foot are obtained. COMPARISON: 06/06/2019 FINDINGS: There are changes of interval fifth toe amputation. Calcified atherosclerosis is noted. The re is no fracture. There is mild osteoarthritis of multiple interphalangeal joints. There is mild sof t tissue swelling of the foot. IMPRESSION: 1. Interval fifth toe amputation without acute osseous abnormality identified. Reviewed, dictated and finalized at location A.
--- NOTE | ~2021-01-22 | XR_ITS ---
EXAMINATION: XR shoulder RT min 2V INDICATION: Right shoulder pain TECHNIQUE: Four views of the right shoulder are submitted. COMPARISON: None FINDINGS: Normal alignment. No fracture. Glenohumeral and acromioclavicular joint spaces are normal. Soft tissues are unremarkable. IMPRESSION: 1. No acute osseous abnormality. Reviewed, dictated and finalized at location A.
[2021-01-22 13:05] VITALS: BP 158/81; PULSE 84; RESP 18; TEMP 36.4; O2SAT 98
--- NOTE | 2021-01-22 14:07 | ED.GENADULT ---
HPI - General Adult General Chief complaint: Fall Stated complaint: fell Time Seen by Provider: 01/22/21 13:07 Source: patient History of Present Illness HPI narrative: Patient is a 50 y/o female complaining of a fall and right leg pain, left foot pain. She states that she fell about 1 hour prior to arrival. She had baseline left hemiparesis due to previous stroke. She ambulates with a walker. She describes her pain as aching and rates it as 7/10. She also has some abrasion to right leg and left foot. She additionally has right shoulder pain. She denies hitting her head. However, thought she is more confused after the fall. She states that she is up to date on Tetanus shot. Her last shot was last year. Related Data Home Medications Medication Instructions Recorded Confirmed aspirin 1 tablet PO QAM 06/07/19 12/17/20 acyclovir 800 mg PO DAILY 01/27/20 12/17/20 gabapentin 300 mg PO QID 01/27/20 12/17/20 atorvastatin 40 mg PO DAILY 05/04/20 12/17/20 bumetanide 2 mg PO BID 08/31/20 12/17/20 insulin lispro [Admelog U-100 See Protocol SUBCUT PC 08/31/20 12/17/20 Insulin lispro] silver sulfadiazine 1 applic TOPICAL DAILY 11/14/20 12/17/20 Allergies Allergy/AdvReac Type Severity Reaction Status Date / Time Penicillins AdvReac Mild Nausea Verified 01/22/21 13:09 hydrocodone [From Vicodin] AdvReac Nausea and Verified 01/22/21 13:09 Vomiting Review of Systems Constitutional: Constitutional: Denies chills, Denies fever(s), Denies headache(s) and Denies weakness Eyes: Eyes: Denies blurry vision ENT: Denies headache(s) and Denies neck pain Cardiovascular: Cardiovascular: Denies chest pain and Denies dyspnea Respiratory: Respiratory: Denies cough and Denies dyspnea Gastrointestinal: Gastrointestinal: Denies abdominal pain, Denies diarrhea, Denies nausea and Denies vomiting Genitourinary: Genitourinary: Denies hematuria and Denies dysuria Musculoskeletal: Musculoskeletal: Denies back pain, Denies neck pain and Reports other (right leg pain, left foot pain, right shoulder pain) Neurologic: Denies headache(s) and Denies weakness PMFSH Past Medical History Medical History Anemia Diabetic peripheral neuropathy Diastolic heart failure Echocardiogram May 2017 demonstrated grade 2 diastolic dysfunction with normal ejection fraction, moderate left atrial enlargement, RVSP 62, moderate tricuspid regurgitation Essential hypertension Glaucoma HLD (hyperlipidemia) 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 Status post total abdominal hysterectomy and bilateral salpingo-oophorectomy (TADEO-BSO) Laparoscopic Family History Family History Father Acute myocardial infarction Mother Cerebrovascular accident Other Colon cancer Social History Social History Social History: She has 3 children who reportedly healthy. Primary care provider: Kimmy Cool ELECTRICIAN MAINTENANCE Code status: Full code Surrogate decision maker: Tan Gillespie (Boyfriend) Smoking status: Never smoker Second hand tobacco smoke exposure: Yes Alcohol intake: never Substance use: never Substance use type: does not use Additional living arrangements comments: The patient lives with her long-term boyfriend in [facility]. Additional occupation/education comments: She is disabled. She rarely leaves the house. Gender identity (
[2021-01-22 14:36] LABS: Basophils Absolute Auto 0.1 K/mm3 (0.0-0.1); Basophils Percent Auto 0.6 % (0.2-1.2); Eosinophils Absolute Auto 0.3 K/mm3 (0-0.3); Eosinophils Percent Auto 2.7 % (0-4.4); Hematocrit 34.1 % (37.0-47.0); Hemoglobin 10.6 g/dL (12.0-15.0); Immature Granulocyte Absolute 0.04 K/mm3 (0.00-0.031); Immature Granulocyte Percent A 0.4 % (0-0.5); Lymphocytes Absolute Auto 2.56 K/mm3 (0.9-3.2); Lymphocytes Percent Auto 24.8 % (18.3-44.2); Mean Corpuscular HGB Conc 31.1 g/dl (32-36); Mean Corpuscular Hemoglobin 29.4 pg (26-34); Mean Corpuscular Volume 94.7 fl (80-100); Mean Platelet Volume 11.2 fl (7.4-10.4); Monocytes Absolute Auto 0.6 K/mm3 (0.1-0.6); Neutrophils Absolute Auto 6.8 K/mm3 (1.3-6.7); Neutrophils Percent Auto 65.5 % (45.5-73.1); Platelet Count Result 323 k/mm3 (150-375); Red Cell Distribution Width 16.4 % (11.5-14.5); White Blood Count 10.3 K/mm3 (4.5-10.0)
[2021-01-22 14:46] LABS: Alanine Aminotransferase 27 U/L (4-35); Albumin Level 3.4 g/dL (3.5-5.1); Alkaline Phosphatase 133 U/L (38-126); Anion Gap 8 mmol/L (8-16); Aspartate Amino Transferase 38 U/L (14-36); Bilirubin,Total 0.3 mg/dL (0.2-1.3); Blood Urea Nitrogen 72 mg/dL (7-17); Calcium 8.5 mg/dL (8.4-10.2); Carbon Dioxide 21 mmol/L (22-30); Chloride 113 mmol/L (98-107); Estimated CRCL calculation 34 ml/min; Estimated Glomerular Filt Rate 24; Glucose 115 mg/dL (65-110); Potassium 5.1 mmol/L (3.4-5.0); Sodium 142 mmol/L (137-145)
[2021-01-22 15:09] LABS: Add Urine Microscopic? YES; Appearance Urine Clear (Clear); Bacteria Urine Trace /hpf; Bilirubin Urine Negative (Negative); Blood Urine 1+ (Negative); Color Urine Straw (Yellow); Glucose Urine UA Negative (Negative); Ketones Urine Negative (Negative); Leukocyte Esterase Ur Trace LEU/UL (Negative); Mucus Urine Rare /lpf; Nitrate Urine Negative (Negative); Protein Urine 2+ mg/dL (Negative); Specific Grav Ur 1.011 (1.001-1.035); Squamous Epithelial Cell Urine Few /hpf (Few); Urobilinogen Urine Negative mg/dL (<2.0)
[2021-01-22 15:25] VITALS: BP 150/84; PULSE 78; RESP 18; O2SAT 100
== END 2021-01-22 16:10 | disposition home or self-care (01) ==
PROVIDERS: Emergency Provider Emergency Medicine; PCP Internal Medicine
DX: S80.811A Abrasion, right lower leg, initial encounter (principal); S90.812A Abrasion, left foot, initial encounter; S90.32XA Contusion of left foot, initial encounter; S80.11XA Contusion of right lower leg, initial encounter; M25.511 Pain in right shoulder; E11.22 Type 2 diabetes mellitus with diabetic chronic kidney disease; I13.0 Hypertensive heart and chronic kidney disease with heart failure and stage 1 through stage 4 chronic kidney disease, or unspecified chronic kidney disease; N18.9 Chronic kidney disease, unspecified; I50.30 Unspecified diastolic (congestive) heart failure; I69.954 Hemiplegia and hemiparesis following unspecified cerebrovascular disease affecting left non-dominant side; E11.42 Type 2 diabetes mellitus with diabetic polyneuropathy; E78.5 Hyperlipidemia, unspecified; H40.9 Unspecified glaucoma; I27.20 Pulmonary hypertension, unspecified; E55.9 Vitamin D deficiency, unspecified; D64.9 Anemia, unspecified; Z79.82 Long term (current) use of aspirin; Z79.4 Long term (current) use of insulin; Z89.422 Acquired absence of other left toe(s); W19.XXXA Unspecified fall, initial encounter
CPT/HCPCS: 36415; 70450; 72125; 73030; 73590; 73620; 80053; 81001; 85025; 87077; 87086; 87088; 99284

== ENCOUNTER 2021-04-04 17:59 | Emergency (ER) | payer OTHER, SELFPAY ==
[2021-04-04 18:08] VITALS: BP 153/74; PULSE 86; RESP 18; TEMP 36.2; O2SAT 100
--- NOTE | 2021-04-04 22:31 | PC.NURSE ---
pt left without being seen, triage completed. pt called for repeat VS, not found in lobby
== END 2021-04-05 00:54 | disposition left against medical advice (07) ==
LOC: ANHED 22:43
PROVIDERS: PCP Internal Medicine
DX: M79.89 Other specified soft tissue disorders (principal)
CPT/HCPCS: 99199

== ENCOUNTER 2021-04-12 11:40 | Emergency (ER) | payer OTHER, SELFPAY ==
--- NOTE | ~2021-04-12 | US_ITS ---
EXAMINATION: US venous doppler [facility] EXAM DATE: 04/12/2021 14:08 INDICATION: Bilateral leg swelling. TECHNIQUE: Multiple grayscale, color flow and Doppler images of the lower extremity deep venous syste ms bilaterally were obtained and reviewed. Comparison is made to prior examination from 09/01/2020. FINDINGS: Right side: The right common femoral, femoral and profunda veins demonstrate normal color flow, respi ratory variation, augmentation and compressibility. Compressibility, color flow confirmed within the right popliteal, posterior tibial, peroneal, and greater saphenous veins. Left side: The left common femoral, femoral and profunda veins demonstrate normal color flow, respira tory variation, augmentation and compressibility. Compressibility, color flow confirmed within the l eft popliteal, posterior tibial, peroneal, and greater saphenous veins. IMPRESSION: 1. No lower extremity deep venous thrombosis bilaterally. Reviewed, dictated and finalized at location A. ER BUCKER
[2021-04-12 11:50] VITALS: BP 146/68; PULSE 75; RESP 17; TEMP 36.4; O2SAT 100
[2021-04-12 13:07] VITALS: PULSE 84; RESP 14; O2SAT 98
[2021-04-12 13:08] VITALS: BP 140/78; PULSE 82; RESP 13; O2SAT 100
[2021-04-12 13:17] VITALS: PULSE 74; RESP 20; O2SAT 100
--- NOTE | 2021-04-12 13:31 | ED.EXTPRO ---
HPI - Extremity Problem General Chief complaint: Extremity Problem,Nontraumatic Stated complaint: Leg swelling Time Seen by Provider: 04/12/21 13:14 Source: patient and RN notes reviewed Limitations: no limitations History of Present Illness HPI Narrative: 50-year-old female history of CVA, diabetes and edema presents the emergency department for evaluation of worsening lower extremity edema. Patient is unsure how long her legs have been swollen. Patient stated she was unaware that her legs were even swollen. Patient was advised by her physical therapist to present to the emergency department for evaluation due to increased swelling. Patient states that she has been taking her medications as directed. Patient denies any associated chest pain or shortness of breath. Patient denies any associated nausea vomiting or diarrhea. Patient does have history of chronic kidney disease. 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 Related Data Home Medications Medication Instructions Recorded Confirmed aspirin 1 tablet PO QAM 06/07/19 12/17/20 acyclovir 800 mg PO DAILY 01/27/20 12/17/20 gabapentin 300 mg PO QID 01/27/20 12/17/20 atorvastatin 40 mg PO DAILY 05/04/20 12/17/20 bumetanide 2 mg PO BID 08/31/20 12/17/20 insulin lispro [Admelog U-100 See Protocol SUBCUT PC 08/31/20 12/17/20 Insulin lispro] silver sulfadiazine 1 applic TOPICAL DAILY 11/14/20 12/17/20 Allergies Allergy/AdvReac Type Severity Reaction Status Date / Time Penicillins AdvReac Mild Nausea Verified 04/12/21 13:09 hydrocodone [From Vicodin] AdvReac Nausea and Verified 04/12/21 13:09 Vomiting Review of Systems Review of Systems: CONSTITUTIONAL: Denies fever, chills, or sweats. EYES: Denies visual changes, redness, or discharge. ENT: Denies rhinorrhea, congestion, sore throat, or otalgia. CARDIOVASCULAR: Denies chest pain, palpitations. Patient does have lower extremity edema bilaterally RESPIRATORY: Denies cough or dyspnea. GASTROINTESTINAL: Denies abdominal pain, nausea, vomiting, or diarrhea. GENITOURINARY: Denies dysuria or hematuria. SKIN: Was informed by physical therapy that she did have some lower extremity erythema MUSCULOSKELETAL: Denies back pain, joint pain, or myalgia. NEUROLOGIC: Denies headache, numbness, or weakness. PSYCHIATRIC: Denies anxiety or depression. 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 Status post total abdominal hysterectomy and bilateral salpingo-oophorectomy (TADEO-BSO) Laparoscopic Family History Family History Father Acute myocardial infarction Mother Cerebrovascular accident Other Colon cancer Social History Social History Social History: She has 3 children who reportedly healthy. 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
[2021-04-12 13:40] LABS: Basophils Absolute Auto 0.1 K/mm3 (0.0-0.1); Basophils Percent Auto 0.5 % (0.2-1.2); Eosinophils Absolute Auto 0.4 K/mm3 (0-0.3); Eosinophils Percent Auto 2.8 % (0-4.4); Hematocrit 32.8 % (37.0-47.0); Immature Granulocyte Absolute 0.08 K/mm3 (0.00-0.031); Immature Granulocyte Percent A 0.6 % (0-0.5); Lymphocytes Percent Auto 22.8 % (18.3-44.2); Mean Corpuscular HGB Conc 30.5 g/dl (32-36); Mean Corpuscular Hemoglobin 29.2 pg (26-34); Mean Corpuscular Volume 95.6 fl (80-100); Mean Platelet Volume 11.3 fl (7.4-10.4); Monocytes Absolute Auto 0.8 K/mm3 (0.1-0.6); Neutrophils Absolute Auto 8.9 K/mm3 (1.3-6.7); Neutrophils Percent Auto 67.3 % (45.5-73.1); Platelet Count Result 318 k/mm3 (150-375); Red Blood Count 3.43 M/mm3 (4.2-5.4); Red Cell Distribution Width 14.3 % (11.5-14.5); White Blood Count 13.2 K/mm3 (4.5-10.0)
[2021-04-12 13:50] LABS: Alanine Aminotransferase 17 U/L (4-35); Albumin Level 3.5 g/dL (3.5-5.1); Alkaline Phosphatase 133 U/L (38-126); Anion Gap 9 mmol/L (8-16); Aspartate Amino Transferase 25 U/L (14-36); Bilirubin,Total 0.2 mg/dL (0.2-1.3); Blood Urea Nitrogen 52 mg/dL (7-17); Calcium 8.6 mg/dL (8.4-10.2); Carbon Dioxide 23 mmol/L (22-30); Chloride 109 mmol/L (98-107); Estimated CRCL calculation 30 ml/min; Estimated Glomerular Filt Rate 22; Glucose 80 mg/dL (65-110); Potassium 5.4 mmol/L (3.4-5.0); Sodium 141 mmol/L (137-145)
[2021-04-12] MEDS: FUROSEMIDE INJ 40 MG/4 ML VIAL 20 MG IV PUSH (14:12)
[2021-04-12 14:18] VITALS: BP 142/74; PULSE 74; RESP 18; O2SAT 98
[2021-04-12 14:51] VITALS: BP 117/53; PULSE 73; RESP 18; O2SAT 98
== END 2021-04-12 14:53 | disposition home or self-care (01) ==
PROVIDERS: Emergency Provider Emergency Medicine; PCP Internal Medicine
DX: R60.0 Localized edema (principal); L03.115 Cellulitis of right lower limb; E11.42 Type 2 diabetes mellitus with diabetic polyneuropathy; E11.22 Type 2 diabetes mellitus with diabetic chronic kidney disease; N18.30 Chronic kidney disease, stage 3 unspecified; I13.0 Hypertensive heart and chronic kidney disease with heart failure and stage 1 through stage 4 chronic kidney disease, or unspecified chronic kidney disease; I50.30 Unspecified diastolic (congestive) heart failure; I27.20 Pulmonary hypertension, unspecified; E78.5 Hyperlipidemia, unspecified; E55.9 Vitamin D deficiency, unspecified; E11.319 Type 2 diabetes mellitus with unspecified diabetic retinopathy without macular edema; H40.9 Unspecified glaucoma; D64.9 Anemia, unspecified; Z86.73 Personal history of transient ischemic attack (TIA), and cerebral infarction without residual deficits; Z79.4 Long term (current) use of insulin; Z79.82 Long term (current) use of aspirin; Z89.422 Acquired absence of other left toe(s); Z77.22 Contact with and (suspected) exposure to environmental tobacco smoke (acute) (chronic)
CPT/HCPCS: 36415; 80053; 85025; 93970; 96365; 96375; 99284; J0696; J1940

== ENCOUNTER 2021-04-25 11:28 | Outpatient (CLI) | payer OTHER, SELFPAY ==
[2021-04-25 13:11] LABS: Creatinine Urine 67.8 mg/dL
[2021-04-25 14:00] LABS: Anion Gap 8 mmol/L (8-16); Carbon Dioxide 18 mmol/L (22-30); Chloride 114 mmol/L (98-107); Potassium 5.3 mmol/L (3.4-5.0); Sodium 140 mmol/L (137-145)
[2021-04-25 14:01] LABS: Albumin Level 3.3 g/dL (3.5-5.1); Blood Urea Nitrogen 35 mg/dL (7-17); Calcium 8.5 mg/dL (8.4-10.2); Estimated Glomerular Filt Rate 27; Glucose 48 mg/dL (65-110); Phosphorus 4.9 mg/dL (2.5-4.5)
[2021-04-25 14:25] LABS: Total Protein Urine Random 397 mg/dL; Ur Ttl Prot Creatinine Ratio 5.86 mg/mg (0-0.20)
== END 2021-04-25 11:29 | disposition home or self-care (01) ==
LOC: ANHLAB 11:32
PROVIDERS: PCP Internal Medicine; Visit Provider Internal Medicine Nephrology
DX: R60.1 Generalized edema (principal); N18.31 Chronic kidney disease, stage 3a
CPT/HCPCS: 36415; 80069; 82570; 84156

== ENCOUNTER 2021-08-11 10:01 | Outpatient (CLI) | payer OTHER, SELFPAY ==
[2021-08-11 10:34] LABS: Creatinine Urine 39.3 mg/dL
[2021-08-11 11:02] LABS: Total Protein Urine Random 299 mg/dL; Ur Ttl Prot Creatinine Ratio 7.61 mg/mg (0-0.20)
[2021-08-11 11:42] LABS: Anion Gap 7 mmol/L (8-16); Blood Urea Nitrogen 37 mg/dL (7-17); Calcium 7.8 mg/dL (8.4-10.2); Carbon Dioxide 17 mmol/L (22-30); Chloride 117 mmol/L (98-107); Estimated Glomerular Filt Rate 28; Phosphorus 4.7 mg/dL (2.5-4.5); Potassium 4.9 mmol/L (3.4-5.0); Sodium 141 mmol/L (137-145)
[2021-08-11 13:54] LABS: Glucose 54 mg/dL (65-110)
== END 2021-08-11 10:02 | disposition home or self-care (01) ==
PROVIDERS: PCP Internal Medicine; Visit Provider Internal Medicine Nephrology
DX: N18.31 Chronic kidney disease, stage 3a (principal); R80.1 Persistent proteinuria, unspecified
CPT/HCPCS: 36415; 80069; 82570; 84156

== ENCOUNTER 2022-04-27 11:23 | Emergency (ER) | payer OTHER, SELFPAY ==
--- NOTE | ~2022-04-27 | XR_ITS ---
XR shoulder LT min 2V 04/27/2022 12:53 Indication: Left shoulder pain Procedure: 4 views left shoulder Comparison: 12/19/2020 Findings: No acute fracture, subluxation or dislocation. Anatomic alignment. No soft tissue abnormali ty. Impression: 1: No acute bone or joint abnormality. Reviewed, dictated and finalized at location A. ENT CARE COORDINATOR Impression: 1: No acute bone or joint abnormality.
--- NOTE | ~2022-04-27 | CT_ITS ---
EXAMINATION: CT abdomen pelvis wo con DATE: 04/27/2022 13:10 INDICATION: Left-sided rib and abdomen pain TECHNIQUE: Computed tomography (CT) of the abdomen and pelvis was performed without intravenous contr ast. The dose-length product was 1789.16 mGy-cm. Automated exposure control and iterative reconstruct ion technique were employed. COMPARISON: CT dated 08/12/2020 FINDINGS: Lung bases are unremarkable. Cardiomegaly. Small pericardial effusion. No significant pleur al effusion. No significant vascular abnormality. No lymphadenopathy. The liver, spleen, pancreas, adrenal glands and right kidney are unremarkable. There is a punctate le ft renal cortical calcification. There is mild left renal atrophy. No ureteral stones or hydronephros is. Bladder is decompressed. Nonobstructive bowel gas pattern. Colonic diverticulosis without evidence for diverticulitis. No free air or free fluid. Gallbladder is present. No lymphadenopathy. There is lower abdominal anterior wal l subcutaneous edema and skin thickening. No acute osseous abnormality. IMPRESSION: 1. No acute abdominal abnormality. 2: Lower abdominal wall edema and skin thickening. Consider cellulitis in the appropriate clinical se tting. 3: Cardiomegaly with small pericardial effusion. Reviewed, dictated and finalized at location A. THERAPIST IMPRESSION: 1. No acute abdominal abnormality. 2: Lower abdominal wall edema and skin thickening. Consider cellulitis in the a ppropriate clinical setting. 3: Cardiomegaly with small pericardial effusion.
--- NOTE | ~2022-04-27 | NM_ITS ---
EXAMINATION: NM pulmonary perfusion DATE: 04/27/2022 16:16 INDICATION: Shortness of breath. TECHNIQUE: 5.3 mCi Tc-99m MAA was administered intravenously for perfusion images. Scintigraphic matthew ges of the chest were obtained. COMPARISON: Chest 2 views 04/27/2022 FINDINGS: Perfusion images show no perfusion defects. Chest wall attenuation is noted. IMPRESSION: 1. Pulmonary embolism absent (normal perfusion). Reviewed, dictated and finalized at location A.
--- NOTE | ~2022-04-27 | XR_ITS ---
EXAMINATION: XR chest 2V 04/27/2022 12:53 INDICATION: Left shoulder and upper back pain PROCEDURE: 2 view chest COMPARISON: 12/17/2020 FINDINGS: The lungs are clear. The cardiomediastinal silhouette is within normal limits. There are no pleural effusions. There is no pneumothorax suspected. IMPRESSION: 1: NO ACUTE CARDIOPULMONARY DISEASE. Reviewed, dictated and finalized at location A. ATRIC PSYCHOLOGIST
[2022-04-27 11:21] VITALS: BP 170/133; PULSE 89; RESP 16; TEMP 37.1; O2SAT 100
--- NOTE | 2022-04-27 11:43 | ECG_ITS ---
Measurements Intervals [place] Rate: 89 P: 21 HI: 180 QRS: -22 QRSD: 56 T: 41 QT: 329 QTc: 401 Interpretive Statements SINUS RHYTHM POSSIBLE LEFT ATRIAL ENLARGEMENT RSR' IN V1 OR V2, PROBABLY NORMAL VARIANT LOW QRS VOLTAGE IN PRECORDIAL LEADS INFERIOR INFARCT, AGE INDETERMINATE ANTERIOR INFARCT, AGE INDETERMINATE BASELINE ARTIFACT- I, II, AVR ABNORMAL ECG COMPARED TO ECG 12/17/2020 18:19:14 MYOCARDIAL INFARCT FINDING NOW PRESENT Electronically Signed On 04-27-2022 13:22:12 FIREARMS ASSEMBLY SUPERVISOR by Ky Smith D.O.
[2022-04-27] MEDS: ONDANSETRON INJ 4 MG/2 ML VIAL IV PUSH (11:53)
[2022-04-27] MEDS: MORPHINE SULFATE (*CRX) 4 MG/ML INJ IV PUSH (11:53)
--- NOTE | 2022-04-27 12:16 | ED.GENADULT ---
HPI - General Adult General Chief complaint: Extremity Injury, Upper Stated complaint: R. shoulder pain Time Seen by Provider: 04/27/22 11:29 Source: patient Mode of arrival: EMS Limitations: no limitations History of Present Illness HPI narrative: Patient is a 51-year-old female, with past medical history of CVA with left-sided deficits, who presents to the ED via EMS with report of left shoulder/left upper back pain. Patient reported she felt fine yesterday and initially upon waking up this morning. After using the restroom and walking back to her bedroom, she developed pain in her left upper back and left shoulder. Pain worse with movement. She felt like she was having a hard time taking deep breath due to the pain. Denies feeling short of breath or unable to catch breath. EMS was called. Patient has not tried anything for pain. She denies any recent fall or injury, CP, fevers, cough, cold sx's, abd pain, N/V/D. Related Data Home Medications Medication Instructions Recorded Confirmed aspirin 81 mg chewable tablet 1 tablet PO QAM 06/07/19 12/17/20 acyclovir 800 mg tablet 800 mg PO DAILY 01/27/20 12/17/20 gabapentin 300 mg capsule 300 mg PO QID 01/27/20 12/17/20 atorvastatin 40 mg tablet 40 mg PO DAILY 05/04/20 12/17/20 bumetanide 2 mg tablet 2 mg PO BID 08/31/20 12/17/20 insulin lispro 100 unit/mL See Protocol subcut PC 08/31/20 12/17/20 subcutaneous solution (Admelog U-100 Insulin lispro) silver sulfadiazine 1 % topical 1 applic topical DAILY 11/14/20 12/17/20 cream Allergies Allergy/AdvReac Type Severity Reaction Status Date / Time Penicillins AdvReac Mild Nausea Verified 04/27/22 11:52 hydrocodone [From Vicodin] AdvReac Nausea and Verified 04/27/22 11:52 Vomiting Review of Systems Review of Systems: CONSTITUTIONAL: Denies fever, chills, or sweats. ENT: Denies rhinorrhea, congestion, sore throat. CARDIOVASCULAR: Denies chest pain. RESPIRATORY: See HPI. GASTROINTESTINAL: Denies abdominal pain, nausea, vomiting, or diarrhea. MUSCULOSKELETAL: See HPI. NEUROLOGIC: Denies headache, numbness, or weakness. 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 Status post total abdominal hysterectomy and bilateral salpingo-oophorectomy (TADEO-BSO) Laparoscopic Family History Family History Father Acute myocardial infarction Mother Cerebrovascular accident Other Colon cancer Social History Social History Social History: She has 3 children who reportedly healthy. 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 Additional occupation/educatio
[2022-04-27 12:23] LABS: Basophils Absolute Auto 0.1 K/mm3 (0.0-0.1); Basophils Percent Auto 0.7 % (0.2-1.2); Eosinophils Absolute Auto 0.3 K/mm3 (0-0.3); Hematocrit 40.5 % (37.0-47.0); Hemoglobin 12.1 g/dL (12.0-15.0); Immature Granulocyte Absolute 0.05 K/mm3 (0.00-0.031); Immature Granulocyte Percent A 0.4 % (0-0.5); Lymphocytes Absolute Auto 2.64 K/mm3 (0.9-3.2); Lymphocytes Percent Auto 21.6 % (18.3-44.2); Mean Corpuscular HGB Conc 29.9 g/dl (32-36); Mean Corpuscular Hemoglobin 28.9 pg (26-34); Mean Corpuscular Volume 96.7 fl (80-100); Mean Platelet Volume 11.9 fl (7.4-10.4); Monocytes Absolute Auto 0.8 K/mm3 (0.1-0.6); Monocytes Percent Auto 6.5 % (2.6-8.5); Neutrophils Absolute Auto 8.4 K/mm3 (1.3-6.7); Neutrophils Percent Auto 68.8 % (45.5-73.1); Platelet Count Result 323 k/mm3 (150-375); Red Blood Count 4.19 M/mm3 (4.2-5.4); Red Cell Distribution Width 15.7 % (11.5-14.5); White Blood Count 12.2 K/mm3 (4.5-10.0)
[2022-04-27 12:32] LABS: Alanine Aminotransferase 17 U/L (6-35); Albumin Level 3.5 g/dL (3.5-5.1); Alkaline Phosphatase 120 U/L (38-126); Anion Gap 4 mmol/L (8-16); Aspartate Amino Transferase 24 U/L (14-36); Bilirubin,Total 0.4 mg/dL (0.2-1.3); Blood Urea Nitrogen 28 mg/dL (7-17); Carbon Dioxide 21 mmol/L (22-30); Chloride 113 mmol/L (98-107); Estimated CRCL calculation 30 ml/min; Estimated Glomerular Filt Rate 24; Glucose 85 mg/dL (65-110); Potassium 5.5 mmol/L (3.4-5.0); Sodium 138 mmol/L (137-145)
--- NOTE | 2022-04-27 12:40 | PC.NURSE ---
Pt to XRAY via stretcher at this time.
[2022-04-27 12:44] LABS: Troponin I < 0.012 ng/mL (0.000-0.034)
[2022-04-27 12:45] LABS: Appearance Urine Clear (Clear); Bilirubin Urine Negative (Negative); Blood Urine Trace-intact (Negative); Color Urine Yellow (Yellow); Glucose Urine UA Negative (Negative); Ketones Urine Negative (Negative); Leukocyte Esterase Ur Negative LEU/UL (Negative); Nitrate Urine Negative (Negative); Protein Urine 3+ mg/dL (Negative); Specific Grav Ur 1.025 (1.001-1.035); Urobilinogen Urine 0.2 mg/dL (<2.0); pH Urine 6.5 (5.0-9.0)
[2022-04-27] MEDS: SODIUM CHLORIDE 0.9% IV 500 ML 999 ML IV CONT (12:52)
[2022-04-27 12:56] LABS: INR 1.3; Prothrombin Time 15.2 Seconds (11.1-14.7)
[2022-04-27 12:57] LABS: Partial Thromboplastin Time 30.9 SECONDS (22.3-36.8)
[2022-04-27 13:02] LABS: Add Urine Microscopic? YES; Mucus Urine Rare /lpf; Squamous Epithelial Cell Urine Occasional /hpf (Few); WBC Urine 0-3 /hpf
[2022-04-27 13:03] LABS: D Dimer 1.76 ug/mL (<0.48)
[2022-04-27 13:20] VITALS: BP 128/85; PULSE 86; RESP 12; O2SAT 98
[2022-04-27] MEDS: CALCIUM GLUC 1,000 MG/NS 50 ML 1,000 MG/50 ML BAG 100 MG IVPB (13:20)
[2022-04-27 16:12] VITALS: BP 158/95; PULSE 82; RESP 12; O2SAT 100
[2022-04-27 16:58] VITALS: BP 150/93; PULSE 81; RESP 12; O2SAT 99
--- NOTE | 2022-04-27 19:13 | PC.NURSE ---
1909 Assumed pt care from Jses Giordano RN
== END 2022-04-27 20:00 | disposition left against medical advice (07) ==
PROVIDERS: Emergency Provider Physician Assistant; PCP Internal Medicine
DX: M25.512 Pain in left shoulder (principal); S29.012A Strain of muscle and tendon of back wall of thorax, initial encounter; E87.5 Hyperkalemia; E11.22 Type 2 diabetes mellitus with diabetic chronic kidney disease; I13.0 Hypertensive heart and chronic kidney disease with heart failure and stage 1 through stage 4 chronic kidney disease, or unspecified chronic kidney disease; N18.9 Chronic kidney disease, unspecified; I50.30 Unspecified diastolic (congestive) heart failure; E11.42 Type 2 diabetes mellitus with diabetic polyneuropathy; E11.39 Type 2 diabetes mellitus with other diabetic ophthalmic complication; H42 Glaucoma in diseases classified elsewhere; E11.319 Type 2 diabetes mellitus with unspecified diabetic retinopathy without macular edema; E11.21 Type 2 diabetes mellitus with diabetic nephropathy; I27.20 Pulmonary hypertension, unspecified; E55.9 Vitamin D deficiency, unspecified; Z86.2 Personal history of diseases of the blood and blood-forming organs and certain disorders involving the immune mechanism; Z79.82 Long term (current) use of aspirin; Z79.4 Long term (current) use of insulin; R94.31 Abnormal electrocardiogram [ECG] [EKG]; I51.7 Cardiomegaly; R60.9 Edema, unspecified; X58.XXXA Exposure to other specified factors, initial encounter
CPT/HCPCS: 36415; 51701; 71046; 73030; 74176; 78580; 80053; 81001; 84484; 85025; 85380; 85610; 85730; 93005; 96365; 96367; 96375; 99284; A9540; J0131; J0610; J2270; J2405; J7040

== ENCOUNTER 2022-10-15 12:14 | Inpatient (IN) | payer OTHER, SELFPAY ==
[2022-10-15] VITALS (20 sets, daily range): BP systolic 137–185; BP diastolic 61–97; PULSE 84–105; RESP 12–22; TEMP 36.4–36.8; O2SAT 94–100; BMI 48.4
--- NOTE | ~2022-10-15 | CT_ITS ---
EXAMINATION: CT cervical spine wo con DATE: 10/15/2022 13:27 INDICATION: Fall face forward. Head and neck injury. TECHNIQUE: Computed tomography (CT) of the cervical spine was performed without intravenous contrast. Automated exposure control and iterative reconstruction technique were employed. Exam dose: 450.38 mGy-cm total exam DLP. COMPARISON: 01/22/2021 CT cervical spine 3 cu FINDINGS: There is straightening of the cervical spine which may be due to positioning or muscle spas m. C1 and C2 are normally aligned and the odontoid process is intact. No fracture or dislocation or lock ed facet or prevertebral soft tissue swelling. There is mild anterior spurring at C4-5 and C5-C6 prim arily, but the cervical interspaces are relatively preserved.. IMPRESSION: Straightening No fracture or dislocation or locked facet Mild cervical spondylosis Reviewed, dictated and finalized at [facility]. Reviewed, dictated and finalized at [facility].
--- NOTE | ~2022-10-15 | XR_ITS ---
Clinical Indication: Shortness of breath AP and lateral views of the chest: Comparison: 04/19/2022 Findings: The lungs are clear, without evidence of focal consolidation or pleural effusion. Cardiome diastinal silhouette is stable. Bones and soft tissues are unremarkable. Impression: Clear lungs. Reviewed, dictated and finalized at location . Impression: Clear lungs.
--- NOTE | ~2022-10-15 | XR_ITS ---
AP and lateral views of the right tibia/fibula Clinical History: Trauma Findings: No acute fracture or dislocation is seen. Osseous alignment is anatomic. Joint spaces are p reserved without significant erosive or degenerative change. Soft there is diffuse subcutaneous soft tissue edema. Impression: No fracture or dislocation. Diffuse subcutaneous soft tissue edema, nonspecific. Reviewed, dictated and finalized at [facility]. Impression: No fracture or dislocation. Diffuse subcutaneous soft tissue edema, nonspecific.
--- NOTE | ~2022-10-15 | CT_ITS ---
EXAMINATION: CT brain wo con DATE: 10/19/2022 11:30 INDICATION: Headache and dizziness TECHNIQUE: Computed tomography (CT) of the head was performed without intravenous contrast. The dose- length product was 605.33 mGy-cm. Automated exposure control and iterative reconstruction technique w ere employed. COMPARISON: Comparison to multiple prior studies sequentially, with oldest reviewed study dated 12/17. FINDINGS: There are chronic infarctions of the right frontal lobe, parietal lobe, basal ganglia. Ther e is compensatory dilation of the right lateral ventricle due to right hemispheric volume loss. No mi dline shift. Basilar cisterns are patent. There is intracranial atherosclerosis. Paranasal sinuses an d mastoids are pneumatized. No depressed skull fractures. Midline sagittal images are unremarkable. C raniovertebral junction is normal. IMPRESSION: 1. No acute intracranial abnormality. Reviewed, dictated and finalized at [facility].
--- NOTE | ~2022-10-15 | CT_ITS ---
EXAMINATION: CT thoracic lumbar wo con DATE: 10/15/2022 13:28 INDICATION: Fall. Back pain. TECHNIQUE: Computed tomography (CT) of the thoracic and lumbar spine was performed without intravenou s contrast. Automated exposure control and iterative reconstruction technique were employed. Exam dos e: 1893.96 mGy-cm total exam DLP. COMPARISON: None FINDINGS: No fracture or dislocation or bone destruction of the thoracic spine is detected. The lumbar vertebrae are normally aligned, without evidence of fracture, bone destruction, spondyloly sis or spondylolisthesis. Lumbar and lumbosacral interspaces are well preserved. There is mild anteri or spurring at L2-3 and L3-4. Interspaces are maintained intact. Cardiomegaly and small pericardial effusion. Incidentally noted. IMPRESSION: No evidence of thoracic or lumbar spine fracture Cardiomegaly, small pericardial effusion Reviewed, dictated and finalized at [facility] Reviewed, dictated and finalized at [facility].
--- NOTE | ~2022-10-15 | CT_ITS ---
EXAMINATION: CT brain wo con DATE: 10/15/2022 13:28 INDICATION: Fall, face forward. History of cerebrovascular accident. TECHNIQUE: Computed tomography (CT) of the head was performed without intravenous contrast. The mA wa s adjusted according to patient size. Iterative reconstruction technique was employed. Exam dose: 60 5.33 mGy-cm total exam DLP. COMPARISON: 01/22/2021 CT brain FINDINGS: Chronic right frontal lobe infarct and right periventricular and basal ganglia lacunar infa rcts are again noted. Bilateral carotid siphon internal carotid artery calcifications and vertebral artery calcifications a re noted. There is nonspecific diminished attenuation of the cerebral white matter, likely due to chr onic small vessel ischemic changes. No intracranial mass lesion or hemorrhage or recent cerebrovascular accident is detected. No midline shift or mass effect. No subdural or epidural hematoma. No fracture or bone destruction of the cranial vault. The mastoid air cells and included paranasal sinuses are unremarkable except for minimal focal soft t issue thickening of the right ethmoid air cell region. IMPRESSION: No skull fracture or acute intracranial finding Chronic right sided infarcts Reviewed, dictated and finalized at [facility]. Reviewed, dictated and finalized at [facility].
--- NOTE | ~2022-10-15 | CT_ITS ---
CT Scan of the Chest without Contrast: Clinical Indication: Status post fall, rib pain Technique: Contiguous sections were acquired throughout the chest without intravenous contrast. Dose reduction technique was used on this scan by utilizing automated exposure control and iterative recon struction technique. The dose-length product (DLP) was 897.77 mGy-cm. COMPARISON: 03/01/2018 Findings: There is no evidence of any significant mediastinal, hilar or axillary lymphadenopathy. The mediastin al soft tissues appear normal. Minimal pericardial fluid present. No pleural effusions. Minimal dependent groundglass opacities present. No pulmonary nodule evident. Images through the upper abdomen reveal no abnormalities. No fracture is identified. Impression: Minimal dependent atelectatic change and/or pulmonary edema. Minimal pericardial fluid. Reviewed, dictated and finalized at [facility]. Impression: Minimal dependent atelectatic change and/or pulmonary edema. Minimal pericardial fluid.
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
[2022-10-15] MEDS: ACETAMINOPHEN 500 MG TABLET 1000 MG PO (13:33)
[2022-10-15 13:44] LABS: Basophils Absolute Auto 0.1 K/mm3 (0.0-0.1); Basophils Percent Auto 0.6 % (0.2-1.2); Eosinophils Absolute Auto 0.3 K/mm3 (0-0.3); Eosinophils Percent Auto 2.3 % (0-4.4); Hematocrit 37.2 % (37.0-47.0); Hemoglobin 11.3 g/dL (12.0-15.0); Immature Granulocyte Absolute 0.07 K/mm3 (0.00-0.031); Immature Granulocyte Percent A 0.6 % (0-0.5); Lymphocytes Absolute Auto 1.96 K/mm3 (0.9-3.2); Lymphocytes Percent Auto 15.9 % (18.3-44.2); Mean Corpuscular HGB Conc 30.4 g/dl (32-36); Mean Corpuscular Hemoglobin 30.1 pg (26-34); Mean Corpuscular Volume 98.9 fl (80-100); Mean Platelet Volume 11.5 fl (7.4-10.4); Monocytes Absolute Auto 0.7 K/mm3 (0.1-0.6); Monocytes Percent Auto 5.4 % (2.6-8.5); Neutrophils Absolute Auto 9.3 K/mm3 (1.3-6.7); Neutrophils Percent Auto 75.2 % (45.5-73.1); Platelet Count Result 314 k/mm3 (150-375); Red Blood Count 3.76 M/mm3 (4.2-5.4); Red Cell Distribution Width 15.1 % (11.5-14.5); White Blood Count 12.3 K/mm3 (4.5-10.0)
[2022-10-15 14:08] LABS: Alanine Aminotransferase 20 U/L (6-35); Albumin Level 3.6 g/dL (3.5-5.1); Alkaline Phosphatase 129 U/L (38-126); Anion Gap 4 mmol/L (8-16); Aspartate Amino Transferase 30 U/L (14-36); Bilirubin,Total 0.4 mg/dL (0.2-1.3); Blood Urea Nitrogen 25 mg/dL (7-17); Calcium 8.2 mg/dL (8.4-10.2); Carbon Dioxide 27 mmol/L (22-30); Chloride 112 mmol/L (98-107); Estimated CRCL calculation 35 ml/min; Estimated Glomerular Filt Rate 25; Glucose 105 mg/dL (65-110); Potassium 6.4 mmol/L (3.4-5.0); Sodium 143 mmol/L (137-145)
[2022-10-15 14:15] LABS: Appearance Urine Clear (Clear); Bacteria Urine None Seen /hpf; Bilirubin Urine Negative (Negative); Blood Urine Negative (Negative); Color Urine Yellow (Yellow); Glucose Urine UA Negative (Negative); Ketones Urine Negative (Negative); Leukocyte Esterase Ur Trace LEU/UL (Negative); Nitrate Urine Negative (Negative); Non Pathogenic Casts 0-2; Protein Urine 3+ mg/dL (Negative); RBC Urine 0-2 /hpf (0-2); Specific Grav Ur 1.012 (1.001-1.035); Squamous Epithelial Cell Urine None seen /hpf (Few); Urobilinogen Urine 0.2 mg/dL (<2.0); pH Urine 7.5 (5.0-9.0)
--- NOTE | 2022-10-15 14:25 | ECG_ITS ---
Measurements Intervals [place] Rate: 91 P: 18 SD: 165 QRS: -26 QRSD: 77 T: 32 QT: 355 QTc: 437 Interpretive Statements SINUS RHYTHM INCOMPLETE RIGHT BUNDLE BRANCH BLOCK LOW QRS VOLTAGE IN PRECORDIAL LEADS INFERIOR INFARCT, AGE INDETERMINATE ABNORMAL ECG COMPARED TO ECG 04/27/2022 11:57:05 NO SIGNIFICANT CHANGES Electronically Signed On 10-15-2022 14:46:11 CDT by Ky Smith D.O.
[2022-10-15 14:28] LABS: INR 1.2; Prothrombin Time 15.8 Seconds (11.1-14.7)
[2022-10-15 14:29] LABS: Partial Thromboplastin Time 28.1 SECONDS (22.3-36.8)
[2022-10-15] MEDS: CALCIUM GLUCONATE 1,000 MG/10 ML VIAL 1000 MG IV PUSH (14:42)
[2022-10-15] MEDS: SODIUM ZIRCONIUM CYCLOSILICATE 10 GM POWD.PACK PO ×2 (14:43→23:23)
[2022-10-15] MEDS: DEXTROSE 50% 25 GM/50 ML SYRINGE IV PUSH (14:43)
[2022-10-15] MEDS: SODIUM BICARBONATE 8.4% 50 MEQ/50 ML SYRINGE IV PUSH (14:43)
[2022-10-15] MEDS: INSULIN HUMAN REGULAR (*BKC) 100 UNITS/ML 10 UNITS IV PUSH (14:43)
[2022-10-15] MEDS: CEPHALEXIN 500 MG CAPSULE PO (14:46)
[2022-10-15 14:49] LABS: Add Urine Microscopic? YES
[2022-10-15 15:48] LABS: Glucose Point of Care 103 mg/dl (65-105)
--- NOTE | 2022-10-15 16:39 | ADMGEN ---
This patient, Hillary Bailey, was admitted to IMU Room 232-01. Patient/family oriented to hospital policies and general routines including ID bracelet, bed and alarms, visiting hours, pain management, procedures, bathroom and other care routines, personal items, smoking policy, room service/diet, and visiting hours. Information on how to activate the Rapid Response Team has been discussed. Patient/Family are encouraged to report perceived risks to care and to ask questions if they do not understand what they are told or what they should do.
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
[2022-10-15] MEDS: fentaNYL CITRATE INJ (*CRX) 100 MCG/2 ML VIAL 25 MCG IV PUSH ×2 (18:57→23:53)
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
[2022-10-15 20:30] LABS: Glucose Point of Care 137 mg/dl (65-105)
[2022-10-15 21:47] LABS: Anion Gap 3 mmol/L (8-16); Blood Urea Nitrogen 25 mg/dL (7-17); Carbon Dioxide 28 mmol/L (22-30); Chloride 112 mmol/L (98-107); Creatine Kinase 274 U/L (30-135); Estimated CRCL calculation 33 ml/min; Estimated Glomerular Filt Rate 24; Glucose 127 mg/dL (65-110); Potassium 5.7 mmol/L (3.4-5.0); Sodium 143 mmol/L (137-145)
[2022-10-16] VITALS (21 sets, daily range): BP systolic 108–175; BP diastolic 56–81; PULSE 85–102; RESP 14–20; TEMP 36.3–37.7; O2SAT 95–100
[2022-10-16 04:47] LABS: Hematocrit 31.4 % (37.0-47.0); Hemoglobin 9.5 g/dL (12.0-15.0); Mean Corpuscular HGB Conc 30.3 g/dl (32-36); Mean Corpuscular Hemoglobin 29.8 pg (26-34); Mean Corpuscular Volume 98.4 fl (80-100); Mean Platelet Volume 11.9 fl (7.4-10.4); Platelet Count Result 289 k/mm3 (150-375); Red Blood Count 3.19 M/mm3 (4.2-5.4); Red Cell Distribution Width 15.1 % (11.5-14.5); White Blood Count 9.9 K/mm3 (4.5-10.0)
[2022-10-16 04:59] LABS: Albumin Level 3.2 g/dL (3.5-5.1); Anion Gap 5 mmol/L (8-16); Blood Urea Nitrogen 25 mg/dL (7-17); Calcium 7.9 mg/dL (8.4-10.2); Carbon Dioxide 27 mmol/L (22-30); Chloride 111 mmol/L (98-107); Creatine Kinase 263 U/L (30-135); Estimated CRCL calculation 35 ml/min; Estimated Glomerular Filt Rate 25; Glucose 116 mg/dL (65-110); Magnesium 1.9 mg/dL (1.6-2.3); Phosphorus 5.1 mg/dL (2.5-4.5); Potassium 5.6 mmol/L (3.4-5.0); Sodium 143 mmol/L (137-145)
[2022-10-16 08:12] LABS: Glucose Point of Care 111 mg/dl (65-105)
[2022-10-16] MEDS: EZETIMIBE 10 MG TABLET PO (10:37)
[2022-10-16] MEDS: ACYCLOVIR 400 MG TABLET 800 MG BY MOUTH (10:37)
[2022-10-16] MEDS: SODIUM ZIRCONIUM CYCLOSILICATE 10 GM POWD.PACK 5 GM BY MOUTH (10:37)
[2022-10-16] MEDS: IRBESARTAN 150 MG TABLET PO (10:37)
[2022-10-16] MEDS: CLOPIDOGREL BISULFATE 75 MG TABLET PO (10:37)
[2022-10-16] MEDS: ASPIRIN 81 MG CHEWABLE TABLET PO (10:37)
[2022-10-16] MEDS: ATORVASTATIN 40 MG TABLET 80 MG PO (10:37)
[2022-10-16] MEDS: GABAPENTIN 300 MG CAPSULE PO ×4 (10:37→20:53)
[2022-10-16] MEDS: BUMETANIDE 1 MG TABLET 2 MG PO ×3 (10:38→18:41)
[2022-10-16] MEDS: LABETALOL HCL 100 MG TABLET PO ×2 (10:39→20:53)
--- NOTE | 2022-10-16 11:07 | PM.IMPN ---
Progress Note: A&P Assessment and Plan (1) Hematoma: Code(s): T14.8XXA - Other injury of unspecified body region, initial encounter Status: Acute Assessment and Plan: The patient fell and has a large hematoma to her right lower extremity. General surgery consulted for possible evacuation. Monitor H&H every 6 hours. (2) Type 2 diabetes mellitus with hyperglycemia: Qualifiers: Diabetes mellitus half-way insulin use: with long term care phlebotomist use Qualified Code(s): E11.65 - Type 2 diabetes mellitus with hyperglycemia; Z79.4 - terminal makeup operator (current) use of insulin Code(s): E11.65 - Type 2 diabetes mellitus with hyperglycemia Status: Acute Assessment and Plan: Accu-Cheks AC and HS with sliding scale insulin. check A1c. (3) Diastolic heart failure: Code(s): I50.30 - Unspecified diastolic (congestive) heart failure Status: Acute Assessment and Plan: Continue with Bumex, Avapro and metoprolol, Echocardiogram May 2017 demonstrated grade 2 diastolic dysfunction with normal ejection fraction, moderate left atrial enlargement, RVSP 62, moderate tricuspid regurgitation (4) Neuropathy due to type 2 diabetes mellitus: Code(s): E11.40 - Type 2 diabetes mellitus with diabetic neuropathy, unspecified Status: Acute Assessment and Plan: Continue with gabapentin (5) Stage 3b chronic kidney disease: Code(s): N18.32 - Chronic kidney disease, stage 3b Status: Chronic Assessment and Plan: As per nephrology notes Hillary has chronic kidney disease.? Her GFR has been running in the low 30s since mid 2020. In the past immunofixation and serology were negative. Ultrasound shows normal kidneys. UA is bland except for protein. Most likely her kidney disease is from diabetes and hypertension. Is also noticed that the patient will be started on irbesartan and may consider to her needs. It was noted that she should avoid excessive protein. She should stick to 70 g protein diet daily. The patient appears to be at her baseline. Renal ultrasound noted on 08/11/2020 shows normal kidneys without hydronephrosis. (6) Hypertension, uncontrolled: Code(s): I10 - Essential (primary) hypertension Status: Acute Assessment and Plan: Uncontrolled. Increase metoprolol. Increase Bumex. she has p.r.n. clonidine. She was also started on Avapro. Defer to Nephrology. holding her losartan at this time due to the hyperkalemia. (7) HLD (hyperlipidemia): Code(s): E78.5 - Hyperlipidemia, unspecified Status: Acute Assessment and Plan: Continue with atorvastatin and Zetia (8) Hyperkalemia: Code(s): E87.5 - Hyperkalemia Status: Acute Assessment and Plan: Hold losartan. The patient was given a concoction in the emergency room. Her potassium is still slightly elevated. ordered Lokelma. Subjective Date/time seen: 10/16/22 11:07 Interval history: Patient complains of pain at the site of right lower extremity hematoma. Also reports some left lower extremity pain Review of Systems Review of Systems: All systems reviewed & are unremarkable except as noted in HPI and below Constitutional: Constitutional: Reports as per HPI and Reports no additional constitutional complaints Eyes: Eyes: Reports as per HPI and Reports no additional eye complaints ENT: Reports system reviewed and no additional complaints, except as documented and Reports Normal hearing present Cardiovascular: Cardiovascular: Reports no additional cardiovascular complaints Respiratory: Respiratory: Reports no additional respiratory complaints and Reports no additional respiratory complaints Gastrointestinal: Gastrointestinal: Reports as per HPI and Reports no additional gastrointestinal complaints Musculoskeletal: Musculoskeletal: Reports no additional musculoskeletal complaints Integumentary/Breasts: Skin/Breast: Reports system reviewed and no addit
[2022-10-16 12:21] LABS: Glucose Point of Care 133 mg/dl (65-105)
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
--- NOTE | 2022-10-16 15:31 | WPDANESEPPF ---
Anes - Initial Pre Proc Eval Procedure: Operation Date: 10/16/22 17:30 Proposed Procedures p Incision and Drainage Lower Extremity Hematoma - Alberto Flanagan DO Date/Time: 10/16/22 15:31 Surgeon: Irineo Ochoa MD Pre Op Diagnosis: Hyperkalemia Patient Data Age: 52 Gender: F Height: 1.55 m Weight: 116.3 kg Last Vital Signs Temp 37.5 C 10/16/22 12:00 Pulse 97 10/16/22 12:00 Resp 18 10/16/22 12:00 BP 154/65 H 10/16/22 12:00 Pulse Ox 97 10/16/22 12:00 O2 Del Method Room Air 10/16/22 03:41 Allergies Allergy/AdvReac Type Severity Reaction Status Date / Time Penicillins AdvReac Mild Nausea Verified 04/27/22 11:52 hydrocodone [From Vicodin] AdvReac Nausea and Verified 04/27/22 11:52 Vomiting Home Medications Medication Instructions Recorded Confirmed Type aspirin 81 mg chewable tablet 1 tablet PO QAM 06/07/19 10/15/22 History metoprolol tartrate 50 mg tablet 50 mg PO BID #60 tabs 06/12/19 10/15/22 Rx acyclovir 800 mg tablet 800 mg PO DAILY 01/27/20 10/15/22 History gabapentin 300 mg capsule 300 mg PO QID 01/27/20 10/15/22 History atorvastatin 40 mg tablet 80 mg PO DAILY 05/04/20 10/15/22 History bumetanide 2 mg tablet 2 mg PO BID 08/31/20 10/15/22 History insulin lispro 100 unit/mL See Protocol subcut PC 08/31/20 10/15/22 History subcutaneous solution (Admelog U-100 Insulin lispro) losartan 50 mg tablet (Cozaar) 50 mg PO DAILY #30 tabs 09/06/20 10/15/22 Rx clopidogrel 75 mg tablet 75 mg PO QAM #42 tabs 12/21/20 10/15/22 Rx dulaglutide 0.75 mg/0.5 mL 1.5 mg subcut WEEKLY 10/15/22 10/15/22 History subcutaneous pen injector (Trulicity) ezetimibe 10 mg tablet 10 mg PO DAILY 10/15/22 10/15/22 History famotidine 40 mg tablet 40 mg PO HS 10/15/22 10/15/22 History losartan 50 mg tablet 50 mg PO DAILY 10/15/22 10/15/22 History sodium zirconium cyclosilicate 5 5 g PO DAILY 10/15/22 10/15/22 History gram oral powder packet (Lokelwy) Laboratory Tests 10/15/22 10/15/22 10/15/22 13:49 15:45 19:59 WBC RBC Hgb Hct MCV MCH MCHC RDW Plt Count MPV Sodium Potassium Chloride Carbon Dioxide Anion Gap BUN Creatinine Estim Creat Clear Calc Estimated GFR Glucose POC Capillary Glucose 103 mg/dl 137 H mg/dl (65-105) (65-105) Calcium Phosphorus Magnesium Total Creatine Kinase Albumin TSH (Reflex) Urine Color Yellow (Yellow) Urine Appearance Clear (Clear) Urine pH 7.5 (5.0-9.0) Ur Specific [place] 1.012 (1.001-1.035) Urine Protein 3+ H mg/dL (Negative) Urine Glucose (UA) Negative mg/dL (Negative) Urine Ketones Negative mg/dL (Negative) Ur Blood (Man) Negative (Negative) Urine Nitrate Negative (Negative) Urine Bilirubin Negative (Negative) Urine Urobilinogen 0.2 mg/dL (<2.0) Leukocyte Esterase Rfl Trace H LEYLA/UL (Negative) Urine RBC 0-2 /hpf (0-2) Urine WBC 11-20 H /hpf Ur Squamous Epith Cells None seen /hpf (Few) Urine Bacteria None seen /hpf Urine Casts 0-2 10/15/22 10/16/22 10/16/22 21:23 04:07 08:05 WBC 9.9 K/mm3 (4.5-10.0) RBC 3.19 L M/mm3 (4.2-5.4) Hgb 9.5 L g/dL (12.0-15.0) Hct 31.4 L % (37.0-47.0) MCV 98.4 fl (80-100) MCH 29.8 pg (26-34) MCHC 30.3 L g/dl (32-36) RDW 15.1 H % (11.5-14.5) Plt Count 289 k/mm3 (150-375) MPV 11.9 H fl (7.4-10.4) Sodium 143 mmol/L 143 mmol/L (137-145) (137-145) Potass
--- NOTE | 2022-10-16 15:36 | WPDHPUPDATE1 ---
History and Physical Update Update Date/Time: 10/16/22 15:36 History and Physical has been reviewed, including an updated exam of the patient. There are NO changes in the patient's condition. Risks, benefits, and alternatives have been discussed and questions answered. Patient agrees to proceed with procedure.
--- NOTE | 2022-10-16 15:49 | PC.NURSE ---
To OR per bed, IV patent and locked. Report given to JESUS Morrow.
[2022-10-16 15:55] LABS: Glucose Point of Care 93 mg/dl (65-105)
[2022-10-16] MEDS: LACTATED RINGERS 1,000 ML 30 ML IV CONT (16:00)
[2022-10-16] MEDS: ceFAZolin 2 GM/D5W 50 ML 2 GM/50 ML BAG IVPB (16:21)
--- NOTE | 2022-10-16 16:27 | PCPTNOTE ---
On 10/16/22, the student, MART Pulido, provided care and completed [facility] documentation on this patient. I have reviewed the student's documentation and agree with the findings.
[2022-10-16] MEDS: BUPIVACAINE/EPINEPHRINE 0.5% 50 ML VIAL 10 ML INFILTRATE (16:46)
--- NOTE | 2022-10-16 16:54 | W.PM.PROC2 ---
Procedure Note - Detailed Date of Procedure 10/16/22 Pre-op Diagnosis Right lower leg traumatic hematoma Post-op Diagnosis Same Procedure Performed Incision and drainage, evacuation of 12cm x 10cm right lower leg hematoma Surgeon Alberto Flanagan, DO Anesthesia General and Local (0.5% bupivacaine with epinephrine) Indications This is a 52-year-old woman who presented to the emergency department yesterday with a large amount of swelling and pain of her right lower leg after suffering a fall and sustaining a hematoma injury. She is on aspirin and Plavix due to a prior history of stroke. She was found to have a large hematoma on her right lower leg which is causing significant pain and has concern for eventually leading to skin necrosis due to the pressure. I discussed treatment options with the patient and decision was made to proceed with incision and drainage of the right lower leg hematoma. Findings Incision and drainage with evacuation of the hematoma was performed. The hematoma measured about 10 cm x 12 cm and there was likely at least 90-120 mL of old clotted blood. There was 1 small vein that had minor bleeding which was cauterized. No other abnormalities were noted. A 19 [place] Hemovac drain was placed to help prevent recurrent hematoma formation. Description of Procedure Procedure as well as risks, benefits, and alternatives were discussed with the patient. Written consent was obtained and placed in chart prior to procedure. Patient was brought back to surgical suite. She was placed supine on operating table. Time-out was done to confirm patient procedure. She was then intubated by the anesthesia department. Her right lower leg was prepped and draped in sterile fashion using chlorhexidine prep. 0.5% bupivacaine with epinephrine was infiltrated locally in the skin overlying the hematoma. A 6 cm vertical incision was then made directly over the hematoma using a 15 blade scalpel. The incision was carried out down to the subcutaneous space where the hematoma was. The clotted blood was then evacuated from within the space. The area was irrigated with sterile saline. There was 1 small vein that was identified with minor bleeding and this was cauterized with electrocautery to help prevent any recurrent bleeding. One final inspection was made no other abnormalities were noted. The skin and deeper muscle all appeared healthy and viable. A 19 [place] round Hemovac drain was then placed through a counter incision just lateral to the skin incision. This was secured in place using a 3-0 nylon drain stitch. The drain was then cut to appropriate size and placed within the subcutaneous space. The skin was then closed over the drain using 3-0 nylon vertical mattress interrupted sutures. Xeroform gauze, 4 x 4 gauze, and Medipore tape were then applied. An Shahzad wrap was then placed around the lower leg to help prevent any reaccumulation of blood. The patient was then awakened from anesthesia, extubated, and transferred to recovery. Estimated Blood Loss 10 Urine Output 1 Drains Yes (19 [place] round Hemovac drain) Complications No immediate complications Condition Stable Disposition Floor [facility] Billing Surgery - Charge Forward: Surgery Billing
[2022-10-16] MEDS: fentaNYL CITRATE INJ (*CRX) 100 MCG/2 ML VIAL 25 MCG IV PUSH (17:13)
[2022-10-16 17:21] LABS: Glucose Point of Care 89 mg/dl (65-105)
[2022-10-16 18:28] LABS: Hemoglobin A1C 5.4 % (<5.7)
[2022-10-16 20:19] LABS: Glucose Point of Care 162 mg/dl (65-105)
[2022-10-16] MEDS: FAMOTIDINE 20 MG TABLET 40 MG PO (20:53)
[2022-10-17] VITALS (15 sets, daily range): BP systolic 97–147; BP diastolic 55–71; PULSE 89–98; RESP 18–20; TEMP 36.1–37; O2SAT 92–100
[2022-10-17 05:05] LABS: Albumin Level 3.1 g/dL (3.5-5.1); Anion Gap 5 mmol/L (8-16); Blood Urea Nitrogen 27 mg/dL (7-17); Calcium 7.3 mg/dL (8.4-10.2); Carbon Dioxide 25 mmol/L (22-30); Chloride 112 mmol/L (98-107); Estimated CRCL calculation 29 ml/min; Estimated Glomerular Filt Rate 20; Glucose 100 mg/dL (65-110); Phosphorus 6.2 mg/dL (2.5-4.5); Potassium 4.9 mmol/L (3.4-5.0); Sodium 142 mmol/L (137-145)
[2022-10-17 08:29] LABS: Glucose Point of Care 93 mg/dl (65-105)
--- NOTE | 2022-10-17 09:10 | PM.IMPN ---
Progress Note: A&P Assessment and Plan (1) Hematoma: Code(s): T14.8XXA - Other injury of unspecified body region, initial encounter Status: Acute Assessment and Plan: The patient fell and has a large hematoma to her right lower extremity. General surgery consulted, and performed evacuation. Monitor H&H every 6 hours Hemoglobin dropped slightly. (2) Type 2 diabetes mellitus with hyperglycemia: Qualifiers: Diabetes mellitus terminal makeup operator insulin use: with terminal makeup operator use Qualified Code(s): E11.65 - Type 2 diabetes mellitus with hyperglycemia; Z79.4 - long term (current) use of insulin Code(s): E11.65 - Type 2 diabetes mellitus with hyperglycemia Status: Acute Assessment and Plan: Accu-Cheks AC and HS with sliding scale insulin. check A1c. (3) Diastolic heart failure: Code(s): I50.30 - Unspecified diastolic (congestive) heart failure Status: Acute Assessment and Plan: Continue with Bumex, Avapro and metoprolol, Echocardiogram May 2017 demonstrated grade 2 diastolic dysfunction with normal ejection fraction, moderate left atrial enlargement, RVSP 62, moderate tricuspid regurgitation (4) Neuropathy due to type 2 diabetes mellitus: Code(s): E11.40 - Type 2 diabetes mellitus with diabetic neuropathy, unspecified Status: Acute Assessment and Plan: Continue with gabapentin (5) Stage 3b chronic kidney disease: Code(s): N18.32 - Chronic kidney disease, stage 3b Status: Chronic Assessment and Plan: As per nephrology notes Hillary has chronic kidney disease.? Her GFR has been running in the low 30s since mid 2020. In the past immunofixation and serology were negative. Ultrasound shows normal kidneys. UA is bland except for protein. worse Cr start NS FOLLOW-UP BMP (6) Hypertension, uncontrolled: Code(s): I10 - Essential (primary) hypertension Status: Acute Assessment and Plan: Uncontrolled. Increase metoprolol. Increase Bumex. she has p.r.n. clonidine. She was also started on Avapro. Defer to Nephrology. holding her losartan at this time due to the hyperkalemia. (7) HLD (hyperlipidemia): Code(s): E78.5 - Hyperlipidemia, unspecified Status: Acute Assessment and Plan: Continue with atorvastatin and Zetia (8) Hyperkalemia: Code(s): E87.5 - Hyperkalemia Status: Acute Assessment and Plan: Hold losartan. The patient was given a concoction in the emergency room. Her potassium was slightly elevated. ordered Lokelma. Hyperkalemia is corrected Subjective Date/time seen: 10/17/22 09:10 Interval history: Patient complains of pain at the site of right lower extremity, patient has hematoma underwent evacuation, scant bloody fluid is drained out., patient denies chest pain, shortness of breath, abdomen pain, nausea vomiting diarrhea Exam Narrative: GENERAL: Pleasant, in no acute distress. Well-nourished. - EYES: EOMI. Anicteric. - HENT: Moist mucous membranes. - LUNGS: Clear to auscultation bilaterally, no wheezing, rhonchi, or rales. - CARDIOVASCULAR: Regular rate and rhythm. No murmur. No JVD. - ABDOMEN: Soft, non-tender and non-distended. No palpable masses. - EXTREMITIES: No edema. Peripheral pulses 2+. Non-tender. Scant blood is drained out from right lower extremity - NEUROLOGIC: No focal neurological deficits. CN II-XII grossly intact. - PSYCHIATRIC: Awake, Alert and oriented x 3. Appropriate mood and affect. - SKIN: No rashes or lesions. Warm. - LYMPH: No cervical lymphadenopathy. Objective Data Vital Signs Vital Signs: Vital Signs - 24 hr 10/16/22 10:39 10/16/22 12:00 10/16/22 15:39 Temperature 99.5 F Pulse Rate 97 97 Respiratory Rate 18 Blood Pressure 154/65 H Pulse Oximetry 97 Oxygen Delivery Room Air 10/16/22 10:00 10/16/22 12:00 10/16/22 14:00 Temperature Pulse Rate 97 102 H 101 H Respiratory Rate Blood Pressure
[2022-10-17 09:31] LABS: Hemoglobin 8.8 g/dL (12.0-15.0); Mean Corpuscular HGB Conc 29.3 g/dl (32-36); Mean Corpuscular Hemoglobin 29.8 pg (26-34); Mean Corpuscular Volume 101.7 fl (80-100); Mean Platelet Volume 11.8 fl (7.4-10.4); Platelet Count Result 280 k/mm3 (150-375); Red Blood Count 2.95 M/mm3 (4.2-5.4); Red Cell Distribution Width 15.5 % (11.5-14.5); White Blood Count 10.6 K/mm3 (4.5-10.0)
[2022-10-17] MEDS: ASPIRIN 81 MG CHEWABLE TABLET PO (09:31)
[2022-10-17] MEDS: ACYCLOVIR 400 MG TABLET 800 MG BY MOUTH (09:31)
[2022-10-17] MEDS: ATORVASTATIN 40 MG TABLET 80 MG PO (09:31)
[2022-10-17] MEDS: EZETIMIBE 10 MG TABLET PO (09:32)
[2022-10-17] MEDS: SODIUM ZIRCONIUM CYCLOSILICATE 10 GM POWD.PACK 5 GM BY MOUTH (09:33)
[2022-10-17] MEDS: LABETALOL HCL 100 MG TABLET PO ×2 (09:33→20:52)
[2022-10-17] MEDS: IRBESARTAN 150 MG TABLET PO (09:33)
[2022-10-17] MEDS: GABAPENTIN 300 MG CAPSULE PO ×4 (09:33→20:52)
[2022-10-17] MEDS: BUMETANIDE 1 MG TABLET 2 MG PO ×3 (09:39→18:41)
[2022-10-17 12:06] LABS: Glucose Point of Care 138 mg/dl (65-105)
--- NOTE | 2022-10-17 13:23 | PM.PNNEP ---
Progress Note: A&P Assessment and Plan (1) Stage 3b chronic kidney disease: Code(s): N18.32 - Chronic kidney disease, stage 3b Status: Chronic Assessment and Plan: Hillary has chronic kidney disease. Her GFR has been running in the low 30s since mid 2020. In the past immunofixation and serology were negative. Ultrasound shows normal kidneys. UA is bland except for protein. Most likely her kidney disease is from diabetes and hypertension. Her blood pressure is better today. At 1 point it did drop to 97 at midnight. Will keep an eye on this. Sugars should be well controlled. Will check cholesterol. She is on atorvastatin. She should drink plenty of fluid. She is on irbesartan. Consider Jardiance. Her sugars are low right now. She should lose weight. Her phosphorus is high. Her calcium is on the low side. Will start calcium acetate. Avoid excess protein. Stick to about 7g of protein per day Her creatinine is slightly higher today. Part of this might be because of the irbesartan as it changes the way the kidneys handle the creatinine but does not make the kidney function worse. She continues on her Bumex 2mg p.o. 3 times a day. Will cut this back to twice a day in case she does not need as much since she is in the hospital and not eating as well and is on a better diet anyway.. (2) Essential hypertension: Code(s): I10 - Essential (primary) hypertension Status: Acute Assessment and Plan: Her blood pressure is better on the labetalol plus irbesartan Because of the protein in the urine will avoid dihydropyridine calcium channel blockers. (3) Type 2 diabetes mellitus with hyperglycemia: Qualifiers: Diabetes mellitus equipment operator intermodal yard insulin use: with equipment operator intermodal yard use Qualified Code(s): E11.65 - Type 2 diabetes mellitus with hyperglycemia; Z79.4 - superintendent marine oil terminal (current) use of insulin Code(s): E11.65 - Type 2 diabetes mellitus with hyperglycemia Status: Acute Assessment and Plan: Management per hospitalists (4) Nephrotic range proteinuria: Code(s): R80.9 - Proteinuria, unspecified Status: Acute Assessment and Plan: Put her on a stronger arb. She should be on a low-protein diet. She should lose weight. She has history of sleep apnea. This should be treated. (5) Pulmonary hypertension: Code(s): I27.20 - Pulmonary hypertension, unspecified Status: Acute Assessment and Plan: This is by echocardiogram. Likely related to her sleep apnea Subjective Date/time seen: 10/17/22 13:23 Interval history: Hillary is feeling about the same. She is sitting up in a chair comfortably. Review of Systems Cardiovascular: Cardiovascular: Reports no additional cardiovascular complaints Respiratory: Respiratory: Reports no additional respiratory complaints Gastrointestinal: Gastrointestinal: Reports no additional gastrointestinal complaints Genitourinary: Genitourinary: Reports no additional female genitourinary complaints Exam Narrative: WDWN in NAD skin no rash head ncat lungs clear cor reg no rub abd BS+ nontender and soft ext 1+ bilateral edema. Objective Data Vital Signs Vital Signs: Vital Signs - 24 hr 10/16/22 15:39 10/16/22 14:00 10/16/22 15:55 Temperature 99.8 F H Pulse Rate 101 H 101 H Respiratory Rate 20 Blood Pressure 169/81 H Pulse Oximetry 100 Oxygen Delivery Room Air Room Air 10/16/22 17:01 10/16/22 17:30 10/16/22 17:43 Temperature 97.3 F L Pulse Rate 98 94 95 Respiratory Rate 16 14 14 Blood Pressure 108/77 118/59 L 127/77 Pulse Oximetry 100 99 98 Oxygen Delivery Room Air Room Air Room Air 10/16/22 17:15 10/16/22 17:30 10/16/22 18:00 Temperature 98.7 F Pulse Rate 96 96 Respiratory Rate 14 Blood Pressure 137/69 Pulse Oximetry 100 Oxygen Delivery Room Air 10/16/22 18:29 10/16/22 20:00 10/16/22 20:53 Temperature 98.6 F 98.4 F Pulse Rate 98 97 95 R
--- NOTE | 2022-10-17 16:38 | PM.PNGS ---
Progress Note: A&P Assessment and Plan (1) Hematoma: Code(s): T14.8XXA - Other injury of unspecified body region, initial encounter Status: Acute Assessment and Plan: Continue monitoring drain output. Possibly remove drain in 1-2 days if no significant bleeding/swelling. (2) Diastolic heart failure: Code(s): I50.30 - Unspecified diastolic (congestive) heart failure Status: Acute (3) Pulmonary hypertension: Code(s): I27.20 - Pulmonary hypertension, unspecified Status: Acute Subjective Subjective Date/Time Seen: 10/17/22 16:38 Interval history: Doing well on POD#1. Pain controlled. No significant drainage from Hemovac so far. Exam Extrem: Other: RLE dressing dry. Hemovac with minimal serosanguinous output. Objective Data Vital Signs Vital Signs: Vital Signs - 24 hr 10/16/22 17:01 10/16/22 17:30 10/16/22 17:43 Temperature 36.3 C L Pulse Rate 98 94 95 Respiratory Rate 16 14 14 Blood Pressure 108/77 118/59 L 127/77 Pulse Oximetry 100 99 98 Oxygen Delivery Room Air Room Air Room Air 10/16/22 17:15 10/16/22 17:30 10/16/22 18:00 Temperature 37.1 C Pulse Rate 96 96 Respiratory Rate 14 Blood Pressure 137/69 Pulse Oximetry 100 Oxygen Delivery Room Air 10/16/22 18:29 10/16/22 20:00 10/16/22 20:53 Temperature 37.0 C 36.9 C Pulse Rate 98 97 95 Respiratory Rate 18 18 Blood Pressure 149/60 H 108/56 L Pulse Oximetry 95 97 Oxygen Delivery 10/16/22 20:00 10/16/22 22:00 10/17/22 00:00 Temperature 36.6 C Pulse Rate 98 92 92 Respiratory Rate 20 Blood Pressure 97/55 L Pulse Oximetry 92 Oxygen Delivery 10/16/22 20:00 10/17/22 00:00 10/17/22 00:00 Temperature Pulse Rate 91 Respiratory Rate Blood Pressure Pulse Oximetry Oxygen Delivery Room Air Room Air 10/17/22 02:00 10/17/22 04:00 10/17/22 04:00 Temperature 36.4 C L Pulse Rate 93 94 Respiratory Rate 20 Blood Pressure 114/58 L Pulse Oximetry 96 Oxygen Delivery Room Air 10/17/22 04:00 10/17/22 06:00 10/17/22 08:00 Temperature 37.0 C Pulse Rate 92 93 95 Respiratory Rate 20 Blood Pressure 143/69 H Pulse Oximetry 100 Oxygen Delivery 10/17/22 09:33 10/17/22 08:00 10/17/22 12:02 Temperature 36.1 C L Pulse Rate 97 98 96 Respiratory Rate 18 Blood Pressure 132/70 Pulse Oximetry 93 Oxygen Delivery Intake/Output Intake/Output: Intake & Output 10/14/22 10/15/22 10/16/22 10/17/22 23:59 23:59 23:59 23:59 Intake Total 300 820 620 Output Total 502 1558 Balance 300 318 -938 Meds/Results Medications: Active Medications Generic Name Dose Route Start Last Admin Trade Name Freq PRN Reason Stop Dose Admin Acyclovir 800 mg 10/16/22 09:00 10/17/22 09:31 Acyclovir 400 Mg Tablet BY MOUTH 800 mg DAILY JENNIFER Administration Aspirin 81 mg 10/16/22 09:00 10/17/22 09:31 Aspirin 81 Mg Chewable Tablet PO 81 mg QAM JENNIFER Administration Atorvastatin Calcium 80 mg 10/16/22 09:00 10/17/22 09:31 Atorvastatin 40 Mg Tablet PO 80 mg DAILY JENNIFER Administration Bumetanide 2 mg 10/17/22 17:00 Bumetanide 1 Mg Tablet PO BID JENNIFER Calcium Acetate 667 mg 10/17/22 13:50 Calcium Acetate 667 Mg Tablet PO TIDWM [facility] Clonidine HCl 0.1 mg 10/15/22 18:11 Clonidine Hcl 0.1 Mg Tablet PO Q6H PRN Systolic blood pressure above Dextrose 12.5 gm 10/15/22 19:09 Dextrose 50% 25 Gm/50 Ml Syringe IV PUSH PRN PRN Hypoglycemia Protocol Ezetimibe 10 mg 10/16/22 09:00 10/17/22 09:32 Ezetimibe 10 Mg Tablet PO 10 mg DAILY JENNIFER Administration Famotidine 40 mg 10/16/22 21:00 10/16/22 20:53 Famotidine 20 Mg Tablet PO 40 mg HS JENNIFER Administration Gabapentin 300 mg 10/16/22 09:00 10/17/22 13:21 Gabapentin 300 Mg Capsule PO 300 mg QID JENNIFER Administration Glucagon 1 mg 10/15/22 19:09 Glucagon For Inj 1 Mg Vi
[2022-10-17 16:44] LABS: Glucose Point of Care 104 mg/dl (65-105)
[2022-10-17] MEDS: CALCIUM ACETATE 667 MG TABLET PO (18:41)
[2022-10-17 20:48] LABS: Glucose Point of Care 123 mg/dl (65-105)
[2022-10-17] MEDS: FAMOTIDINE 20 MG TABLET 40 MG PO (20:52)
[2022-10-17] MEDS: ONDANSETRON INJ 4 MG/2 ML VIAL IV PUSH (20:54)
[2022-10-17] MEDS: MORPHINE SULFATE (*CRX) 4 MG/ML INJ IV PUSH (21:00)
[2022-10-18] VITALS (12 sets, daily range): BP systolic 103–153; BP diastolic 58–81; PULSE 82–110; RESP 18–20; TEMP 36.3–37; O2SAT 95–99
[2022-10-18 07:25] LABS: LDL Cholesterol Direct 63 mg/dL
--- NOTE | 2022-10-18 07:50 | PC.NURSE ---
Paper documentation exists on this patient due to [employer] downtime on 10/18/22 from 0100 to [0700] .
--- NOTE | 2022-10-18 07:57 | PM.PNGS ---
Progress Note: A&P Assessment and Plan (1) Hematoma: Code(s): T14.8XXA - Other injury of unspecified body region, initial encounter Status: Acute Assessment and Plan: Remove drain today. Continue local wound care. Discussed with patient that some of the skin could end up necrotic from the pressure of the hematoma, but this will have to be carefully observed for now. OK to resume clopidogrel. F/u in 2 weeks to have sutures removed. (2) Diastolic heart failure: Code(s): I50.30 - Unspecified diastolic (congestive) heart failure Status: Acute (3) Pulmonary hypertension: Code(s): I27.20 - Pulmonary hypertension, unspecified Status: Acute Subjective Subjective Date/Time Seen: 10/18/22 07:57 Interval history: No wound related problems. Still having some leg pain. Exam Extrem: Other: RLE dressing dry. Hemovac with minimal serosanguinous output. Incision intact with sutures. Ecchymosis around skin where hematoma was, no clear evidence of necrosis yet. Objective Data Vital Signs Vital Signs: Vital Signs - 24 hr 10/17/22 08:00 10/17/22 09:33 10/17/22 08:00 Temperature 37.0 C Pulse Rate 95 97 98 Respiratory Rate 20 Blood Pressure 143/69 H Pulse Oximetry 100 Oxygen Delivery 10/17/22 12:02 10/17/22 16:00 10/17/22 10:00 Temperature 36.1 C L 36.6 C Pulse Rate 96 94 92 Respiratory Rate 18 20 Blood Pressure 132/70 147/71 H Pulse Oximetry 93 96 Oxygen Delivery 10/17/22 12:00 10/17/22 14:00 10/17/22 16:00 Temperature Pulse Rate 96 89 91 Respiratory Rate Blood Pressure Pulse Oximetry Oxygen Delivery 10/17/22 18:00 10/17/22 20:52 10/17/22 20:00 Temperature 37.0 C Pulse Rate 94 98 95 Respiratory Rate 18 Blood Pressure 120/70 Pulse Oximetry 96 Oxygen Delivery 10/18/22 00:00 10/17/22 20:00 10/18/22 00:00 Temperature 36.3 C L Pulse Rate 94 Respiratory Rate 20 Blood Pressure 117/58 L Pulse Oximetry 99 Oxygen Delivery Room Air Room Air 10/18/22 04:00 10/17/22 20:00 10/17/22 22:00 Temperature 36.6 C Pulse Rate 94 96 93 Respiratory Rate 18 Blood Pressure 117/68 Pulse Oximetry 97 Oxygen Delivery 10/18/22 00:00 Temperature Pulse Rate 93 Respiratory Rate Blood Pressure Pulse Oximetry Oxygen Delivery Intake/Output Intake/Output: Intake & Output 10/15/22 10/16/22 10/17/22 10/18/22 23:59 23:59 23:59 23:59 Intake Total 755 371 6709 250 Output Total 502 1658 800 Balance 300 318 82 -550 Meds/Results Medications: Active Medications Generic Name Dose Route Start Last Admin Trade Name Freq PRN Reason Stop Dose Admin Acyclovir 800 mg 10/16/22 09:00 10/17/22 09:31 Acyclovir 400 Mg Tablet BY MOUTH 800 mg DAILY JENNIFER Administration Aspirin 81 mg 10/16/22 09:00 10/17/22 09:31 Aspirin 81 Mg Chewable Tablet PO 81 mg QAM JENNIFER Administration Atorvastatin Calcium 80 mg 10/16/22 09:00 10/17/22 09:31 Atorvastatin 40 Mg Tablet PO 80 mg DAILY JENNIFER Administration Bumetanide 2 mg 10/17/22 17:00 10/17/22 18:41 Bumetanide 1 Mg Tablet PO 2 mg BID JENNIFER Administration Calcium Acetate 667 mg 10/17/22 13:50 10/17/22 18:41 Calcium Acetate 667 Mg Tablet PO 667 mg TIDWM JENNIFER Administration Clonidine HCl 0.1 mg 10/15/22 18:11 Clonidine Hcl 0.1 Mg Tablet PO Q6H PRN Systolic blood pressure above Dextrose 12.5 gm 10/15/22 19:09 Dextrose 50% 25 Gm/50 Ml Syringe IV PUSH PRN PRN Hypoglycemia Protocol Ezetimibe 10 mg 10/16/22 09:00 10/17/22 09:32 Ezetimibe 10 Mg Tablet PO 10 mg DAILY JENNIFER Administration Famotidine 40 mg 10/16/22 21:00 10/17/22 20:52 Famotidine 20 Mg Tablet PO 40 mg HS JENNIFER Administration Gabapentin 300 mg 10/16/22 09:00 10/17/22 20:52 Gabapentin 300 Mg Capsule PO 300 mg QID JENNIFER Administration Glucagon 1 mg 10/15/22 19:09 Glucagon
[2022-10-18 08:04] LABS: Albumin Level 3.2 g/dL (3.5-5.1); Anion Gap 6 mmol/L (8-16); Blood Urea Nitrogen 32 mg/dL (7-17); Calcium 7.2 mg/dL (8.4-10.2); Carbon Dioxide 28 mmol/L (22-30); Chloride 108 mmol/L (98-107); Estimated CRCL calculation 25 ml/min; Estimated Glomerular Filt Rate 17; Glucose 120 mg/dL (65-110); Phosphorus 5.6 mg/dL (2.5-4.5); Potassium 4.7 mmol/L (3.4-5.0); Sodium 142 mmol/L (137-145)
[2022-10-18 08:08] LABS: Glucose Point of Care 124 mg/dl (65-105)
[2022-10-18] MEDS: MORPHINE SULFATE (*CRX) 2 MG/ML INJ IV PUSH (08:13)
[2022-10-18] MEDS: ACYCLOVIR 400 MG TABLET 800 MG BY MOUTH (09:00)
[2022-10-18] MEDS: BUMETANIDE 1 MG TABLET 2 MG PO (09:00)
[2022-10-18] MEDS: ASPIRIN 81 MG CHEWABLE TABLET PO (09:01)
[2022-10-18] MEDS: CLOPIDOGREL BISULFATE 75 MG TABLET PO (09:01)
[2022-10-18] MEDS: CALCIUM ACETATE 667 MG TABLET PO ×3 (09:01→19:01)
[2022-10-18] MEDS: ATORVASTATIN 40 MG TABLET 80 MG PO (09:01)
[2022-10-18] MEDS: EZETIMIBE 10 MG TABLET PO (09:01)
[2022-10-18] MEDS: IRBESARTAN 150 MG TABLET PO (09:02)
[2022-10-18] MEDS: SODIUM ZIRCONIUM CYCLOSILICATE 10 GM POWD.PACK 5 GM BY MOUTH (09:02)
[2022-10-18] MEDS: LABETALOL HCL 100 MG TABLET PO ×2 (09:11→21:22)
[2022-10-18] MEDS: GABAPENTIN 300 MG CAPSULE PO ×4 (09:11→21:22)
[2022-10-18 09:33] LABS: Hematocrit 29.2 % (37.0-47.0); Hemoglobin 8.6 g/dL (12.0-15.0); Mean Corpuscular HGB Conc 29.5 g/dl (32-36); Mean Corpuscular Volume 101.7 fl (80-100); Platelet Count Result 276 k/mm3 (150-375); Red Blood Count 2.87 M/mm3 (4.2-5.4); Red Cell Distribution Width 15.2 % (11.5-14.5); White Blood Count 10.9 K/mm3 (4.5-10.0)
--- NOTE | 2022-10-18 11:20 | PM.IMPN ---
Progress Note: A&P Assessment and Plan (1) Hematoma: Code(s): T14.8XXA - Other injury of unspecified body region, initial encounter Status: Acute Assessment and Plan: The patient fell and has a large hematoma to her right lower extremity. General surgery consulted, and performed evacuation. Monitor H&H every 6 hours Hemoglobin dropped slightly. (2) Type 2 diabetes mellitus with hyperglycemia: Qualifiers: Diabetes mellitus custodial insulin use: with valet parker use Qualified Code(s): E11.65 - Type 2 diabetes mellitus with hyperglycemia; Z79.4 - program services assistant (current) use of insulin Code(s): E11.65 - Type 2 diabetes mellitus with hyperglycemia Status: Acute Assessment and Plan: Accu-Cheks AC and HS with sliding scale insulin. check A1c. (3) Diastolic heart failure: Code(s): I50.30 - Unspecified diastolic (congestive) heart failure Status: Acute Assessment and Plan: Continue with Bumex, Avapro and metoprolol, Echocardiogram May 2017 demonstrated grade 2 diastolic dysfunction with normal ejection fraction, moderate left atrial enlargement, RVSP 62, moderate tricuspid regurgitation (4) Neuropathy due to type 2 diabetes mellitus: Code(s): E11.40 - Type 2 diabetes mellitus with diabetic neuropathy, unspecified Status: Acute Assessment and Plan: Continue with gabapentin (5) Stage 3b chronic kidney disease: Code(s): N18.32 - Chronic kidney disease, stage 3b Status: Chronic Assessment and Plan: As per nephrology notes Hillary has chronic kidney disease.? Her GFR has been running in the low 30s since mid 2020. In the past immunofixation and serology were negative. Ultrasound shows normal kidneys. UA is bland except for protein. worse Cr start NS FOLLOW-UP BMP (6) Hypertension, uncontrolled: Code(s): I10 - Essential (primary) hypertension Status: Acute Assessment and Plan: Uncontrolled. Increase metoprolol. she has p.r.n. clonidine. She was also started on Avapro. (7) HLD (hyperlipidemia): Code(s): E78.5 - Hyperlipidemia, unspecified Status: Acute Assessment and Plan: Continue with atorvastatin and Zetia (8) Hyperkalemia: Code(s): E87.5 - Hyperkalemia Status: Acute Assessment and Plan: Hold losartan. The patient was given a concoction in the emergency room. Her potassium was slightly elevated. ordered Lokelma. Hyperkalemia is corrected (9) Acute on chronic renal failure: Code(s): N17.9 - Acute kidney failure, unspecified; N18.9 - Chronic kidney disease, unspecified Status: Acute Assessment and Plan: Likely secondary to diuretic medications ?hold the irbesartan and Bumex? Subjective Date/time seen: 10/18/22 11:20 Interval history: Patient complains of pain at the site of right lower extremity, Hemovac was removed. Patient denies chest pain, shortness of breath, abdomen pain, nausea vomiting diarrhea Exam Narrative: GENERAL: Pleasant, in no acute distress. Well-nourished. - EYES: EOMI. Anicteric. - HENT: Moist mucous membranes. - LUNGS: Clear to auscultation bilaterally, no wheezing, rhonchi, or rales. - CARDIOVASCULAR: Regular rate and rhythm. No murmur. No JVD. - ABDOMEN: Soft, non-tender and non-distended. No palpable masses. - EXTREMITIES: No edema. Peripheral pulses 2+. Non-tender. Hemovac was removed, wound is well dressed, dressing is dry and clean - NEUROLOGIC: No focal neurological deficits. CN II-XII grossly intact. - PSYCHIATRIC: Awake, Alert and oriented x 3. Appropriate mood and affect. - SKIN: No rashes or lesions. Warm. - LYMPH: No cervical lymphadenopathy. Objective Data Vital Signs Vital Signs: Vital Signs - 24 hr 10/17/22 12:02 10/17/22 16:00 10/17/22 12:00 Temperature 97 F L 97.8 F Pulse Rate 96 94 96 Respiratory Rate 18 20 Blood Pressure 132/70 147/71 H Pulse Oximetry 93 96 Oxygen Del[employer]
--- NOTE | 2022-10-18 11:22 | PM.PNNEP ---
Progress Note: A&P Assessment and Plan (1) Stage 3b chronic kidney disease: Code(s): N18.32 - Chronic kidney disease, stage 3b Status: Chronic Assessment and Plan: Hillary has chronic kidney disease. Her GFR has been running in the low 30s since mid 2020. In the past immunofixation and serology were negative. Ultrasound shows normal kidneys. UA is bland except for protein. Most likely her kidney disease is from diabetes and hypertension. Her blood pressure is better today. Systolic is up and down between 110 and 150. Her creatinine is higher again today. Perhaps she does not need is much diuretics because she is in the hospital on hospital food. I do not think this is an BONITA-inhibitor effect because she was on losartan before this. Will hold the irbesartan and Bumex for now and recheck a creatinine tomorrow. Discussed with Dr Cardenas (2) Essential hypertension: Code(s): I10 - Essential (primary) hypertension Status: Acute Assessment and Plan: Her blood pressure is better on the labetalol plus irbesartan Because of the protein in the urine will avoid dihydropyridine calcium channel blockers. Holding irbesartan for a few days since the creatinine may. (3) Type 2 diabetes mellitus with hyperglycemia: Qualifiers: Diabetes mellitus exterminator termite insulin use: with exterminator termite use Qualified Code(s): E11.65 - Type 2 diabetes mellitus with hyperglycemia; Z79.4 - intermodal customer service (current) use of insulin Code(s): E11.65 - Type 2 diabetes mellitus with hyperglycemia Status: Acute Assessment and Plan: Management per hospitalists (4) Nephrotic range proteinuria: Code(s): R80.9 - Proteinuria, unspecified Status: Acute Assessment and Plan: The patient has nephrotic range proteinuria. Treat with low-protein diet, treatment of sleep apnea, BONITA-inhibitor/ARB, possibly Jardiance and Kerendia down the line. (5) Pulmonary hypertension: Code(s): I27.20 - Pulmonary hypertension, unspecified Status: Acute Assessment and Plan: This is by echocardiogram. Likely related to her sleep apnea Subjective Date/time seen: 10/18/22 11:22 Interval history: Hillary is feeling about the same. She just had her dressing changed today. She is eating well. No chest pain or shortness of breath Exam Narrative: WDWN in NAD skin no rash head ncat lungs clear cor reg no rub abd BS+ nontender and soft ext 1+ bilateral edema. She has a bandage on the wound on the right leg Objective Data Vital Signs Vital Signs: Vital Signs - 24 hr 10/17/22 12:02 10/17/22 16:00 10/17/22 12:00 Temperature 97 F L 97.8 F Pulse Rate 96 94 96 Respiratory Rate 18 20 Blood Pressure 132/70 147/71 H Pulse Oximetry 93 96 Oxygen Delivery 10/17/22 14:00 10/17/22 16:00 10/17/22 18:00 Temperature Pulse Rate 89 91 94 Respiratory Rate Blood Pressure Pulse Oximetry Oxygen Delivery 10/17/22 20:52 10/17/22 20:00 10/18/22 00:00 Temperature 98.6 F 97.4 F L Pulse Rate 98 95 94 Respiratory Rate 18 20 Blood Pressure 120/70 117/58 L Pulse Oximetry 96 99 Oxygen Delivery 10/17/22 20:00 10/18/22 00:00 10/18/22 04:00 Temperature 97.8 F Pulse Rate 94 Respiratory Rate 18 Blood Pressure 117/68 Pulse Oximetry 97 Oxygen Delivery Room Air Room Air 10/17/22 20:00 10/17/22 22:00 10/18/22 00:00 Temperature Pulse Rate 96 93 93 Respiratory Rate Blood Pressure Pulse Oximetry Oxygen Delivery 10/18/22 08:00 10/18/22 09:11 Temperature 97.4 F L Pulse Rate 97 110 H Respiratory Rate 20 Blood Pressure 147/81 H Pulse Oximetry 95 Oxygen Delivery Intake/Output Intake/Output: Intake & Output 10/15/22 10/16/22 10/17/22 10/18/22 23:59 23:59 23:59 23:59 Intake Total 904 345 7760 490 Output Total 502 1658 1550 Balance 300 318 82 -1060 Meds/Results Medications: Active
[2022-10-18 11:44] LABS: Anion Gap 10 mmol/L (8-16); Blood Urea Nitrogen 33 mg/dL (7-17); Calcium 7.2 mg/dL (8.4-10.2); Carbon Dioxide 26 mmol/L (22-30); Chloride 105 mmol/L (98-107); Estimated CRCL calculation 25 ml/min; Estimated Glomerular Filt Rate 17; Glucose 119 mg/dL (65-110); Potassium 4.8 mmol/L (3.4-5.0); Sodium 141 mmol/L (137-145)
[2022-10-18 11:57] LABS: Glucose Point of Care 127 mg/dl (65-105)
--- NOTE | 2022-10-18 13:16 | PCPTNOTE ---
Attempted to see patient for PT, however patient was out of the room for X-ray.
[2022-10-18 16:19] LABS: Glucose Point of Care 162 mg/dl (65-105)
[2022-10-18] MEDS: DEXTROSE 5%/0.45% SOD CHL 1,000 ML 125 ML IV CONT (19:01)
[2022-10-18 20:53] LABS: Creatinine Urine 32.2 mg/dL
[2022-10-18 21:11] LABS: Glucose Point of Care 147 mg/dl (65-105)
[2022-10-18] MEDS: FAMOTIDINE 20 MG TABLET 40 MG PO (21:20)
[2022-10-18] MEDS: traMADol HCL (*CRX) 50 MG TABLET PO (21:22)
[2022-10-18 21:54] LABS: Creatinine 24 Hour Urine 0.4 gm/24 (0.8-1.8); Total Volume 24 Hour Urine 1450 ml
[2022-10-19] VITALS (16 sets, daily range): BP systolic 105–155; BP diastolic 51–81; PULSE 81–98; RESP 12–22; TEMP 36.4–36.6; O2SAT 94–99
[2022-10-19] MEDS: DEXTROSE 5%/0.45% SOD CHL 1,000 ML 125 ML IV CONT ×2 (02:29→11:54)
[2022-10-19 05:00] LABS: Hematocrit 27.4 % (37.0-47.0); Hemoglobin 8.3 g/dL (12.0-15.0); Mean Corpuscular HGB Conc 30.3 g/dl (32-36); Mean Corpuscular Hemoglobin 30.1 pg (26-34); Mean Corpuscular Volume 99.3 fl (80-100); Mean Platelet Volume 11.3 fl (7.4-10.4); Platelet Count Result 252 k/mm3 (150-375); Red Blood Count 2.76 M/mm3 (4.2-5.4); Red Cell Distribution Width 14.9 % (11.5-14.5); White Blood Count 10.9 K/mm3 (4.5-10.0)
[2022-10-19 05:12] LABS: Anion Gap 9 mmol/L (8-16); Blood Urea Nitrogen 35 mg/dL (7-17); Calcium 6.7 mg/dL (8.4-10.2); Carbon Dioxide 23 mmol/L (22-30); Chloride 107 mmol/L (98-107); Estimated CRCL calculation 24 ml/min; Estimated Glomerular Filt Rate 16; Glucose 151 mg/dL (65-110); Potassium 4.1 mmol/L (3.4-5.0); Sodium 139 mmol/L (137-145)
[2022-10-19 08:25] LABS: Glucose Point of Care 142 mg/dl (65-105)
[2022-10-19] MEDS: CALCIUM ACETATE 667 MG TABLET PO ×3 (09:06→17:59)
[2022-10-19] MEDS: ACYCLOVIR 400 MG TABLET 800 MG BY MOUTH (09:08)
[2022-10-19] MEDS: ASPIRIN 81 MG CHEWABLE TABLET PO (09:09)
[2022-10-19] MEDS: ATORVASTATIN 40 MG TABLET 80 MG PO (09:09)
[2022-10-19] MEDS: CLOPIDOGREL BISULFATE 75 MG TABLET PO (09:10)
[2022-10-19] MEDS: EZETIMIBE 10 MG TABLET PO (09:10)
[2022-10-19] MEDS: LABETALOL HCL 100 MG TABLET PO (09:11)
[2022-10-19] MEDS: GABAPENTIN 300 MG CAPSULE PO ×4 (09:11→21:04)
[2022-10-19] MEDS: SODIUM ZIRCONIUM CYCLOSILICATE 10 GM POWD.PACK 5 GM BY MOUTH (09:15)
--- NOTE | 2022-10-19 10:05 | PM.IMPN ---
Progress Note: A&P Assessment and Plan (1) Hematoma: Code(s): T14.8XXA - Other injury of unspecified body region, initial encounter Status: Acute Assessment and Plan: The patient fell and has a large hematoma to her right lower extremity. General surgery consulted, and performed evacuation. Monitor H&H every 6 hours Hemoglobin dropped slightly. (2) Acute on chronic renal failure: Code(s): N17.9 - Acute kidney failure, unspecified; N18.9 - Chronic kidney disease, unspecified Status: Acute Assessment and Plan: As per nephrology notes Hillary has chronic kidney disease.? Her GFR has been running in the low 30s since mid 2020. In the past immunofixation and serology were negative. Ultrasound shows normal kidneys. UA is bland except for protein. Likely secondary to diuretic medications ?hold the irbesartan,indapamide and Bumex? worse Cr on dextrose half-normal saline 125 mL/hour FOLLOW-UP BMP Lightheadedness, CT of head shows no acute intracranial issues, patient has no focal weakness. Change labetalol to metoprolol p.o. per Nephrology's request Appreciate Nephrology's consultation (3) Type 2 diabetes mellitus with hyperglycemia: Qualifiers: Diabetes mellitus equipment operator intermodal yard insulin use: with equipment operator intermodal yard use Qualified Code(s): E11.65 - Type 2 diabetes mellitus with hyperglycemia; Z79.4 - exterminator helper (current) use of insulin Code(s): E11.65 - Type 2 diabetes mellitus with hyperglycemia Status: Acute Assessment and Plan: Accu-Cheks AC and HS with sliding scale insulin. check A1c. (4) Diastolic heart failure: Code(s): I50.30 - Unspecified diastolic (congestive) heart failure Status: Acute Assessment and Plan: Continue with Bumex, Avapro and metoprolol, Echocardiogram May 2017 demonstrated grade 2 diastolic dysfunction with normal ejection fraction, moderate left atrial enlargement, RVSP 62, moderate tricuspid regurgitation (5) Neuropathy due to type 2 diabetes mellitus: Code(s): E11.40 - Type 2 diabetes mellitus with diabetic neuropathy, unspecified Status: Acute Assessment and Plan: Continue with gabapentin (6) Stage 3b chronic kidney disease: Code(s): N18.32 - Chronic kidney disease, stage 3b Status: Chronic (7) Hypertension, uncontrolled: Code(s): I10 - Essential (primary) hypertension Status: Acute Assessment and Plan: Uncontrolled. Increase metoprolol. she has p.r.n. clonidine. She was also started on Avapro. (8) HLD (hyperlipidemia): Code(s): E78.5 - Hyperlipidemia, unspecified Status: Acute Assessment and Plan: Continue with atorvastatin and Zetia (9) Hyperkalemia: Code(s): E87.5 - Hyperkalemia Status: Acute Assessment and Plan: Hold losartan. The patient was given a concoction in the emergency room. Her potassium was slightly elevated. ordered Lokelma. Hyperkalemia is corrected Subjective Date/time seen: 10/19/22 10:05 Interval history: Patient complains of pain at the site of right lower extremity, Hemovac was removed. Patient denies chest pain, shortness of breath, abdomen pain, nausea vomiting diarrhea. I reviewed labs, hemoglobin stable, creatinine is a trending up Exam Narrative: GENERAL: Pleasant, in no acute distress. Well-nourished. - EYES: EOMI. Anicteric. - HENT: Moist mucous membranes. - LUNGS: Clear to auscultation bilaterally, no wheezing, rhonchi, or rales. - CARDIOVASCULAR: Regular rate and rhythm. No murmur. No JVD. - ABDOMEN: Soft, non-tender and non-distended. No palpable masses. - EXTREMITIES: No edema. Peripheral pulses 2+. Non-tender. Hemovac was removed, wound is well dressed, dressing is dry and clean - NEUROLOGIC: No focal neurological deficits. CN II-XII grossly intact. - PSYCHIATRIC: Awake, Alert and oriented x 3. Appropriate mood and affect. - SKIN: No rashes or lesions. Warm. - LYMPH: No cervical
--- NOTE | 2022-10-19 11:03 | PM.PNNEP ---
Progress Note: A&P Assessment and Plan (1) Stage 3b chronic kidney disease: Code(s): N18.32 - Chronic kidney disease, stage 3b Status: Chronic Assessment and Plan: Hillary has chronic kidney disease. Her GFR has been running in the low 30s since mid 2020. In the past immunofixation and serology were negative. Ultrasound shows normal kidneys. UA is bland except for protein. Most likely her kidney disease is from diabetes and hypertension. Her blood pressure is better today. Systolic is up and down between 100 and 150. Over the last couple of days her creatinine had risen from 2-2.5-3. I had held her indapamide and Bumex but she got her 1st dose of the day yesterday before the hold order was written. Today the creatinine is still 3. She does have some lightheadedness. Perhaps her blood pressures are worse at home than we think and so she is not use to these better blood pressures. It is also possible that she has lightheadedness from the labetalol. I am going to switch her back to metoprolol. Because of the lightheadedness and the headache will get a CT scan just to be sure is nothing else going on. (2) Essential hypertension: Code(s): I10 - Essential (primary) hypertension Status: Acute Assessment and Plan: Her blood pressure is better but as discussed above may be too good. Will switch back to the metoprolol. (3) Type 2 diabetes mellitus with hyperglycemia: Qualifiers: Diabetes mellitus group home insulin use: with emt intermediate use Qualified Code(s): E11.65 - Type 2 diabetes mellitus with hyperglycemia; Z79.4 - termite treater (current) use of insulin Code(s): E11.65 - Type 2 diabetes mellitus with hyperglycemia Status: Acute Assessment and Plan: Management per hospitalists (4) Nephrotic range proteinuria: Code(s): R80.9 - Proteinuria, unspecified Status: Acute Assessment and Plan: The patient has nephrotic range proteinuria. Treat with low-protein diet, treatment of sleep apnea, BONITA-inhibitor/ARB, possibly Jardiance and Kerendia down the line. (5) Pulmonary hypertension: Code(s): I27.20 - Pulmonary hypertension, unspecified Status: Acute Assessment and Plan: This is by echocardiogram. Likely related to her sleep apnea Subjective Date/time seen: 10/19/22 11:03 Interval history: Hillary is feeling about the same. She has a headache. She is mildly lightheaded. Exam Narrative: WDWN in NAD skin no rash head ncat lungs clear cor reg no rub abd BS+ nontender and soft ext 1+ bilateral edema. She has a bandage on the wound on the right leg Objective Data Vital Signs Vital Signs: Vital Signs - 24 hr 10/18/22 12:00 10/18/22 12:00 10/18/22 16:00 Temperature 98.6 F 98.6 F Pulse Rate 96 96 96 Respiratory Rate 20 20 20 Blood Pressure 153/80 H 103/63 Pulse Oximetry 95 95 96 Oxygen Delivery Room Air 10/18/22 12:00 10/18/22 14:00 10/18/22 16:00 Temperature Pulse Rate 90 82 97 Respiratory Rate Blood Pressure Pulse Oximetry Oxygen Delivery 10/18/22 18:00 10/18/22 16:00 10/18/22 20:00 Temperature 97.5 F L Pulse Rate 90 90 97 Respiratory Rate 20 18 Blood Pressure 131/66 Pulse Oximetry 96 97 Oxygen Delivery Room Air 10/18/22 20:00 10/18/22 21:22 10/18/22 20:00 Temperature Pulse Rate 96 97 Respiratory Rate Blood Pressure Pulse Oximetry Oxygen Delivery Room Air 10/18/22 22:00 10/18/22 23:47 10/19/22 00:00 Temperature 97.8 F Pulse Rate 97 94 Respiratory Rate 22 H Blood Pressure 105/51 L Pulse Oximetry 98 Oxygen Delivery Room Air 10/19/22 00:00 10/19/22 02:00 10/19/22 03:27 Temperature Pulse Rate 92 94 Respiratory Rate Blood Pressure Pulse Oximetry Oxygen Delivery Room Air 10/19/22 04:00 10/19/22 04:00 10/19/22 06:00 Temperature 97.6 F Pulse Rate 91 91 98 Respiratory Rate 18 B
[2022-10-19 13:21] LABS: Glucose Point of Care 158 mg/dl (65-105)
[2022-10-19] MEDS: ONDANSETRON INJ 4 MG/2 ML VIAL IV PUSH (16:05)
[2022-10-19 16:56] LABS: Glucose Point of Care 183 mg/dl (65-105)
[2022-10-19] MEDS: METOCLOPRAMIDE HCL INJ 10 MG/2 ML VIAL IV PUSH (17:40)
[2022-10-19] MEDS: DEXTROSE 5%/0.45% SOD CHL 1,000 ML 150 ML IV CONT (19:45)
[2022-10-19 20:23] LABS: Glucose Point of Care 181 mg/dl (65-105)
[2022-10-19] MEDS: METOPROLOL TARTRATE 50 MG TAB PO (21:04)
[2022-10-19] MEDS: FAMOTIDINE 20 MG TABLET 40 MG PO (21:04)
[2022-10-20] VITALS (9 sets, daily range): BP systolic 143–157; BP diastolic 61–82; PULSE 78–93; RESP 16–20; TEMP 36.4–36.8; O2SAT 96–100
[2022-10-20] MEDS: DEXTROSE 5%/0.45% SOD CHL 1,000 ML 150 ML IV CONT ×4 (01:23→21:18)
[2022-10-20 05:05] LABS: Albumin Level 3.2 g/dL (3.5-5.1); Anion Gap 12 mmol/L (8-16); Blood Urea Nitrogen 33 mg/dL (7-17); Carbon Dioxide 22 mmol/L (22-30); Chloride 105 mmol/L (98-107); Estimated CRCL calculation 30 ml/min; Estimated Glomerular Filt Rate 20; Glucose 116 mg/dL (65-110); Phosphorus 5.2 mg/dL (2.5-4.5); Sodium 139 mmol/L (137-145)
[2022-10-20 07:50] LABS: Glucose Point of Care 129 mg/dl (65-105)
[2022-10-20] MEDS: CALCIUM ACETATE 667 MG TABLET PO ×3 (09:13→17:32)
--- NOTE | 2022-10-20 09:20 | PM.IMPN ---
Progress Note: A&P Assessment and Plan (1) Hematoma: Code(s): T14.8XXA - Other injury of unspecified body region, initial encounter Status: Acute Assessment and Plan: The patient fell and has a large hematoma to her right lower extremity. General surgery consulted, and performed evacuation. Monitor H&H every 6 hours Hemoglobin dropped slightly. (2) Acute on chronic renal failure: Code(s): N17.9 - Acute kidney failure, unspecified; N18.9 - Chronic kidney disease, unspecified Status: Acute Assessment and Plan: As per nephrology notes Hillary has chronic kidney disease.? Her GFR has been running in the low 30s since mid 2020. In the past immunofixation and serology were negative. Ultrasound shows normal kidneys. UA is bland except for protein. Likely secondary to diuretic medications ?hold the irbesartan,indapamide and Bumex? worse Cr 10/19 cr 3.1 on dextrose half-normal saline 125 mL/hour FOLLOW-UP BMP Lightheadedness, CT of head shows no acute intracranial issues, patient has no focal weakness. Change labetalol to metoprolol p.o. per Nephrology's request Appreciate Nephrology's consultation Cr is trending down 2.5 (3) Nephrotic range proteinuria: Code(s): R80.9 - Proteinuria, unspecified Status: Acute Assessment and Plan: Appreciate Nephrology's consultation, cmv driver consider patient has nephrotic syndrome Healthcare Insurance Sales Agent recommends: Renal diet Once the creatinine comes back down to 2 we can start her back on irbesartan which will help the proteinuria. Diltiazem may help as well. Jardiance or Farxiga could be started as an outpatient as well. Kerendia could also be used down the line as a 3rd agent. (4) Type 2 diabetes mellitus with hyperglycemia: Qualifiers: Diabetes mellitus assisted insulin use: with assisted use Qualified Code(s): E11.65 - Type 2 diabetes mellitus with hyperglycemia; Z79.4 - intermediate school teacher (current) use of insulin Code(s): E11.65 - Type 2 diabetes mellitus with hyperglycemia Status: Acute Assessment and Plan: Accu-Cheks AC and HS with sliding scale insulin. check A1c. (5) Diastolic heart failure: Code(s): I50.30 - Unspecified diastolic (congestive) heart failure Status: Acute Assessment and Plan: hold Bumex, Avapro and c/w metoprolol 50 mg b.i.d. p.o. Echocardiogram May 2017 demonstrated grade 2 diastolic dysfunction with normal ejection fraction, moderate left atrial enlargement, RVSP 62, moderate tricuspid regurgitation Compensated (6) Neuropathy due to type 2 diabetes mellitus: Code(s): E11.40 - Type 2 diabetes mellitus with diabetic neuropathy, unspecified Status: Acute Assessment and Plan: Continue with gabapentin (7) Stage 3b chronic kidney disease: Code(s): N18.32 - Chronic kidney disease, stage 3b Status: Chronic (8) Hypertension, uncontrolled: Code(s): I10 - Essential (primary) hypertension Status: Acute Assessment and Plan: Uncontrolled. Increase metoprolol. she has p.r.n. clonidine. hold Avapro. (9) HLD (hyperlipidemia): Code(s): E78.5 - Hyperlipidemia, unspecified Status: Acute Assessment and Plan: Continue with atorvastatin and Zetia (10) Hyperkalemia: Code(s): E87.5 - Hyperkalemia Status: Acute Assessment and Plan: Hold losartan. The patient was given a concoction in the emergency room. Her potassium was slightly elevated. ordered Lokelma. Hyperkalemia is corrected Subjective Date/time seen: 10/20/22 09:20 Exam Narrative: GENERAL: Pleasant, in no acute distress. Well-nourished. - EYES: EOMI. Anicteric. - HENT: Moist mucous membranes. - LUNGS: Clear to auscultation bilaterally, no wheezing, rhonchi, or rales. - CARDIOVASCULAR: Regular rate and rhythm. No murmur. No JVD. - ABDOMEN: Soft, non-tender and non-distended. No palpable masses. - EXTREMITIES: No akiko
[2022-10-20] MEDS: CLOPIDOGREL BISULFATE 75 MG TABLET PO (09:31)
[2022-10-20] MEDS: ATORVASTATIN 40 MG TABLET 80 MG PO (09:31)
[2022-10-20] MEDS: ACYCLOVIR 400 MG TABLET 800 MG BY MOUTH (09:31)
[2022-10-20] MEDS: ASPIRIN 81 MG CHEWABLE TABLET PO (09:31)
[2022-10-20] MEDS: EZETIMIBE 10 MG TABLET PO (09:31)
[2022-10-20] MEDS: GABAPENTIN 300 MG CAPSULE PO ×4 (09:31→21:18)
[2022-10-20] MEDS: METOPROLOL TARTRATE 50 MG TAB PO ×2 (09:31→21:19)
[2022-10-20] MEDS: SODIUM ZIRCONIUM CYCLOSILICATE 10 GM POWD.PACK 5 GM BY MOUTH (09:32)
--- NOTE | 2022-10-20 10:33 | PM.PNNEP ---
Progress Note: A&P Assessment and Plan (1) Stage 3b chronic kidney disease: Code(s): N18.32 - Chronic kidney disease, stage 3b Status: Chronic Assessment and Plan: Hillary has chronic kidney disease. Her GFR has been running in the low 30s since mid 2020. In the past immunofixation and serology were negative. Ultrasound shows normal kidneys. UA is bland except for protein. Most likely her kidney disease is from diabetes and hypertension. Her creatinine may a few days ago. Possibly due to and possibly due to lower than her the blood pressure her kidneys are use 2. Her creatinine may from 2-3 and is back down to 2.5 today. Continue same medications for now. We discussed at length she has swelling. Her chest x-ray is okay per it is likely the swelling is from her nephrotic syndrome. She might also have sleep apnea. Will check an apnea link. To improve the proteinuria, we discussed the following: She should lose weight. The patient is trying to cut back on food. She will see a dietitian as an outpatient. She needs to keep her blood pressure under good control. This is a bit complex since it was so out of control before. Should slowly reduce the blood pressure over the next few weeks. This obviously will happen as an outpatient. Once the creatinine comes back down to 2 we can start her back on irbesartan which will help the proteinuria. Diltiazem may help as well. Jardiance or Farxiga could be started as an outpatient as well. Kerendia could also be used down the line as a 3rd agent. She is at risk for sleep apnea. She has never been checked out. Will check a apnea link tonight. If the creatinine is back down to 2 tomorrow will start her on irbesartan again. (2) Essential hypertension: Code(s): I10 - Essential (primary) hypertension Status: Acute Assessment and Plan: Her blood pressure is in the 130s to 150s. She is on metoprolol. Hopefully her creatinine will be back down to 2 tomorrow. If so we will restart the irbesartan at a lower dose (3) Type 2 diabetes mellitus with hyperglycemia: Qualifiers: Diabetes mellitus care home insulin use: with medical terminologist use Qualified Code(s): E11.65 - Type 2 diabetes mellitus with hyperglycemia; Z79.4 - predatory animal exterminator (current) use of insulin Code(s): E11.65 - Type 2 diabetes mellitus with hyperglycemia Status: Acute Assessment and Plan: Management per hospitalists (4) Nephrotic range proteinuria: Code(s): R80.9 - Proteinuria, unspecified Status: Acute Assessment and Plan: The patient has nephrotic range proteinuria. As above, we will treat with low-protein diet, treatment of sleep apnea, BONITA-inhibitor/ARB, possibly Jardiance and Kerendia down the line. (5) Pulmonary hypertension: Code(s): I27.20 - Pulmonary hypertension, unspecified Status: Acute Assessment and Plan: I rechecked the echo report. Her pulmonary artery systolic pressure was 31 in 2020. Subjective Date/time seen: 10/20/22 10:33 Interval history: Hillary is feeling about the same. Headache is better. She is mildly lightheaded. Exam Narrative: WDWN in NAD skin no rash head ncat lungs clear bilaterally cor reg no rub abd BS+ nontender and soft ext 1+ bilateral edema. She has a bandage on the wound on the right leg Objective Data Vital Signs Vital Signs: Vital Signs - 24 hr 10/19/22 10:47 10/19/22 12:00 10/19/22 12:00 Temperature 97.6 F Pulse Rate 87 87 Respiratory Rate 16 16 Blood Pressure 144/66 H Pulse Oximetry 94 95 95 Oxygen Delivery Room Air Room Air 10/19/22 12:00 10/19/22 14:00 10/19/22 16:00 Temperature Pulse Rate 91 86 85 Respiratory Rate Blood Pressure Pulse Oximetry Oxygen Delivery 10/19/22 16:00 10/19/22 16:00 10/19/22 18:00 Temperature 97.9 F Pulse Rate 88 87 Respiratory Rate 12 Blood Pressure 155/81 H Pulse Oximetr
[2022-10-20 11:50] LABS: Glucose Point of Care 148 mg/dl (65-105)
--- NOTE | 2022-10-20 15:58 | PC.NURSE ---
This patient, Hillary Bailey, was transferred to [facility] on 10/20/22 at 1540. Personal belongings sent with patient. Report given to JESUS Lira. Appropriate documentation sent with patient.
--- NOTE | 2022-10-20 16:42 | ADMGEN ---
This patient, Hillary Bailey, was admitted to Medical Room 340-01 1540 from IMU Room 232/ Report was given by JESUS Manriquez. Patient oriented to hospital policies and general routines including ID bracelet, bed and alarms, visiting hours, pain management, procedures, bathroom and other care routines, personal items, smoking policy, room service/diet, and visiting hours. Information on how to activate the Rapid Response Team has been discussed. Patient/Family are encouraged to report perceived risks to care and to ask questions if they do not understand what they are told or what they should do.
[2022-10-20 17:09] LABS: Glucose Point of Care 116 mg/dl (65-105)
[2022-10-20 20:47] LABS: Glucose Point of Care 124 mg/dl (65-105)
[2022-10-20] MEDS: traMADol HCL (*CRX) 50 MG TABLET PO (21:18)
[2022-10-20] MEDS: FAMOTIDINE 20 MG TABLET 40 MG PO (21:18)
[2022-10-21] VITALS (8 sets, daily range): BP systolic 141–165; BP diastolic 69–79; PULSE 74–85; RESP 16; TEMP 36.3–36.6; O2SAT 99–100; BMI 50.6
[2022-10-21 06:11] LABS: Hematocrit 27.3 % (37.0-47.0); Hemoglobin 8.3 g/dL (12.0-15.0); Mean Corpuscular HGB Conc 30.4 g/dl (32-36); Mean Corpuscular Hemoglobin 30.1 pg (26-34); Mean Corpuscular Volume 98.9 fl (80-100); Mean Platelet Volume 11.8 fl (7.4-10.4); Platelet Count Result 286 k/mm3 (150-375); Red Blood Count 2.76 M/mm3 (4.2-5.4); Red Cell Distribution Width 14.5 % (11.5-14.5); White Blood Count 10.8 K/mm3 (4.5-10.0)
[2022-10-21 06:24] LABS: Albumin Level 3.1 g/dL (3.5-5.1); Anion Gap 9 mmol/L (8-16); Blood Urea Nitrogen 31 mg/dL (7-17); Calcium 6.9 mg/dL (8.4-10.2); Carbon Dioxide 22 mmol/L (22-30); Chloride 110 mmol/L (98-107); Estimated CRCL calculation 33 ml/min; Estimated Glomerular Filt Rate 22; Glucose 138 mg/dL (65-110); Phosphorus 4.6 mg/dL (2.5-4.5); Sodium 141 mmol/L (137-145)
[2022-10-21 08:15] LABS: Glucose Point of Care 135 mg/dl (65-105)
[2022-10-21] MEDS: ASPIRIN 81 MG CHEWABLE TABLET PO (09:10)
[2022-10-21] MEDS: CALCIUM ACETATE 667 MG TABLET PO ×3 (09:10→18:11)
[2022-10-21] MEDS: ACYCLOVIR 400 MG TABLET 800 MG BY MOUTH (09:10)
[2022-10-21] MEDS: CLOPIDOGREL BISULFATE 75 MG TABLET PO (09:11)
[2022-10-21] MEDS: EZETIMIBE 10 MG TABLET PO (09:11)
[2022-10-21] MEDS: ATORVASTATIN 40 MG TABLET 80 MG PO (09:11)
[2022-10-21] MEDS: GABAPENTIN 300 MG CAPSULE PO ×4 (09:11→20:24)
[2022-10-21] MEDS: METOPROLOL TARTRATE 50 MG TAB PO ×2 (09:13→20:24)
[2022-10-21] MEDS: DEXTROSE 5%/0.45% SOD CHL 1,000 ML 150 ML IV CONT ×2 (09:19→22:19)
--- NOTE | 2022-10-21 11:13 | PM.PNNEP ---
Progress Note: A&P Assessment and Plan (1) Stage 3b chronic kidney disease: Code(s): N18.32 - Chronic kidney disease, stage 3b Status: Chronic Assessment and Plan: Hillary has chronic kidney disease. Her GFR has been running in the low 30s since mid 2020. In the past immunofixation and serology were negative. Ultrasound shows normal kidneys. UA is bland except for protein. Most likely her kidney disease is from diabetes and hypertension. Her creatinine may a few days ago. Possibly due to and possibly due to lower than her the blood pressure her kidneys are use to Her creatinine may from 2-3 and is back down to 2.3 Continue same medications for now. she has swelling from her proteinuria. To improve the proteinuria, we discussed the following: She should lose weight. The patient is trying to cut back on food. She will see a dietitian as an outpatient. She needs to keep her blood pressure under good control. Blood pressure is a little bit high right now will restart irbesartan as soon as the creatinine comes down to 2 or reaches a new plateau. Diltiazem may help as well If needed down the line. Jardiance or Farxiga or Kerendia could also be used down the line She is at risk for sleep apnea. apnea link is done. This is pending. Check more labs tomorrow. (2) Essential hypertension: Code(s): I10 - Essential (primary) hypertension Status: Acute Assessment and Plan: Her blood pressure is in the 130s to 150s. She is on metoprolol. Restart irbesartan soon (3) Type 2 diabetes mellitus with hyperglycemia: Qualifiers: Diabetes mellitus rat exterminator insulin use: with senior living use Qualified Code(s): E11.65 - Type 2 diabetes mellitus with hyperglycemia; Z79.4 - assisted (current) use of insulin Code(s): E11.65 - Type 2 diabetes mellitus with hyperglycemia Status: Acute Assessment and Plan: Management per hospitalists (4) Nephrotic range proteinuria: Code(s): R80.9 - Proteinuria, unspecified Status: Acute Assessment and Plan: The patient has nephrotic range proteinuria. As above, we will treat with low-protein diet, treatment of sleep apnea, BONITA-inhibitor/ARB, possibly Jardiance and Kerendia down the line. (5) Pulmonary hypertension: Code(s): I27.20 - Pulmonary hypertension, unspecified Status: Acute Assessment and Plan: I rechecked the echo report. Her pulmonary artery systolic pressure was 31 in 2020. Subjective Date/time seen: 10/21/22 11:13 Interval history: Hillary is feeling about the same. Headache is better. No more lightheadedness. Sitting at the side of the bed. She is about to get physical therapy. Exam Narrative: WDWN in NAD skin no rash or subcu nodules head ncat lungs clear bilaterally cor reg no rub abd BS+ nontender and soft ext 1+ bilateral edema. She has a bandage on the wound on the right leg Objective Data Vital Signs Vital Signs: Vital Signs - 24 hr 10/20/22 19:15 10/20/22 21:19 10/20/22 22:22 Temperature 98.2 F Pulse Rate 93 92 92 Respiratory Rate 16 Blood Pressure 148/61 H Pulse Oximetry 100 96 Oxygen Delivery Room Air 10/21/22 04:47 10/21/22 07:46 10/21/22 09:13 Temperature 97.8 F Pulse Rate 85 83 Respiratory Rate 16 Blood Pressure 141/69 H Pulse Oximetry 100 99 Oxygen Delivery Room Air Intake/Output Intake/Output: Intake & Output 10/18/22 10/19/22 10/20/22 10/21/22 23:59 23:59 23:59 23:59 Intake Total 1210 3540 4840 1220 Output Total 1550 1700 1700 Balance -340 1840 3140 1220 Meds/Results Medications: Active Medications Generic Name Dose Route Start Last Admin Trade Name Subhashq PRN Reason Stop Dose Admin Acyclovir 800 mg 10/16/22 09:00 10/21/22 09:10 Acyclovir 400 Mg Tablet BY MOUTH 800 mg DAILY JENNIFER Administration Aspirin 81 mg 10/16/22 09:00 10/21/22 09:10 Aspirin
[2022-10-21] MEDS: SODIUM ZIRCONIUM CYCLOSILICATE 10 GM POWD.PACK 5 GM BY MOUTH (11:35)
[2022-10-21 12:13] LABS: Glucose Point of Care 163 mg/dl (65-105)
--- NOTE | 2022-10-21 13:36 | PM.IMPN ---
Progress Note: A&P Assessment and Plan (1) Hematoma: Code(s): T14.8XXA - Other injury of unspecified body region, initial encounter Status: Acute Assessment and Plan: The patient fell and has a large hematoma to her right lower extremity. General surgery consulted, and performed evacuation. Monitor H&H every 6 hours Hemoglobin stable (2) Acute on chronic renal failure: Code(s): N17.9 - Acute kidney failure, unspecified; N18.9 - Chronic kidney disease, unspecified Status: Acute Assessment and Plan: As per nephrology notes Hillary has chronic kidney disease.? Her GFR has been running in the low 30s since mid 2020. In the past immunofixation and serology were negative. Ultrasound shows normal kidneys. UA is bland except for protein. Likely secondary to diuretic medications ?hold the irbesartan,indapamide and Bumex? worse Cr 10/19 cr 3.1 on dextrose half-normal saline 125 mL/hour FOLLOW-UP BMP Lightheadedness, CT of head shows no acute intracranial issues, patient has no focal weakness. Change labetalol to metoprolol p.o. per Nephrology's request Appreciate Nephrology's consultation Cr is trending down 2.3 (3) Nephrotic range proteinuria: Code(s): R80.9 - Proteinuria, unspecified Status: Acute Assessment and Plan: Appreciate Nephrology's consultation, adjunct psychology faculty member consider patient has nephrotic syndrome Preschool Head Teacher recommends: Renal diet Once the creatinine comes back down to 2 we can start her back on irbesartan which will help the proteinuria. Diltiazem may help as well. Jardiance or Farxiga could be started as an outpatient as well. Kerendia could also be used down the line as a 3rd agent. 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 check A1c. (5) Diastolic heart failure: Code(s): I50.30 - Unspecified diastolic (congestive) heart failure Status: Acute Assessment and Plan: hold Bumex, Avapro and c/w metoprolol 50 mg b.i.d. p.o. Echocardiogram May 2017 demonstrated grade 2 diastolic dysfunction with normal ejection fraction, moderate left atrial enlargement, RVSP 62, moderate tricuspid regurgitation Compensated (6) Neuropathy due to type 2 diabetes mellitus: Code(s): E11.40 - Type 2 diabetes mellitus with diabetic neuropathy, unspecified Status: Acute Assessment and Plan: Continue with gabapentin (7) Stage 3b chronic kidney disease: Code(s): N18.32 - Chronic kidney disease, stage 3b Status: Chronic (8) Hypertension, uncontrolled: Code(s): I10 - Essential (primary) hypertension Status: Acute Assessment and Plan: Uncontrolled. Increase metoprolol. she has p.r.n. clonidine. hold Avapro. (9) HLD (hyperlipidemia): Code(s): E78.5 - Hyperlipidemia, unspecified Status: Acute Assessment and Plan: Continue with atorvastatin and Zetia (10) Hyperkalemia: Code(s): E87.5 - Hyperkalemia Status: Acute Assessment and Plan: Hold losartan. The patient was given a concoction in the emergency room. Her potassium was slightly elevated. ordered Lokelma. Hyperkalemia is corrected Plan Patient had difficulty with ambulation, consult PT OT Hotel Attendant for evaluation and assisting placement Subjective Date/time seen: 10/21/22 13:37 Interval history: I saw on exam patient today, patient still has general weakness, has difficulty with ambulation, lipase is tolerable, patient is afebrile, hemodynamically stable, hemoglobin stable,. Exam Narrative: GENERAL: Pleasant, in no acute distress
[2022-10-21 17:38] LABS: Glucose Point of Care 156 mg/dl (65-105)
--- NOTE | 2022-10-21 18:45 | PC.NURSE ---
Community Relations Assistant spoke with patient about dressing change/wound care. Patient refused to have dressing changed at this time. Community Relations Assistant talked with patient about keeping leg elevated.
[2022-10-21] MEDS: FAMOTIDINE 20 MG TABLET 40 MG PO (20:24)
[2022-10-21 22:07] LABS: Glucose Point of Care 150 mg/dl (65-105)
[2022-10-22 04:13] VITALS: BP 149/73; PULSE 80; RESP 16; TEMP 36.6; O2SAT 100
[2022-10-22 05:50] LABS: Hematocrit 27.4 % (37.0-47.0); Hemoglobin 8.1 g/dL (12.0-15.0); Mean Corpuscular HGB Conc 29.6 g/dl (32-36); Mean Corpuscular Hemoglobin 29.9 pg (26-34); Mean Corpuscular Volume 101.1 fl (80-100); Mean Platelet Volume 11.9 fl (7.4-10.4); Platelet Count Result 275 k/mm3 (150-375); Red Blood Count 2.71 M/mm3 (4.2-5.4); Red Cell Distribution Width 14.3 % (11.5-14.5); White Blood Count 10.4 K/mm3 (4.5-10.0)
[2022-10-22 06:00] LABS: Albumin Level 3.1 g/dL (3.5-5.1); Anion Gap 9 mmol/L (8-16); Blood Urea Nitrogen 28 mg/dL (7-17); Calcium 7.4 mg/dL (8.4-10.2); Carbon Dioxide 21 mmol/L (22-30); Chloride 111 mmol/L (98-107); Estimated CRCL calculation 38 ml/min; Estimated Glomerular Filt Rate 26; Glucose 128 mg/dL (65-110); Phosphorus 4.2 mg/dL (2.5-4.5); Potassium 3.9 mmol/L (3.4-5.0); Sodium 141 mmol/L (137-145)
[2022-10-22 08:21] LABS: Glucose Point of Care 127 mg/dl (65-105)
[2022-10-22 08:47] VITALS: BP 172/65; PULSE 81
[2022-10-22] MEDS: CALCIUM ACETATE 667 MG TABLET PO ×2 (09:01→12:43)
[2022-10-22] MEDS: ACYCLOVIR 400 MG TABLET 800 MG BY MOUTH (09:01)
[2022-10-22 09:02] VITALS: PULSE 81
[2022-10-22] MEDS: CLOPIDOGREL BISULFATE 75 MG TABLET PO (09:02)
[2022-10-22] MEDS: METOPROLOL TARTRATE 50 MG TAB PO (09:02)
[2022-10-22] MEDS: ASPIRIN 81 MG CHEWABLE TABLET PO (09:02)
[2022-10-22] MEDS: EZETIMIBE 10 MG TABLET PO (09:02)
[2022-10-22] MEDS: GABAPENTIN 300 MG CAPSULE PO ×2 (09:02→12:43)
[2022-10-22] MEDS: ATORVASTATIN 40 MG TABLET 80 MG PO (09:02)
--- NOTE | 2022-10-22 10:13 | P.PNNP_ITS ---
Progress Note: A&P Assessment and Plan (1) DONNA (acute kidney injury): Code(s): N17.9 - Acute kidney failure, unspecified Status: Acute Assessment and Plan: * as noted by rise in creatinine to 3ish range * now back to baseline with a creatinine of 2.0mg/dl * suspicion falls on overcontrol of blood pressure as etiology * renal ultrasound negative * UA only significant for proteinuria * follow trend of labs and UOP (2) Stage 3b chronic kidney disease: Code(s): N18.32 - Chronic kidney disease, stage 3b Status: Chronic Assessment and Plan: * baseline creatinine runs around 2ish * GFR has been in the low 30s since mid 2020 * likely secondary to HTN and DM based on outpatient evaluation * immunofixation and serologies negative * significant proteinuria noted - likely cause of LE edema (3) Nephrotic range proteinuria: Code(s): R80.9 - Proteinuria, unspecified Status: Acute Assessment and Plan: * as noted by recent testing * to improve the proteinuria, we discussed the following strategies: * weight loss -- she will see a dietitian as an outpatient and cut back on food * BP control -- ok to restart irbesartan; consider adding diltiazem if needed * DM control -- consider adding Jardiance or Farxiga or Kerendia down the line * low protein diet * continue supportive therapy (4) Essential hypertension: Code(s): I10 - Essential (primary) hypertension Status: Acute Assessment and Plan: * reasonable control * not opposed to restart of irbesartan * follow trend of BP readings (5) Type 2 diabetes mellitus with hyperglycemia: Qualifiers: Diabetes mellitus correction insulin use: with terminal operator use Qualified Code(s): E11.65 - Type 2 diabetes mellitus with hyperglycemia; Z79.4 - buttermaker continuous churn (current) use of insulin Code(s): E11.65 - Type 2 diabetes mellitus with hyperglycemia Status: Acute Assessment and Plan: * follow accu-cheks * glycemic control per hospitalists Will continue to follow. Subjective Date/time seen: 10/22/22 10:13 Interval history: Follow-up for acute kidney injury on chronic kidney disease. Chart reviewed -- assuming care from Dr. Bhandari; seems to be doing reasonably well at the time of my visit; no apparent distress noted; no issues/events overnight or earlier this morning; renal function continues to improve with current therapy/interventions. Exam Narrative: General: WD/WN female in NAD Heart: normal S1 and S2; no rub Lungs: clear to auscultation Abdomen: soft, nontender, nondistended, positive bowel sounds Extremities: no cyanosis or clubbing; 1+ edema Skin: warm and dry; dressings in place Objective Data Vital Signs Vital Signs: Vital Signs Temp Pulse Resp BP Pulse Ox O2 Del Method 10/22/22 09:02 81 10/22/22 08:47 Room Air 10/22/22 08:47 81 172/65 H 10/22/22 04:13 98 F 80 16 149/73 H 100 10/21/22 21:07 98 F 85 16 156/79 H 100 10/21/22 20:00 74 16 100 Room Air 10/21/22 20:24 74 10/21/22 14:00 97.3 F L 78 16 151/71 H 100 Intake/Output Intake/Output: Intake & Output 10/19/22 10/20/22 10/21/22 10/22/22 23:59 23:59 23:59 23:59 Intake Total
--- NOTE | 2022-10-22 10:13 | PM.PNNEP ---
Progress Note: A&P Assessment and Plan (1) DONNA (acute kidney injury): Code(s): N17.9 - Acute kidney failure, unspecified Status: Acute Assessment and Plan: as noted by rise in creatinine to 3ish range now back to baseline with a creatinine of 2.0mg/dl suspicion falls on overcontrol of blood pressure as etiology renal ultrasound negative UA only significant for proteinuria follow trend of labs and UOP (2) Stage 3b chronic kidney disease: Code(s): N18.32 - Chronic kidney disease, stage 3b Status: Chronic Assessment and Plan: baseline creatinine runs around 2ish GFR has been in the low 30s since mid 2020 likely secondary to HTN and DM based on outpatient evaluation immunofixation and serologies negative significant proteinuria noted - likely cause of LE edema (3) Nephrotic range proteinuria: Code(s): R80.9 - Proteinuria, unspecified Status: Acute Assessment and Plan: as noted by recent testing to improve the proteinuria, we discussed the following strategies: weight loss -- she will see a dietitian as an outpatient and cut back on food BP control -- ok to restart irbesartan; consider adding diltiazem if needed DM control -- consider adding Jardiance or Farxiga or Kerendia down the line low protein diet continue supportive therapy (4) Essential hypertension: Code(s): I10 - Essential (primary) hypertension Status: Acute Assessment and Plan: reasonable control not opposed to restart of irbesartan follow trend of BP readings (5) Type 2 diabetes mellitus with hyperglycemia: Qualifiers: Diabetes mellitus supervisor intermediates insulin use: with halfway use Qualified Code(s): E11.65 - Type 2 diabetes mellitus with hyperglycemia; Z79.4 - parts counterman (current) use of insulin Code(s): E11.65 - Type 2 diabetes mellitus with hyperglycemia Status: Acute Assessment and Plan: follow accu-cheks glycemic control per hospitalists Will continue to follow. Subjective Date/time seen: 10/22/22 10:13 Interval history: Follow-up for acute kidney injury on chronic kidney disease. Chart reviewed -- assuming care from Dr. Bhandari; seems to be doing reasonably well at the time of my visit; no apparent distress noted; no issues/events overnight or earlier this morning; renal function continues to improve with current therapy/interventions. Exam Narrative: General: WD/WN female in NAD Heart: normal S1 and S2; no rub Lungs: clear to auscultation Abdomen: soft, nontender, nondistended, positive bowel sounds Extremities: no cyanosis or clubbing; 1+ edema Skin: warm and dry; dressings in place Objective Data Vital Signs Vital Signs: Vital Signs Temp Pulse Resp BP Pulse Ox O2 Del Method 10/22/22 09:02 81 10/22/22 08:47 Room Air 10/22/22 08:47 81 172/65 H 10/22/22 04:13 98 F 80 16 149/73 H 100 10/21/22 21:07 98 F 85 16 156/79 H 100 10/21/22 20:00 74 16 100 Room Air 10/21/22 20:24 74 10/21/22 14:00 97.3 F L 78 16 151/71 H 100 Intake/Output Intake/Output: Intake & Output 10/19/22 10/20/22 10/21/22 10/22/22 23:59 23:59 23:59 23:59 Intake Total 3540 4840 2960 350 Output Total 1700 1700 600 Balance 1840 3140 2360 350 Meds/Results Medications: Active Medications Generic Name Dose Route Start Last Admin Trade Name Freq PRN Reason Stop Dose Admin Acyclovir 800 mg 10/16/22 09:00 10/22/22 09:01 Acyclovir 400 Mg Tablet BY MOUTH 800 mg DAILY JENNIFER Administration Aspirin 81 mg 10/16/22 09:00 10/22/22 09:02 Aspirin 81 Mg Chewable Tablet PO 81 mg QAM JENNIFER Administration Atorvastatin Calcium 80 mg 10/16/22 09:00 10/22/22 09:02 Atorvastatin 40 Mg Tablet PO 80 mg DAILY JENNIFER Administration Calcium Acetate 667 mg 10/17/22 13:50 10/22/22 09:01 Calcium Acetate 667 Mg Tablet PO 667 mg
[2022-10-22 12:08] LABS: Glucose Point of Care 133 mg/dl (65-105)
--- NOTE | 2022-10-22 13:39 | PM.DS ---
DS: Admitting Diagnosis Discharge Date Today Admitting Diagnosis Hematoma of her right lower extremity Acute renal failure Type 2 diabetes Uncontrolled hypertension DS: Discharge Diagnosis Discharge Diagnosis (1) Hematoma: Code(s): T14.8XXA - Other injury of unspecified body region, initial encounter Status: Acute Assessment and Plan: The patient fell and has a large hematoma to her right lower extremity. General surgery consulted, and performed evacuation. Monitor H&H every 6 hours Hemoglobin stable (2) Acute on chronic renal failure: Code(s): N17.9 - Acute kidney failure, unspecified; N18.9 - Chronic kidney disease, unspecified Status: Acute Assessment and Plan: As per nephrology notes Hillary has chronic kidney disease.? Her GFR has been running in the low 30s since mid 2020. In the past immunofixation and serology were negative. Ultrasound shows normal kidneys. UA is bland except for protein. Likely secondary to diuretic medications ?hold the irbesartan,indapamide and Bumex? worse Cr 10/19 cr 3.1 received dextrose half-normal saline 125 mL/hour FOLLOW-UP BMP Lightheadedness, CT of head shows no acute intracranial issues, patient has no focal weakness. Change labetalol to metoprolol p.o. per Nephrology's request Appreciate Nephrology's consultation Cr is trending down today 2.0 (3) Nephrotic range proteinuria: Code(s): R80.9 - Proteinuria, unspecified Status: Acute Assessment and Plan: Appreciate Nephrology's consultation, assurance engineer consider patient has nephrotic syndrome Unix Developer recommends: Renal diet Once the creatinine comes back down to 2 restart losartan 50 mg daily add Diltiazem 180 mg kaylen (4) Type 2 diabetes mellitus with hyperglycemia: Qualifiers: Diabetes mellitus skilled nursing insulin use: with skilled nursing use Qualified Code(s): E11.65 - Type 2 diabetes mellitus with hyperglycemia; Z79.4 - ocean transportation intermediary (current) use of insulin Code(s): E11.65 - Type 2 diabetes mellitus with hyperglycemia Status: Acute Assessment and Plan: Accu-Cheks AC and HS with sliding scale insulin. check A1c. c/w home med at discharge (5) Diastolic heart failure: Code(s): I50.30 - Unspecified diastolic (congestive) heart failure Status: Acute Assessment and Plan: hold Bumex, Avapro and c/w metoprolol 50 mg b.i.d. p.o. Echocardiogram May 2017 demonstrated grade 2 diastolic dysfunction with normal ejection fraction, moderate left atrial enlargement, RVSP 62, moderate tricuspid regurgitation Compensated (6) Neuropathy due to type 2 diabetes mellitus: Code(s): E11.40 - Type 2 diabetes mellitus with diabetic neuropathy, unspecified Status: Acute Assessment and Plan: Continue with gabapentin (7) Stage 3b chronic kidney disease: Code(s): N18.32 - Chronic kidney disease, stage 3b Status: Chronic (8) Hypertension, uncontrolled: Code(s): I10 - Essential (primary) hypertension Status: Acute Assessment and Plan: Uncontrolled. Increase metoprolol. add cardizem 180mg daily po (9) HLD (hyperlipidemia): Code(s): E78.5 - Hyperlipidemia, unspecified Status: Acute Assessment and Plan: Continue with atorvastatin and Zetia (10) Hyperkalemia: Code(s): E87.5 - Hyperkalemia Status: Acute Assessment and Plan: Hyperkalemia is corrected Plan Patient had difficulty with ambulation, consult PT OT Wedding Planning Internship for evaluation and assisting placement DS: Summary Hospital Course Reason for hospitalization: Fall and right leg hematoma Hospital Course: Per H&P This is a 52-year-old female patient who has had an extensive past medical history including a CVA with left side effects, chronic kidney disease, hyperlipidemia, diabetes, hypertension and congestive heart failure.? The patient had been staying in a hotel over the last several da
== END 2022-10-22 14:30 | DRG 364 ==
LOC: ANHED 13:41 → ANHIMU 16:11 → ANH3MED 10-21 10:59 → ANHIMU 10-24 09:20
PROVIDERS: Hospitalist; Internal Medicine Nephrology; Nurse Practitioner; Surgery; Admitting Provider Student in an Organized Health Care Education/Training Program; Emergency Provider Emergency Medicine; PCP Internal Medicine; Visit Provider Hospitalist
PROC: 0JCN0ZZ Extirpation of Matter from Right Lower Leg Subcutaneous Tissue and Fascia, Open Approach (ICD-10-PCS; principal; 2022-10-16 17:30)
DX: S80.11XA Contusion of right lower leg, initial encounter (principal); E11.22 Type 2 diabetes mellitus with diabetic chronic kidney disease; N17.9 Acute kidney failure, unspecified; E11.42 Type 2 diabetes mellitus with diabetic polyneuropathy; N18.32 Chronic kidney disease, stage 3b; E11.319 Type 2 diabetes mellitus with unspecified diabetic retinopathy without macular edema; I27.20 Pulmonary hypertension, unspecified; E66.01 Morbid (severe) obesity due to excess calories; W19.XXXA Unspecified fall, initial encounter; I50.32 Chronic diastolic (congestive) heart failure; I69.351 Hemiplegia and hemiparesis following cerebral infarction affecting right dominant side; I13.0 Hypertensive heart and chronic kidney disease with heart failure and stage 1 through stage 4 chronic kidney disease, or unspecified chronic kidney disease; E11.65 Type 2 diabetes mellitus with hyperglycemia; E78.5 Hyperlipidemia, unspecified; D64.9 Anemia, unspecified; E87.5 Hyperkalemia; R80.8 Other proteinuria; G47.30 Sleep apnea, unspecified; H40.9 Unspecified glaucoma; Z79.4 Long term (current) use of insulin; Z89.422 Acquired absence of other left toe(s); Z90.710 Acquired absence of both cervix and uterus; Z90.722 Acquired absence of ovaries, bilateral; Z79.82 Long term (current) use of aspirin; Z79.02 Long term (current) use of antithrombotics/antiplatelets; Z68.43 Body mass index [BMI] 50.0-59.9, adult
CPT/HCPCS: 36415; 70450; 71046; 71250; 72125; 72128; 72131; 73590; 80048; 80053; 80069; 81001; 81025; 81050; 82550; 82570; 82948; 83036; 83721; 83735; 84443; 85025; 85027; 85610; 85730; 87077; 87086; 87088; 87147; 87186; 93005; 94762; 96374; 96375; 96376; 97110; 97116; 97161; 97165; 97530; 97535; 99285; A9270; G0378; G0379; J0612; J0690; J1100; J1815; J2270; J2405; J2704; J2765; J3010; J7120

== ENCOUNTER 2022-11-12 10:27 | Emergency (ER) | payer OTHER, SELFPAY ==
[2022-11-12] VITALS (18 sets, daily range): BP systolic 91–130; BP diastolic 56–87; PULSE 65–89; RESP 10–26; TEMP 36.6–36.7; O2SAT 94–100
--- NOTE | 2022-11-12 11:01 | ED.GENADULT ---
HPI - General Adult General Chief complaint: Unspecified Stated complaint: low bp History of Present Illness HPI narrative: 52-year-old female with history of chronic kidney disease presented to ED for evaluation for low blood pressure at her care facility. Patient reports that she woke up this morning and had no complaints. She reports after taking her blood pressure medication she had onset of dizziness. Patient reportedly had a blood pressure of 80 systolic at the care facility. On arrival to the ED patient states that her symptoms have resolved, patient denies any current dizziness chest pain shortness of breath nausea vomiting. Patient's blood pressures are improved. Patient does have history of chronic kidney disease but is not on dialysis. Related Data Home Medications Medication Instructions Recorded Confirmed aspirin 81 mg chewable tablet 1 tablet PO QAM 06/07/19 10/15/22 acyclovir 800 mg tablet 800 mg PO DAILY 01/27/20 10/15/22 gabapentin 300 mg capsule 300 mg PO QID 01/27/20 10/15/22 atorvastatin 40 mg tablet 80 mg PO DAILY 05/04/20 10/15/22 insulin lispro 100 unit/mL See Protocol subcut PC 08/31/20 10/15/22 subcutaneous solution (Admelog U-100 Insulin lispro) dulaglutide 0.75 mg/0.5 mL 1.5 mg subcut WEEKLY 10/15/22 10/15/22 subcutaneous pen injector ([facility]) ezetimibe 10 mg tablet 10 mg PO DAILY 10/15/22 10/15/22 famotidine 40 mg tablet 40 mg PO HS 10/15/22 10/15/22 sodium zirconium cyclosilicate 5 5 g PO DAILY 10/15/22 10/15/22 gram oral powder packet (kelnc) Allergies Allergy/AdvReac Type Severity Reaction Status Date / Time Penicillins AdvReac Mild Nausea Verified 11/07/22 13:57 hydrocodone [From Vicodin] AdvReac Nausea and Verified 11/07/22 13:57 Vomiting Review of Systems Review of Systems: All systems reviewed & are unremarkable except as noted in HPI and below PMFSH Past Medical History Medical History (Updated 11/12/22 @ 12:25 by Cristopher Nelson MD) Acute on chronic renal failure Anemia 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controlled 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 hypertension With RVSP of 62 on echocardiogram May 2017 Retinopathy due to secondary diabetes mellitus Stage 3b chronic kidney disease Type 2 diabetes mellitus Type 2 diabetes mellitus with hyperglycemia Vitamin D deficiency Surgical History Surgical History (Updated 11/07/22 @ 13:57 by CLAUDIA Saab) Amputation of fifth toe of left foot may 2018 History of dilation and curettage History of incision and drainage Incision and drainage, evacuation of 12cm x 10cm right lower leg hematoma 10/16/22 Previous section x2. Status post total abdominal hysterectomy and bilateral salpingo-oophorectomy (TDAEO-BSO) Laparoscopic Family History Family History Father Acute myocardial infarction Mother Cerebrovascular accident Other Colon cancer Social History Social History Social History: She is currently staying at a [facility] as a tree has fallen through her home related just arm. She lives with her significant other She has 3 children who reportedly healthy. Primary care provider: Kimmy Cool SYSTEM SUPPORT DEVELOPER Code status: Full code Surrogate decision maker: Tan Awad (Boyfriend) Smoking status: Never smoker Second hand tobacco smoke exposure: Yes Alcohol intake: never Substance use: never Substance use type: does no
[2022-11-12 11:44] LABS: Basophils Percent Auto 0.2 % (0.2-1.2); Eosinophils Absolute Auto 0.2 K/mm3 (0-0.3); Eosinophils Percent Auto 2.8 % (0-4.4); Hematocrit 28.9 % (37.0-47.0); Hemoglobin 8.6 g/dL (12.0-15.0); Immature Granulocyte Absolute 0.04 K/mm3 (0.00-0.031); Immature Granulocyte Percent A 0.5 % (0-0.5); Lymphocytes Absolute Auto 2.18 K/mm3 (0.9-3.2); Lymphocytes Percent Auto 25.9 % (18.3-44.2); Mean Corpuscular HGB Conc 29.8 g/dl (32-36); Mean Corpuscular Hemoglobin 29.2 pg (26-34); Mean Platelet Volume 12.2 fl (7.4-10.4); Monocytes Absolute Auto 0.6 K/mm3 (0.1-0.6); Monocytes Percent Auto 6.8 % (2.6-8.5); Neutrophils Absolute Auto 5.4 K/mm3 (1.3-6.7); Neutrophils Percent Auto 63.8 % (45.5-73.1); Platelet Count Result 248 k/mm3 (150-375); Red Blood Count 2.95 M/mm3 (4.2-5.4); Red Cell Distribution Width 14.6 % (11.5-14.5); White Blood Count 8.4 K/mm3 (4.5-10.0)
[2022-11-12 11:49] LABS: Alanine Aminotransferase 19 U/L (6-35); Albumin Level 3.2 g/dL (3.5-5.1); Alkaline Phosphatase 112 U/L (38-126); Anion Gap 3 mmol/L (8-16); Aspartate Amino Transferase 30 U/L (14-36); Bilirubin,Total 0.4 mg/dL (0.2-1.3); Blood Urea Nitrogen 34 mg/dL (7-17); Calcium 6.8 mg/dL (8.4-10.2); Carbon Dioxide 25 mmol/L (22-30); Chloride 108 mmol/L (98-107); Estimated Glomerular Filt Rate 21; Glucose 199 mg/dL (65-110); Potassium 4.6 mmol/L (3.4-5.0); Sodium 136 mmol/L (137-145)
== END 2022-11-12 14:35 ==
PROVIDERS: Emergency Provider Emergency Medicine; PCP Internal Medicine
DX: I95.9 Hypotension, unspecified (principal); E11.22 Type 2 diabetes mellitus with diabetic chronic kidney disease; I13.0 Hypertensive heart and chronic kidney disease with heart failure and stage 1 through stage 4 chronic kidney disease, or unspecified chronic kidney disease; N18.32 Chronic kidney disease, stage 3b; I50.30 Unspecified diastolic (congestive) heart failure; E11.42 Type 2 diabetes mellitus with diabetic polyneuropathy; E11.39 Type 2 diabetes mellitus with other diabetic ophthalmic complication; H42 Glaucoma in diseases classified elsewhere; E78.5 Hyperlipidemia, unspecified; I69.954 Hemiplegia and hemiparesis following unspecified cerebrovascular disease affecting left non-dominant side; I27.20 Pulmonary hypertension, unspecified; E55.9 Vitamin D deficiency, unspecified; Z89.422 Acquired absence of other left toe(s); Z90.710 Acquired absence of both cervix and uterus; Z90.722 Acquired absence of ovaries, bilateral; Z90.79 Acquired absence of other genital organ(s); Z77.22 Contact with and (suspected) exposure to environmental tobacco smoke (acute) (chronic); Z79.85 Long-term (current) use of injectable non-insulin antidiabetic drugs
CPT/HCPCS: 36415; 80053; 85025; 99283

== ENCOUNTER 2023-02-03 13:28 | Inpatient (IN) | payer OTHER, SELFPAY ==
--- NOTE | ~2023-02-03 | US_ITS ---
EXAMINATION: US arterial ankle brachial ind DATE: 02/04/2023 14:02 INDICATION: Bilateral heel ulcers. Claudication. TECHNIQUE: Segmental pressures and plethysmographic and Doppler waveforms of the brachial and lower e xtremity arteries were obtained. COMPARISON: None. FINDINGS: Right and left brachial artery pressures of 147 mm Hg and 139 mm Hg, respectively, are concordant (no rmal difference <= 30 mmHg). The right ankle-brachial index (MAITE) is at least 1.05 (normal >= 0.9-1.0) one right dorsalis pedis ar justice pressures unable be obtained due to inability to occlude the vessel. The right great toe-brachia l index (TBI) is 0.42 (normal >= 0.65). Arterial Doppler waveforms are biphasic with brisk systolic u pstrokes at both right posterior tibial and dorsalis pedis arteries. The left MAITE is unable to be obtained due to inability to occlude the vessels at the left ankle. The left TBI is 0.51. Arterial Doppler waveforms are biphasic with brisk systolic upstrokes at both left posterior tibial and dorsalis pedis arteries. IMPRESSION: 1. Mild arterial occlusive disease to bilateral lower limbs with mildly decreased bilateral TBIs. Reviewed, dictated and finalized at location A. CTOR PACKAGING IMPRESSION: 1. Mild arterial occlusive disease to bilateral lower limbs with mildly decreas ed bilateral TBIs.
--- NOTE | ~2023-02-03 | XR_ITS ---
EXAM: XR foot LT min 3V, XR foot RT min 3V DATE: 02/03/2023 19:36 HISTORY: wound . COMPARISON: None available. FINDINGS: Status post distal left metatarsal and left toe amputation Decreased mineralization. No fr acture or dislocation. No lytic or blastic lesion. Mild degenerative change in the bilateral MTP join ts and midfoot joints moderate bilateral plantar enthesopathy. Vascular calcifications. No erosion or periosteal change. Bilateral diffuse soft tissue swelling. Large bilateral heel ulcers. IMPRESSION: No acute osseous finding in the left or right feet. Specifically there is no radiographic evidence of osteomyelitis. Reviewed, dictated and finalized at location K. MOTIVE UPHOLSTERER IMPRESSION: No acute osseous finding in the left or right feet. Specifically th ere is no radiographic evidence of osteomyelitis.
[2023-02-03 13:33] VITALS: BP 129/50; PULSE 84; RESP 19; TEMP 36.7; O2SAT 99
--- NOTE | 2023-02-03 14:33 | ED.GENADULT ---
HPI - General Adult General Chief complaint: Wound/Laceration <Chandni Dailey July, - Last Filed: 02/03/23 14:38> Stated complaint: wounds <Chandni Dailey July, - Last Filed: 02/03/23 14:38> Time Seen by Provider: 02/03/23 18:41 <Chandni Dailey July, - Last Filed: 02/03/23 14:38> Source: patient <Fernanda Rapp PA-C - Last Filed: 02/03/23 21:21> Mode of arrival: EMS <Fernanda Rapp PA-C - Last Filed: 02/03/23 21:21> Limitations: other (poor historian) <Fernanda Rapp PA-C - Last Filed: 02/03/23 21:21> History of Present Illness HPI narrative: Hillary Bailey is 52 y/o female who resides in a nursing/ rehab facility getting wound care to right ruano/ right ankle and her left ankle. She states that she was sent here today because the facility is concerned that her cellulitis is getting worse and she needs to be on antibiotics and possibly debridement to her feet. She reports that the wound to her right ruano has been there for a couple months/ right ankle 2-3 weeks and her left leg has always had issues. Hx DM. Denies any fever/chills/ denies any worsening pain to her legs or any new symptoms. denies any recent trauma/ fall pt alert and oriented X 4 <Chandni Dailey July, - Last Filed: 02/03/23 14:38> Hillary Bailey is 52 y/o female who resides in a nursing/ rehab facility getting wound care to right ruano/ right foot and her left foot. She states that she was sent here today because the facility is concerned that her cellulitis is getting worse and she needs to be on antibiotics and possibly debridement to her feet. She reports that the wound to her right ruano has been there for a couple months/ right foot 2-3 weeks and her left leg has always had issues. Hx DM. Denies any fever/chills/ denies any worsening pain to her legs or any other new symptoms. denies any recent trauma/ fall pt alert and oriented X 4 <Fernanda Rapp PA-C - Last Filed: 02/03/23 21:21> Related Data Home medications: Home Medications Medication Instructions Recorded Confirmed aspirin 81 mg chewable tablet 1 tablet PO QAM 06/07/19 12/10/22 acyclovir 800 mg tablet 800 mg PO DAILY 01/27/20 12/10/22 gabapentin 300 mg capsule 300 mg PO QID 01/27/20 12/10/22 atorvastatin 40 mg tablet 80 mg PO DAILY 05/04/20 12/10/22 insulin lispro 100 unit/mL See Protocol subcut PC 08/31/20 12/10/22 subcutaneous solution (Admelog U-100 Insulin lispro) dulaglutide 0.75 mg/0.5 mL 1.5 mg subcut WEEKLY 10/15/22 12/10/22 subcutaneous pen injector (Trulicity) ezetimibe 10 mg tablet 10 mg PO DAILY 10/15/22 12/10/22 famotidine 40 mg tablet 40 mg PO HS 10/15/22 12/10/22 sodium zirconium cyclosilicate 5 5 g PO DAILY 10/15/22 12/10/22 gram oral powder packet (Lokelma) <Chandni Dailey July,N - Last Filed: 02/03/23 14:38> Allergies/adverse reactions: Allergies Allergy/AdvReac Type Severity Reaction Status Date / Time Penicillins AdvReac Mild Nausea Verified 12/06/22 10:00 hydrocodone [From Vicodin] AdvReac Nausea and Verified 12/06/22 10:00 Vomiting <Chandni Dailey July, - Last Filed: 02/03/23 14:38> Review of Systems Review of Systems: CONSTITUTIONAL: Denies fever SKIN: Reports redness and swelling <Fernanda Rapp PA-C - Last Filed: 02/03/23 21:21> All systems reviewed & are unremarkable except as noted in HPI and below <Fernanda Rapp PA-C - Last Filed: 02/03/23 21:21> [facility] Past Medical History Medical History: Medical History Acute on chronic renal failure Anemia 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
[2023-02-03 15:29] LABS: Basophils Percent Auto 0.3 % (0.2-1.2); Eosinophils Absolute Auto 0.3 K/mm3 (0-0.3); Eosinophils Percent Auto 2.3 % (0-4.4); Hematocrit 25.7 % (37.0-47.0); Hemoglobin 7.5 g/dL (12.0-15.0); Immature Granulocyte Absolute 0.07 K/mm3 (0.00-0.031); Immature Granulocyte Percent A 0.6 % (0-0.5); Lymphocytes Absolute Auto 2.24 K/mm3 (0.9-3.2); Mean Corpuscular HGB Conc 29.2 g/dl (32-36); Mean Corpuscular Volume 88.9 fl (80-100); Monocytes Absolute Auto 0.8 K/mm3 (0.1-0.6); Monocytes Percent Auto 6.5 % (2.6-8.5); Neutrophils Absolute Auto 8.4 K/mm3 (1.3-6.7); Neutrophils Percent Auto 71.3 % (45.5-73.1); Platelet Count Result 346 k/mm3 (150-375); Red Blood Count 2.89 M/mm3 (4.2-5.4); Red Cell Distribution Width 15.7 % (11.5-14.5); White Blood Count 11.8 K/mm3 (4.5-10.0)
[2023-02-03 15:39] LABS: Alanine Aminotransferase 16 U/L (6-35); Albumin Level 3.3 g/dL (3.5-5.1); Alkaline Phosphatase 103 U/L (38-126); Anion Gap 7 mmol/L (8-16); Aspartate Amino Transferase 26 U/L (14-36); Bilirubin,Total 0.4 mg/dL (0.2-1.3); Blood Urea Nitrogen 56 mg/dL (7-17); Calcium 7.7 mg/dL (8.4-10.2); Carbon Dioxide 24 mmol/L (22-30); Chloride 107 mmol/L (98-107); Estimated CRCL calculation 23 ml/min; Estimated Glomerular Filt Rate 16; Glucose 203 mg/dL (65-110); Potassium 3.9 mmol/L (3.4-5.0); Sodium 138 mmol/L (137-145)
[2023-02-03 16:01] LABS: Platelet Estimate Adequate (Adequate); Schistocytes None Seen (NORMAL)
[2023-02-03 16:02] LABS: Anisocytosis 2+ (NORMAL); Hypochromasia 1+ (NORMAL)
[2023-02-03 19:04] VITALS: BP 152/76; PULSE 99; RESP 16; O2SAT 100
--- NOTE | 2023-02-03 19:58 | PM.IMHP ---
H&P: HPI History of Present Illness Date/Time: 02/03/23 19:58 Chief Complaint: Right leg cellulitis Narrative: This is a 52-year-old female with past medical history significant for insulin-dependent diabetes mellitus, cerebral palsy, chronic right heel wound, peripheral diabetic neuropathy, peripheral vascular disease. Patient presents to the emergency room due to right lower extremity wound with foul smell, tenderness, warmth, redness. Patient is been admitted for further evaluation management and treatment. EXAM:? XR foot LT min 3V, XR foot RT min 3V DATE: 02/03/2023 19:36 HISTORY: wound . COMPARISON:? None available. FINDINGS:? Status post distal left metatarsal and left toe amputation Decreased mineralization. No fracture or dislocation. No lytic or blastic lesion. Mild degenerative change in the bilateral MTP joints and midfoot joints moderate bilateral plantar enthesopathy. Vascular calcifications. No erosion or periosteal change. Bilateral diffuse soft tissue swelling. Large bilateral heel ulcers. IMPRESSION: No acute osseous finding in the left or right feet. Specifically there is no radiographic evidence of osteomyelitis. Review of Systems Review of Systems: Right lower extremity pain warmth foul smell Constitutional: Constitutional: Reports chills, Reports fever(s), Reports malaise, Reports night sweats and Reports weakness Eyes: Eyes: Denies change in vision ENT: Denies dysphagia, Denies vertigo, Denies dizziness and Denies odynophagia Cardiovascular: Cardiovascular: Denies chest pain, Reports leg edema, Denies radiating jaw, neck or arm pain and Denies palpitations Respiratory: Respiratory: Denies cough and Denies dyspnea Gastrointestinal: Gastrointestinal: Denies abdominal pain, Denies dyspepsia, Denies heartburn, Denies diarrhea, Denies nausea and Denies vomiting Genitourinary: Genitourinary: Denies dysuria and Denies flank pain Musculoskeletal: Musculoskeletal: Reports muscle weakness Integumentary/Breasts: Skin/Breast: Reports skin swelling and Reports skin ulcer Neurologic: Reports paresthesias Psychiatric: Psychiatric: Reports no additional psychiatric complaints and Reports as per HPI Endocrine: Endocrine: Denies cold intolerance, Denies flushing, Denies heat intolerance, Denies polyphagia, Denies polydipsia and Denies palpitations Hematologic/Lymphatic: Hematologic/Lymphatic: Reports no additional hematologic/lymphatic complaints and Reports as per HPI Allergic/Immunologic: Allergic/Immunologic: Reports no additional allergic/immunologic complaints and Reports as per HPI [facility] Past Medical History Medical History Acute on chronic renal failure Anemia 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controlled 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 Status post total abdominal hysterectomy and bilateral salpingo-oophorectomy (TADEO-BSO) Laparoscopic Family Histo
[2023-02-03] MEDS: CEFEPIME 2 GM/NS 50 ML 2 GM/50 ML BAG IVPB (20:16)
[2023-02-03 20:24] VITALS: BP 140/75; PULSE 80; RESP 12; TEMP 36.8; O2SAT 98
[2023-02-03 20:34] LABS: Lactic Acid Reflex 0.7 mmol/L (0.7-2.0)
[2023-02-03 20:37] LABS: CRP 5.6 mg/dL (<1.0)
[2023-02-03] MEDS: metroNIDAZOLE 500 MG/ISO 100ML 500 MG/100 ML BAG 100 MG IVPB (20:38)
[2023-02-03 20:55] LABS: Erythrocyte Sedimentation Rate > 140 mm/hr (0-20)
[2023-02-03 21:16] VITALS: BP 138/80; PULSE 77; RESP 13; O2SAT 98
[2023-02-03] MEDS: VANCOMYCIN 1,250 MG/NS 250 ML 1,250 MG/250 ML BAG 166.67 MG IVPB (21:36)
[2023-02-03 21:40] VITALS: BMI 45.3
--- NOTE | 2023-02-03 21:44 | ADMGEN ---
This patient, Hillary Bailey, was admitted to 3 [facility] Surg Room 301-01 at 2121. Patient/family oriented to hospital policies and general routines including ID bracelet, bed and alarms, visiting hours, pain management, procedures, bathroom and other care routines, personal items, smoking policy, room service/diet, and visiting hours. Information on how to activate the Rapid Response Team has been discussed. Patient/Family are encouraged to report perceived risks to care and to ask questions if they do not understand what they are told or what they should do.
[2023-02-03 22:00] VITALS: BP 135/65; PULSE 84; RESP 14; TEMP 36.9; O2SAT 100
[2023-02-04] MEDS: VANCOMYCIN 1,250 MG/NS 250 ML 1,250 MG/250 ML BAG 166.67 MG IVPB (00:04)
[2023-02-04 01:46] LABS: Glucose Point of Care 137 mg/dl (65-105)
[2023-02-04] MEDS: metroNIDAZOLE 500 MG/ISO 100ML 500 MG/100 ML BAG 100 MG IVPB ×3 (05:52→22:37)
[2023-02-04 06:00] VITALS: BP 148/70; PULSE 81; RESP 14; TEMP 36.9; O2SAT 99
[2023-02-04 07:21] LABS: Estimated CRCL calculation 26 ml/min; Estimated Glomerular Filt Rate 19
[2023-02-04 08:25] LABS: Glucose Point of Care 149 mg/dl (65-105)
[2023-02-04 09:10] VITALS: PULSE 90
[2023-02-04] MEDS: METOPROLOL TARTRATE 50 MG TAB PO ×2 (09:10→20:34)
[2023-02-04] MEDS: ASCORBIC ACID 500 MG TABLET PO (09:11)
[2023-02-04] MEDS: GABAPENTIN 300 MG CAPSULE PO ×4 (09:11→20:34)
[2023-02-04] MEDS: dilTIAZem HCL CD 180 MG CAP.24HR PO (09:11)
[2023-02-04] MEDS: SODIUM ZIRCONIUM CYCLOSILICATE 5 GM POWD.PACK 1 EACH PO (09:12)
[2023-02-04] MEDS: ATORVASTATIN 40 MG TABLET 80 MG PO (09:12)
--- NOTE | 2023-02-04 10:05 | PM.CNGS ---
Assessment and Plan Assessment and plan (1) Heel ulcer: Code(s): L97.409 - Non-pressure chronic ulcer of unspecified heel and midfoot with unspecified severity Status: Acute Assessment and Plan: The left heel ulcer appears stable with no signs of active infection. Continue local wound care with betadine swabs. The right heel ulcer has some purulent drainage and foul odor coming from a callused area that appears superficial. We would recommend excisional debridement at the bedside of the right heel ulcer today. Description of the procedure, risks, benefits, alternatives, and expected wound care following the procedure were discussed with the patient in detail. She agrees to proceed. Will have the nurse gather supplies and proceed this morning. Okay for her to have a diet. Continue IV antibiotics. Will also obtain ABIs for further workup. (2) Cellulitis: Code(s): L03.90 - Cellulitis, unspecified Status: Acute Assessment and Plan: Contiue IV antibiotics (3) Acute kidney injury superimposed on chronic kidney disease: Code(s): N17.9 - Acute kidney failure, unspecified; N18.9 - Chronic kidney disease, unspecified Status: Acute (4) Type 2 diabetes mellitus with hyperglycemia: Qualifiers: Diabetes mellitus assisted insulin use: with exterminator use Qualified Code(s): E11.65 - Type 2 diabetes mellitus with hyperglycemia; Z79.4 - watermaster (current) use of insulin Code(s): E11.65 - Type 2 diabetes mellitus with hyperglycemia Status: Acute (5) Pulmonary hypertension: Code(s): I27.20 - Pulmonary hypertension, unspecified Status: Acute (6) Diastolic heart failure: Code(s): I50.30 - Unspecified diastolic (congestive) heart failure Status: Acute Plan I have discussed the patient's case and plan of care with Dr. Castaneda. Thank you for allowing us to see the patient in consultation and we will continue to follow along with you. History of Present Illness Consult details Consult date: 02/04/23 Reason for consult: other (Bilateral diabetic heel wounds) Requesting physician: Fernanda Rapp PA-C Narrative: This is a 52-year-old woman with multiple medical problems who we have been asked to see in surgical consultation for bilateral heel wounds. She does have a history of a CVA over a year ago and is on aspirin and Plavix. She was also seen by our service in September of 2022 for a right anterior lower leg hematoma. She underwent incision and drainage with evacuation of the hematoma by Dr. Flanagan. She eventually was seen in [facility] for the same wound in November and had debridement by another surgeon, who she was recommended to follow up with for that wound following debridement. This has been healing well. She now resides in a long-term and reportedly follows wound care there. She reports having a left heel wound for a long period of time and believes that her right heel wound recently developed over the past few weeks. She was sent to the ER yesterday from the long-term with concerns of the right heel wound. In the ER white blood cell count was [id number], glucose 203, BUN 56, creatinine 3.1, and CRP 5.6. Lactic acid normal. She had x-rays of bilateral feet that showed no evidence of osteomyelitis. There was concern of infection in the right heel wound and she was admitted and started on IV antibiotics. It appears they obtained a culture of the right foot wound. She also has blood cultures pending. She has peripheral neuropathy with decreased sensation in her lower extremities. She is not currently ambulatory and reports only transferring from bed to wheelchair. She believes that she developed the heel wounds from pressure from a stationary bike from rehab at the long-term. As she was following wound Care, they instructed her to stop using the stationary bike. She was seen this morning with the wound care nurse. Review of Systems Re
--- NOTE | 2023-02-04 11:36 | W.PM.PROC2 ---
Procedure Note - Detailed Date of Procedure 02/04/23 Pre-op Diagnosis Infected right heel ulcer Post-op Diagnosis Same Procedure Performed Excisional debridement of infected right heel ulcer measuring 10 cm x 3 cm x 0.3 cm Surgeon JADIEL Barth Anesthesia None Indications This is a 52-year-old woman who has bilateral heel ulcers. The left heel ulcer has a dry, firm, stable eschar covering the wound bed with no signs of infection. Her right heel ulcer has a firm dry eschar with surrounding blistering callus with foul cloudy drainage. Decision was made to proceed with excisional debridement of the right heel ulcer. Findings Some minimal cloudy drainage trapped under the blistered callus area, but no deeper abscess or involvement of deeper tissues. Black eschar on remaining area of the wound that is dry and firm other than a small boggy area on the medial aspect of the eschar. Description of Procedure The patient was placed in the right lateral position in the bed. Following this, sterile prep was carried out over the wound with iodine swabs. The area was draped and location verified. I used scissors and pickups to unroof the blister. I sharply debrided any necrotic skin and callus that was carried down to healthy subcutaneous tissue. I did not perform any debridement of the eschar, which with further inspection did have a slight bogginess in the medial area of the wound. I chose not to extend any debridement to the eschar at the bedside since I am unable to evaluate the depth of the wound and she is on Plavix which increases her risks of bleeding if debridement was needed with deeper tissues. This area can be evaluated by the surgeon to decide if she needs any further debridement of the eschar. No purulent drainage from the eschar with edges intact. The patient tolerated the procedure well. Packing No Complications No immediate complications Condition Stable Disposition No change [facility] Billing Surgery - Charge Forward: Surgery Billing
[2023-02-04 11:51] LABS: Glucose Point of Care 164 mg/dl (65-105)
--- NOTE | 2023-02-04 12:06 | PM.IMPN ---
Progress Note: A&P Assessment and Plan (1) Cellulitis and abscess of right leg: Code(s): L03.115 - Cellulitis of right lower limb; L02.415 - Cutaneous abscess of right lower limb Status: Acute Assessment and Plan: Patient started on cefepime vanco metronidazole as per diabetic foot ulcer antibiotic stewardship Cultures in progress General surgery consult, OR 02/04 excisional debridement of infected regular ulcer Wound care consult (2) Acute kidney injury superimposed on chronic kidney disease: Code(s): N17.9 - Acute kidney failure, unspecified; N18.9 - Chronic kidney disease, unspecified Status: Acute Assessment and Plan: Holding bumetanide Holding losartan Gentle hydration (3) Diabetic foot ulcer: Qualifiers: Diabetes mellitus type: type 2 Diabetic foot ulcer location: heel Laterality: right Non-pressure ulcer stage: unspecified non-pressure ulcer stage Qualified Code(s): E11.621 - Type 2 diabetes mellitus with foot ulcer; L97.419 - Non-pressure chronic ulcer of right heel and midfoot with unspecified severity Code(s): E11.621 - Type 2 diabetes mellitus with foot ulcer; L97.509 - Non-pressure chronic ulcer of other part of unspecified foot with unspecified severity Status: Acute Assessment and Plan: chronic necrotic General surgery consult (4) Nephrotic range proteinuria: Code(s): R80.9 - Proteinuria, unspecified Status: Acute Assessment and Plan: Likely secondary to type 1 diabetes mellitus (5) Diastolic heart failure: Code(s): I50.30 - Unspecified diastolic (congestive) heart failure Status: Acute Assessment and Plan: Appears euvolemic (6) Neuropathy due to type 2 diabetes mellitus: Code(s): E11.40 - Type 2 diabetes mellitus with diabetic neuropathy, unspecified Status: Acute Assessment and Plan: Blood glucose reviewed 02/04 Will attempt tight control due to current infection Plan DVT prophylaxis with SCDs GI prophylaxis not indicated Code status full code Subjective Date/time seen: 02/04/23 12:06 Interval history: 52-year-old female with history of diabetes, cerebral palsy, peripheral vascular disease is presenting with right lower extremity wound and being treated for infection. OR 02/04 for excisional debridement of infected right heel ulcer Review of Systems Review of Systems: In the OR Exam Narrative: Per surgery team Objective Data Vital Signs Vital Signs: Vital Signs - 24 hr 02/03/23 13:33 02/03/23 19:04 02/03/23 20:24 Temperature 98.0 F 98.2 F Pulse Rate 84 99 80 Respiratory Rate 19 16 12 Blood Pressure 129/50 L 152/76 H 140/75 Pulse Oximetry 99 100 98 Oxygen Delivery Room Air 02/03/23 21:16 02/04/23 01:22 02/03/23 22:00 Temperature 98.5 F Pulse Rate 77 84 Respiratory Rate 13 14 Blood Pressure 138/80 135/65 Pulse Oximetry 98 100 Oxygen Delivery Room Air 02/04/23 06:00 02/04/23 09:10 Temperature 98.4 F Pulse Rate 81 90 Respiratory Rate 14 Blood Pressure 148/70 H Pulse Oximetry 99 Oxygen Delivery Intake/Output Intake/Output: Intake & Output 02/02/23 02/02/23 02/03/23 02/04/23 00:59 23:59 23:59 23:59 Intake Total 400 470 Balance 400 470 Meds/Results Medications: Active Medications Generic Name Dose Route Start Last Admin Trade Name Kelley PRN Reason Stop Dose Admin Ascorbic Acid 500 mg 02/04/23 09:00 02/04/23 09:11 Ascorbic Acid 500 Mg Tablet PO 500 mg DAILY JENNIFER Administration Atorvastatin Calcium 80 mg 02/04/23 09:00 02/04/23 09:12 Atorvastatin 40 Mg Tablet PO 80 mg DAILY JENNIFER Administration Diltiazem HCl 180 mg 02/04/23 09:00 02/04/23 09:11 Diltiazem Hcl Cd 180 Mg Cap.24hr PO 180 mg DAILY JENNIFER Administration Famotidine 40 mg 02/04/23 21:00 Famotidine 20 Mg Tablet PO HS JENNIFER Gabapentin 300 mg 02/04/23 09:00 02/04/23 09:11
[2023-02-04 14:00] VITALS: BP 138/62; PULSE 88; RESP 16; TEMP 36.2; O2SAT 100
[2023-02-04 16:22] LABS: Glucose Point of Care 143 mg/dl (65-105)
[2023-02-04 19:52] LABS: Glucose Point of Care 204 mg/dl (65-105)
[2023-02-04 20:34] VITALS: PULSE 88
[2023-02-04] MEDS: FAMOTIDINE 20 MG TABLET 40 MG PO (20:34)
[2023-02-04] MEDS: CEFEPIME 2 GM/NS 50 ML 2 GM/50 ML BAG IVPB (20:34)
[2023-02-04] MEDS: INSULIN GLARGINE (*BKC) 100 UNITS/ML 10 UNITS SUB-Q (20:35)
[2023-02-04 22:00] VITALS: BP 133/67; PULSE 80; RESP 20; TEMP 36.3; O2SAT 100
[2023-02-05 06:00] VITALS: BP 123/62; PULSE 83; RESP 18; TEMP 36; O2SAT 96
[2023-02-05 06:06] LABS: Estimated CRCL calculation 28 ml/min; Estimated Glomerular Filt Rate 20
[2023-02-05] MEDS: metroNIDAZOLE 500 MG/ISO 100ML 500 MG/100 ML BAG 100 MG IVPB ×3 (06:09→21:53)
[2023-02-05 07:23] LABS: Glucose Point of Care 141 mg/dl (65-105)
[2023-02-05 07:53] LABS: Basophils Percent Auto 0.2 % (0.2-1.2); Eosinophils Absolute Auto 0.3 K/mm3 (0-0.3); Eosinophils Percent Auto 3.1 % (0-4.4); Hematocrit 25.1 % (37.0-47.0); Hemoglobin 7.2 g/dL (12.0-15.0); Immature Granulocyte Absolute 0.03 K/mm3 (0.00-0.031); Immature Granulocyte Percent A 0.3 % (0-0.5); Lymphocytes Percent Auto 23.7 % (18.3-44.2); Mean Corpuscular HGB Conc 28.7 g/dl (32-36); Mean Corpuscular Volume 90.6 fl (80-100); Mean Platelet Volume 11.5 fl (7.4-10.4); Monocytes Absolute Auto 0.6 K/mm3 (0.1-0.6); Monocytes Percent Auto 6.1 % (2.6-8.5); Neutrophils Absolute Auto 6.5 K/mm3 (1.3-6.7); Neutrophils Percent Auto 66.6 % (45.5-73.1); Platelet Count Result 331 k/mm3 (150-375); Red Blood Count 2.77 M/mm3 (4.2-5.4); Red Cell Distribution Width 15.6 % (11.5-14.5); White Blood Count 9.7 K/mm3 (4.5-10.0)
[2023-02-05 07:58] LABS: Alanine Aminotransferase 14 U/L (6-35); Albumin Level 2.9 g/dL (3.5-5.1); Alkaline Phosphatase 96 U/L (38-126); Anion Gap 8 mmol/L (8-16); Aspartate Amino Transferase 25 U/L (14-36); Bilirubin,Total 0.3 mg/dL (0.2-1.3); Blood Urea Nitrogen 47 mg/dL (7-17); Calcium 7.9 mg/dL (8.4-10.2); Carbon Dioxide 19 mmol/L (22-30); Chloride 114 mmol/L (98-107); Glucose 140 mg/dL (65-110); Magnesium 2.2 mg/dL (1.6-2.3); Phosphorus 4.8 mg/dL (2.5-4.5); Potassium 4.2 mmol/L (3.4-5.0); Sodium 141 mmol/L (137-145)
[2023-02-05 09:03] LABS: Large Platelets Present
[2023-02-05 09:04] LABS: Ovalocytes 1+ (NORMAL)
[2023-02-05 09:05] LABS: Schistocytes None Seen (NORMAL)
[2023-02-05 09:06] LABS: Anisocytosis 1+ (NORMAL)
[2023-02-05 09:08] LABS: Platelet Estimate Adequate (Adequate)
[2023-02-05] MEDS: SODIUM ZIRCONIUM CYCLOSILICATE 5 GM POWD.PACK 1 EACH PO (09:23)
[2023-02-05] MEDS: ATORVASTATIN 40 MG TABLET 80 MG PO (09:24)
[2023-02-05] MEDS: dilTIAZem HCL CD 180 MG CAP.24HR PO (09:24)
[2023-02-05] MEDS: GABAPENTIN 300 MG CAPSULE PO ×4 (09:24→20:35)
[2023-02-05] MEDS: ASCORBIC ACID 500 MG TABLET PO (09:24)
[2023-02-05 09:25] VITALS: PULSE 82
[2023-02-05] MEDS: METOPROLOL TARTRATE 50 MG TAB PO ×2 (09:25→20:35)
--- NOTE | 2023-02-05 10:58 | PM.IMPN ---
Progress Note: A&P Assessment and Plan (1) Cellulitis and abscess of right leg: Code(s): L03.115 - Cellulitis of right lower limb; L02.415 - Cutaneous abscess of right lower limb Status: Acute Assessment and Plan: Patient admitted for RLE cellulitis. She was started on cefepime, vanco and metronidazole as per diabetic foot ulcer antibiotic stewardship General surgery consult, OR 02/04 excisional debridement of infected regular ulcer X-ray negative for evidence of osteomyelitis. MAITE showing only mild arterial disease BCx NGTD Wound Cx growing Pseudomonas, EColi and Group B Strept Wound care consult. Continue current dressing changes Continue current abx. Narrow when able. (2) Acute kidney injury superimposed on chronic kidney disease: Code(s): N17.9 - Acute kidney failure, unspecified; N18.9 - Chronic kidney disease, unspecified Status: Acute Assessment and Plan: Patient has underlying CKD with Cr running 2-2.4. Cr on admission was 3.1. Losartan and bumetanide held. Was on IV fluids but now stopped Cr improving and down to 2.5 today. Continue to hold these medications. Allow for her to self hydrate Follow (3) Diabetic foot ulcer: Qualifiers: Diabetes mellitus type: type 2 Diabetic foot ulcer location: heel Laterality: right Non-pressure ulcer stage: unspecified non-pressure ulcer stage Qualified Code(s): E11.621 - Type 2 diabetes mellitus with foot ulcer; L97.419 - Non-pressure chronic ulcer of right heel and midfoot with unspecified severity Code(s): E11.621 - Type 2 diabetes mellitus with foot ulcer; L97.509 - Non-pressure chronic ulcer of other part of unspecified foot with unspecified severity Status: Acute Assessment and Plan: As above. Appreciate General surgery input (4) Nephrotic range proteinuria: Code(s): R80.9 - Proteinuria, unspecified Status: Acute Assessment and Plan: Likely secondary DM Resume ARB when able. (5) Diastolic heart failure: Code(s): I50.30 - Unspecified diastolic (congestive) heart failure Status: Acute Assessment and Plan: Appears euvolemic. Diuretic on hold. Resume diuretic when able (6) Diabetes: Code(s): E11.9 - Type 2 diabetes mellitus without complications Status: Acute Assessment and Plan: The patient's blood glucose was reviewed on 02/05/23 Glucose remains mostly well controlled. Continue AccuCheks covering with sliding scale. Hypoglycemia protocol available as needed. Continue to follow (7) Neuropathy due to type 2 diabetes mellitus: Code(s): E11.40 - Type 2 diabetes mellitus with diabetic neuropathy, unspecified Status: Acute Assessment and Plan: Stable. Continue Gabapentin. Plan DVT prophylaxis with SCDs GI prophylaxis not indicated Code status full code Dispo - Start PT/OT when okay with Surgery Subjective Date/time seen: 02/05/23 10:58 Interval history: 52-year-old female with history of diabetes, cerebral palsy, peripheral vascular disease is presenting with right lower extremity wound and being treated for infection. Patient had excisional debridement of infected right heel ulcer 01/04. Assuming care. Chart reviewed. Patient denies any chest pain or shortness of breath. No nausea or vomiting. No pain to the lower extremities felt related to neuropathy. Prior to admission she was progressing well with therapy and had been walking with a walker. Exam Narrative: AF 96.8 123/62 82 18 96% ra Gen - NARD Chest - CTA bilaterally, nml RR CV - RRR S1/S2 Abd - Soft, obese, NT Ext - right lateral calf dressing clean, dry and intact. Bilateral heal necrotic wounds. Psych - Nml mood and affect Skin - as above Objective Data Vital Signs Vital Signs: Vital Signs - 24 hr 02/04/23 14:00 02/04/23 20:34 02/04/23 22:00 Temperature 97.2 F L 97.4 F L Pulse Rate 88 88 80 Respirato
[2023-02-05 11:28] LABS: Glucose Point of Care 200 mg/dl (65-105)
--- NOTE | 2023-02-05 12:29 | PM.PNGS ---
Progress Note: A&P Assessment and Plan (1) Heel ulcer: Code(s): L97.409 - Non-pressure chronic ulcer of unspecified heel and midfoot with unspecified severity Status: Acute Assessment and Plan: S/p excisional debridement of the right heel ulcer yesterday. Continue local wound care with betadine swabs. Continue IV antibiotics. Wound cx growing pseudomonas aeruginosa, E coli, and group B strep. Elevate heels off bed. Okay to start PT/OT with toe-touch weight bearing and trying to keep any pressure off the heel wounds when transferring or ambulating. Plan I have discussed the patient's case and plan of care with Dr. Castaneda. Subjective Subjective Date/Time Seen: 02/05/23 12:29 Post Op day: 1 (Excisional debridement of right heel ulcer) Patient reports: afebrile Interval history: Patient doing well. No new complaints. Denies any pain. No acute events overnight. Exam Narrative: Bilateral heel ulcers with black eschar covering the wounds. Right heel ulcer with no surrounding erythema today, no odor, and no purulent drainage, dry eschar intact. Left heel ulcer unchanged. Const: General: comfortable and no acute distress Orientation/consciousness: patient oriented x3 Objective Data Vital Signs Vital Signs: Vital Signs - 24 hr 02/04/23 14:00 02/04/23 20:34 02/04/23 22:00 Temperature 97.2 F L 97.4 F L Pulse Rate 88 88 80 Respiratory Rate 16 20 Blood Pressure 138/62 133/67 Pulse Oximetry 100 100 02/05/23 06:00 02/05/23 09:25 Temperature 96.8 F L Pulse Rate 83 82 Respiratory Rate 18 Blood Pressure 123/62 Pulse Oximetry 96 Intake/Output Intake/Output: Intake & Output 02/02/23 02/03/23 02/04/23 02/05/23 23:59 23:59 23:59 23:59 Intake Total 400 1150 840 Balance 400 1150 840 Meds/Results Medications: Active Medications Generic Name Dose Route Start Last Admin Trade Name Freq PRN Reason Stop Dose Admin Ascorbic Acid 500 mg 02/04/23 09:00 02/05/23 09:24 Ascorbic Acid 500 Mg Tablet PO 500 mg DAILY JENNIFER Administration Atorvastatin Calcium 80 mg 02/04/23 09:00 02/05/23 09:24 Atorvastatin 40 Mg Tablet PO 80 mg DAILY JENNIFER Administration Diltiazem HCl 180 mg 02/04/23 09:00 02/05/23 09:24 Diltiazem Hcl Cd 180 Mg Cap.24hr PO 180 mg DAILY JENNIFER Administration Famotidine 40 mg 02/04/23 21:00 02/04/23 20:34 Famotidine 20 Mg Tablet PO 40 mg HS JENNIFER Administration Gabapentin 300 mg 02/04/23 09:00 02/05/23 11:59 Gabapentin 300 Mg Capsule PO 300 mg QID JENNIFER Administration Cefepime HCl 2 gm in 50 mls @ 100 mls/hr 02/04/23 20:00 02/04/23 20:34 Maxipime 2 Gm/Ns 50 Ml IVPB 100 mls/hr Q24H JENNIFER Administration Metronidazole 500 mg in 100 mls @ 100 mls/hr 02/04/23 06:00 02/05/23 07:09 Flagyl 500 Mg/Iso Soln 100 Ml IVPB Infused Q8HR JENNIFER Infusion Vancomycin HCl 1,500 mg in 500 mls @ 250 mls/hr 02/05/23 09:00 02/05/23 11:27 Vancomycin 1,500 Mg/D5w 500 Ml IVPB Infused Q36H JENNIFER Infusion Insulin Glargine 10 units 02/04/23 21:00 02/04/23 20:35 Insulin Glargine (*Bkc) 100 Units/Ml SUB-Q 10 units HS JENNIFER Administration Metoprolol Tartrate 50 mg 02/04/23 09:00 02/05/23 09:25 Metoprolol Tartrate 50 Mg Tab PO 50 mg Q12HR JENNIFER Administration Miscellaneous Information 0 each 02/04/23 00:01 Trulicity Nonform Can Pt Bring From Home? XX 03/06/23 00:00 [facility] Miscellaneous Information 0 each 02/04/23 00:01 Insulin Lispro Please Enter Using Sliding Scale Insulin Set XX 03/06/23 00:00 [facility]IFY JENNIFER Non-Formulary Medication 8 unit 02/04/23 08:30 Insulin Lispro [Admelog U-100 Insulin Lispro] SUB-Q 03/06/23 08:29 TIDWM JENNIFER Non-Formulary Medication 1.5 mg 02/04/23 09:00 Dulaglutide [Trulicity] SUB-Q 03/06/23 08:59 [facility] Sodium Zirconium 1 each 02/04/23 09:00 02/05/23 09:23 Cyclosilicate 5 Gm PO 1 each Powd.Pack DAILY JENNIFER Administration
[2023-02-05 14:00] VITALS: BP 120/54; PULSE 73; RESP 18; TEMP 36.7; O2SAT 97
[2023-02-05 16:42] LABS: Glucose Point of Care 176 mg/dl (65-105)
[2023-02-05 20:00] VITALS: O2SAT 97
[2023-02-05 20:32] LABS: Glucose Point of Care 192 mg/dl (65-105)
[2023-02-05 20:34] VITALS: BP 124/69; PULSE 82; RESP 15; TEMP 36.3; O2SAT 93
[2023-02-05 20:35] VITALS: PULSE 82
[2023-02-05] MEDS: CEFEPIME 2 GM/NS 50 ML 2 GM/50 ML BAG IVPB (20:35)
[2023-02-05] MEDS: FAMOTIDINE 20 MG TABLET 40 MG PO (20:35)
[2023-02-05] MEDS: INSULIN GLARGINE (*BKC) 100 UNITS/ML 10 UNITS SUB-Q (20:46)
[2023-02-06 04:33] VITALS: BP 118/59; PULSE 74; RESP 15; TEMP 36.6; O2SAT 97
[2023-02-06] MEDS: metroNIDAZOLE 500 MG/ISO 100ML 500 MG/100 ML BAG 100 MG IVPB (05:03)
[2023-02-06 05:58] LABS: Basophils Percent Auto 0.3 % (0.2-1.2); Eosinophils Absolute Auto 0.3 K/mm3 (0-0.3); Eosinophils Percent Auto 3.3 % (0-4.4); Hematocrit 24.8 % (37.0-47.0); Hemoglobin 7.2 g/dL (12.0-15.0); Immature Granulocyte Absolute 0.04 K/mm3 (0.00-0.031); Immature Granulocyte Percent A 0.4 % (0-0.5); Lymphocytes Absolute Auto 2.33 K/mm3 (0.9-3.2); Lymphocytes Percent Auto 22.3 % (18.3-44.2); Mean Corpuscular Hemoglobin 26.3 pg (26-34); Mean Corpuscular Volume 90.5 fl (80-100); Mean Platelet Volume 11.4 fl (7.4-10.4); Monocytes Absolute Auto 0.7 K/mm3 (0.1-0.6); Monocytes Percent Auto 6.9 % (2.6-8.5); Neutrophils Percent Auto 66.8 % (45.5-73.1); Platelet Count Result 324 k/mm3 (150-375); Red Blood Count 2.74 M/mm3 (4.2-5.4); Red Cell Distribution Width 15.6 % (11.5-14.5); White Blood Count 10.5 K/mm3 (4.5-10.0)
[2023-02-06 06:05] LABS: Albumin Level 2.9 g/dL (3.5-5.1); Anion Gap 6 mmol/L (8-16); Blood Urea Nitrogen 44 mg/dL (7-17); Calcium 7.9 mg/dL (8.4-10.2); Carbon Dioxide 20 mmol/L (22-30); Chloride 112 mmol/L (98-107); Estimated CRCL calculation 30 ml/min; Estimated Glomerular Filt Rate 22; Glucose 150 mg/dL (65-110); Magnesium 2.2 mg/dL (1.6-2.3); Phosphorus 4.6 mg/dL (2.5-4.5); Potassium 3.9 mmol/L (3.4-5.0); Sodium 138 mmol/L (137-145)
[2023-02-06 07:03] LABS: Anisocytosis 1+ (NORMAL); Hypochromasia 1+ (NORMAL); Platelet Estimate Adequate (Adequate)
[2023-02-06 07:04] LABS: Schistocytes None Seen (NORMAL)
[2023-02-06 07:41] LABS: Glucose Point of Care 148 mg/dl (65-105)
[2023-02-06] MEDS: dilTIAZem HCL CD 180 MG CAP.24HR PO (08:29)
[2023-02-06 08:30] VITALS: PULSE 75
[2023-02-06] MEDS: METOPROLOL TARTRATE 50 MG TAB PO ×2 (08:30→20:42)
[2023-02-06] MEDS: ASCORBIC ACID 500 MG TABLET PO (08:30)
[2023-02-06] MEDS: GABAPENTIN 300 MG CAPSULE PO ×4 (08:30→20:42)
[2023-02-06] MEDS: SODIUM ZIRCONIUM CYCLOSILICATE 5 GM POWD.PACK 1 EACH PO (08:30)
[2023-02-06] MEDS: ATORVASTATIN 40 MG TABLET 80 MG PO (08:30)
--- NOTE | 2023-02-06 08:43 | PM.PNGS ---
Progress Note: A&P Assessment and Plan (1) Heel ulcer: Code(s): L97.409 - Non-pressure chronic ulcer of unspecified heel and midfoot with unspecified severity Status: Acute Assessment and Plan: cont local wound care and pressure off loading, no further acute surgical indications at this time (2) Cellulitis and abscess of right leg: Code(s): L03.115 - Cellulitis of right lower limb; L02.415 - Cutaneous abscess of right lower limb Status: Acute Assessment and Plan: cont local wound care Subjective Subjective Date/Time Seen: 02/06/23 08:43 Interval history: no c/o, present for wound dressing change this am Review of Systems Review of Systems: All systems reviewed & are unremarkable except as noted in HPI and below Exam Const: General: cooperative, comfortable, no acute distress and ill appearing Resp: Auscultation: diminished lung sounds Cardio: Rate: regular rate Rhythm: regular rhythm GI: Inspection: normal to inspection Skin: Other: bilateral pressure wounds of heels - no s/s active infection, no tunneling, minimal s/s drainage R ruano ulcer - no s/s active infection, no tunneling, minimal s/s drainage Objective Data Vital Signs Vital Signs: Vital Signs - 24 hr 02/05/23 09:25 02/05/23 14:00 02/05/23 20:00 Temperature 36.7 C Pulse Rate 82 73 Respiratory Rate 18 Blood Pressure 120/54 L Pulse Oximetry 97 97 Oxygen Delivery Room Air 02/05/23 20:34 02/05/23 20:35 02/06/23 04:33 Temperature 36.3 C L 36.6 C Pulse Rate 82 82 74 Respiratory Rate 15 15 Blood Pressure 124/69 118/59 L Pulse Oximetry 93 97 Oxygen Delivery 02/06/23 08:30 Temperature Pulse Rate 75 Respiratory Rate Blood Pressure Pulse Oximetry Oxygen Delivery Intake/Output Intake/Output: Intake & Output 02/03/23 02/04/23 02/05/23 02/06/23 23:59 23:59 23:59 23:59 Intake Total 400 1200 1570 500 Output Total 1350 Balance 400 1200 1570 -850 Meds/Results Medications: Active Medications Generic Name Dose Route Start Last Admin Trade Name Freq PRN Reason Stop Dose Admin Ascorbic Acid 500 mg 02/04/23 09:00 02/06/23 08:30 Ascorbic Acid 500 Mg Tablet PO 500 mg DAILY JENNIFER Administration Atorvastatin Calcium 80 mg 02/04/23 09:00 02/06/23 08:30 Atorvastatin 40 Mg Tablet PO 80 mg DAILY JENNIFER Administration Diltiazem HCl 180 mg 02/04/23 09:00 02/06/23 08:29 Diltiazem Hcl Cd 180 Mg Cap.24hr PO 180 mg DAILY JENNIFER Administration Famotidine 40 mg 02/04/23 21:00 02/05/23 20:35 Famotidine 20 Mg Tablet PO 40 mg HS JENNIFER Administration Gabapentin 300 mg 02/04/23 09:00 02/06/23 08:30 Gabapentin 300 Mg Capsule PO 300 mg QID JENNIFER Administration Cefepime HCl 2 gm in 50 mls @ 100 mls/hr 02/04/23 20:00 02/05/23 21:08 Maxipime 2 Gm/Ns 50 Ml IVPB Infused Q24H JENNIFER Infusion Metronidazole 500 mg in 100 mls @ 100 mls/hr 02/04/23 06:00 02/06/23 05:03 Flagyl 500 Mg/Iso Soln 100 Ml IVPB 100 mls/hr Q8HR JENNIFER Administration Vancomycin HCl 1,500 mg in 500 mls @ 250 mls/hr 02/05/23 09:00 02/05/23 11:27 Vancomycin 1,500 Mg/D5w 500 Ml IVPB Infused Q36H JENNIFER Infusion Insulin Glargine 10 units 02/04/23 21:00 02/05/23 20:46 Insulin Glargine (*Bkc) 100 Units/Ml SUB-Q 10 units HS JENNIFER Administration Metoprolol Tartrate 50 mg 02/04/23 09:00 02/06/23 08:30 Metoprolol Tartrate 50 Mg Tab PO 50 mg Q12HR JENNIFER Administration Miscellaneous Information 0 each 02/04/23 00:01 Trulicity Nonform Can Pt Bring From Home? XX 03/06/23 00:00 [facility] Miscellaneous Information 0 each 02/04/23 00:01 Insulin Lispro Please Enter Using Sliding Scale Insulin Set XX 03/06/23 00:00 [facility] JENNIFER Non-Formulary Medication 8 unit 02/04/23 08:30 Insulin Lispro [Admelog U-100 Insulin Lispro] SUB-Q 03/06/23 08:29 TIDWM JENNIFER Non-Formulary Medication 1.5 mg 02/04/23 09:00
[2023-02-06 11:52] LABS: Glucose Point of Care 203 mg/dl (65-105)
[2023-02-06 14:00] VITALS: BP 133/66; PULSE 73; RESP 16; TEMP 36.2; O2SAT 100
[2023-02-06] MEDS: metroNIDAZOLE 250 MG TABLET 500 MG PO ×2 (14:14→22:29)
--- NOTE | 2023-02-06 14:38 | PM.IMPN ---
Progress Note: A&P Assessment and Plan (1) Cellulitis and abscess of right leg: Code(s): L03.115 - Cellulitis of right lower limb; L02.415 - Cutaneous abscess of right lower limb Status: Acute Assessment and Plan: Patient admitted for RLE cellulitis. She was started on cefepime, vanco and metronidazole as per diabetic foot ulcer antibiotic stewardship General surgery consulted and taken to the OR 02/04 for excisional debridement of infected right heel ulcer. X-ray negative for evidence of osteomyelitis. MAITE showing only mild arterial disease BCx NGTD Wound Cx growing Pseudomonas, EColi and Group B Strept. Sensitivities pending. Wound care consult. Continue current dressing changes Continue current abx except will stop Vanco. Narrow when able. (2) Acute kidney injury superimposed on chronic kidney disease: Code(s): N17.9 - Acute kidney failure, unspecified; N18.9 - Chronic kidney disease, unspecified Status: Acute Assessment and Plan: Patient has underlying CKD with Cr running 2-2.4. Cr on admission was 3.1. Losartan and bumetanide held. Was on IV fluids but now stopped Cr improving and down to 2.3. Serum bicarb better at 20 with normal gap Continue to hold these medications. Allow for her to self hydrate Follow (3) Diabetic foot ulcer: Qualifiers: Diabetes mellitus type: type 2 Diabetic foot ulcer location: heel Laterality: right Non-pressure ulcer stage: unspecified non-pressure ulcer stage Qualified Code(s): E11.621 - Type 2 diabetes mellitus with foot ulcer; L97.419 - Non-pressure chronic ulcer of right heel and midfoot with unspecified severity Code(s): E11.621 - Type 2 diabetes mellitus with foot ulcer; L97.509 - Non-pressure chronic ulcer of other part of unspecified foot with unspecified severity Status: Acute Assessment and Plan: As above. Appreciate General surgery input (4) Nephrotic range proteinuria: Code(s): R80.9 - Proteinuria, unspecified Status: Acute Assessment and Plan: Albumin 2.9. No UA but prior UA showing proteinuria at 2-3+ and Prot/Cr ration of 7.6gm. Likely secondary DM Resume ARB when able. (5) Diastolic heart failure: Code(s): I50.30 - Unspecified diastolic (congestive) heart failure Status: Acute Assessment and Plan: Appears euvolemic. Diuretic on hold. Resume diuretic when able (6) Diabetes: Code(s): E11.9 - Type 2 diabetes mellitus without complications Status: Acute Assessment and Plan: A1c 5.4 in September. The patient's blood glucose was reviewed on 02/06 Glucose remains mostly well controlled. Continue AccuCheks covering with sliding scale. Hypoglycemia protocol available as needed. Continue to follow. Check A1c (7) Neuropathy due to type 2 diabetes mellitus: Code(s): E11.40 - Type 2 diabetes mellitus with diabetic neuropathy, unspecified Status: Acute Assessment and Plan: Stable. Continue Gabapentin. Plan DVT prophylaxis with SCDs GI prophylaxis not indicated Code status full code Dispo - PT/OT started. Discharge once sensitivities returned Subjective Date/time seen: 02/06/23 14:38 Interval history: 52-year-old female with history of diabetes, cerebral palsy, peripheral vascular disease is presenting with right lower extremity wound and being treated for infection. Patient had excisional debridement of infected right heel ulcer 01/04. Feeling well. No CP or SOB. Eating well. No n/v. Exam Narrative: AF 97.2 133/66 73 16 100% ra Gen - NARD Chest - CTA bilaterally, nml RR CV - RRR S1/S2 Abd - Soft, obese, NT Ext - right lateral calf dressing stained with blood. Bilateral heal necrotic wounds. Psych - Nml mood and affect Skin - as above Objective Data Vital Signs Vital Signs: Vital Signs - 24 hr 02/05/23 20:00 02/05/23 20:34 02/05/23 20:35 Temperature 97.3 F L Pulse Rate
[2023-02-06 16:52] LABS: Glucose Point of Care 207 mg/dl (65-105)
[2023-02-06 20:35] VITALS: BP 146/64; PULSE 76; RESP 16; TEMP 36.2; O2SAT 100
[2023-02-06] MEDS: CEFEPIME 2 GM/NS 50 ML 2 GM/50 ML BAG IVPB (20:38)
[2023-02-06] MEDS: INSULIN GLARGINE (*BKC) 100 UNITS/ML 10 UNITS SUB-Q (20:40)
[2023-02-06] MEDS: FAMOTIDINE 20 MG TABLET 40 MG PO (20:42)
[2023-02-06 21:02] LABS: Glucose Point of Care 213 mg/dl (65-105)
[2023-02-07 04:52] VITALS: BP 137/59; PULSE 74; RESP 16; TEMP 36.3; O2SAT 98
[2023-02-07] MEDS: metroNIDAZOLE 250 MG TABLET 500 MG PO ×2 (05:49→14:02)
[2023-02-07 07:22] LABS: Basophils Percent Auto 0.3 % (0.2-1.2); Eosinophils Absolute Auto 0.4 K/mm3 (0-0.3); Eosinophils Percent Auto 3.2 % (0-4.4); Hematocrit 25.2 % (37.0-47.0); Hemoglobin 7.3 g/dL (12.0-15.0); Immature Granulocyte Absolute 0.06 K/mm3 (0.00-0.031); Immature Granulocyte Percent A 0.5 % (0-0.5); Lymphocytes Absolute Auto 2.44 K/mm3 (0.9-3.2); Lymphocytes Percent Auto 21.6 % (18.3-44.2); Mean Corpuscular Hemoglobin 25.8 pg (26-34); Mean Platelet Volume 11.5 fl (7.4-10.4); Monocytes Absolute Auto 0.7 K/mm3 (0.1-0.6); Monocytes Percent Auto 5.8 % (2.6-8.5); Neutrophils Absolute Auto 7.7 K/mm3 (1.3-6.7); Neutrophils Percent Auto 68.6 % (45.5-73.1); Platelet Count Result 345 k/mm3 (150-375); Red Blood Count 2.83 M/mm3 (4.2-5.4); Red Cell Distribution Width 15.4 % (11.5-14.5); White Blood Count 11.3 K/mm3 (4.5-10.0)
[2023-02-07 07:32] LABS: Anion Gap 8 mmol/L (8-16); Blood Urea Nitrogen 40 mg/dL (7-17); Calcium 8.1 mg/dL (8.4-10.2); Carbon Dioxide 22 mmol/L (22-30); Chloride 112 mmol/L (98-107); Estimated CRCL calculation 30 ml/min; Estimated Glomerular Filt Rate 22; Glucose 180 mg/dL (65-110); Potassium 4.2 mmol/L (3.4-5.0); Sodium 142 mmol/L (137-145)
[2023-02-07 07:35] LABS: Hemoglobin A1C 7.5 % (<5.7)
[2023-02-07 08:00] VITALS: PULSE 74; RESP 16; O2SAT 98
[2023-02-07 08:10] LABS: Anisocytosis 1+ (NORMAL); Hypochromasia 1+ (NORMAL); Platelet Estimate Adequate (Adequate); Schistocytes None Seen (NORMAL)
[2023-02-07] MEDS: METOPROLOL TARTRATE 50 MG TAB PO (08:34)
[2023-02-07] MEDS: GABAPENTIN 300 MG CAPSULE PO ×3 (08:34→17:26)
[2023-02-07] MEDS: ATORVASTATIN 40 MG TABLET 80 MG PO (08:34)
[2023-02-07] MEDS: dilTIAZem HCL CD 180 MG CAP.24HR PO (08:34)
[2023-02-07] MEDS: ASCORBIC ACID 500 MG TABLET PO (08:34)
[2023-02-07 08:42] LABS: Glucose Point of Care 163 mg/dl (65-105)
[2023-02-07] MEDS: SODIUM ZIRCONIUM CYCLOSILICATE 5 GM POWD.PACK 1 EACH PO (09:02)
[2023-02-07 11:57] LABS: Glucose Point of Care 190 mg/dl (65-105)
[2023-02-07] MEDS: INSULIN ASPART (*BKC) 100 UNITS/ML 8 UNITS SUB-Q ×2 (12:48→17:23)
[2023-02-07 14:00] VITALS: BP 117/51; PULSE 72; RESP 14; TEMP 37.2; O2SAT 97
--- NOTE | 2023-02-07 15:01 | PM.DS ---
DS: Admitting Diagnosis Discharge Date 02/07/23 Admitting Diagnosis Right leg cellulitis DS: Discharge Diagnosis Discharge Diagnosis (1) Cellulitis and abscess of right leg: Code(s): L03.115 - Cellulitis of right lower limb; L02.415 - Cutaneous abscess of right lower limb Status: Acute (2) Acute kidney injury superimposed on chronic kidney disease: Code(s): N17.9 - Acute kidney failure, unspecified; N18.9 - Chronic kidney disease, unspecified Status: Acute (3) Diabetic foot ulcer: Qualifiers: Diabetes mellitus type: type 2 Diabetic foot ulcer location: heel Laterality: right Non-pressure ulcer stage: unspecified non-pressure ulcer stage Qualified Code(s): E11.621 - Type 2 diabetes mellitus with foot ulcer; L97.419 - Non-pressure chronic ulcer of right heel and midfoot with unspecified severity Code(s): E11.621 - Type 2 diabetes mellitus with foot ulcer; L97.509 - Non-pressure chronic ulcer of other part of unspecified foot with unspecified severity Status: Acute (4) Nephrotic range proteinuria: Code(s): R80.9 - Proteinuria, unspecified Status: Acute (5) Diastolic heart failure: Code(s): I50.30 - Unspecified diastolic (congestive) heart failure Status: Acute (6) Diabetes: Code(s): E11.9 - Type 2 diabetes mellitus without complications Status: Acute (7) Neuropathy due to type 2 diabetes mellitus: Code(s): E11.40 - Type 2 diabetes mellitus with diabetic neuropathy, unspecified Status: Acute DS: Summary Hospital Course Reason for hospitalization: 52-year-old female with history of diabetes, cerebral palsy, peripheral vascular disease is presenting with right lower extremity wound and being treated for infection.?Please see H&P for details. Hospital Course: Patient admitted for RLE cellulitis. She was started on cefepime, vancomycin and metronidazole as per diabetic foot ulcer antibiotic stewardship. General surgery consulted and taken to the OR 02/04 for excisional debridement of infected right heel ulcer. X-ray was negative for evidence of osteomyelitis. MAITE showing only mild arterial disease. BCx NGTD. Wound Cx grew Pseudomonas, EColi and Group B Strept that all were pansensitive. Wound care consulted. She did have DONNA on admission with Cr 3.1. Patient has underlying CKD with Cr running 2-2.4. Losartan and bumetanide held. She was on IV fluids but now stopped. Cr improving and down to 2.3. Serum bicarb better at 22 with normal gap. Albumin 2.9. No UA but prior UA showing proteinuria at 2-3+ and Prot/Cr ration of 7.6gm. Likely secondary DM. A1c 7.5. The patient's blood glucose was monitored closely with AccuCheks covering with sliding scale.? Hypoglycemia protocol was available as needed.?She did well. She worked with therapy. She was able to be discharged on 02/07/23 Status at Discharge Cognitive/behavioral status at discharge: stable Time Spent with Patient Time attestation: Total time spent providing and/or coordinating discharge services: 34 minutes Time spent: Greater than 30 minutes Exam Narrative: AF 98.9 117/51 72 14 97% ra Gen - NARD Chest - CTA bilaterally, nml RR CV - RRR S1/S2 Abd - Soft, obese, NT Ext - right lateral calf dressing clean and dry. Bilateral heal necrotic wounds. Psych - Nml mood and affect Skin - as above DS: Data Data Completed and Pending Labs on day of discharge: Labs from last 24 hours 02/07/23 02/07/23 02/07/23 11:51 07:59 06:30 WBC 11.3 H RBC 2.83 L Hgb 7.3 L Hct 25.2 L MCV 89.0 MCH 25.8 L MCHC 29.0 L RDW 15.4 H Plt Count 345 MPV 11.5 H Immature Gran % (Auto) 0.5 Neut % (Auto) 68.6 Lymph % (Auto) 21.6 Louisa % (Auto) 5.8 Eos % (Auto) 3.2 Baso % (Auto) 0.3 Lymph # (Auto) 2.44 [place] # (Auto) 0.7 H Eos # (Auto) 0.4 H Baso # (Auto) 0.0 Abs Immat Gran (auto) 0.06 H Absolute Neuts (au
[2023-02-07 16:44] LABS: Glucose Point of Care 168 mg/dl (65-105)
== END 2023-02-07 18:23 | DRG 380 ==
LOC: ANHED 20:24 → ANH3MEDSUR 20:35
PROVIDERS: Nurse Practitioner Family; Admitting Provider Internal Medicine; Emergency Provider Physician Assistant; PCP Internal Medicine; Visit Provider Internal Medicine
DX: E11.628 Type 2 diabetes mellitus with other skin complications (principal); L97.429 Non-pressure chronic ulcer of left heel and midfoot with unspecified severity; L97.419 Non-pressure chronic ulcer of right heel and midfoot with unspecified severity; N17.9 Acute kidney failure, unspecified; E11.22 Type 2 diabetes mellitus with diabetic chronic kidney disease; L02.415 Cutaneous abscess of right lower limb; I13.0 Hypertensive heart and chronic kidney disease with heart failure and stage 1 through stage 4 chronic kidney disease, or unspecified chronic kidney disease; I50.32 Chronic diastolic (congestive) heart failure; I69.354 Hemiplegia and hemiparesis following cerebral infarction affecting left non-dominant side; E11.42 Type 2 diabetes mellitus with diabetic polyneuropathy; E11.319 Type 2 diabetes mellitus with unspecified diabetic retinopathy without macular edema; E11.621 Type 2 diabetes mellitus with foot ulcer; B95.1 Streptococcus, group B, as the cause of diseases classified elsewhere; B96.5 Pseudomonas (aeruginosa) (mallei) (pseudomallei) as the cause of diseases classified elsewhere; N18.4 Chronic kidney disease, stage 4 (severe); L03.115 Cellulitis of right lower limb; B96.20 Unspecified Escherichia coli [E. coli] as the cause of diseases classified elsewhere; G80.9 Cerebral palsy, unspecified; I73.9 Peripheral vascular disease, unspecified; E78.5 Hyperlipidemia, unspecified; D64.9 Anemia, unspecified; H40.9 Unspecified glaucoma; Z79.82 Long term (current) use of aspirin; Z79.4 Long term (current) use of insulin; Z90.710 Acquired absence of both cervix and uterus; Z90.722 Acquired absence of ovaries, bilateral; E66.01 Morbid (severe) obesity due to excess calories; Z68.42 Body mass index [BMI] 45.0-49.9, adult; Z89.422 Acquired absence of other left toe(s)
CPT/HCPCS: 36415; 73630; 80048; 80053; 80069; 82565; 82948; 83036; 83605; 83735; 84100; 85025; 85652; 86140; 87040; 87070; 87077; 87147; 87186; 87205; 93922; 96365; 96366; 96367; 97161; 97165; 99285; A9270; G0378; G0379; J0692; J1815; J1836; J3370